=== PATIENT | male | born 1965 | race Caucasian/White ===

== ENCOUNTER → 2017-05-26 06:09 | Outpatient (CLI) | payer OTHER, SELFPAY ==
--- NOTE | 2017-05-26 13:18 | STRESSREP ---
Stress Test Report Date: 05/26/2017 Procedure: Exercise tolerance test/nuclear imaging study Indications: CAD; PCI; ischemic mediated cardiomyopathy Consent: Per the patient Procedure: The patient exercised on a Yoan protocol for 12 minutes completing stage IV achieving a peak heart rate of 160 bpm (93% predicted maximal heart rate) with a peak blood pressure 180/70 mmHg and a peak MET capacity of 13 MET's. The baseline ECG demonstrated sinus bradycardia. The peak exercise ECG demonstrated approximately 0.[address] segment depression in leads II, III, aVF, and V5 through V6 with resolution towards baseline beginning less than 1 minute in recovery. There were rare to occasional PVCs during exercise and a rare PVC during recovery. The functional capacity was considered good. The patient had no complaint of chest discomfort during exercise or recovery. The examination was discontinued secondary to completion of protocol. Impression: 1. Technically adequate (percent predicted maximal heart rate greater than 85%) exercise tolerance test 2. Peak exercise ECG with approximately 0.[address] segment depression in leads II, III, aVF, and V5 through V6 with resolution towards baseline beginning less than 1 minute in recovery 3. Rare to occasional PVC during exercise and rare PVC during recovery 4. Nuclear images pending Myocardial perfusion imaging study: Technique: The patient was injected with 11.7 mCi of technetium 99m Cardiolite and subsequently rest SPECT Cardiolite nuclear imaging was obtained in the horizontal long, vertical long, and short axis views. The patient exercised on a Yoan protocol for 12 minutes completing stage IV achieving a peak heart rate of 160 bpm (93% predicted maximal heart rate) with a peak blood pressure 180/70 mmHg and a peak MET capacity of 13 MET's the patient was injected with 33.5 mCi of technetium 99m Cardiolite and subsequently stress SPECT Cardiolite nuclear imaging was obtained in the horizontal long, vertical long, and short axis views. A gated Cardiolite study at peak stress was obtained. Interpretation: Rest and stress SPECT Cardiolite nuclear imaging status post realignment, normalization, and attenuation correction, demonstrates the appearance of subtle decreased tracer uptake in portions of the mid anterior/anteroseptal segments without significant change between rest and stress. Status post stress there is notation of subtle diminished tracer uptake near the distal anterior/anterior apical segments. There are similar type findings on the resting and stress polar map images. There is finished end systolic thickening and brightening in the distal anterior/anteroapical segments. The gated Cardiolite study demonstrates myocardial thickening and inward wall motion. The reported LVEF is 58%. Impression: 1. Rest and stress SPECT cardio light nuclear imaging demonstrate myocardial perfusion changes compatible with a small area of stress-induced myocardial ischemia involving portions of the distal anterior/anterior apical segments. 2. The gated Cardiolite study reports an LVEF of 58%. This note was generated with [employer] software. It may contain incorrect words, spelling, and punctuation that were not noted in checking the note before signing.
--- NOTE | 2017-05-26 13:29 | STRESSREP_ITS ---
Stress Test Report Date: 05/26/2017 Procedure: Exercise tolerance test/nuclear imaging study Indications: CAD; PCI; ischemic mediated cardiomyopathy Consent: Per the patient Procedure: The patient exercised on a Yoan protocol for 12 minutes completing stage IV achieving a peak heart rate of 160 bpm (93% predicted maximal heart rate) with a peak blood pressure 180/70 mmHg and a peak MET capacity of 13 MET's. The baseline ECG demonstrated sinus bradycardia. The peak exercise ECG demonstrated approximately 0.[address] segment depression in leads II , III, aVF, and V5 through V6 with resolution towards baseline beginning less than 1 minute in recovery. There were rare to occasional PVCs during exercise and a rare PVC during recovery. The functional capacity was considered good. The patient had no complaint of chest discomfort during exercise or recovery. The examination was discontinued secondary to completion of protocol. Impression: 1. Technically adequate (percent predicted maximal heart rate greater than 85% ) exercise tolerance test 2. Peak exercise ECG with approximately 0.[address] segment depression in leads II, III, aVF, and V5 through V6 with resolution towards baseline beginning less than 1 minute in recovery 3. Rare to occasional PVC during exercise and rare PVC during recovery 4. Nuclear images pending Myocardial perfusion imaging study: Technique: The patient was injected with 11.7 mCi of technetium 99m Cardiolite and subsequently rest SPECT Cardiolite nuclear imaging was obtained in the horizontal long, vertical long, and short axis views. The patient exercised on a Yoan protocol for 12 minutes completing stage IV achieving a peak heart rate of 160 bpm (93% predicted maximal heart rate) with a peak blood pressure 180/70 mmHg and a peak MET capacity of 13 MET's the patient was injected with 33.5 mCi of technetium 99m Cardiolite and subsequently stress SPECT Cardiolite nuclear imaging was obtained in the horizontal long, vertical long, and short axis views. A gated Cardiolite study at peak stress was obtained. Interpretation: Rest and stress SPECT Cardiolite nuclear imaging status post realignment, normalization, and attenuation correction, demonstrates the appearance of subtle decreased tracer uptake in portions of the mid anterior/anteroseptal segments without significant change between rest and stress. Status post stress there is notation of subtle diminished tracer uptake near the distal anterior/anterior apical segments. There are similar type findings on the resting and stress polar map images. There is finished end systolic thickening and brightening in the distal anterior/anteroapical segments. The gated Cardiolite study demonstrates myocardial thickening and inward wall motion. The reported LVEF is 58%. Impression: 1. Rest and stress SPECT cardio light nuclear imaging demonstrate myocardial perfusion changes compatible with a small area of stress-induced myocardial ischemia involving portions of the distal anterior/anterior apical segments. 2. The gated Cardiolite study reports an LVEF of 58%. This note was generated with [employer] software. It may contain incorrect words, spelling, and punctuation that were not noted in checking the note before signing.
== END ==
PROVIDERS: Visit Provider Internal Medicine Cardiovascular Disease
DX: I25.810 Atherosclerosis of coronary artery bypass graft(s) without angina pectoris (principal); Z95.5 Presence of coronary angioplasty implant and graft
CPT/HCPCS: 78452; 93017; A9500; A4216

== ENCOUNTER → 2017-05-29 13:05 | Outpatient (CLI) | payer OTHER, SELFPAY ==
--- NOTE | 2017-05-29 13:26 | RAD_ITS ---
STUDY: X-RAY CHEST REASON FOR EXAM: Male, 51 years old. Coronary artery disease. TECHNIQUE: PA and lateral views of the chest. COMPARISON: Comparison is made with prior study dated June 02, 2014. FINDINGS: The lungs are clear and expanded. There is no demonstrated pleural abnormality. Normal size heart. Normal mediastinum and iris. Normal visualized pulmonary arteries. Normal visualized aortic arch and descending thoracic aorta. Normal visualized thoracic spine. Normal visualized ribs, clavicles, and shoulders. There is no demonstrated abnormality of the visualized soft tissue structures of the upper abdomen. RAD/Chest PA and Lateral IMPRESSION: Normal x-ray examination of the chest. Electronically Signed: Sandro Aguilar MD at 14:20 EST Tel [phone], Service support ,
[2017-05-29 14:27] LABS: Absolute Lymphocyte Count 1.55 X10^3/ul (0.83-4.51); Absolute Neutrophil Count 2.4 X10^3/uL (2.0-7.7); Basophil# 0.03 X10^3/uL; Basophil% 0.7 % (0-1); Eosinophil# 0.18 X10^3/uL; Hematocrit 41.8 % (40-54); Hemoglobin 14.6 g/dl (13.0-16.5); Lymphocyte # 1.55 X10^3/ul (4.0); Lymphocyte % 34.5 % (19-41); Mean Corp Hgb Conc 34.9 g/gl (32-36); Mean Corpuscular Hgb 29.3 pg (27.0-32.0); Mean Corpuscular Volume 83.8 fL (80-94); Monocyte# 0.32 X10^3/uL; Monocyte% 7.1 % (0-10); Neutrophil % 53.5 % (47-70); Platelet Count 179 K/mm3 (150-450); RBC Distribution Width CV 13.1 % (11.6-14.6); RBC Distribution Width SD 39.6 fl (35.1-43.9); Red Blood Count 4.99 M/mm3 (4.6-6.2); White Blood Count 4.5 K/mm3 (4.4-11.0)
[2017-05-29 14:30] LABS: POSITIVE COUNT NO; POSITIVE DIFFERENTIAL NO; POSITIVE MORPHOLOGY NO
[2017-05-29 14:33] LABS: International Normalized Ratio 1.1; Partial Thromboplast Time 29.7 Seconds (24.1-36.2); Prothrombin Time (Protime)PT. 13.4 SECONDS (11.7-14.9)
[2017-05-29 15:10] LABS: Anion Gap 7 (5-15); BUN 12 mg/dL (7-18); BUN/Creat Ratio 13.5 RATIO (10-20); Calcium,Total 8.6 mg/dL (8.5-10.1); Chloride 102 mmol/L (98-107); Creatinine, Serum 0.89 mg/dL (0.70-1.30); EST Glomerular Filtration Rate 97 mL/min (>60); Est Glom Filt Rate - Afr Amer 117 mL/min (>60); Glucose 187 mg/dL (74-106); Potassium 3.7 mmol/L (3.5-5.1); Sodium Level 137 mmol/L (136-145)
== END ==
PROVIDERS: Nurse Practitioner Family; Visit Provider Internal Medicine Cardiovascular Disease
DX: I25.10 Atherosclerotic heart disease of native coronary artery without angina pectoris (principal); I25.5 Ischemic cardiomyopathy; R42 Dizziness and giddiness; E78.5 Hyperlipidemia, unspecified; R00.1 Bradycardia, unspecified; R94.39 Abnormal result of other cardiovascular function study
CPT/HCPCS: 36415; 71046; 80048; 85025; 85610; 85730

== ENCOUNTER 2017-06-01 06:59 | Day surgery (SDC) | payer OTHER, SELFPAY ==
[2017-06-01] VITALS (33 sets, daily range): BP systolic 102–157; BP diastolic 59–101; PULSE 39–62; RESP 11–17; TEMP 36.6–36.8; O2SAT 96–100; BMI 26.6; BMI 28.3; BMI 26.2
[2017-06-01 09:46] LABS: ACT Activated Clotting Time 208 sec (74-137)
--- NOTE | 2017-06-01 09:49 | CL.I_ITS ---
Patient Name: JAYDON ARELLANO Study Date: 06/01/2017 Performing: Wilian Dean MD Ht: 72 inches 183 cm : 1965 Wt: 196.5 lbs 89 kg Age: 51 Gender: male BSA: 2.11 PROCEDURE(S) PERFORMED [id number] W OR WO PTCA, SINGLE CORONARY ARTERY CLINICAL PROFILE AND CO-MORBIDITIES CONCLUSIONS Successful PTCA/LONNY of the mid LAD with a 2.5 x 20 Promus Synergy; 75%-->0%, no dissection. RECOMMENDATIONS Highly recommend quitting all tobacco products Follow up with primary veterinary technologist Risk factor modification ASA Indefinitley Plavix for at least 12 months Routine post interventional care Refer for Outpatient Cardiac Rehab Manual sheath removal per protocol Follow up with Dr. Dotson DESCRIPTION OF PROCEDURE The patient arrived to the procedure lab. The risks and benefits of the procedure as well as a full d escription of our services here and current unavailability of surgical backup were fully explained to the patient and/or their significant other prior to the catheterization. The Timeout was completed, verifying the correct patient and procedure. The patient's procedural site was prepped and draped in the usual fashion. Local anesthetic was given subcutaneously to right groin region with Lidocaine 2% Using a modified Seldinger technique,arterial access was obtained via the right femoral artery, a 4Fr sheath was inserted Left Coronary Artery selective angiography was performed in multiple views using a 4 Fr. JL5 catheter. Right Coronary Artery selective angiography was then performed in multiple vie ws using a 4 Fr. 3DRC catheter. Left Ventriculography was performed in GONZALES projection using a 4 Fr. P igtail catheter. LV to AO pullback pressures were then recorded.The images were reviewed and options discussed. A decision was then made to proceed with an Intervention, IVUS or other adjunct procedure. Arterial sheath was exchanged for a 6 Fr Sheath EBU 3.5 Guide catheter was inserted and engaged into the LCA. [place] Guide wire was advanced to the LAD. 2.5 by 20 synergy Drug Eluting stent was inser myrna Drug Eluting stent was advanced across the lesion in the LAD, mid. NC 3.0 by 8 Balloon catheter w as inserted post stent.. . The arterial sheath was sutured in place and capped. INTERVENTION INFORMATION LESION SITE: LAD (Mid) Lesion Complexity: High/C, thrombus present: No, culprit lesion: Yes, In-stent restenosis: No Pre Stenosis: 75 % Pre intervention CELE flow: 3 PROCEDURE: Drug Eluting Stent with pre and post dilatation Post Stenosis: 0 % Post intervention CELE flow: 3 Lesion Devices: Bauer .014 BMW [place] Straight 190cm Medtronic 6 Fr EBU3.5 100cm Guide Catheter Jeb Sci Synergy MR LONNY 2.50x20 Jeb Sci NC EMERGE MR 3.00x08 BALLOON COMPLICATIONS No Complications PROCEDURE MEDICATIONS Versed 1 mg IV Oxygen: 2 L/min via nasal cannula Heparin 6000 unit(s) IV 06/01/2017 09:15:09 Nitro 200 mcg IC 06/01/2017 09:17:34 Nitro 200 mcg IC 06/01/2017 09:17:34 Plavix 75 mg PO 06/01/2017 07:43:03 IV Fluids: .9 NaCl increased to wide open ml/hr 06/01/2017 09:17:27 SUMMARY OF HEMODYNAMIC DATA Time AIR REST ECG 07:25:20 AO 124/81 (101) SA 08:48:25 LV 127/10, 32 08:55:35 LV 129/8, 31 08:55:42 LV 120/9, 29 08:56:32 LV 123/9, 30 08:56:38 LVp 125/8, 29 08:56:48 AOp 126/72 (94) 08:56:53 AO 137/78 (101) 09:06:13 AO 133/70 (98) 09:16:12 Signed By Wilian Dean MD On 06/01/2017 09:49:02 Wilian Dean MD
--- NOTE | 2017-06-01 09:54 | EKG12_ITS ---
Test Reason : PCI Blood Pressure : / mmHG Vent. Rate : 044 BPM Atrial Rate : 044 BPM P-R Int : 178 ms QRS Dur : 102 ms QT Int : 472 ms P-R-T Axes : 061 072 061 degrees QTc Int : 403 ms Marked sinus bradycardia Abnormal ECG When compared with ECG of 11-JUN-2008 05:46, Criteria for Anterior infarct are no longer Present T wave amplitude has increased in Anterior leads Confirmed by SLOAN KUO ([id number]), writer editor SANTOS RUSSO ([id number]) on 06/04/2017 3:14:50 PM Referred By: Jareth Dotson Confirmed By:SLOAN KUO
--- NOTE | 2017-06-01 10:27 | CL.D_ITS ---
Patient Name: JAYDON ARELLANO Study Date: 06/01/2017 Performing: Jareth Dotson MD Ht: 72 inches 183 cm : 1965 Wt: 196.5 lbs 89 kg Age: 51 Gender: male BSA: 2.11 PROCEDURE(S) PERFORMED [id number]/COR/LV [id number] W OR WO PTCA, SINGLE CORONARY ARTERY CLINICAL PROFILE AND INDICATIONS INDICATIONS: Stable Angina CCS Class III Stress/Imaging Stress Test w/SPECT MPI: Yes Result: PositiveStress Test with SPECT MPI: Positive Angina Classification Anginal Classification w/in 2 Weeks: CCS III CAD Presentations: Stable angina. CONCLUSIONS Elevated Left Ventricular End Diastolic Pressure Segmented LV systolic dysfunction- Mild LVEF: by LV gram 45 % [place] Multivessel CAD (especially the LAD) RECOMMENDATIONS Risk factor modification Medical therapy Referred for immediate PCI of the LAD DESCRIPTION OF PROCEDURE The patient arrived to the procedure lab. The risks and benefits of the procedure as well as a full d escription of our services here and current unavailability of surgical backup were fully explained to the patient and/or their significant other prior to the catheterization. The Timeout was completed, verifying the correct patient and procedure. The patient's procedural site was prepped and draped in the usual fashion. Local anesthetic was given subcutaneously to right groin region with Lidocaine 2%. Using a modified Seldinger technique, arterial access was obtained via the right femoral artery, a 4 Fr sheath was inserted Left Coronary Artery selective angiography was performed in multiple views us ing a 4 Fr. JL5 catheter. Right Coronary Artery selective angiography was then performed in multiple views using a 4 Fr. 3DRC catheter. Left Ventriculography was performed in GONZALES projection using a 4 Fr . Pigtail catheter. LV to AO pullback pressures were then recorded.The arterial sheath was sutured in place and capped CORONARY ANGIOGRAPHY DOMINANCE: Right Dominant LEFT HEART ASSESSMENT Left Ventricular Ejection Fraction: by LV Gram 45 % Anterior Hypokinesis. Apical Hypokinesis Elevated Left Ventricular End Diastolic Pressure LVEDP: 32 mmHg LEFT MAIN: Angiographically normal LEFT ANTERIOR DECENDING ARTERY: PROX LAD: Previously placed stent is patent MID LAD: Previously placed stent is patent with distal irregular hazy 25% stenosis, Distal the to the Mid LAD stent: Smooth Concentric 85 % Stenosis CIRCUMFLEX ARTERY: Mild luminal irregularities RIGHT CORONARY ARTERY: Mild luminal irregularities PROX RCA: Eccentric: 10-25 % Stenosis MID RCA: Eccentric: 10-25 % Stenosis VALVE FINDINGS: Normal Aortic Valve function Normal Mitral Valve function AORTIC ROOT: Angiographically normal COMPLICATIONS No Complications PROCEDURE MEDICATIONS Versed 1 mg IV Oxygen: 2 L/min via nasal cannula Heparin 6000 unit(s) IV 06/01/2017 09:15:09 Nitro 200 mcg IC 06/01/2017 09:17:34 Nitro 200 mcg IC 06/01/2017 09:17:34 Plavix 75 mg PO 06/01/2017 07:43:03 IV Fluids: .9 NaCl increased to wide open ml/hr 06/01/2017 09:17:27 SUMMARY OF HEMODYNAMIC DATA Time AIR REST ECG 07:25:20 AO 124/81 (101) SA 08:48:25 LV 127/10, 32 08:55:35 LV 129/8, 31 08:55:42 LV 120/9, 29 08:56:32 LV 123/9, 30 08:56:38 LVp 125/8, 29 08:56:48 AOp 126/72 (94) 08:56:53 AO 137/78 (101) 09:06:13 AO 133/70 (98) 09:16:12 Signed By Jareth Dotson MD On 06/01/2017 10:26:26 Jareth Dotson MD
[2017-06-01 10:40] LABS: Absolute Lymphocyte Count 2.03 X10^3/ul (0.83-4.51); Absolute Neutrophil Count 1.7 X10^3/uL (2.0-7.7); Basophil# 0.02 X10^3/uL; Basophil% 0.5 % (0-1); Eosinophil# 0.22 X10^3/uL; Eosinophils% 5.1 % (0-5); Hematocrit 37.4 % (40-54); Hemoglobin 13.6 g/dl (13.0-16.5); Lymphocyte # 2.03 X10^3/ul (4.0); Lymphocyte % 47.3 % (19-41); Mean Corp Hgb Conc 36.4 g/gl (32-36); Mean Corpuscular Volume 82.6 fL (80-94); Mean Platelet Vol. 10.8 fl (6.2-12.0); Monocyte# 0.35 X10^3/uL; Monocyte% 8.2 % (0-10); Neutrophil # 1.67 X10^3/uL (2.7-7.7); Neutrophil % 38.9 % (47-70); Platelet Count 156 K/mm3 (150-450); RBC Distribution Width CV 12.9 % (11.6-14.6); RBC Distribution Width SD 38.4 fl (35.1-43.9); Red Blood Count 4.53 M/mm3 (4.6-6.2); White Blood Count 4.3 K/mm3 (4.4-11.0)
[2017-06-01 10:52] LABS: CPK Total, Creatine Kinase 124 U/L (39-308); POSITIVE COUNT NO; POSITIVE DIFFERENTIAL NO; POSITIVE MORPHOLOGY NO
[2017-06-01] MEDS: 0.9% Normal Saline 1,000 ML 150 ML IV (11:02)
--- NOTE | 2017-06-01 11:10 | NURSING ---
pt blood sugar 113 per patients pump
--- NOTE | 2017-06-01 11:41 | NURSING ---
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 Dean was aware of hematoma with sheath in place no changes to orders
--- NOTE | 2017-06-01 11:50 | CRPHASE1 ---
Patient Data/Charges Former Patient:: Phase II Micro Paleontologist:: Wilian Dean Refer Phase II:: Yes Phase II Referral:: [facility] Start Phase II:: After follow up visit with Micro Paleontologist Phase I Charge:: Level I - Education Risk Factors/Lifestyle Smoking Status: Former smoker Hx Hypertension: Yes Hx Diabetes Mellitus Type 1: Yes Hx Dyslipidemia: Yes Hx Obesity: Yes Height: 1.83 m Weight:: 87.9 kg BMI: 26.2 Family History: Family History (Last Reviewed 05/29/17 @ 15:15 by Hanna Ariza) Father CAD (coronary artery disease) Sister Hyperlipidemia Family History: High Cholesterol, Heart Disease Past Cardiac Illness: Ejection Fraction, Coronary Artery Disease, Previous PCI w/Stent, Other - Cardiac Arrest 2007, Cardiomyopathy Phase I Education Given On:: [place], Nutrition, Antiplatelet medication, CHF, Diabetes - Type I Issues Affecting Care:: None Knowledge of Condition:: Yes Learning Preferences: Verbal, Written, Audio/Visual, Demonstration Hospital Course Presenting Symptoms:: Abnormal stress test Medical/Surgical History [place]:: Yes CAD:: Yes Cardiomyopathy:: Yes Diabetes Type I:: Yes Hypertension:: Yes Dyslipidemia:: Yes Discharge/Home/Social Eval Exercise/Recreation/Interests:: pt previously did CR Ph 2 in 2006 and 2007.
[2017-06-01 11:51] LABS: ACT Activated Clotting Time 153 sec (74-137)
--- NOTE | 2017-06-01 11:55 | CRPHASE1_ITS ---
Patient Data/Charges Former Patient:: Phase II Accounts Payable Coordinator:: Wilian Dean Refer Phase II:: Yes Phase II Referral:: [facility] Start Phase II:: After follow up visit with Accounts Payable Coordinator Phase I Charge:: Level I - Education Risk Factors/Lifestyle Smoking Status: Former smoker Hx Hypertension: Yes Hx Diabetes Mellitus Type 1: Yes Hx Dyslipidemia: Yes Hx Obesity: Yes Height: 1.83 m Weight:: 87.9 kg BMI: 26.2 Family History: Family History (Last Reviewed 05/29/17 @ 15:15 by Hanna Ariza) Father CAD (coronary artery disease) Sister Hyperlipidemia Family History: High Cholesterol, Heart Disease Past Cardiac Illness: Ejection Fraction, Coronary Artery Disease, Previous PCI w /Stent, Other - Cardiac Arrest 2007, Cardiomyopathy Phase I Education Given On:: [place], Nutrition, Antiplatelet medication, CHF, Diabetes - Type I Issues Affecting Care:: None Knowledge of Condition:: Yes Learning Preferences: Verbal, Written, Audio/Visual, Demonstration Hospital Course Presenting Symptoms:: Abnormal stress test Medical/Surgical History [place]:: Yes CAD:: Yes Cardiomyopathy:: Yes Diabetes Type I:: Yes Hypertension:: Yes Dyslipidemia:: Yes Discharge/Home/Social Eval Exercise/Recreation/Interests:: pt previously did CR Ph 2 in 2006 and 2007.
--- NOTE | 2017-06-01 11:56 | CRPH1.INSTRU ---
General Education CAD and cardiac anatomy and function:: Patient communicates acknowledgment Explanation of diagnoses and procedures:: Patient communicates acknowledgment Sign/Symptoms of [place]:: Patient communicates acknowledgment Antiplatelet therapy: Patient communicates acknowledgment Proper use of NTG-SL: Patient communicates acknowledgment Emergency procedures and activation of EMS: Patient communicates acknowledgment Compliance of all prescribed medications: Patient communicates acknowledgment Smoking Patient Nicotine/Smoking Risk Factors Are:: Non-smoker Recommendations Include:: Previous smoker; encourage continued cessation Nicotine/Smoking Response Code:: Patient communicates acknowledgment Dyslipidemia Patient Dyslipidemia Risk Factors Are:: Total Cholesterol, Triglycerides, HDL, LDL Dyslipidemia Response Code:: Patient communicates acknowledgment Overweight/Obesity Patient Overweight/Obesity Risk Factors Are:: Overweight = 26-29 Recommendations Include:: Weight loss of 5-10%, Reduced calorie diet, Exercise 5-7 times/week Overweight/Obesity:: Patient communicates acknowledgment Hypertension Recommendations Include:: BP <130/80 if diabetic, DASH dietary guidelines, Decrease/maintain normal body weight, Moderation of ETOH Hypertension:: Patient communicates acknowledgment Heart Disease Patient Heart Disease Risk Factors Are:: Family history of heart disease < 65 years old, Previous cardiac event Recommendations Include:: Educated family members of their risk, Educated family members of importance of prevention of heart disease Heart Disease Response Code:: Patient communicates acknowledgment Diabetes Recommendations Include:: Maintain fasting blood sugars 70-110 md/dL, Maintain HgbA1c of 6% or less, Monitor blood sugar as prescribed, Diabetic dietary guidelines, Decrease/maintain body weight Diabetes:: Patient communicates acknowledgment Metabolic Syndrome Metabolic Syndrome Response Code:: Not instructed Sedentary Recommendations Include:: Aerobic exercise 5-7 times/week for 20-30 minutes continuously, Benefits of regular exercise, Discussed home walking program, Monitored Outpatient Cardiac Rehab Sedentary Response Code:: Patient communicates acknowledgment Stress Recommendations Include:: Identification of stressors, and assessment of coping skills, Stress management techniques Stress Response Code:: Patient communicates acknowledgment
[2017-06-01] MEDS: 0.9% NaCl Peripheral Flush Adult/Peds IV ×2 (11:59→18:53)
--- NOTE | 2017-06-01 11:59 | CRPH1.INST_ITS ---
General Education CAD and cardiac anatomy and function:: Patient communicates acknowledgment Explanation of diagnoses and procedures:: Patient communicates acknowledgment Sign/Symptoms of [place]:: Patient communicates acknowledgment Antiplatelet therapy: Patient communicates acknowledgment Proper use of NTG-SL: Patient communicates acknowledgment Emergency procedures and activation of EMS: Patient communicates acknowledgment Compliance of all prescribed medications: Patient communicates acknowledgment Smoking Patient Nicotine/Smoking Risk Factors Are:: Non-smoker Recommendations Include:: Previous smoker; encourage continued cessation Nicotine/Smoking Response Code:: Patient communicates acknowledgment Dyslipidemia Patient Dyslipidemia Risk Factors Are:: Total Cholesterol, Triglycerides, HDL, LDL Dyslipidemia Response Code:: Patient communicates acknowledgment Overweight/Obesity Patient Overweight/Obesity Risk Factors Are:: Overweight = 26-29 Recommendations Include:: Weight loss of 5-10%, Reduced calorie diet, Exercise 5 -7 times/week Overweight/Obesity:: Patient communicates acknowledgment Hypertension Recommendations Include:: BP <130/80 if diabetic, DASH dietary guidelines, Decrease/maintain normal body weight, Moderation of ETOH Hypertension:: Patient communicates acknowledgment Heart Disease Patient Heart Disease Risk Factors Are:: Family history of heart disease < 65 years old, Previous cardiac event Recommendations Include:: Educated family members of their risk, Educated family members of importance of prevention of heart disease Heart Disease Response Code:: Patient communicates acknowledgment Diabetes Recommendations Include:: Maintain fasting blood sugars 70-110 md/dL, Maintain HgbA1c of 6% or less, Monitor blood sugar as prescribed, Diabetic dietary guidelines, Decrease/maintain body weight Diabetes:: Patient communicates acknowledgment Metabolic Syndrome Metabolic Syndrome Response Code:: Not instructed Sedentary Recommendations Include:: Aerobic exercise 5-7 times/week for 20-30 minutes continuously, Benefits of regular exercise, Discussed home walking program, Monitored Outpatient Cardiac Rehab Sedentary Response Code:: Patient communicates acknowledgment Stress Recommendations Include:: Identification of stressors, and assessment of coping skills, Stress management techniques Stress Response Code:: Patient communicates acknowledgment
[2017-06-01] MEDS: Atropine Sulfate 1 MG/10 ML Syringe 0.5 MG IV (12:00)
--- NOTE | 2017-06-01 13:08 | NURSING ---
pt presented to ICU with what appeared as a hematoma per laboratory animal care veterinarian RN bruising was noted to puncture site. aware. after removing sheath bruising still present but site seemed to have just scar tissue vs hematoma. will address with Dr. Dean when he rounds on patient
[2017-06-01 13:59] LABS: M R Staph aureus DNA By PCR Negative (Negative); Probe Check PASS; Specimen Processing Control PASS
--- NOTE | 2017-06-01 16:36 | NURSING ---
1620,pt BS is 111 per pt insulin pump
[2017-06-01 17:00] LABS: Absolute Lymphocyte Count 1.73 X10^3/ul (0.83-4.51); Absolute Neutrophil Count 2.1 X10^3/uL (2.0-7.7); Basophil# 0.03 X10^3/uL; Basophil% 0.7 % (0-1); Eosinophil# 0.14 X10^3/uL; Eosinophils% 3.2 % (0-5); Hematocrit 39.2 % (40-54); Hemoglobin 13.6 g/dl (13.0-16.5); Lymphocyte # 1.73 X10^3/ul (4.0); Lymphocyte % 39.6 % (19-41); Mean Corp Hgb Conc 34.7 g/gl (32-36); Mean Corpuscular Hgb 28.7 pg (27.0-32.0); Mean Corpuscular Volume 82.7 fL (80-94); Mean Platelet Vol. 10.5 fl (6.2-12.0); Monocyte# 0.34 X10^3/uL; Monocyte% 7.8 % (0-10); Neutrophil # 2.12 X10^3/uL (2.7-7.7); Neutrophil % 48.5 % (47-70); Platelet Count 158 K/mm3 (150-450); RBC Distribution Width SD 38.5 fl (35.1-43.9); Red Blood Count 4.74 M/mm3 (4.6-6.2); White Blood Count 4.4 K/mm3 (4.4-11.0)
[2017-06-01 17:13] LABS: POSITIVE COUNT NO; POSITIVE DIFFERENTIAL NO; POSITIVE MORPHOLOGY NO
[2017-06-01 18:07] LABS: Bedside Glucose 105 mg/dL (70-110)
--- NOTE | 2017-06-01 18:50 | NURSING ---
reviewed Marcela Lora RN charting and agree with assessments
[2017-06-01 19:24] LABS: CPK Total, Creatine Kinase 113 U/L (39-308)
--- NOTE | 2017-06-01 21:48 | NURSING ---
Pt refused PM care did state he will clean up in the AM before going home.
[2017-06-01 22:08] LABS: Absolute Lymphocyte Count 1.84 X10^3/ul (0.83-4.51); Absolute Neutrophil Count 2.1 X10^3/uL (2.0-7.7); Basophil# 0.02 X10^3/uL; Basophil% 0.4 % (0-1); Eosinophil# 0.23 X10^3/uL; Eosinophils% 5.1 % (0-5); Hemoglobin 13.4 g/dl (13.0-16.5); Lymphocyte # 1.84 X10^3/ul (4.0); Lymphocyte % 40.7 % (19-41); Mean Corp Hgb Conc 35.3 g/gl (32-36); Mean Corpuscular Hgb 29.3 pg (27.0-32.0); Mean Platelet Vol. 10.4 fl (6.2-12.0); Monocyte# 0.33 X10^3/uL; Monocyte% 7.3 % (0-10); Neutrophil % 46.5 % (47-70); Platelet Count 158 K/mm3 (150-450); RBC Distribution Width SD 39.3 fl (35.1-43.9); Red Blood Count 4.58 M/mm3 (4.6-6.2); White Blood Count 4.5 K/mm3 (4.4-11.0)
[2017-06-01 22:10] LABS: CPK Total, Creatine Kinase 103 U/L (39-308)
[2017-06-01 22:12] LABS: POSITIVE COUNT NO; POSITIVE DIFFERENTIAL NO; POSITIVE MORPHOLOGY NO
[2017-06-01 23:51] LABS: Bedside Glucose 114 mg/dL (70-110)
[2017-06-02] VITALS (11 sets, daily range): BP systolic 101–117; BP diastolic 59–73; PULSE 39–48; RESP 12–15; TEMP 36.5–37.1; O2SAT 93–97
--- NOTE | 2017-06-02 01:55 | NURSING ---
Checked pt's BS and it was 68, he has insulin pump and manages his own treatment, pt asked for apple juice and it was given, he stated no need to recheck his sugar his pump will do it automatically. This RN confirmed and checked again and pt stated not to recheck his BS.
[2017-06-02 01:56] LABS: Bedside Glucose 68 mg/dL (70-110)
[2017-06-02 04:23] LABS: Absolute Lymphocyte Count 2.23 X10^3/ul (0.83-4.51); Basophil# 0.02 X10^3/uL; Basophil% 0.3 % (0-1); Eosinophil# 0.19 X10^3/uL; Eosinophils% 3.3 % (0-5); Hematocrit 38.3 % (40-54); Hemoglobin 13.5 g/dl (13.0-16.5); Lymphocyte # 2.23 X10^3/ul (4.0); Lymphocyte % 38.3 % (19-41); Mean Corp Hgb Conc 35.2 g/gl (32-36); Mean Corpuscular Hgb 29.3 pg (27.0-32.0); Mean Corpuscular Volume 83.3 fL (80-94); Mean Platelet Vol. 10.1 fl (6.2-12.0); Monocyte# 0.42 X10^3/uL; Monocyte% 7.2 % (0-10); Neutrophil # 2.96 X10^3/uL (2.7-7.7); Neutrophil % 50.7 % (47-70); Platelet Count 145 K/mm3 (150-450); RBC Distribution Width CV 13.1 % (11.6-14.6); RBC Distribution Width SD 39.5 fl (35.1-43.9); White Blood Count 5.8 K/mm3 (4.4-11.0)
[2017-06-02 04:24] LABS: POSITIVE COUNT NO; POSITIVE DIFFERENTIAL NO; POSITIVE MORPHOLOGY NO
[2017-06-02 04:43] LABS: Anion Gap 8 (5-15); BUN 12 mg/dL (7-18); BUN/Creat Ratio 14.2 RATIO (10-20); Calcium,Total 8.2 mg/dL (8.5-10.1); Chloride 105 mmol/L (98-107); Cholesterol 109 mg/dL (200); Creatinine, Serum 0.85 mg/dL (0.70-1.30); EST Glomerular Filtration Rate 102 mL/min (>60); Est Glom Filt Rate - Afr Amer 123 mL/min (>60); Estimated Creatinine Clearance 115.39 ml/min; Glucose 112 mg/dL (74-106); High Density Lipoprotein 67 mg/dL; Potassium 3.7 mmol/L (3.5-5.1); Sodium Level 140 mmol/L (136-145); Triglycerides 42 mg/dL; Very Low Density Lipoprotein 8 mg/dL (5-40)
--- NOTE | 2017-06-02 05:55 | EKG12_ITS ---
Test Reason : MORNING EKG Blood Pressure : / mmHG Vent. Rate : 052 BPM Atrial Rate : 052 BPM P-R Int : 172 ms QRS Dur : 100 ms QT Int : 468 ms P-R-T Axes : 060 066 031 degrees QTc Int : 435 ms Sinus bradycardia Otherwise normal ECG When compared with ECG of 01-JUN-2017 09:57, MANUAL COMPARISON REQUIRED, DATA IS UNCONFIRMED Confirmed by SLOAN KUO ([id number]), makeup editor SANTOS RUSSO ([id number]) on 06/04/2017 3:15:37 PM Referred By: Jareth Dotson Confirmed By:SLOAN KUO
[2017-06-02 07:51] LABS: Bedside Glucose 89 mg/dL (70-110)
--- NOTE | 2017-06-02 08:38 | PCM.DC.CCA ---
Discharge Diet: Low fat/ Low Cholesterol Discharge Activity: - - Do not lift anything greater than 10 lbs for 3 days, no strenous activity such as running for 2 weeks Return to work on:: 06/08/17 May shower in (days): 1 May resume sexual activity in: 1 week Lifting Restrictions: 10 pounds and also avoid any pushing or pulling for 3 days after your test. Call your doctor if your incision/area has: Continuous Slow Oozing, Sudden Increased Bleeding, Increased Pain/ Swelling, Increased Redness, Foul Smelling Discharge Call your doctor if you observe: Fever of 101 or Higher, Shortness of breath, Chest pain Remove Dressing in (days):: 1 Cleanse incision/area with: Soap & Water Additional Instructions: We did not change any of your medication. When you come in for an OV in 2 weeks we can talk about cardiac rehab. Allergies/Adverse Reactions: Allergies Penicillins [PCN] Allergy (Verified 05/29/17 15:17) Unknown ramipril Adverse Reaction (Intermediate, Verified 05/29/17 15:17) cough Medications to take at Discharge Insulin Pump Cartridge [T:Slim] 0 units MISCELL. UD 06/13/14 Nitroglycerin [Nitrostat] 0.4 mg SUBLINGUAL Q5M PRN 06/13/14 clopidogrel 75 mg tablet 75 mg PO DAILY #90 tab 05/12/17 valsartan 40 mg tablet 40 mg PO QDAY #30 tab 05/19/17 Research Medication 1 dose PO UD 05/29/17 aspirin 81 mg chewable tablet 81 mg PO QDAY tab 05/29/17 carvedilol 12.5 mg tablet 12.5 mg PO BID tab 05/29/17 rosuvastatin 20 mg tablet 20 mg PO UD 05/29/17 Ubidecarenone [Coenzyme Q10] 10 mg PO DAILY 06/01/17 Primary Care Physician: Jim Vanegas [Primary Care Provider] - Please follow up with your Primary Care Physician in: 2-4 weeks Please Follow Up With: Jareth Dotson MD When: we will call you with an appt time Proposed Discharge Date: 06/02/17 Cardiac Rehabilitation Info Cardiac Rehabilitation Program Information: Cardiac Rehabilitation is important for patients like you who are recovering from a heart problem. Cardiac rehabilitation programs are recognized as integral to the continued care of the patient with coronary heart disease. The cardiac rehabilitation program is designed to optimize a patient's physical, psychological, and social functioning. Health health care technician work in cardiac rehabilitation programs and assist you with getting the treatments you need to get stronger and healthier - like exercise, healthy eating habits, and medications. Cardiac rehabilitation has been show to help people with heart problems live longer and have better life enjoyment than people who do not go to cardiac rehabilitation. Please contact the Cardiac Rehabilitation Program at [facility] at in two weeks if you have not heard from them.
--- NOTE | 2017-06-02 08:43 | DCINST_ITS ---
Discharge Diet: Low fat/ Low Cholesterol Discharge Activity: - - Do not lift anything greater than 10 lbs for 3 days, no strenous activity such as running for 2 weeks Return to work on:: 06/08/17 May shower in (days): 1 May resume sexual activity in: 1 week Lifting Restrictions: 10 pounds and also avoid any pushing or pulling for 3 days after your test. Call your doctor if your incision/area has: Continuous Slow Oozing, Sudden Increased Bleeding, Increased Pain/ Swelling, Increased Redness, Foul Smelling Discharge Call your doctor if you observe: Fever of 101 or Higher, Shortness of breath, Chest pain Remove Dressing in (days):: 1 Cleanse incision/area with: Soap & Water Additional Instructions: We did not change any of your medication. When you come in for an OV in 2 weeks we can talk about cardiac rehab. Allergies/Adverse Reactions: Allergies Penicillins [PCN] Allergy (Verified 05/29/17 15:17) Unknown ramipril Adverse Reaction (Intermediate, Verified 05/29/17 15:17) cough Medications to take at Discharge Insulin Pump Cartridge [T:Slim] 0 units MISCELL. UD 06/13/14 Nitroglycerin [Nitrostat] 0.4 mg SUBLINGUAL Q5M PRN 06/13/14 clopidogrel 75 mg tablet 75 mg PO DAILY #90 tab 05/12/17 valsartan 40 mg tablet 40 mg PO QDAY #30 tab 05/19/17 Research Medication 1 dose PO UD 05/29/17 aspirin 81 mg chewable tablet 81 mg PO QDAY tab 05/29/17 carvedilol 12.5 mg tablet 12.5 mg PO BID tab 05/29/17 rosuvastatin 20 mg tablet 20 mg PO UD 05/29/17 Ubidecarenone [Coenzyme Q10] 10 mg PO DAILY 06/01/17 Primary Care Physician: Jim Vanegas [Primary Care Provider] - Please follow up with your Primary Care Physician in: 2-4 weeks Please Follow Up With: Jareth Dotson MD When: we will call you with an appt time Proposed Discharge Date: 06/02/17 Cardiac Rehabilitation Info Cardiac Rehabilitation Program Information: Cardiac Rehabilitation is important for patients like you who are recovering from a heart problem. Cardiac rehabilitation programs are recognized as integral to the continued care of the patient with coronary heart disease. The cardiac rehabilitation program is designed to optimize a patient's physical, psychological, and social functioning. Health caretaker resort work in cardiac rehabilitation programs and assist you with getting the treatments you need to get stronger and healthier - like exercise, healthy eating habits, and medications. Cardiac rehabilitation has been show to help people with heart problems live longer and have better life enjoyment than people who do not go to cardiac rehabilitation. Please contact the Cardiac Rehabilitation Program at [facility] at in two weeks if you have not heard from them.
[2017-06-02] MEDS: Aspirin 81 MG TAB.CHEW PO (08:49)
[2017-06-02] MEDS: Carvedilol 12.5 MG Tablet PO (08:49)
[2017-06-02] MEDS: VALSARTAN 40 MG TABLET PO (08:50)
[2017-06-02] MEDS: Clopidogrel Bisulfate 75 MG Tablet PO (08:50)
--- NOTE | 2017-06-02 15:56 | PCM.PN.CARD ---
Subjectve: She was evaluated earlier this day. He denied any ongoing concerns of chest discomfort or difficulty breathing. There was no obvious post cardiac catheterization related adverse events. Objective: Vital Signs Temp Pulse Resp BP Pulse Ox 97.7 F L 48 L 12 117/67 96 06/02/17 10:02 06/02/17 10:02 06/02/17 10:02 06/02/17 10:02 06/02/17 10:02 Oxygen Delivery Method Room Air Weight: 202 lb 2.622 oz Body Mass Index (BMI) 28.3 Intake and Output for Last 24 Hours 05/31/17 06/01/17 06/02/17 23:59 23:59 23:59 Intake Total 1538 / 1538 250 / 250 Output Total 1200 / 1200 Balance 338 / 338 250 / 250 General: Awake, Alert, Oriented x 3, Cooperative, No Acute Distress Neck: No JVD Lungs: Clear to auscultation Cardiovascular: Regular Rhythm, Normal S1, Normal S2 Vascular: Normal Femoral Pulses Abdomen: Bowel Sounds Present, Soft, Non Tender Extremities: No edema Neurological: No Focal Motor or Sensory Deficit 06/01/17 16:50: WBC 4.4, RBC 4.74, Hgb 13.6, Hct 39.2 L, MCV 82.7, MCH 28.7, MCHC 34.7, RDW 13.0, RDW Differential 38.5, Plt Count 158, MPV 10.5, Immature Gran % (Auto) 0.200, Neut % (Auto) 48.5, Lymph % (Auto) 39.6, [place] % (Auto) 7.8, Eos % (Auto) 3.2, Baso % (Auto) 0.7, Absolute Neuts (auto) 2.1, Total Counted Not Reportable 06/01/17 21:44: WBC 4.5, RBC 4.58 L, Hgb 13.4, Hct 38.0 L, MCV 83.0, MCH 29.3, MCHC 35.3, RDW 13.0, RDW Differential 39.3, Plt Count 158, MPV 10.4, Immature Gran % (Auto) 0.000, Neut % (Auto) 46.5 L, Lymph % (Auto) 40.7, [place] % (Auto) 7.3, Eos % (Auto) 5.1 H, Baso % (Auto) 0.4, Absolute Neuts (auto) 2.1, Total Counted Not Reportable 06/02/17 04:10: Sodium 140, Potassium 3.7, Chloride 105, Carbon Dioxide 27.0, Anion Gap 8, BUN 12, Creatinine 0.85, Est GFR (MDRD) Af Amer 123, Est GFR (MDRD) Non-Af 102, BUN/Creatinine Ratio 14.2, Glucose 112 H, Calcium 8.2 L, Triglycerides 42, Cholesterol 109, LDL Cholesterol 34, VLDL Cholesterol 8, HDL Cholesterol 67 06/02/17 04:10: WBC 5.8, RBC 4.60, Hgb 13.5, Hct 38.3 L, MCV 83.3, MCH 29.3, MCHC 35.2, RDW 13.1, RDW Differential 39.5, Plt Count 145 L, MPV 10.1, Immature Gran % (Auto) 0.200, Neut % (Auto) 50.7, Lymph % (Auto) 38.3, [place] % (Auto) 7.2, Eos % (Auto) 3.3, Baso % (Auto) 0.3, Absolute Neuts (auto) 3.0, Total Counted Not Reportable Rhythm: Sinus rhythm/sinus bradycardia EKG: Sinus bradycardia acute ECG changes Assessment/Plan 1. CAD status post [place]-remote status post PCI-remote/recent The patient is now status post repeat diagnostic cardiac catheterization and repeat LAD PCI. He appears to be without any acute adverse cardiovascular events/concern. He will continue medical management. He will continue with future outpatient cardiovascular follow-up. 2. Hyperlipidemia The patient will continue medical management and follow-up. 3. Diabetes mellitus The patient will continue under the care of his primary care physician for this. Comment: The above was discussed and reviewed with the patient. This note was generated with [employer] software. It may contain incorrect words, spelling, and punctuation that were not noted in checking the note before signing.
--- NOTE | 2017-06-02 16:00 | PN.CARD_ITS ---
Subjectve: She was evaluated earlier this day. He denied any ongoing concerns of chest discomfort or difficulty breathing. There was no obvious post cardiac catheterization related adverse events. Objective: Vital Signs Temp Pulse Resp BP Pulse Ox 97.7 F L 48 L 12 117/67 96 06/02/17 10:02 06/02/17 10:02 06/02/17 10:02 06/02/17 10:02 06/02/17 10:02 Oxygen Delivery Method Room Air Weight: 202 lb 2.622 oz Body Mass Index (BMI) 28.3 Intake and Output for Last 24 Hours 05/31/17 06/01/17 06/02/17 23:59 23:59 23:59 Intake Total 1538 / 1538 250 / 250 Output Total 1200 / 1200 Balance 338 / 338 250 / 250 General: Awake, Alert, Oriented x 3, Cooperative, No Acute Distress Neck: No JVD Lungs: Clear to auscultation Cardiovascular: Regular Rhythm, Normal S1, Normal S2 Vascular: Normal Femoral Pulses Abdomen: Bowel Sounds Present, Soft, Non Tender Extremities: No edema Neurological: No Focal Motor or Sensory Deficit 06/01/17 16:50: WBC 4.4, RBC 4.74, Hgb 13.6, Hct 39.2 L, MCV 82.7, MCH 28.7, MCHC 34.7, RDW 13.0, RDW Differential 38.5, Plt Count 158, MPV 10.5, Immature Gran % (Auto) 0.200, Neut % (Auto) 48.5, Lymph % (Auto) 39.6, [place] % (Auto) 7.8 , Eos % (Auto) 3.2, Baso % (Auto) 0.7, Absolute Neuts (auto) 2.1, Total Counted Not Reportable 06/01/17 21:44: WBC 4.5, RBC 4.58 L, Hgb 13.4, Hct 38.0 L, MCV 83.0, MCH 29.3, MCHC 35.3, RDW 13.0, RDW Differential 39.3, Plt Count 158, MPV 10.4, Immature Gran % (Auto) 0.000, Neut % (Auto) 46.5 L, Lymph % (Auto) 40.7, [place] % (Auto) 7.3, Eos % (Auto) 5.1 H, Baso % (Auto) 0.4, Absolute Neuts (auto) 2.1, Total Counted Not Reportable 06/02/17 04:10: Sodium 140, Potassium 3.7, Chloride 105, Carbon Dioxide 27.0, Anion Gap 8, BUN 12, Creatinine 0.85, Est GFR (MDRD) Af Amer 123, Est GFR (MDRD ) Non-Af 102, BUN/Creatinine Ratio 14.2, Glucose 112 H, Calcium 8.2 L, Triglycerides 42, Cholesterol 109, LDL Cholesterol 34, VLDL Cholesterol 8, HDL Cholesterol 67 06/02/17 04:10: WBC 5.8, RBC 4.60, Hgb 13.5, Hct 38.3 L, MCV 83.3, MCH 29.3, MCHC 35.2, RDW 13.1, RDW Differential 39.5, Plt Count 145 L, MPV 10.1, Immature Gran % (Auto) 0.200, Neut % (Auto) 50.7, Lymph % (Auto) 38.3, [place] % (Auto) 7.2 , Eos % (Auto) 3.3, Baso % (Auto) 0.3, Absolute Neuts (auto) 3.0, Total Counted Not Reportable Rhythm: Sinus rhythm/sinus bradycardia EKG: Sinus bradycardia acute ECG changes Assessment/Plan 1. CAD status post [place]-remote status post PCI-remote/recent The patient is now status post repeat diagnostic cardiac catheterization and repeat LAD PCI. He appears to be without any acute adverse cardiovascular events/concern. He will continue medical management. He will continue with future outpatient cardiovascular follow-up. 2. Hyperlipidemia The patient will continue medical management and follow-up. 3. Diabetes mellitus The patient will continue under the care of his primary care physician for this. Comment: The above was discussed and reviewed with the patient. This note was generated with [employer] software. It may contain incorrect words, spelling, and punctuation that were not noted in checking the note before signing.
== END 2017-06-02 10:00 | disposition home or self-care (01) ==
LOC: CLSP 07:47 → ICU 09:45
PROVIDERS: Internal Medicine Cardiovascular Disease; Visit Provider Internal Medicine Cardiovascular Disease
DX: I25.110 Atherosclerotic heart disease of native coronary artery with unstable angina pectoris (principal); I25.5 Ischemic cardiomyopathy; E78.2 Mixed hyperlipidemia; R00.1 Bradycardia, unspecified; E10.9 Type 1 diabetes mellitus without complications; Z86.74 Personal history of sudden cardiac arrest; Z95.5 Presence of coronary angioplasty implant and graft; Z79.4 Long term (current) use of insulin; Z96.41 Presence of insulin pump (external) (internal); Z79.82 Long term (current) use of aspirin; Z79.899 Other long term (current) drug therapy; Z87.891 Personal history of nicotine dependence
CPT/HCPCS: 80048; 80061; 82550; 82962; 85025; 85347; 87641; 92928; 93005; 93458; 99152; 99153; J7030; J7040; A4216; C1725; C1769; C1874; C1887; C1894; C9600; Q9967

== ENCOUNTER → 2017-06-11 09:52 | Outpatient (CLI) | payer OTHER, SELFPAY ==
[2017-06-01 11:55] VITALS: BMI 26.2
--- NOTE | 2017-06-11 10:03 | EKG12_ITS ---
Test Reason : PALPITATIONS Blood Pressure : / mmHG Vent. Rate : 046 BPM Atrial Rate : 046 BPM P-R Int : 172 ms QRS Dur : 100 ms QT Int : 454 ms P-R-T Axes : 057 069 043 degrees QTc Int : 397 ms Marked sinus bradycardia Abnormal ECG Confirmed by KALEIGH EVANGELISTA, GORGE ([id number]), editor at large SANTOS RUSSO ([id number] on 06/16/2017 2:20:50 PM Referred By: Shelbi Allan Confirmed By:GORGE FARRIS MD
== END ==
PROVIDERS: Visit Provider Physician Assistant Medical
DX: I25.10 Atherosclerotic heart disease of native coronary artery without angina pectoris (principal); R00.2 Palpitations; Z82.41 Family history of sudden cardiac death
CPT/HCPCS: 93005

== ENCOUNTER → 2017-10-20 06:05 | Outpatient (CLI) | payer OTHER, SELFPAY ==
[2017-06-01 11:55] VITALS: BMI 26.2
[2017-10-20 09:06] LABS: Bedside Glucose 207 mg/dL (70-110)
--- NOTE | 2017-10-20 10:00 | STRESSREP ---
Stress Test Report Date: 10/20/2017 Procedure: Exercise tolerance test/imaging study Indications: Chest pain; CAD; status post PCI Consent: Per the patient Procedure: The patient exercised on a Yoan protocol for 12 minutes completing Stage 4 achieving a peak heart rate of 153 bpm (89 % predicted maximal heart rate) with a peak blood pressure 150/60 mmHg and a peak MET capacity of 13 METs. The baseline ECG demonstrated sinus bradycardia. The peak exercise ECG demonstrated somatic/motion artifact with no obvious ECG changes. There were rare PVCs during exercise and recovery and an isolated ventricular couplet during exercise. The functional capacity was considered ventricular couplet with exercise. There was no complaint of chest discomfort during exercise or recovery. The examination was discontinued secondary to dyspnea and leg discomfort. Impression: 1. Technically adequate (percent predicted maximal heart rate greater than 85%) exercise tolerance test 2. Peak exercise ECG demonstrated somatic/motion artifact with no obvious ECG changes 3. There were rare PVCs during exercise and recovery and an isolated ventricular couplet during exercise. 4. Nuclear images pending Myocardial perfusion imaging study: Technique: The patient was injected with 11.9 mCi of technetium 99m Cardiolite and subsequently rest SPECT Cardiolite nuclear imaging was obtained in the horizontal long, vertical long, and short axis views. The patient exercised on a Yoan protocol for 12 minutes completing Stage 4 achieving a peak heart rate of 153 bpm (89 % predicted maximal heart rate) with a peak blood pressure 150/60 mmHg and a peak MET capacity of 13 METs. The patient was injected with 32.8 mCi of technetium 99m Cardiolite and subsequently stress SPECT Cardiolite nuclear imaging was obtained in the horizontal long, vertical long, and short axis views. A gated Cardiolite study at peak stress was obtained. Interpretation: Rest and stress SPECT Cardiolite nuclear imaging status post realignment, normalization, and attenuation correction, demonstrates at rest the appearance of diminished tracer uptake in portions of the distal anterior, distal lateral, and lateral apical segments and status post stress additional diminished tracer uptake in portions of the mid anterior/anteroseptal segments. There are similar type findings on the resting and stress polar map images. There is diminished end systolic thickening in the aforementioned areas. The gated Cardiolite study demonstrates diminished myocardial thickening and inward wall motion in the mid anterior area. The reported LVEF is 49 %. Impression: 1. Rest and stress SPECT Cardiolite nuclear imaging demonstrate myocardial perfusion changes appearing compatible with an area of previous myocardial injury/infarction involving portions of the distal anterior, distal lateral, and lateral apical segments as well as post stress myocardial perfusion changes concerning for an area of stress-induced myocardial ischemia in the mid anterior/anteroseptal segments. 2. The gated Cardiolite study reports an LVEF of 49 %. This note was generated with [employer] software. It may contain incorrect words, spelling, and punctuation that were not noted in checking the note before signing.
--- NOTE | 2017-10-20 10:13 | STRESSREP_ITS ---
Stress Test Report Date: 10/20/2017 Procedure: Exercise tolerance test/imaging study Indications: Chest pain; CAD; status post PCI Consent: Per the patient Procedure: The patient exercised on a Yoan protocol for 12 minutes completing Stage 4 achieving a peak heart rate of 153 bpm (89 % predicted maximal heart rate) with a peak blood pressure 150/60 mmHg and a peak MET capacity of 13 METs. The baseline ECG demonstrated sinus bradycardia. The peak exercise ECG demonstrated somatic/motion artifact with no obvious ECG changes. There were rare PVCs during exercise and recovery and an isolated ventricular couplet during exercise. The functional capacity was considered ventricular couplet with exercise. There was no complaint of chest discomfort during exercise or recovery. The examination was discontinued secondary to dyspnea and leg discomfort. Impression: 1. Technically adequate (percent predicted maximal heart rate greater than 85% ) exercise tolerance test 2. Peak exercise ECG demonstrated somatic/motion artifact with no obvious ECG changes 3. There were rare PVCs during exercise and recovery and an isolated ventricular couplet during exercise. 4. Nuclear images pending Myocardial perfusion imaging study: Technique: The patient was injected with 11.9 mCi of technetium 99m Cardiolite and subsequently rest SPECT Cardiolite nuclear imaging was obtained in the horizontal long, vertical long, and short axis views. The patient exercised on a Yoan protocol for 12 minutes completing Stage 4 achieving a peak heart rate of 153 bpm (89 % predicted maximal heart rate) with a peak blood pressure 150/ 60 mmHg and a peak MET capacity of 13 METs. The patient was injected with 32.8 mCi of technetium 99m Cardiolite and subsequently stress SPECT Cardiolite nuclear imaging was obtained in the horizontal long, vertical long, and short axis views. A gated Cardiolite study at peak stress was obtained. Interpretation: Rest and stress SPECT Cardiolite nuclear imaging status post realignment, normalization, and attenuation correction, demonstrates at rest the appearance of diminished tracer uptake in portions of the distal anterior, distal lateral, and lateral apical segments and status post stress additional diminished tracer uptake in portions of the mid anterior/anteroseptal segments. There are similar type findings on the resting and stress polar map images. There is diminished end systolic thickening in the aforementioned areas. The gated Cardiolite study demonstrates diminished myocardial thickening and inward wall motion in the mid anterior area. The reported LVEF is 49 %. Impression: 1. Rest and stress SPECT Cardiolite nuclear imaging demonstrate myocardial perfusion changes appearing compatible with an area of previous myocardial injury/infarction involving portions of the distal anterior, distal lateral, and lateral apical segments as well as post stress myocardial perfusion changes concerning for an area of stress-induced myocardial ischemia in the mid anterior /anteroseptal segments. 2. The gated Cardiolite study reports an LVEF of 49 %. This note was generated with [employer] software. It may contain incorrect words, spelling, and punctuation that were not noted in checking the note before signing.
== END ==
PROVIDERS: Visit Provider Internal Medicine Cardiovascular Disease
DX: I25.10 Atherosclerotic heart disease of native coronary artery without angina pectoris (principal); R07.9 Chest pain, unspecified; Z95.5 Presence of coronary angioplasty implant and graft
CPT/HCPCS: 78452; 82962; 93017; A9500; A4216

== ENCOUNTER → 2018-06-15 10:02 | Outpatient (CLI) | payer OTHER, SELFPAY ==
[2017-06-01 11:55] VITALS: BMI 26.2
[2018-06-09 13:06] VITALS: BMI 27.0
[2018-06-15 11:44] LABS: AST(SGOT) 25 U/L (15-37); Alanine Aminotransfer ALT/SGPT 29 U/L (16-61); Albumin, Serum 3.9 g/dL (3.2-5.0); Alkaline Phosphatase 86 U/L (45-117); Cholesterol 147 mg/dL (200); Globulin 3.5 g/dL (2.2-4.2); High Density Lipoprotein 87 mg/dL; Protein, Total 7.4 g/dL (6.4-8.2); Triglycerides 55 mg/dL; Very Low Density Lipoprotein 11 mg/dL (5-40)
== END ==
PROVIDERS: Referring Provider Nurse Practitioner Family; Visit Provider Nurse Practitioner Family
DX: E78.5 Hyperlipidemia, unspecified (principal); I25.10 Atherosclerotic heart disease of native coronary artery without angina pectoris; E10.9 Type 1 diabetes mellitus without complications
CPT/HCPCS: 36415; 80061; 80076

== ENCOUNTER → 2018-09-02 | Outpatient (CLI) | payer OTHER, SELFPAY ==
[2017-06-01 11:55] VITALS: BMI 26.2
[2018-06-09 13:06] VITALS: BMI 27.0
[2018-09-02 13:39] LABS: AST(SGOT) 19 U/L (15-37); Alanine Aminotransfer ALT/SGPT 24 U/L (16-61); Albumin, Serum 3.7 g/dL (3.2-5.0); Alkaline Phosphatase 101 U/L (45-117); Bilirubin, Direct 0.37 mg/dL (0.00-0.30); Globulin 3.6 g/dL (2.2-4.2); Protein, Total 7.3 g/dL (6.4-8.2)
== END | disposition home or self-care (01) ==
LOC: LAB 11:43
PROVIDERS: Referring Provider Nurse Practitioner Family; Visit Provider Nurse Practitioner Family
DX: E80.6 Other disorders of bilirubin metabolism (principal)
CPT/HCPCS: 36415; 80076

== ENCOUNTER → 2018-09-22 | Outpatient (CLI) | payer BC, SELFPAY ==
[2017-06-01 11:55] VITALS: BMI 26.2
[2018-06-09 13:06] VITALS: BMI 27.0
[2018-09-22 10:14] LABS: AST(SGOT) 20 U/L (15-37); Alanine Aminotransfer ALT/SGPT 27 U/L (16-61); Albumin, Serum 3.4 g/dL (3.2-5.0); Alkaline Phosphatase 86 U/L (45-117); Anion Gap 8 (5-15); BUN 17 mg/dL (7-18); BUN/Creat Ratio 18.7 RATIO (10-20); Calcium,Total 8.7 mg/dL (8.5-10.1); Chloride 108 mmol/L (98-107); Cholesterol 141 mg/dL (200); Creatinine, Serum 0.91 mg/dL (0.70-1.30); EST Glomerular Filtration Rate 94 mL/min (>60); Est Glom Filt Rate - Afr Amer 114 mL/min (>60); Globulin 3.4 g/dL (2.2-4.2); Glucose 117 mg/dL (74-106); High Density Lipoprotein 73 mg/dL; Potassium 3.5 mmol/L (3.5-5.1); Protein, Total 6.8 g/dL (6.4-8.2); Sodium Level 144 mmol/L (136-145); Triglycerides 50 mg/dL; Very Low Density Lipoprotein 10 mg/dL (5-40)
[2018-09-22 10:19] LABS: Hemoglobin A1c 7.3 % (4.2-6.3)
== END | disposition home or self-care (01) ==
LOC: MTLAB 07:38
PROVIDERS: Family Provider Family Medicine; PCP Family Medicine; Referring Provider Family Medicine; Visit Provider Family Medicine
DX: E11.9 Type 2 diabetes mellitus without complications (principal)
CPT/HCPCS: 36415; 80053; 80061; 83036

== ENCOUNTER 2018-12-15 07:28 | Day surgery (SDC) | payer BC, SELFPAY ==
[2017-06-01 11:55] VITALS: BMI 26.2
[2018-12-14 14:59] VITALS: BMI 27.3
--- NOTE | 2018-12-14 16:00 | RAD_ITS ---
STUDY: X-RAY CHEST REASON FOR EXAM: Male, 53 years old. Chest pain TECHNIQUE: PA and lateral COMPARISON: May 29, 2017 FINDINGS: The lungs are clear and expanded. There is no demonstrated pleural abnormality. Normal size heart. Coronary artery stent is noted. Normal mediastinum. Tiny left hilar calcifications.. Normal visualized pulmonary arteries. Normal visualized aortic arch and descending thoracic aorta. Normal visualized thoracic spine. Normal visualized ribs, clavicles, and shoulders. There is no demonstrated abnormality of the visualized soft tissue structures of the upper abdomen. No significant change since prior exam RAD/Chest PA and Lateral IMPRESSION: No acute cardiopulmonary pathology Electronically Signed: Rafita Snowden MD at 16:48 EDT , Service support ,
[2018-12-14 17:09] LABS: Absolute Lymphocyte Count 1.94 X10^3/uL (0.83-4.51); Absolute Neutrophil Count 2.4 X10^3/uL (2.0-7.7); Basophil# 0.05 X10^3/uL; Eosinophil# 0.28 X10^3/uL; Eosinophils% 5.5 % (0-5); Hematocrit 41.5 % (40-54); Hemoglobin 14.4 g/dL (13.0-16.5); Lymphocyte # 1.94 X10^3/ul (4.0); Lymphocyte % 38.3 % (19-41); Mean Corp Hgb Conc 34.7 g/dL (32-36); Mean Corpuscular Hgb 29.7 pg (27.0-32.0); Mean Corpuscular Volume 85.6 fL (80-94); Monocyte% 7.9 % (0-10); NRBC Flagged by Analyzer 0 % (0-5); Neutrophil # 2.39 X10^3/uL (2.7-7.7); Neutrophil % 47.1 % (47-70); Platelet Count 162 K/mm3 (150-450); RBC Distribution Width CV 12.6 % (11.6-14.6); RBC Distribution Width SD 39.4 fl (35.1-43.9); Red Blood Count 4.85 M/mm3 (4.6-6.2); White Blood Count 5.1 K/mm3 (4.4-11.0)
[2018-12-14 17:14] LABS: Prothrombin Time (Protime)PT. 13.4 SECONDS (11.7-14.9)
[2018-12-14 17:15] LABS: Partial Thromboplast Time 28.1 Seconds (24.1-36.2)
[2018-12-14 18:06] LABS: Anion Gap 3 (5-15); BUN 14 mg/dL (7-18); BUN/Creat Ratio 15.5 RATIO (10-20); Chloride 104 mmol/L (98-107); EST Glomerular Filtration Rate 94 mL/min (>60); Est Glom Filt Rate - Afr Amer 114 mL/min (>60); Glucose 208 mg/dL (74-106); Sodium Level 138 mmol/L (136-145)
[2018-12-15] VITALS (22 sets, daily range): BP systolic 106–140; BP diastolic 52–84; PULSE 42–69; RESP 10–16; TEMP 36.4–36.6; O2SAT 96–100; BMI 27.0; BMI 27.2
--- NOTE | 2018-12-15 06:51 | HP.PCM_ITS ---
Problem List (1) Angina pectoris Status: Acute (2) CAD (coronary artery disease) Status: Chronic Qualifiers: Coronary Disease-Associated Artery/Lesion type: [place] artery (3) Presence of stent in coronary artery Status: Chronic Comment: PTCA/Stent prox and mid LAD 01/27/2007; PTCA/LONNY prox LAD 03/01/2008; PTCA/Stent for in stent re-stenosis to mid LAD 06/23/2014;PTCA/Stent for re-instent stenosis to Mid LAD 05/2017 (4) Ischemic cardiomyopathy Status: Chronic (5) Sinus bradycardia Status: Chronic (6) Hyperlipidemia Status: Chronic Qualifiers: (7) Diabetes mellitus type 1 Status: Chronic Qualifiers: History and Physical Date of Admission: 12/15/18 [facility] [address] [place] [address] OFFICE VISIT Date of Service: 12/14/18 MR#: [id number] Acct: [id number] Name: JAYDON ARELLANO Rep #: [id number] : 1965 Provider: Shelbi Allan Age/Sex: 53/M Location: [facility] Status: Signed HPI HPI History of Present Illness Details: JAYDON ARELLANO, is a 52 M who presents to the office today for an urgent appt for chest pain. He has a history of coronary artery disease with multiple stenting to his LAD, cardiac arrest in February 2008, ischemic cardiomyopathy, sinus bradycardia and hyperlipidemia. He underwent a nuclear stress test for decreased exercise tolerance and dizziness, stress test demonstrated a small area of stress-induced myocardial ischemia in the distal anterior and anterior apical segments. He had a diagnostic heart catheterization where he underwent stenting of his LAD in May 2017. He had concerning symptoms noted in October 2017 for progressive disease and he underwent a stress test that was considered to be abnormal. He opted to not undergo a heart catheterization. Pt sts that over the last few weeks he has not been feeling well. He notes that he has needed to stop and rest and has been running slower than he feels he should have. He notes that on Thursday he had chest pain while he was running. He debated about coming in, it went away when he stopped. He notes that when he would resume during his running he had chest pain. He sts that he does have heart burn that he is not sure of this is persistent today. He has occasionally have lightheadedness/dizziness. He does have palpitations and feels that they are slightly worse then before. He does not have any edema. Intake Vital Signs 12/14/18 Height 5 ft 11 in 12/14/18 Weight: 196 lb 12/14/18 Body Mass Index (BMI) 27.3 12/14/18 Blood Pressure 121/76 H 12/14/18 Blood Pressure Location Lt brachial 12/14/18 Respiratory Rate 16 12/14/18 Pulse Rate 47 L 12/14/18 Pulse Source Monitor 12/14/18 Pulse Ox 98 Intake Visit Reasons: PER MS, CP WHILE RUNNING Undercover Cop Required: No Accompanied by: None Is patient in pain?: No Allergies Penicillins [PCN] Allergy (Verified 12/14/18 14:59) Unknown lisinopril Adverse Reaction (Intermediate, Verified 12/14/18 14:59) cough ramipril Adverse Reaction (Intermediate, Verified 12/14/18 14:59) cough Medications Insulin Pump Cartridge [T:Slim] 0 units MISCELL. UD 06/13/14 [History Confirmed 12/14/18] aspirin 81 mg chewable tablet 81 mg PO QDAY tab 05/29/17 [History Confirmed 12/14/18] carvedilol 12.5 mg tablet 12.5 mg PO BID #180 tab 07/27/18 [Rx Confirmed 12/14/18] clopidogrel 75 mg tablet 75 mg PO DAILY #90 tab 07/27/18 [Rx Confirmed 12/14/18] losartan 25 mg tablet 25 mg PO DAILY #90 tab 07/27/18 [Rx Confirmed 12/14/18] nitroglycerin 0.4 mg sublingual tablet 0.4 mg SUBLINGUAL Q5M PRN #25 tab 12/14/18 [Rx Confirmed 12/14/18] rosuvastatin 20 mg tablet 10 mg PO SUTUTHSA@2200 tab 12/14/18 [History] [facility] Medical History Sinus bradycardia (Chronic) Ischemic cardiomyopathy (Chronic) Old myocardial infarction (Chronic) Palpitations (Chronic) Atherosclerosis of [place] coronary artery of [place] heart without angina pectoris (Chronic) Hyperlipidemia (Chronic) Diabetes mellitus type 1 (Chronic) Abnormal stress test (Chronic) Long-term current use of high risk medication other than anticoagulant (Chronic) Nonspecific abnormal unspecified cardiovascular function study (Chronic) Cardiac arrest (Resolved ~02/2008) Surgical History Presence of stent in coronary artery (Chronic) History of left heart catheterization (Chronic) Postsurgical percutaneous transluminal coronary angioplasty (PTCA) status (Chronic) Family History Father , 82 CAD (coronary artery disease) Myocardial infarction Sister Hyperlipidemia Other Family history of hyperlipidemia Family history of sudden cardiac Social History (Updated 12/14/18 @ 15:55 by ABIODUN Lee) Smoking Status: Former smoker how long ago did patient quit smokin alcohol intake: current alcohol intake frequency: a few times a week Alcohol type: beer substance use type: does not use diet: vegetarian caffeine: Yes Type: tea what type of physical activity do you participate in: running frequency: 3-4 times per week duration: 45-60 minutes/day seatbelt use: always do you feel safe at home: Yes ROS Const Const: Positive for fatigue and weakness; negative for fever(s) or headache(s) Eyes Eyes: Negative for blind spots, loss of peripheral vision or transient loss of vision ENT ENT: Negative for headache(s), dizziness, tinnitus or Nosebleed/epistaxis Cardio Chest Pain: Yes Palpitations: No Edema: None Muscle aches with walking: None Resp Respiratory: Positive for SOB with activity; negative for SOB at rest, SOB orthopnea\SOB lying down or Cough GI GI: Positive for heartburn; negative nausea, vomiting or vomiting blood/hematemesis : Negative for hematuria Musc Musc: Negative for muscle aches/ myalgia Neuro Neuro: Positive for weakness; negative for dizziness, lightheadedness, near syncope, syncope, orthostatic symptoms or headache(s) Blaze Hematologic/Lymphatic: Negative for easy bleeding Endo Endo: Positive for fatigue Cardiology Exam Const Appearance: cooperative, no acute distress and well developed Orientation: alert, awake and oriented x3 Head Head: normocephalic and atraumatic Mouth: moist mucous membranes Eyes General: appearance normal, both eyes and all related structures Conjunctivae: conjunctivae normal Pupils: PERRL EOM: EOM intact bilaterally Neck Neck: normal visual inspection, no lymphadenopathy and no JVD Carotids: Negative bruit Neck Mass: Negative Neck mass Chest Chest inspection: normal inspection of the chest and symmetric chest movement Auscultation: Bilateral: Clear to Auscultation Cardio Palpation: normal PMI Rate: regular rate Rhythm: regular rhythm Heart sounds: S1 normal and S2 normal; negative rub, gallop or murmur GI GI: normal to inspection, soft, no hepatosplenomegaly and bowel sounds present; negative tender Neuro General: alert, awake, oriented x3, CN's II-XI intact bilaterally and moves all extremities Extremities Pulses: Normal: Right Posterior Tibial Pulse, Left Posterior Tibial Pulse, Right Radial Pulse, Left Radial Pulse Lower Extremity Edema: None: Bilateral Psych Psychological: normal affect Assessment & Plan 1. Coronary artery disease involving [place] coronary artery of [place] heart with unstable angina pectoris I25.110 Plan - ABIODUN Lee With patient's symptoms of angina and his previous known abnormal stress test from October 2017 would like to proceed with a heart catheterization to further evaluate. Patient is agreeable to proceed. This will be scheduled for tomorrow with Dr. Dotson. He will continue with his aggressive medical management. He was given a new prescription for nitroglycerin. 2. Mixed hyperlipidemia E78.2 Plan - ABIODUN Lee Patient will continue with moderate intensity statin. 3. Type 1 diabetes mellitus without complication E10.9 Plan - ABIODUN Lee This is being managed by endocrine. Plan Detail Other Orders Orders: 12 Lead EKG performed by [facility] Today R00.2 Left Heart Cath/COR/LV Percut Today I25.10 Basic Metabolic Profile (BMP) Today I25.10 Partial Thromboplast Time Today I25.10 Prothrombin Time w/INR Today I25.10 CBC W/Diff, Automated Today I25.10 Chest PA and Lateral Today I25.10 Other Medications New: nitroglycerin 0.4 mg sublingual Q5M PRN 25 tabs 3RF Additional Comments - ABIODUN Lee The above patient was discussed with Dr. Dotson, he agrees with plan of care. Thank you for allowing us to participate in patient's plan of care, if you have any questions please do not hesitate to call. This note was generated using a voice recognition system and there may be incorrect words, spelling or punctuation errors that were not noted when reviewing the office note prior to saving. Follow Up 2 Weeks (MMM) 12/14/18 (print labs and CXR for pt to have done today- thank you) Coding Level of Care Code Off vis,est,level 4 Diagnoses Coronary artery disease involving [place] coronary artery of [place] heart with unstable angina pectoris I25.110 ??Coronary Disease-Associated Artery/Lesion type: [place] artery ??[place] vs. transplanted heart: [place] heart ??Associated angina: with unstable angina Mixed hyperlipidemia E78.2 ??Hyperlipidemia type: mixed hyperlipidemia Type 1 diabetes mellitus without complication E10.9 ??Diabetes mellitus complication status: without complication Coding Level of Care Code Off vis,est,level 4 Diagnoses Coronary artery disease involving [place] coronary artery of [place] heart with unstable angina pectoris I25.110 ??Coronary Disease-Associated Artery/Lesion type: [place] artery ??[place] vs. transplanted heart: [place] heart ??Associated angina: with unstable angina Mixed hyperlipidemia E78.2 ??Hyperlipidemia type: mixed hyperlipidemia Type 1 diabetes mellitus without complication E10.9 ??Diabetes mellitus complication status: without complication Supplemental Info Supplemental Information His most recent echocardiogram was performed on 01/06/2017. At that time his left ventricle had regional wall motion abnormalities with an overall LVEF of 50% with trivial MR/TR. His most recent exercise tolerance test was performed in May of this year. The results, with respect to nuclear imaging, is as noted below. Impression: 1. Rest and stress SPECT cardio light nuclear imaging demonstrate myocardial perfusion changes compatible with a small area of stress-induced myocardial ischemia involving portions of the distal anterior/anterior apical segments. 2. The gated Cardiolite study reports an LVEF of 58%. His most recent diagnostic cardiac catheterization was performed on 06/01/2017. The results are as noted below. His most recent diagnostic cardiac catheterization was performed on 06/01/2017. The results are as noted below. CORONARY ANGIOGRAPHY DOMINANCE: Right Dominant LEFT HEART ASSESSMENT Left Ventricular Ejection Fraction: by LV Gram 45 % Anterior Hypokinesis. Apical Hypokinesis Elevated Left Ventricular End Diastolic Pressure LVEDP: 32 mmHg LEFT MAIN: Angiographically normal LEFT ANTERIOR DECENDING ARTERY: PROX LAD: Previously placed stent is patent MID LAD: Previously placed stent is patent with distal irregular hazy 25% stenosis, Distal the to the Mid LAD stent: Smooth Concentric 85 % Stenosis CIRCUMFLEX ARTERY: Mild luminal irregularities RIGHT CORONARY ARTERY: Mild luminal irregularities PROX RCA: Eccentric: 10-25 % Stenosis MID RCA: Eccentric: 10-25 % Stenosis VALVE FINDINGS: Normal Aortic Valve function Normal Mitral Valve function AORTIC ROOT: Angiographically normal His most recent PCI was performed on 06/01/2017. The results are as noted below. CONCLUSIONS Successful PTCA/LONNY of the mid LAD with a 2.5 x 20 Promus Synergy; 75%-->0%, no dissection. Stress test in 2018: 1. Rest and stress SPECT Cardiolite nuclear imaging demonstrate myocardial perfusion changes appearing compatible with an area of previous myocardial injury/infarction involving portions of the distal anterior, distal lateral, and lateral apical segments as well as post stress myocardial perfusion changes concerning for an area of stress-induced myocardial ischemia in the mid anterior/anteroseptal segments. 2. The gated Cardiolite study reports an LVEF of 49 %. Labs LDL Cholesterol 58 mg/dL (0-130) 09/22/18 HDL Cholesterol 73 mg/dL (40-) 09/22/18 Triglycerides 50 mg/dL (-199) 09/22/18 VLDL Cholesterol 10 mg/dL (5-40) 09/22/18 Diagnostics Electrocardiogram 12/14/18 Stress Test Nuclear Medicine 10/20/17 Stress Test 10/20/17 12/14/18 1466 <Electronically signed by Shelbi Breen> Date _ Shelbi RASCON 12/14/18 1946<Electronically signed by Jareth Dotson MD> Cosigner Signature: Date (if applicable) Jareth Dotson MD CC: ~ I have re-examined the patient. There are no clinical changes since date of exam.
[2018-12-15 10:30] LABS: ACT Activated Clotting Time 208 sec (74-137)
--- NOTE | 2018-12-15 10:41 | CL.I_ITS ---
Patient Name: JAYDON ARELLANO Study Date: 12/15/2018 Performing: Wilian Dean MD Ht: 70.87 inches 180 cm : 1965 Wt: 188.58 lbs 85.54 kg Age: 53 Gender: male BSA: 2.05 PROCEDURE(S) PERFORMED [id number] W OR WO PTCA, SINGLE CORONARY ARTERY CLINICAL PROFILE AND CO-MORBIDITIES Indications: Worsening Angina, New Onset Angina <= 2 months, Stable Known CAD, LV Dysfunction Heart Failure: NYHA Class: 1, Newly Diagnosed: No, Heart Failure Type: Systolic Stress/Imaging Date: 10/20/2017 Stress Test with SPECT MPI: PositiveStress/Image Study Performed: No Angina Classification Anginal Classification w/in 2 Weeks: CCS II CAD Presentations: Stable angina. Unstable angina. Comorbidities/Risk Factors: Hypertension Dyslipidemia Prior PCI CONCLUSIONS Successful PTCA/LONNY with a 2.25 x 16 Promus Synergy, post dilated throughout with a 2.5 x 8 NC Balloo n; 75%-->0%, no dissection. RECOMMENDATIONS Highly recommend quitting all tobacco products Follow up with primary in store representative Risk factor modification ASA Indefinitley Plavix for at least 12 months Routine post interventional care Refer for Outpatient Cardiac Rehab Manual sheath removal per protocol Follow up with Dr. Dotson Manual sheath removal as pt is too thin for Mynx Closure. DESCRIPTION OF PROCEDURE The patient arrived to the procedure lab. The risks and benefits of the procedure as well as a full d escription of our services here and current unavailability of surgical backup were fully explained to the patient and/or their significant other prior to the catheterization. The Timeout was completed, verifying the correct patient and procedure. The patient's procedural site was prepped and draped in the usual fashion. Local anesthetic was given subcutaneously to right groin region with Lidocaine 2% Using a modified Seldinger technique,arterial access was obtained via the right femoral artery, a 4Fr sheath was inserted Left Coronary Artery selective angiography was performed in multiple views using a 4 Fr. JL5 catheter. Right Coronary Artery selective angiography was then performed in multiple vie ws using a 4 Fr. 3DRC catheter. Left Ventriculography was performed in GONZALES projection using a 4 Fr. P igtail catheter. LV to AO pullback pressures were then recorded.The images were reviewed and options discussed. A decision was then made to proceed with an Intervention, IVUS or other adjunc t procedure. Arterial sheath was exchanged for a 6 Fr Sheath. EBU 3.75 Guide catheter was inserted and engaged into the LCA. EBU 3.5 Guide catheter was inserted and engaged into the LCA. BMW Guide wire was advan dinesh to the LAD. Synergy 2.25x16 Drug Eluting stent was inserted. Angiogram performed post stent deplo yment. NC Emerge 2.50x8 Balloon catheter was inserted. PTCA balloon inflated at 14 atms for 14 secs. PTCA balloon inflated at 14 atms for 10 secs. PTCA balloon inflated at 14 atms for 8 secs. PTCA ballo on inflated at 14 atms for 8 secs. Angiogram performed post balloon dilatation. The arterial sheath was sutured in place and capped INTERVENTION INFORMATION LESION SITE: LAD (Mid) Lesion Complexity: Non-High/Non-C, lesion at bifurcation: No, thrombus present: No, lesion length: 16 mm, culprit lesion: Yes Pre Stenosis: 75 % Pre intervention CELE flow: 3 PROCEDURE: Drug Eluting Stent with pre and post dilatation Post Stenosis: 0 % Post intervention CELE flow: 3 COMPLICATIONS No Complications PROCEDURE MEDICATIONS Versed 1 mg IV Heparin 6000 unit(s) IV 12/15/2018 09:47:58 Nitro 200 mcg IC 12/15/2018 09:52:08 Nitro 200 mcg IC 12/15/2018 09:52:08 Plavix 75 mg PO 12/15/2018 07:43:02 IV Bolus: .9 NaCl 200 ml total 12/15/2018 09:48:04 SUMMARY OF HEMODYNAMIC DATA Time AIR REST ECG 07:48:00 AO 122/73 (94) SA 09:25:55 LV 130/0, 26 09:32:38 LV 135/0, 25 09:32:44 LV 141/2, 26 09:33:56 LVp 138/3, 27 09:34:03 AOp 138/73 (96) 09:34:08 Signed By Wilian Dean MD On 12/15/2018 10:41:13 AM Wilian Dean MD
--- NOTE | 2018-12-15 10:42 | EKG12_ITS ---
Test Reason : AM EKG Blood Pressure : / mmHG Vent. Rate : 046 BPM Atrial Rate : 046 BPM P-R Int : 174 ms QRS Dur : 102 ms QT Int : 478 ms P-R-T Axes : 060 069 054 degrees QTc Int : 418 ms Marked sinus bradycardia Abnormal ECG When compared with ECG of 15-DEC-2018 10:40, MANUAL COMPARISON REQUIRED, DATA IS UNCONFIRMED Confirmed by JUAN EVANGELISTA, JESSIE ([id number]), city editor ELVER CAR ([id number]) on 12/20/2018 3:17:31 PM Referred By: Jareth Dotson Confirmed By:ANNEL MARTINEZ MD
[2018-12-15] MEDS: 0.9% Normal Saline 1,000 ML 150 ML IV (11:07)
[2018-12-15 11:55] LABS: ACT Activated Clotting Time 164 sec (74-137)
[2018-12-15] MEDS: Atropine Sulfate 1 MG/10 ML Syringe 0.5 MG IV ×2 (11:58→12:03)
--- NOTE | 2018-12-15 14:21 | CRPHASE1_ITS ---
Patient Communication PHII Cardiac Rehab Discussed with Patient:: Yes Guide to Cardiac Rehab Given to Patient:: Yes Cardiac Rehab Facility Choice List Given to Patient:: Yes Choice Program [facility] CR PHII:: Communication Given to CR, Refer to [facility] Choice Program Other:: Communication Given to CR, With permission faxed order and referral information Equipment Operator:: Wilian Dean Refer Phase II Cardiac Rehab:: Yes Sessions:: 36 sessions - 3 days/wk, 12 weeks Risk Factors/Lifestyle Smoking Status: Former smoker Hx Hypertension: Yes Hx Diabetes Mellitus Type 2: Yes Hx Metabolic Disorders: No Hx Dyslipidemia: No Hx Obesity: No Height: 5 ft 11 in - BMI 27.2 Stress: Home/Family ETOH: No Substance Abuse: No Risk Factor for Sedentary Lifestyle: Moderate Risk Family History: Family History (Last Reviewed 12/14/18 @ 15:28 by ABIODUN Lee) Father CAD (coronary artery disease) Myocardial infarction Sister Hyperlipidemia Other Family history of hyperlipidemia Family history of sudden cardiac Past Cardiac Illness: Coronary Artery Disease, Myocardial Infarction, Previous PCI w/Stent Phase I Education Given On:: [place], Nutrition, Antiplatelet medication, Diabetes - Type II Issues Affecting Care:: None Knowledge of Condition:: Yes Learning Preferences: Verbal, Written Hospital Course Presenting Symptoms:: ABNORMAL STRESS Medical/Surgical History MS:: No Angina:: Yes - UNSTABLE CAD:: Yes Diabetes:: Yes Diabetes Type II:: Yes Hypertension:: Yes Dyslipidemia:: No PTCA:: Yes - 2006 Discharge/Home/Social Eval Discharge Disposition: Home Cardiac Rehabilitation Info Cardiac Rehabilitation Program Information: Cardiac Rehabilitation is important for patients like you who are recovering from a heart problem. Cardiac rehabilitation programs are recognized as integral to the continued care of the patient with coronary heart disease. The cardiac rehabilitation program is designed to optimize a patient's physical, psychological, and social functioning. Health intensive care unit registered nurse work in cardiac rehabilitation programs and assist you with getting the treatmen ts you need to get stronger and healthier - like exercise, healthy eating habits, and medications. Cardiac rehabilitation has been show to help people with heart problems live longer and have better life enjoyment than people who do not go to cardiac rehabilitation. Please contact the Cardiac Rehabilitation Program at [facility] at in two weeks if you have not heard from them.
--- NOTE | 2018-12-15 14:25 | CRPH1.INST_ITS ---
General Education CAD and cardiac anatomy and function:: Patient communicates acknowledgment Explanation of diagnoses and procedures:: Patient communicates acknowledgment Sign/Symptoms of ID:: Patient communicates acknowledgment Antiplatelet therapy: Patient communicates acknowledgment Proper use of NTG-SL: Not instructed Emergency procedures and activation of EMS: Patient communicates acknowledgment Compliance of all prescribed medications: Patient communicates acknowledgment Smoking Recommendations Include:: Previous smoker; encourage continued cessation Nicotine/Smoking Response Code:: Patient communicates acknowledgment Dyslipidemia Recommendations Include:: Lipid profile provided, Reviewed NCEP/ATP guidelines, Therapeutic Lifestyle Change dietary guidelines Dyslipidemia Response Code:: Patient communicates acknowledgment Overweight/Obesity Patient Overweight/Obesity Risk Factors Are:: Overweight = 26-29 Recommendations Include:: Weight loss of 5-10%, Reduced calorie diet, Exercise 5 -7 times/week Overweight/Obesity:: Patient communicates acknowledgment Hypertension Recommendations Include:: BP <130/80 if diabetic, DASH dietary guidelines, Decrease/maintain normal body weight, Moderation of ETOH Hypertension:: Patient communicates acknowledgment Heart Disease Patient Heart Disease Risk Factors Are:: Previous cardiac event Heart Disease Response Code:: Patient communicates acknowledgment Diabetes Date of HgbA1c:: 09/22/18 - 7.3 Recommendations Include:: Maintain fasting blood sugars 70-110 md/dL, Maintain HgbA1c of 6% or less, Monitor blood sugar as prescribed, Diabetic dietary guidelines, Decrease/maintain body weight Diabetes:: Patient communicates acknowledgment Metabolic Syndrome Recommendations Include:: Does not meet criteria Sedentary Recommendations Include:: Aerobic exercise 5-7 times/week for 20-30 minutes continuously, Benefits of regular exercise, Discussed home walking program, Monitored Outpatient Cardiac Rehab Sedentary Response Code:: Patient communicates acknowledgment Stress Recommendations Include:: Identification of stressors, and assessment of coping skills, Stress management techniques Stress Response Code:: Patient communicates acknowledgment
--- NOTE | 2018-12-15 19:18 | CL.D_ITS ---
Patient Name: JAYDON ARELLANO Study Date: 12/15/2018 Performing: Jareth Dotson MD Ht: 71 inches 180 cm : 1965 Wt: 188.8 lbs 85.54 kg Age: 53 Gender: male BSA: 2.05 PROCEDURE(S) PERFORMED QX43-CMX/COR/LV IN26-NSX W OR WO PTCA, SINGLE CORONARY ARTERY CLINICAL PROFILE AND INDICATIONS Indications: Worsening Angina, New Onset Angina <= 2 months, Stable Known CAD, LV Dysfunction Heart Failure: NYHA Class: 1, Newly Diagnosed: No, Heart Failure Type: Systolic Stress/Imaging Date: 10/20/2017Stress Test with SPECT MPI: PositiveStress/Image Study Performed: No Angina Classification Anginal Classification w/in 2 Weeks: CCS II CAD Presentations: Stable angina. Unstable angina. Comorbidities/Risk Factors: Hypertension Dyslipidemia Prior PCI CONCLUSIONS Elevated Left Ventricular End Diastolic Pressure Segmented LV systolic dysfunction- Mild LVEF: by LV gram 45 % [place] Multivessel CAD (predominantly LAD) RECOMMENDATIONS Risk factor modification Medical therapy Referred for immediate PCI DESCRIPTION OF PROCEDURE The patient arrived to the procedure lab. The risks and benefits of the procedure as well as a full d escription of our services here and current unavailability of surgical backup were fully explained to the patient and/or their significant other prior to the catheterization. The Timeout was completed, verifying the correct patient and procedure. The patient's procedural site was prepped and draped in the usual fashion. Local anesthetic was given subcutaneously to right groin region with Lidocaine 2%. Using a modified Seldinger technique, arterial access was obtained via the right femoral artery, a 4 Fr sheath was inserted Left Coronary Artery selective angiography was performed in multiple views us ing a 4 Fr. JL5 catheter. Right Coronary Artery selective angiography was then performed in multiple views using a 4 Fr. 3DRC catheter. Left Ventriculography was performed in GONZALES projection using a 4 Fr . Pigtail catheter. LV to AO pullback pressures were then recorded.The arterial sheath was sutured in place and capped CORONARY ANGIOGRAPHY DOMINANCE: Right Dominant LEFT HEART ASSESSMENT Left Ventricular Ejection Fraction: by LV Gram 45 % Apical Hypokinesis Elevated Left Ventricular End Diastolic Pressure LVEDP: 25 mmHg LEFT MAIN: Angiographically normal LEFT ANTERIOR DESCENDING ARTERY: PROX LAD: Previously placed stent is patent MID LAD: Previously placed stent has an instent 25 % restenosis, near the termination of the most dis amari statent: hazy 75 % Stenosis CIRCUMFLEX ARTERY: Mild luminal irregularities RIGHT CORONARY ARTERY: Mild luminal irregularities VALVE FINDINGS: Normal Aortic Valve function Normal Mitral Valve function AORTIC ROOT: Angiographically normal COMPLICATIONS No Complications PROCEDURE MEDICATIONS Versed 1 mg IV Heparin 6000 unit(s) IV 12/15/2018 09:47:58 Nitro 200 mcg IC 12/15/2018 09:52:08 Nitro 200 mcg IC 12/15/2018 09:52:08 Plavix 75 mg PO 12/15/2018 07:43:02 IV Bolus: .9 NaCl 200 ml total 12/15/2018 09:48:04 SUMMARY OF HEMODYNAMIC DATA Time AIR REST ECG 07:48:00 AO 122/73 (94) SA 09:25:55 LV 130/0, 26 09:32:38 LV 135/0, 25 09:32:44 LV 141/2, 26 09:33:56 LVp 138/3, 27 09:34:03 AOp 138/73 (96) 09:34:08 Signed By Jareth Dotson MD On 12/15/2018 19:17:34 Jareth Dotson MD
--- NOTE | 2018-12-15 21:40 | NURSING ---
Pt questioned regarding apparent medical record administrator connected to abd and he responded that's my insulin pump.I checked my bedtime blood sugar, it was 147 and I bolused myself already. When asked, pt informed this nurse that the basal rate for the insulin pump changes several times throughout the day, but will run at 0.725units/hr of Novolog insulin overnight. Pt's home regimen for glucometer monitoring is checking just before meals and usually 2hrs afterward. Pt stated that all MDs were aware of the insulin pump prior to procedure and no one told him to turn it off. Pt also informed this nurse that he fights to keep his insulin pump on every time he has a procedure.
[2018-12-15] MEDS: Carvedilol 12.5 MG Tablet PO (21:51)
[2018-12-15] MEDS: Losartan Potassium 25 MG Tablet PO (21:52)
[2018-12-16] VITALS (14 sets, daily range): BP systolic 95–114; BP diastolic 48–77; PULSE 42–52; RESP 11–17; TEMP 36.6–36.7; O2SAT 95–99
[2018-12-16 05:41] LABS: Hemoglobin 14.2 g/dL (13.0-16.5); Mean Corp Hgb Conc 34.6 g/dL (32-36); Mean Corpuscular Hgb 29.2 pg (27.0-32.0); Mean Corpuscular Volume 84.2 fL (80-94); Mean Platelet Vol. 10.4 fl (6.2-12.0); Platelet Count 152 K/mm3 (150-450); RBC Distribution Width CV 12.5 % (11.6-14.6); RBC Distribution Width SD 38.2 fl (35.1-43.9); Red Blood Count 4.87 M/mm3 (4.6-6.2); White Blood Count 5.3 K/mm3 (4.4-11.0)
[2018-12-16 06:14] LABS: AST(SGOT) 16 U/L (15-37); Alanine Aminotransfer ALT/SGPT 18 U/L (16-61); Albumin, Serum 2.8 g/dL (3.2-5.0); Alkaline Phosphatase 54 U/L (45-117); Anion Gap 7 (5-15); BUN 15 mg/dL (7-18); BUN/Creat Ratio 19.6 RATIO (10-20); Calcium,Total 7.4 mg/dL (8.5-10.1); Chloride 112 mmol/L (98-107); Creatinine, Serum 0.76 mg/dL (0.70-1.30); EST Glomerular Filtration Rate 114 mL/min (>60); Est Glom Filt Rate - Afr Amer 138 mL/min (>60); Estimated Creatinine Clearance 122.47 ml/min; Globulin 2.8 g/dL (2.2-4.2); Glucose 99 mg/dL (74-106); Potassium 3.2 mmol/L (3.5-5.1); Protein, Total 5.6 g/dL (6.4-8.2); Sodium Level 144 mmol/L (136-145)
--- NOTE | 2018-12-16 08:47 | DCINST_ITS ---
Discharge Diet: Low fat/ Low Cholesterol Return to work on:: 12/20/18 May shower in (days): 1 Lifting Restrictions: 10 pounds and also avoid any pushing or pulling for 3 days after your test. Call your doctor if your incision/area has: Continuous Slow Oozing, Sudden Increased Bleeding, Increased Pain/ Swelling, Increased Redness, Foul Smelling Discharge, Swelling at the incision site Call your doctor if you observe: Fever of 101 or Higher, Shortness of breath, Chest pain Remove Dressing in (days):: 1 Additional Dressing/Incision Instructions:: Keep the dressing (bandage) on until the next morning. You may then shower, but do not take a tub bath for 5 days after your test. It is normal to have some tenderness and discomfort at the puncture site. Sometimes bruising also occurs. However, if pain, numbness, or coldness occurs below the puncture site (in your leg, toes, arms or fingers) call your doctor at once. You may have a small, marble sized knot at the puncture site. This is normal. Do not rub it. It will go away in 4-6 weeks. Bleeding can occur from the area where the puncture was done. Blood may spurt or drip from the site. If blood spurts, apply pressure right away to stop bleeding and call 911. Although rare, bleeding into the tissue (hematoma) can also occur. If this happens, a large, firm area goose egg under the skin will appear. If any of these occur, lie down as flat as you can and have someone apply firm pressure to the cath site with a gauze pad or a clean washcloth for 10-15 minutes. Call 911 or go to the Emergency Department. Additional Instructions: You will need to stay on your plavix for at least one year prior to stopping for any reason Allergies/Adverse Reactions: Allergies Penicillins [PCN] Allergy (Verified 12/14/18 14:59) Unknown lisinopril Adverse Reaction (Intermediate, Verified 12/14/18 14:59) cough ramipril Adverse Reaction (Intermediate, Verified 12/14/18 14:59) cough Medications to take at Discharge Insulin Pump Cartridge [T:Slim] 0 units MISCELL. UD 06/13/14 aspirin 81 mg chewable tablet 81 mg PO QDAY tab 05/29/17 carvedilol 12.5 mg tablet 12.5 mg PO BID #180 tab 07/27/18 clopidogrel 75 mg tablet 75 mg PO DAILY #90 tab 07/27/18 losartan 25 mg tablet 25 mg PO DAILY #90 tab 07/27/18 nitroglycerin 0.4 mg sublingual tablet 0.4 mg SUBLINGUAL Q5M PRN #25 tab 12/14/18 rosuvastatin 20 mg tablet 10 mg PO MELLISSAUTHSA@2200 tab 12/14/18 Orders to be completed after discharge: Phase II, Outpatient Cardiac Rehab Location: None Selected Primary Care Physician: Jareth Garcia MD [Primary Care Provider] - Test Results: Test results from this visit will be discussed in further detail at your follow- up appointment, if applicable. Please Follow Up With: Shelbi Allan PA When: as scheduled Cardiac Rehabilitation Info Cardiac Rehabilitation Program Information: Cardiac Rehabilitation is important for patients like you who are recovering from a heart problem. Cardiac rehabilitation programs are recognized as integral to the continued care of the patient with coronary heart disease. The cardiac rehabilitation program is designed to optimize a patient's physical, psychological, and social functioning. Health healthcare advisory services manager work in cardiac rehabilitation programs and assist you with getting the treatments you need to get stronger and healthier - like exercise, healthy eating habits, and medications. Cardiac rehabilitation has been show to help people with heart problems live longer and have better life enjoyment than people who do not go to cardiac rehabilitation. Please contact the Cardiac Rehabilitation Program at [facility] at in two weeks if you have not heard from them.
--- NOTE | 2018-12-16 09:26 | DS.PCM_ITS ---
Discharge Date and Diagnosis Date of Admission: 12/15/18 Date of Discharge: 12/16/18 - Primary Discharge Diagnosis Angina pectoris; CAD; status post PCI - Secondary Discharge Diagnosis Chronic Problems (Last Reviewed 12/14/18 @ 15:28 by ABIODUN Lee) CAD (coronary artery disease) (Chronic) Sinus bradycardia (Chronic) Presence of stent in coronary artery (Chronic ~12/15/18) PTCA/Stent prox and mid LAD 01/27/2007; PTCA/LONNY prox LAD 03/01/2008; PTCA/Stent for in stent re-stenosis to mid LAD 06/23/2014;PTCA/Stent for re- instent stenosis to Mid LAD 05/2017; PTCA/LONNY to LAD 12/15/18 Ischemic cardiomyopathy (Chronic) Old myocardial infarction (Chronic) Palpitations (Chronic) Atherosclerosis of [place] coronary artery of [place] heart without angina pectoris (Chronic) PTCA/Stent prox and mid LAD 01/27/2007; PTCA/LONNY prox LAD 03/01/2008; PTCA/ Stent for in stent re-stenosis to mid LAD 06/23/2014;PTCA/Stent for re-instent stenosis to Mid LAD 05/2017 Hyperlipidemia (Chronic) Diabetes mellitus type 1 (Chronic) Hospital Course and Treatment Procedures: Cardiac catheterization, - - Cardiac intervention Summary of Care Provided: The patient is a 53 year old white male with a past medical history of underlying CAD, ischemic cardiomyopathy, status post LAD PCI, who presents for symptoms of exertional angina pectoris superimposed upon a previous abnormal exercise tolerance test/imaging study. The patient underwent diagnostic cardiac catheterization. He was found to have progression of his LAD disease. He subsequently underwent LAD PCI. He resided in the ICU overnight. He remained symptomatically and hemodynamically stable. He was felt able to be released home for continued outpatient cardiovascular follow-up. [] - Physical Exam Vital Signs Temp Pulse Resp BP Pulse Ox 98 F 47 L 15 103/65 96 12/16/18 04:00 12/16/18 06:00 12/16/18 06:00 12/16/18 06:00 12/16/18 06:00 Oxygen Delivery Method Room Air Weight: 194 lb 10.691 oz Body Mass Index (BMI) 27.2 Intake and Output for Last 24 Hours 12/14/18 12/15/18 12/16/18 23:59 23:59 23:59 Intake Total 1830 / 1830 Output Total 300 / 300 Balance 1530 / 1530 Laboratory Tests Past 24 Hrs 12/15/18 12/15/18 12/16/18 10:09 11:41 05:30 WBC 5.3 RBC 4.87 Hgb 14.2 Hct 41.0 MCV 84.2 MCH 29.2 MCHC 34.6 RDW Std Deviation 38.2 RDW Coeff of [place] 12.5 Plt Count 152 MPV 10.4 Activated Clotting Time 208 H 164 H Sodium Potassium Chloride Carbon Dioxide Anion Gap BUN Creatinine Estim Creat Clear Calc Est GFR (MDRD) Af Amer Est GFR (MDRD) Non-Af BUN/Creatinine Ratio Glucose Calcium Total Bilirubin AST ALT Alkaline Phosphatase Total Protein Albumin Globulin Albumin/Globulin Ratio 12/16/18 05:30 WBC RBC Hgb Hct MCV MCH MCHC RDW Std Deviation RDW Coeff of [place]ulu Plt Count MPV Activated Clotting Time Sodium 144 Potassium 3.2 L Chloride 112 H Carbon Dioxide 25.0 Anion Gap 7 BUN 15 Creatinine 0.76 Estim Creat Clear Calc 122.47 Est GFR (MDRD) Af Amer 138 Est GFR (MDRD) Non-Af 114 BUN/Creatinine Ratio 19.6 Glucose 99 Calcium 7.4 L Total Bilirubin 1.10 H AST 16 ALT 18 Alkaline Phosphatase 54 Total Protein 5.6 L Albumin 2.8 L Globulin 2.8 Albumin/Globulin Ratio 1.0 Discharge Diet: Low fat/ Low Cholesterol Return to work on:: 12/20/18 May shower in (days): 1 Call your doctor if your incision/area has: Continuous Slow Oozing, Sudden Incr eased Bleeding, Increased Pain/ Swelling, Increased Redness, Foul Smelling Discharge, Swelling at the incision site Call your doctor if you observe: Fever of 101 or Higher, Shortness of breath, Chest pain Remove Dressing in (days):: 1 Additional Dressing/Incision Instructions:: Keep the dressing (bandage) on until the next morning. You may then shower, but do not take a tub bath for 5 days after your test. It is normal to have some tenderness and discomfort at the puncture site. Sometimes bruising also occurs. However, if pain, numbness, or coldness occurs below the puncture site (in your leg, toes, arms or fingers) call your doctor at once. You may have a small, marble sized knot at the puncture site. This is normal. Do not rub it. It will go away in 4-6 weeks. Bleeding can occur from the area where the puncture was done. Blood may spurt or drip from the site. If blood spurts, apply pressure right away to stop bleeding and call 911. Although rare, bleeding into the tissue (hematoma) can also occur. If this happens, a large, firm area goose egg under the skin will appear. If any of these occur, lie down as flat as you can and have someone apply firm pressure to the cath site with a gauze pad or a clean washcloth for 10-15 minutes. Call 911 or go to the Emergency Department. Home Medications: Medications to take at Discharge Insulin Pump Cartridge [T:Slim] 0 units MISCELL. UD 06/13/14 aspirin 81 mg chewable tablet 81 mg PO QDAY tab 05/29/17 carvedilol 12.5 mg tablet 12.5 mg PO BID #180 tab 07/27/18 clopidogrel 75 mg tablet 75 mg PO DAILY #90 tab 07/27/18 losartan 25 mg tablet 25 mg PO DAILY #90 tab 07/27/18 nitroglycerin 0.4 mg sublingual tablet 0.4 mg SUBLINGUAL Q5M PRN #25 tab 12/14/18 rosuvastatin 20 mg tablet 10 mg PO SUTUTHSA@2200 tab 12/14/18 Other Amb Orders: Phase II, Outpatient Cardiac Rehab Location: None Selected Primary Care Physician: Jareth Garcia MD [Primary Care Provider] - Please Follow Up With: Shelbi Allan PA When: as scheduled Additional Instructions: You will need to stay on your plavix for at least one year prior to stopping for any reason Disposition: Home Minutes spent on discharge:: 45 Patient Condition:: Stable Medical Necessity - Tobacco Use Smoking Status: Former smoker Meaningful Use Info Meaningful Use Diagnoses (Choose all that apply): None applicable
[2018-12-16] MEDS: Clopidogrel Bisulfate 75 MG Tablet PO (09:35)
[2018-12-16] MEDS: Carvedilol 12.5 MG Tablet PO (09:35)
[2018-12-16] MEDS: Aspirin 81 MG TAB.CHEW PO (09:35)
--- NOTE | 2018-12-16 10:00 | EKG12_ITS ---
Test Reason : POST PCI Blood Pressure : / mmHG Vent. Rate : 042 BPM Atrial Rate : 042 BPM P-R Int : 176 ms QRS Dur : 102 ms QT Int : 476 ms P-R-T Axes : 061 070 053 degrees QTc Int : 397 ms Marked sinus bradycardia Abnormal ECG When compared with ECG of 11-JUN-2017 10:08, No significant change was found Confirmed by JUAN EVANGELISTA, JESSIE ([id number]), field map editor ELVER CAR ([id number]) on 12/20/2018 3:19:57 PM Referred By: Jareth Dotson Confirmed By:ANNEL MARTINEZ MD
== END 2018-12-16 11:45 | disposition home or self-care (01) ==
LOC: CLSP 07:30 → ICU 10:00
PROVIDERS: Internal Medicine Cardiovascular Disease; Physician Assistant Medical; Family Provider Family Medicine; PCP Family Medicine; Referring Provider Internal Medicine Cardiovascular Disease; Visit Provider Internal Medicine Cardiovascular Disease
DX: I25.110 Atherosclerotic heart disease of native coronary artery with unstable angina pectoris (principal); E78.2 Mixed hyperlipidemia; E10.9 Type 1 diabetes mellitus without complications; I25.5 Ischemic cardiomyopathy; R94.39 Abnormal result of other cardiovascular function study; I25.2 Old myocardial infarction; Z86.74 Personal history of sudden cardiac arrest; Z79.82 Long term (current) use of aspirin; Z79.899 Other long term (current) drug therapy; Z95.5 Presence of coronary angioplasty implant and graft; Z79.01 Long term (current) use of anticoagulants; Z87.891 Personal history of nicotine dependence
CPT/HCPCS: 36415; 71046; 80048; 80053; 85025; 85027; 85347; 85610; 85730; 92928; 93005; 93458; 99152; 99153; J7030; J7040; Q9967; C1725; C1769; C1874; C1887; C1894; C9600

== ENCOUNTER → 2019-03-23 08:32 | Outpatient (CLI) | payer BC, SELFPAY ==
[2017-06-01 11:55] VITALS: BMI 26.2
[2018-12-29 15:56] VITALS: BMI 27.6
[2019-03-23 10:20] LABS: ALB/GLOB Ratio 1.1 RATIO (0.9-2.4); AST(SGOT) 20 U/L (15-37); Alanine Aminotransfer ALT/SGPT 24 U/L (16-61); Albumin, Serum 3.8 g/dL (3.2-5.0); Alkaline Phosphatase 74 U/L (45-117); Anion Gap 4 (5-15); BUN 14 mg/dL (7-18); BUN/Creat Ratio 13.3 RATIO (10-20); Calcium,Total 9.3 mg/dL (8.5-10.1); Chloride 108 mmol/L (98-107); Cholesterol 169 mg/dL (200); Creatinine, Serum 1.05 mg/dL (0.70-1.30); EST Glomerular Filtration Rate 79 mL/min (>60); Est Glom Filt Rate - Afr Amer 96 mL/min (>60); Globulin 3.4 g/dL (2.2-4.2); Glucose 90 mg/dL (74-106); High Density Lipoprotein 81 mg/dL; Potassium 3.9 mmol/L (3.5-5.1); Protein, Total 7.2 g/dL (6.4-8.2); Sodium Level 143 mmol/L (136-145); Triglycerides 64 mg/dL; Very Low Density Lipoprotein 13 mg/dL (5-40)
[2019-03-23 10:38] LABS: Microalbumin,Random Urine < 5.0 mg/L (NO RANGE EST.)
== END ==
PROVIDERS: Family Provider Family Medicine; PCP Family Medicine; Referring Provider Family Medicine; Visit Provider Family Medicine
DX: E10.9 Type 1 diabetes mellitus without complications (principal)
CPT/HCPCS: 36415; 80053; 80061; 82043

== ENCOUNTER → 2019-09-22 08:34 | Outpatient (CLI) | payer BC, SELFPAY ==
[2017-06-01 11:55] VITALS: BMI 26.2
[2019-06-20 08:32] VITALS: BMI 27.2
[2019-09-22 10:49] LABS: Anion Gap 8 (5-15); BUN 15 mg/dL (7-18); BUN/Creat Ratio 15.4 RATIO (10-20); Calcium,Total 9.3 mg/dL (8.5-10.1); Chloride 106 mmol/L (98-107); Cholesterol 203 mg/dL (200); Creatinine, Serum 0.97 mg/dL (0.70-1.30); EST Glomerular Filtration Rate 86 mL/min (>60); Est Glom Filt Rate - Afr Amer 104 mL/min (>60); Glucose 165 mg/dL (74-106); High Density Lipoprotein 100 mg/dL; Potassium 3.9 mmol/L (3.5-5.1); Sodium Level 141 mmol/L (136-145); Triglycerides 65 mg/dL; Very Low Density Lipoprotein 13 mg/dL (5-40)
== END ==
PROVIDERS: PCP Family Medicine; Referring Provider Family Medicine; Visit Provider Family Medicine
DX: E10.9 Type 1 diabetes mellitus without complications (principal)
CPT/HCPCS: 36415; 80048; 80061

== ENCOUNTER → 2020-01-16 | Outpatient (CLI) | payer BC, SELFPAY ==
[2017-06-01 11:55] VITALS: BMI 26.2
[2019-11-21 08:15] VITALS: BMI 25.0
[2020-01-16 18:39] LABS: Anion Gap 4 (5-15); BUN 18 mg/dL (7-18); BUN/Creat Ratio 19.4 RATIO (10-20); Chloride 101 mmol/L (98-107); Creatinine, Serum 0.93 mg/dL (0.70-1.30); EST Glomerular Filtration Rate 91 mL/min (>60); Est Glom Filt Rate - Afr Amer 110 mL/min (>60); Glucose 74 mg/dL (74-106); Potassium 3.6 mmol/L (3.5-5.1); Sodium Level 137 mmol/L (136-145)
[2020-01-16 18:45] LABS: Hemoglobin A1c 6.8 % (3.8-5.6)
== END | disposition home or self-care (01) ==
LOC: MTLAB 14:16
PROVIDERS: PCP Family Medicine; Referring Provider Family Medicine; Visit Provider Family Medicine
DX: Z00.00 Encounter for general adult medical examination without abnormal findings (principal); E11.9 Type 2 diabetes mellitus without complications
CPT/HCPCS: 36415; 80048; 83036

== ENCOUNTER → 2020-01-27 | Outpatient (CLI) | payer BC, SELFPAY ==
[2017-06-01 11:55] VITALS: BMI 26.2
[2020-01-18 15:38] VITALS: BMI 25.0
--- NOTE | 2020-01-27 13:02 | ART_ITS ---
Reason For Study: Claudication Procedure A bilateral lower extremity continuous wave Doppler with analog waveform analysis,segmental pressures,and ankle brachial indexes without exercise. Left Segmental Pressures Left brachial= 128mmHg. Left posterior tibial artery = 162mmHg. Left dorsalis pedis artery = 152mmHg. The left dorsalis pedis waveforms are triphasic. The left posterior tibial artery waveforms are triphasic. Right Segmental Pressures Right brachial= 131mmHg. Right dorsalis pedis artery = 157mmHg. Right digit = 149 mmHg. The right dorsalis pedis waveforms are triphasic. The right posterior tibial artery waveforms are triphasic. Indices The right ankle brachial index by the dorsalis pedis is 1.14. The right ankle brachial index by the posterior tibial artery is 1.20. The left ankle brachial index by the dorsalis pedis is 1.16. The left ankle brachial index by the posterior tibial artery is 1.24. Interpretation Summary Normal bilateral lower extremity ankle-brachial indices and triphasic Doppler waveforms at rest Ordering Physician: Shelbi Allan Referring Physician: Jareth Garcia Performed By: Nikki Damon RVT
== END | disposition home or self-care (01) ==
LOC: CVS 13:02
PROVIDERS: PCP Family Medicine; Referring Provider Physician Assistant Medical; Visit Provider Physician Assistant Medical
DX: M79.606 Pain in leg, unspecified (principal); I25.10 Atherosclerotic heart disease of native coronary artery without angina pectoris
CPT/HCPCS: 93923

== ENCOUNTER → 2020-07-16 08:55 | Outpatient (CLI) | payer BC, SELFPAY ==
[2017-06-01 11:55] VITALS: BMI 26.2
[2020-01-18 15:38] VITALS: BMI 25.0
--- NOTE | 2020-07-16 09:04 | RAD_ITS ---
INDICATION: CERVICODYNIA EXAMINATION/TECHNIQUE: X-RAY - XR Spine Cervical 2 or 3 Views COMPARISON: None. FINDINGS: VERTEBRAE: Preserved vertebral body height. No fracture. There is 2 mm of degenerative retrolisthesis of C5 on C6. There is loss of normal cervical lordosis. No significant facet arthropathy. DISCS: There is degenerative disc disease, C5-6 with narrowing of disc spaces and marginal osteophytes. NECK SOFT TISSUES: There is calcific ASCVD of the right carotid bifurcation. LUNG APICES: Clear. RAD/Cerv Spine 2 or 3 Views IMPRESSION: 1. Degenerative disc disease with cervical spasm. 2. Spondylosis with degenerative grade 1 retrolisthesis, C5 on C6.. Electronically Signed: Erick Goldstein MD at 12:19 EDT Tel , Service support ,
[2020-07-16 10:19] LABS: Anion Gap 2 (5-15); BUN 20 mg/dL (7-18); BUN/Creat Ratio 20.6 RATIO (10-20); Calcium,Total 8.8 mg/dL (8.5-10.1); Chloride 104 mmol/L (98-107); Cholesterol 147 mg/dL (200); Creatinine, Serum 0.97 mg/dL (0.70-1.30); EST Glomerular Filtration Rate 86 mL/min (>60); Est Glom Filt Rate - Afr Amer 104 mL/min (>60); Glucose 209 mg/dL (74-106); High Density Lipoprotein 80 mg/dL; Potassium 3.7 mmol/L (3.5-5.1); Sodium Level 136 mmol/L (136-145); Triglycerides 49 mg/dL; Very Low Density Lipoprotein 10 mg/dL (5-40)
== END ==
PROVIDERS: PCP Family Medicine; Referring Provider Family Medicine; Visit Provider Family Medicine
DX: M54.2 Cervicalgia (principal); E11.9 Type 2 diabetes mellitus without complications
CPT/HCPCS: 36415; 72040; 80048; 80061

== ENCOUNTER → 2020-11-29 16:15 | Outpatient (CLI) | payer BC, SELFPAY ==
[2017-06-01 11:55] VITALS: BMI 26.2
--- NOTE | 2020-11-29 16:18 | RAD_ITS ---
STUDY: X-RAY - LUMBAR SPINE REASON FOR EXAM: Male, 55 years old. CHRONIC BACK PAIN TECHNIQUE: 5 view(s) of the lumbar spine were obtained including oblique views. COMPARISON: None FINDINGS: There is straightening of the normal lumbar lordosis. There is no substantial scoliosis. There is a normal alignment of the vertebrae. Moderate degree of disc space narrowing and spondylosis at the L4-L5 level. Anterior spondylosis at the L5-S1. The soft tissue structures are unremarkable. RAD/L/S Spine Min 4 Views IMPRESSION: Degenerative changes of the spine, as detailed above. Straightening of the normal lumbar lordosis. Electronically Signed: Sandro Aguilar MD at 12:47 EDT , Service support ,
== END ==
PROVIDERS: PCP Family Medicine; Referring Provider Nurse Practitioner Family; Visit Provider Nurse Practitioner Family
DX: M54.9 Dorsalgia, unspecified (principal); G89.29 Other chronic pain
CPT/HCPCS: 72110

== ENCOUNTER → 2021-01-28 15:32 | Outpatient (CLI) | payer BC, SELFPAY ==
[2017-06-01 11:55] VITALS: BMI 26.2
[2021-01-28 18:16] LABS: Anion Gap 4 (5-15); BUN 15 mg/dL (7-18); BUN/Creat Ratio 16.9 RATIO (10-20); Calcium,Total 8.9 mg/dL (8.5-10.1); Chloride 103 mmol/L (98-107); Cholesterol 141 mg/dL (200); Creatinine, Serum 0.89 mg/dL (0.70-1.30); EST Glomerular Filtration Rate 96 mL/min (>60); Est Glom Filt Rate - Afr Amer 116 mL/min (>60); Glucose 107 mg/dL (74-106); High Density Lipoprotein 81 mg/dL; Potassium 3.8 mmol/L (3.5-5.1); Sodium Level 139 mmol/L (136-145); Triglycerides 34 mg/dL; Very Low Density Lipoprotein 7 mg/dL (5-40)
[2021-01-28 18:33] LABS: Hemoglobin A1c 7.4 % (3.8-5.6)
[2021-01-28 18:38] LABS: Microalbumin,Random Urine 5.2 mg/L (NO RANGE EST.); Microalbumin:Creatinine Ratio 21.3 mg/g CRE (<30 mg/g CRE)
== END ==
PROVIDERS: PCP Family Medicine; Referring Provider Family Medicine; Visit Provider Family Medicine
DX: E11.9 Type 2 diabetes mellitus without complications (principal)
CPT/HCPCS: 36415; 80048; 80061; 82043; 82570; 83036

== ENCOUNTER → 2021-02-26 | Outpatient (CLI) | payer BC, SELFPAY ==
[2017-06-01 11:55] VITALS: BMI 26.2
== END | disposition home or self-care (01) ==
LOC: LABSPEC 13:57
PROVIDERS: PCP Family Medicine; Referring Provider Physician Assistant Surgical; Visit Provider Physician Assistant Surgical
DX: Z11.52 Encounter for screening for COVID-19 (principal)
CPT/HCPCS: 87635; U0005; U0003

== ENCOUNTER 2021-06-07 07:46 | Outpatient (CLI) | payer BC, SELFPAY ==
[2017-06-01 11:55] VITALS: BMI 26.2
--- NOTE | 2021-06-07 07:56 | ECHOD_ITS ---
Reason For Study: CHF Procedure This was a 2D Doppler, Color Flow transthoracic echocardiogram. The exam was of adequate technical quality. Exam performed in department. Left Ventricle Normal LV size. Mild segmental systolic dysfunction (see wall motion). The estimated ejection fraction is 50 %. No evidence for diastolic dysfunction. Mid-Anterior : Hypokinetic. Mid-Inferior: Hypokinetic. Mid-inferoseptal : Akinetic. Mid-anteroseptal : Akinetic. [place] : Hypokinetic. Right Ventricle Normal RV size. Normal systolic function. Atria Normal left atrium. Normal right atrium. No doppler evidence for ASD. Mitral Valve There is no mitral annular calcification. Normal mitral valve. Trivial mitral valve insufficiency. Tricuspid Valve Normal tricuspid valve. Trivial tricuspid valve insufficiency. Unable to estimate RV systolic pressure due to insufficient tricuspid regurgitant envelope. Aortic Valve Trisinus/trileaflet aortic valve. Normal aortic valve. Pulmonic Valve The pulmonic valve is not well visualized. Great Vessels Normal sized aortic root. Pericardium/Pleural No pericardial effusion. MMode/2D Measurements & Calculations LVIDd: 5.7 cm IVSd: 0.89 cm Ao root diam: 3.1 cm LVIDs: 4.2 cm LVPWd: 0.87 cm RVDd: 3.1 cm FS: 27.2 % LAV(MOD-bp): 57.0 ml LA A4 area: 19.8 cm2 LA dimension(2D): 4.2 cm LAV(MOD-bp) Indexed: 27.3 ml/m2 LAV(MOD-sp2): 55.4 ml LAV(MOD-sp4): 59.5 ml RA A4 area: 15.5 cm2 Time Measurements MV dec time: 0.24 sec Doppler Measurements & Calculations MV E max arturo: 64.2 cm/sec Lat Peak E' Arturo: 5.7 cm/sec Med Peak E' Arturo: 6.8 cm/sec MV A max arturo: 57.9 cm/sec E/E' lat: 11.2 E/E' med: 9.4 MV E/A: 1.1 Ao V2 max: 97.9 cm/sec LV V1 max: 95.4 cm/sec PA V2 max: 95.3 cm/sec Ao max P.8 mmHg LV V1 max P.6 mmHg ECHO/Echo Complete Interpretation Summary Mild segmental systolic dysfunction (see wall motion). The estimated ejection fraction is 50 %. Trivial mitral valve insufficiency. Trivial tricuspid valve insufficiency. Unable to estimate RV systolic pressure due to insufficient tricuspid regurgita nt envelope. No evidence for diastolic dysfunction. Ordering Physician: José Antonio Fall Referring Physician: Jareth Garcia Performed By: Margarita Parson, MICHAEL, RVT
== END 2021-06-07 23:59 | disposition home or self-care (01) ==
PROVIDERS: PCP Family Medicine; Referring Provider Nurse Practitioner Family; Visit Provider Nurse Practitioner Family
DX: I25.5 Ischemic cardiomyopathy (principal); E10.3293 Type 1 diabetes mellitus with mild nonproliferative diabetic retinopathy without macular edema, bilateral; I25.10 Atherosclerotic heart disease of native coronary artery without angina pectoris; Z95.5 Presence of coronary angioplasty implant and graft
CPT/HCPCS: 93306

== ENCOUNTER → 2021-08-01 | Outpatient (CLI) | payer BC, SELFPAY ==
[2017-06-01 11:55] VITALS: BMI 26.2
[2021-08-01 10:22] LABS: Anion Gap 4 (5-15); BUN 16 mg/dL (7-18); BUN/Creat Ratio 16.2 RATIO (10-20); Calcium,Total 9.1 mg/dL (8.5-10.1); Chloride 102 mmol/L (98-107); Cholesterol 173 mg/dL (200); Creatinine, Serum 0.99 mg/dL (0.70-1.30); EST Glomerular Filtration Rate 84 mL/min (>60); Est Glom Filt Rate - Afr Amer 102 mL/min (>60); Glucose 156 mg/dL (74-106); High Density Lipoprotein 82 mg/dL; Potassium 3.8 mmol/L (3.5-5.1); Sodium Level 137 mmol/L (136-145); Triglycerides 46 mg/dL; Very Low Density Lipoprotein 9 mg/dL (5-40)
== END | disposition home or self-care (01) ==
LOC: MTLAB 08:28
PROVIDERS: PCP Family Medicine; Referring Provider Family Medicine; Visit Provider Family Medicine
DX: E11.9 Type 2 diabetes mellitus without complications (principal)
CPT/HCPCS: 36415; 80048; 80061

== ENCOUNTER → 2021-08-20 | Outpatient (CLI) | payer BC, SELFPAY ==
[2017-06-01 11:55] VITALS: BMI 26.2
--- NOTE | 2021-08-20 13:15 | LIP_PTH ---
PATIENT: JAYDON ARELLANO [facility] U#:[id number] AGE/SX: 55/M ROOM: RE08/20/[address]: Dr. Justin Angel MD : 1965 BED: DIS: 08/20/2021 SPEC #: [id number] RECD: 08/20/21 14:11 STATUS: GUILLERMO SHERRIE #: [id number] OMAR: 08/20/21 13:[address]: Justin Angel DEPT: SURGICAL PATHOLOGY RECD BY: Swetha Castillo ENTERED: 08/21/21 09:21 SP TYPE: LIPOMA OTHR DR: Dr. Jareth Garcia MD Tissues: A - Soft tissues, NOS B - Soft tissues, NOS Procedures: Surgery Specimen Level III HEADER OPERATION: Excision of lipoma, left forearm and right thigh PRE-OP DIAGNOSIS: Left forearm lipoma and right thigh lipoma TISSUE SUBMITTED: A ? Right thigh lipoma, B ? Left forearm lipoma MICROSCOPIC DIAGNOSIS A. Soft tissue lesion of right thigh, excision: Mature adipose tissue consistent with angiolipoma. B. Soft tissue mass of left forearm, excision: Mature adipose tissue consistent with angiolipoma. AM:johnny 08/22/2021 MICROSCOPIC DESCRIPTION Slides are reviewed. GROSS DESCRIPTION A - Received in fixative is one container labeled with the patient's name and designated right thigh. The specimen consists of two pieces of yellow adipose tissue measuring in aggregate 3.5 x 3 x 1.2 cm. Sections reveal yellow adipose cut surfaces without area of hemorrhage, necrosis or cystic degeneration. Lapping Machine Set Up Operator sections are submitted in two cassettes. B - Received in fixative is one container labeled with the patient's name and designated left forearm. The specimen consists of a lobulated piece of yellow adipose tissue measuring 3.5 x 2.5 x 0.5 cm. Sections reveal yellow adipose cut surfaces without area of hemorrhage, necrosis or cystic degeneration. Lapping Machine Set Up Operator sections are submitted in two cassettes. / SJ:johnny 08/21/2021 TC:1 CPT: 80932 x2
== END | disposition home or self-care (01) ==
LOC: LABSPEC 14:16
PROVIDERS: PCP Family Medicine; Referring Provider Surgery; Visit Provider Surgery
DX: D17.22 Benign lipomatous neoplasm of skin and subcutaneous tissue of left arm (principal); D17.23 Benign lipomatous neoplasm of skin and subcutaneous tissue of right leg
CPT/HCPCS: 88304

== ENCOUNTER 2021-09-13 07:40 | Day surgery (SDC) | payer BC, SELFPAY ==
[2017-06-01 11:55] VITALS: BMI 26.2
[2021-09-13] VITALS (7 sets, daily range): BP systolic 104–121; BP diastolic 58–73; PULSE 57–97; RESP 16; TEMP 36.2–36.6; O2SAT 96–100; BMI 25.4
[2021-09-13] MEDS: Lactated Ringers 1,000 ML 30 ML IV (08:17)
--- NOTE | 2021-09-13 08:50 | HP.PCM_ITS ---
History and Physical Date of Admission: 09/13/21 Intake Vital Signs 08/13/21 09:11 Height 5 ft 11 in Weight: 190 lb BMI 26.4 BP 130/83 H Blood Pressure Location Rt brachial Position Sitting Respiration 16 Intake Visit Reasons: LEFT ARM AND RIGHT LEG LIPOMA Chief Complaint: c-scope and lipomas Credit Review Manager Required: No Is patient in pain?: No Allergies Penicillins [PCN] Allergy (Verified 06/04/21 09:31) Unknown lisinopril Adverse Reaction (Intermediate, Verified 06/04/21 09:31) cough ramipril Adverse Reaction (Intermediate, Verified 06/04/21 09:31) cough Medications insulin pump cartridge 06/13/14 [History Confirmed 08/13/21] aspirin 81 mg chewable tablet 81 mg PO QDAY tab 05/29/17 [History Confirmed 08/13/21] blood sugar diagnostic #360 ea 07/18/19 [Rx Confirmed 08/13/21] blood-glucose meter,continuous #1 ea 12/12/19 [Rx Confirmed 08/13/21] blood-glucose sensor #3 ea 12/12/19 [Rx Confirmed 08/13/21] blood-glucose transmitter #1 ea 12/12/19 [Rx Confirmed 08/13/21] losartan 25 mg tablet 25 mg PO DAILY #90 tab 05/30/20 [Rx Confirmed 08/13/21] rosuvastatin 10 mg tablet 10 mg PO DAILY #90 tab 05/30/20 [Rx Confirmed 08/13/21] clopidogrel 75 mg tablet 75 mg PO DAILY #90 tab 05/31/20 [Rx Confirmed 08/13/21] carvedilol 12.5 mg tablet 12.5 mg PO BID #180 tab 06/07/20 [Rx Confirmed 08/13/21] coenzyme Q10 200 mg capsule 200 mg PO DAILY 11/16/20 [History Confirmed 08/13/21] insulin lispro-aabc 100 unit/mL subcutaneous solution 40 unit SC DAILY ml 11/16/20 [History Confirmed 08/13/21] nitroglycerin 0.4 mg sublingual tablet 0.4 mg SUBLINGUAL Q5M PRN #25 tab 11/16/20 [Rx Confirmed 08/13/21] FORMERLY [facility], 1928–1983 Medical History (Updated 08/13/21 @ 09:[address] Justin Angel MD) Abnormal stress test Atherosclerosis of [place] coronary artery of [place] heart without angina pectoris Cardiac arrest (~02/2008) Diabetes mellitus type 1 Ischemic cardiomyopathy Long-term current use of high risk medication other than anticoagulant Mixed hyperlipidemia Nonspecific abnormal unspecified cardiovascular function study Old myocardial infarction Palpitations Sinus bradycardia Surgical History History of left heart catheterization Postsurgical percutaneous transluminal coronary angioplasty (PTCA) status Presence of stent in coronary artery (~12/15/18) Family History Father , 82 CAD (coronary artery disease) Myocardial infarction Sister Hyperlipidemia Other Family history of hyperlipidemia Family history of sudden cardiac Social History Smoking Status: Former smoker how long ago did patient quit smokin alcohol intake: current alcohol intake frequency: a few times a week Alcohol type: beer substance use type: does not use diet: vegetarian caffeine: Yes Type: tea what type of physical activity do you participate in: running frequency: 3-4 times per week duration: 45-60 minutes/day seatbelt use: always do you feel safe at home: Yes HPI HPI HPI: JAYDON ARELLANO, is a 55 M who presents to the office today for 2 issues. Patient had screening colonoscopy and he has 2 lipomas which was like removed. Patient is never had a screening colonoscopy and denies any abdominal pain or family history of colon cancer. He has no blood in his stool. Patient has a lipoma of his left forearm as well as a lipoma on the right thigh. He would like both these removed as they are growing larger and bothering him. ROS General General: No weight change, appetite, fatigue, colon cancer, breast cancer or weakness HEENT HEENT: No difficulty swallowing, eye injury, eye surgery, swollen glands or hoarseness Endo Endocrine: Yes diabetes mellitus; No thyroid disease, thyroid cancer, Hair loss, heat intolerance or cold intolerance Skin Skin: No rash or changing moles Breast Breast: No left breast lump, right breast lump, nipple discharge, breast pain, abnormal mammogram, abnormal US or breast enlargement Musc Musculoskeletal: Yes back problems; No arthritis, rheumatoid arthritis, gout or joint pain Cardio Cardiovascular: Yes heart disease, heart attack and heart stent; No murmur, pacemaker, atrial fibrillation, high blood pressure, palpitations, shortness of breat with exertion or chest pain Psych Psychiatric: No depression, anxiety or hearing voices Resp Respiratory: No shortness of breath, No sleep apnea, No cough, No COPD, No asthma, No emphysema and No wheezing Gastro Gastrointestinal: No abdominal pain, No nausea or vomiting, No diarrhea, No constipation, No blood in stool, No acid reflux, No hemorrhoids, No ulcers, No gallbladder problem and No black,tarry stools Blaze Hematologic: Yes blood thinners, No blood disorders, No bleeding, No anemia and No blood clots Neuro Neurologic: No system reviewed and no additional complaints, except as documented, No as per HPI, No abnormal gait, No abnormal hearing, No abnormal movements, No abnormal speech, No behavioral changes, No burning sensations, No confusion, No convulsions, No disequilibrium, No dizziness, No localized weakness, No frequent falls, No headache(s), No lack of coordination, No loss of vision, No memory loss, No numbness, No other visual disturbances, No radicular pain, No restless legs, No sensory deficit, No syncope, No tingling, No tremor(s), No weakness and No other Exam Const General: cooperative Orientation: alert and oriented x3 HENMT Head: normal to inspection Neck Neck: normal visual inspection and full ROM Chest Chest palpation & inspection: normal inspection of the chest Resp Effort & Inspection: normal respiratory effort Auscultation: clear to auscultation bilaterally Cardio Rate: regular rate Rhythm: regular rhythm GI Inspection: non-distended Palpation: soft and nontender Skin General: no rashes or lesions noted Neuro General: patient alert and patient oriented x3 Extrem General: full ROM Psych Appearance: grossly normal Mental Status: mental status grossly normal Assessment and Plan Assessment and Plan (1) Screen for colon cancer: Status: Acute (2) Lipoma of left forearm: Status: Acute (3) Lipoma of right thigh: Status: Acute Plan - Dr. Justin Angel MD: I explained endoscopy in detail to the patient. I explained the risks including but not limited to stroke or heart attack with anesthesia, perforation of the GI tract, bleeding, infection. I explained that any of these could necessitate further emergency surgery. The patient understands and all questions were answered sufficiently. The patient wishes to proceed with procedure. Justin Angel MD Pager: [facility] [address] [place] [address], [address] [place] [address] Office: I have re-examined the patient. There are no clinical changes since date of exam.
--- NOTE | 2021-09-13 09:33 | OP.COLON_ITS ---
Patient Name: Ceferino Reynoso Procedure Date: 09/13/2021 9:03 AM Date of : 1965 Age: 55 Procedure: Colonoscopy Indications: Screening for colorectal malignant neoplasm Providers: Justin Angel MD Medicines: Monitored Anesthesia Care Patient Profile: This is a 55 year old male. Refer to note in patient chart for documentation of history and physical. Last Colonoscopy: none. The patient's first colonoscopy is today. Complications: No immediate complications. Procedure: Pre-Anesthesia Assessment: - Prior to the procedure, a History and Physical was performed, and patient medications and allergies were reviewed. The patient's tolerance of previous anesthesia was also reviewed. The risks and benefits of the procedure and the sedation options and risks were discussed with the patient. All questions were answered, and informed consent was obtained. Prior Anticoagulants: The patient has taken Plavix (clopidogrel), last dose was day of procedure. After reviewing the risks and benefits, the patient was deemed in satisfactory condition to undergo the procedure. After I obtained informed consent, the scope was passed under direct vision. Throughout the procedure, the patient's blood pressure, pulse, and oxygen saturations were monitored continuously. The adult colonoscope was introduced through the anus and advanced to the cecum, identified by appendiceal orifice and ileocecal valve. The colonoscopy was performed without difficulty. The patient tolerated the procedure well. The quality of the bowel preparation was good. Scope In: 9:10:41 AM Scope Withdrawal Time 0 hours 6 minutes 8 seconds Scope Out: 9:25:54 AM Total Procedure Duration Time 0 hours 15 minutes 13 seconds Findings: The entire examined colon appeared normal on direct and retroflexion views. Impression: - The entire examined colon is normal on direct and retroflexion views. - No specimens collected. Recommendation: - Discharge patient to home. - Resume previous diet. - Continue present medications. - Repeat colonoscopy in 10 years for screening purposes. Procedure Code(s): --- Professional --- 55404, Colonoscopy, flexible; diagnostic, including collection of specimen(s) by brushing or washing, when performed (separate procedure) Diagnosis Code(s): --- Professional --- Z12.11, Encounter for screening for malignant neoplasm of colon CPT copyright 2017 [employer]. All rights reserved. The codes documented in this report are preliminary and upon vice president industrial relations review may be revised to meet current compliance requirements. Justin Angel MD 09/13/2021 9:32:38 AM This report has been signed electronically. Number of Addenda: 0 Note Initiated On: 09/13/2021 9:03 AM
--- NOTE | 2021-09-13 09:34 | OP.CCLET_ITS ---
09/13/2021 Jareth Garcia MD [address] [place] [address] Re : Colonoscopy procedure for Ceferino Reynoso Dear Dr. Garcia This procedure was performed on Monday, September 13, 2021. My impressions and recommendations are as follows: Impressions : - The entire examined colon is normal on direct and retroflexion views. - No specimens collected. Recommendations : - Discharge patient to home. - Resume previous diet. - Continue present medications. - Repeat colonoscopy in 10 years for screening purposes. My findings are described in the full procedure note, which is enclosed. If I can be of further assistance, please feel free to contact me at Doctor phone number(s): , Work: . Sincerely, Justin Angel MD 09/13/2021 9:32:38 AM This report has been signed electronically.
== END 2021-09-13 10:35 | disposition home or self-care (01) ==
LOC: EN 07:43 → AC 07:43
PROVIDERS: PCP Family Medicine; Referring Provider Family Medicine; Visit Provider Surgery
PROC: 0DJD8ZZ Inspection of Lower Intestinal Tract, Via Natural or Artificial Opening Endoscopic (ICD-10-PCS; CPT 45378; principal; 2021-09-13 08:40)
DX: Z12.11 Encounter for screening for malignant neoplasm of colon (principal); E10.9 Type 1 diabetes mellitus without complications; Z79.4 Long term (current) use of insulin; I25.10 Atherosclerotic heart disease of native coronary artery without angina pectoris; I25.5 Ischemic cardiomyopathy; I25.2 Old myocardial infarction; Z79.82 Long term (current) use of aspirin; Z79.899 Other long term (current) drug therapy; Z87.891 Personal history of nicotine dependence; Z95.5 Presence of coronary angioplasty implant and graft; Z46.81 Encounter for fitting and adjustment of insulin pump
CPT/HCPCS: 45378; J7120

== ENCOUNTER → 2022-01-30 | Outpatient (CLI) | payer BC, SELFPAY ==
[2017-06-01 11:55] VITALS: BMI 26.2
[2022-01-30 10:44] LABS: Anion Gap 4 (5-15); BUN 15 mg/dL (7-18); BUN/Creat Ratio 14.4 RATIO (10-20); Calcium,Total 9.3 mg/dL (8.5-10.1); Chloride 108 mmol/L (98-107); Cholesterol 159 mg/dL (200); Creatinine, Serum 1.04 mg/dL (0.70-1.30); EST Glomerular Filtration Rate 79 mL/min (>60); Est Glom Filt Rate - Afr Amer 96 mL/min (>60); Glucose 149 mg/dL (74-106); High Density Lipoprotein 95 mg/dL; Potassium 4.2 mmol/L (3.5-5.1); Sodium Level 142 mmol/L (136-145); Triglycerides 47 mg/dL; Very Low Density Lipoprotein 9 mg/dL (5-40)
[2022-01-30 10:53] LABS: Microalbumin,Random Urine < 5.0 mg/L (NO RANGE EST.)
== END | disposition home or self-care (01) ==
LOC: MTLAB 08:22
PROVIDERS: PCP Family Medicine; Referring Provider Family Medicine; Visit Provider Family Medicine
DX: E10.9 Type 1 diabetes mellitus without complications (principal)
CPT/HCPCS: 36415; 80048; 80061; 82043

== ENCOUNTER → 2022-08-01 | Outpatient (CLI) | payer OTHER, SELFPAY ==
[2017-06-01 11:55] VITALS: BMI 26.2
[2022-08-01 10:43] LABS: ALB/GLOB Ratio 1.1 RATIO (0.9-2.4); AST(SGOT) 20 U/L (15-37); Alanine Aminotransfer ALT/SGPT 24 U/L (16-61); Albumin, Serum 3.7 g/dL (3.2-5.0); Alkaline Phosphatase 81 U/L (45-117); Anion Gap 4 (5-15); BUN 16 mg/dL (7-18); BUN/Creat Ratio 15.2 RATIO (10-20); Calcium,Total 9.4 mg/dL (8.5-10.1); Chloride 104 mmol/L (98-107); Creatinine, Serum 1.05 mg/dL (0.70-1.30); EST Glomerular Filtration Rate 78 mL/min (>60); Est Glom Filt Rate - Afr Amer 94 mL/min (>60); Globulin 3.5 g/dL (2.2-4.2); Glucose 190 mg/dL (74-106); Potassium 3.8 mmol/L (3.5-5.1); Protein, Total 7.2 g/dL (6.4-8.2); Sodium Level 136 mmol/L (136-145)
== END | disposition home or self-care (01) ==
LOC: MTLAB 08:55
PROVIDERS: PCP Family Medicine; Referring Provider Family Medicine; Visit Provider Family Medicine
DX: E10.9 Type 1 diabetes mellitus without complications (principal)
CPT/HCPCS: 36415; 80053

== ENCOUNTER 2022-09-29 07:35 | Day surgery (SDC) | payer OTHER, SELFPAY ==
[2017-06-01 11:55] VITALS: BMI 26.2
--- NOTE | 2022-09-25 09:27 | RAD_ITS ---
STUDY: X-RAY CHEST REASON FOR EXAM: Male, 56 years old. CP TECHNIQUE: PA and lateral COMPARISON: December 14, 2018. FINDINGS: The lungs are clear and expanded. There is no demonstrated pleural abnormality. Normal size heart. Normal mediastinum and iris. Normal visualized pulmonary arteries. Normal visualized aortic arch and descending thoracic aorta. Normal visualized thoracic spine. Normal visualized ribs, clavicles, and shoulders. There is no demonstrated abnormality of the visualized soft tissue structures of the upper abdomen. No significant change since prior exam RAD/Chest PA and Lateral IMPRESSION: Normal x-ray examination of the chest. Electronically Signed: Rafita Snowden MD at 21:39 EDT ,
[2022-09-25 09:53] LABS: Absolute Lymphocyte Count 1.91 X10^3/uL (0.83-4.51); Absolute Neutrophil Count 2.1 X10^3/uL (2.0-7.7); Basophil# 0.06 X10^3/uL; Basophil% 1.3 % (0-1); Eosinophil# 0.24 X10^3/uL; Eosinophils% 5.1 % (0-5); Hematocrit 45.6 % (40-54); Hemoglobin 15.3 g/dL (13.0-16.5); Lymphocyte # 1.91 X10^3/ul (0.83-4.51); Lymphocyte % 40.6 % (19-41); Mean Corp Hgb Conc 33.6 g/dL (32-36); Mean Corpuscular Volume 86.4 fL (80-94); Mean Platelet Vol. 10.4 fl (6.2-12.0); Monocyte# 0.39 X10^3/uL; Monocyte% 8.3 % (0-10); NRBC Flagged by Analyzer 0 % (0-5); Neutrophil % 44.5 % (47-70); Platelet Count 190 K/mm3 (150-450); RBC Distribution Width CV 13.2 % (11.6-14.6); RBC Distribution Width SD 41.3 fl (35.1-43.9); Red Blood Count 5.28 M/mm3 (4.6-6.2); White Blood Count 4.7 K/mm3 (4.4-11.0)
[2022-09-25 10:02] LABS: Prothrombin Time (Protime)PT. 13.1 SECONDS (11.7-14.9)
[2022-09-25 10:03] LABS: Partial Thromboplast Time 27.8 Seconds (24.1-36.2)
[2022-09-25 10:30] LABS: Anion Gap 3 (5-15); BUN 18 mg/dL (7-18); BUN/Creat Ratio 18.7 RATIO (10-20); Calcium,Total 9.2 mg/dL (8.5-10.1); Chloride 105 mmol/L (98-107); Creatinine, Serum 0.96 mg/dL (0.70-1.30); EST Glomerular Filtration Rate 86 mL/min (>60); Est Glom Filt Rate - Afr Amer 104 mL/min (>60); Glucose 135 mg/dL (74-106); Potassium 4.1 mmol/L (3.5-5.1); Sodium Level 137 mmol/L (136-145)
[2022-09-26 08:17] VITALS: BMI 27.6
--- NOTE | 2022-09-29 09:13 | CL.D_ITS ---
Patient Name: JAYDON ARELLANO Study Date: 09/29/2022 Performing: Dhruv Ojeda MD Ht: 71 inches 180.34 cm : 1965 Wt: 198 lbs 89.81 kg Age: 56 Gender: male BSA: 2.1 PROCEDURE(S) PERFORMED [id number]-([id number])[facility] CLINICAL PROFILE AND INDICATIONS Indications: Stable Known CAD Heart Failure: None Stress/Imaging Stress Test w/SPECT MPI: Yes Result: Positive Intermediate RiskStress Test with SPECT MPI: Positive Intermediate Risk Angina Classification Anginal Classification w/in 2 Weeks: CCS II CONCLUSIONS 90% ISR Prox LAD; 80% ISR distal Mid LAD 70% Prox OM1 70% Prox RCA RECOMMENDATIONS Refer to CTS for evaluation for CABG DESCRIPTION OF PROCEDURE The patient arrived to the procedure lab. The risks and benefits of the procedure as well as a full description of our services here and current unavailability of surgical backup were fully explained to the patient and/or their significant other prior to the catheterization. The Timeout was completed, verifying the correct patient and procedure. The patient's procedural site was prepped and draped in the usual fashion. Local anesthetic was given subcutaneously to right radial region with Lidocaine 2%. Using a modified Seldinger technique, arterial access was obtained via the right radial artery, a 6Fr sheath was inserted. Right Coronary Artery selective angiography was then performed in multiple views using a 5 Fr. 4.0 [place] catheter. Left Coronary Artery selective angiography was performed in multiple views using a 5 Fr. 4.0 [place] catheter.The arterial sheath was pulled and a TR Band was applied for hemostasis CORONARY ANGIOGRAPHY DOMINANCE: Right Dominant LEFT ANTERIOR DESCENDING ARTERY: LAD: In-Stent Restenosis 90% Proximal lesion in LAD In-Stent Restenosis 80% Mid lesion in LAD OM 1: Tubular 70% Proximal lesion in 1st OM RIGHT CORONARY ARTERY: RCA: Calcified 70% Proximal lesion in RCA Tubular 40% Mid lesion in RCA COMPLICATIONS No Complications PROCEDURE MEDICATIONS Fentanyl 50 mcg IV Versed 1 mg IV Oxygen: 2 L/min via nasal cannula Heparin given IA 09/29/2022 08:54:01 SUMMARY OF HEMODYNAMIC DATA Time AIR REST ECG 07:58:32 AO 119/75 (93) SA 08:53:38 09:09:40 Signed By Dhruv Ojeda MD On 09/29/2022 09:12:30 Dhruv Ojeda MD
== END 2022-09-29 10:30 | disposition home or self-care (01) ==
LOC: CLSP 07:38
PROVIDERS: Physician Assistant Medical; PCP Family Medicine; Referring Provider Internal Medicine Cardiovascular Disease; Visit Provider Internal Medicine Cardiovascular Disease
DX: T82.855A Stenosis of coronary artery stent, initial encounter (principal); E10.9 Type 1 diabetes mellitus without complications; Z79.4 Long term (current) use of insulin; I25.10 Atherosclerotic heart disease of native coronary artery without angina pectoris; Z95.5 Presence of coronary angioplasty implant and graft; E78.2 Mixed hyperlipidemia; Z79.82 Long term (current) use of aspirin; Z79.899 Other long term (current) drug therapy; Y71.2 Prosthetic and other implants, materials and accessory cardiovascular devices associated with adverse incidents
CPT/HCPCS: 36415; 71046; 80048; 85025; 85610; 85730; 93454; 99152; 99153; J7040; Q9967; C1769; C1894

== ENCOUNTER → 2022-10-31 | Outpatient (CLI) | payer OTHER, SELFPAY ==
[2017-06-01 11:55] VITALS: BMI 26.2
[2022-10-31 10:52] LABS: Absolute Lymphocyte Count 1.66 X10^3/uL (0.83-4.51); Absolute Neutrophil Count 1.8 X10^3/uL (2.0-7.7); Basophil# 0.04 X10^3/uL; Eosinophil# 0.13 X10^3/uL; Eosinophils% 3.2 % (0-5); Hematocrit 36.6 % (40-54); Hemoglobin 11.8 g/dL (13.0-16.5); Lymphocyte # 1.66 X10^3/ul (0.83-4.51); Lymphocyte % 41.2 % (19-41); Mean Corp Hgb Conc 32.2 g/dL (32-36); Mean Corpuscular Hgb 27.2 pg (27.0-32.0); Mean Corpuscular Volume 84.3 fL (80-94); Monocyte# 0.37 X10^3/uL; Monocyte% 9.2 % (0-10); NRBC Flagged by Analyzer 0 % (0-5); Neutrophil # 1.82 X10^3/uL (2.7-7.7); Neutrophil % 45.2 % (47-70); Platelet Count 255 K/mm3 (150-450); RBC Distribution Width CV 12.5 % (11.6-14.6); RBC Distribution Width SD 38.1 fl (35.1-43.9); Red Blood Count 4.34 M/mm3 (4.6-6.2)
[2022-10-31 11:27] LABS: Anion Gap 5 (5-15); BUN 13 mg/dL (7-18); BUN/Creat Ratio 13.4 RATIO (10-20); Calcium,Total 9.1 mg/dL (8.5-10.1); Chloride 106 mmol/L (98-107); Cholesterol 112 mg/dL (200); Creatinine, Serum 0.97 mg/dL (0.70-1.30); EST Glomerular Filtration Rate 86 mL/min (>60); Est Glom Filt Rate - Afr Amer 104 mL/min (>60); Glucose 125 mg/dL (74-106); High Density Lipoprotein 58 mg/dL; Potassium 4.1 mmol/L (3.5-5.1); Sodium Level 140 mmol/L (136-145); Triglycerides 41 mg/dL; Very Low Density Lipoprotein 8 mg/dL (5-40)
== END | disposition home or self-care (01) ==
LOC: MTLAB 08:29
PROVIDERS: PCP Family Medicine; Referring Provider Family Medicine; Visit Provider Family Medicine
DX: E10.9 Type 1 diabetes mellitus without complications (principal); Z95.1 Presence of aortocoronary bypass graft
CPT/HCPCS: 36415; 80048; 80061; 85025

== ENCOUNTER → 2023-01-16 | Outpatient (CLI) | payer OTHER, SELFPAY ==
[2017-06-01 11:55] VITALS: BMI 26.2
--- NOTE | 2023-01-16 12:49 | ECHOL_ITS ---
Reason For Study: CHF Procedure This was a limited 2D transthoracic echocardiogram. Exam performed in department. Left Ventricle Normal LV size. Mid cavitary false tendon noted. The estimated ejection fraction is 45 %. Mild segmental systolic dysfunction (see wall motion). Mid-Anterior : Hypokinetic. Septal [place] : Hypokinetic. There are regional wall motion abnormalities as specified. Right Ventricle Normal RV size. Normal systolic function. Atria Normal left atrium. Normal right atrium. Mitral Valve Normal mitral valve. Tricuspid Valve Normal tricuspid valve. Aortic Valve Normal aortic valve. Pulmonic Valve Normal pulmonic valve. Great Vessels Normal aortic root. The pulmonary artery is normal size. Normal inferior vena cava. Pericardium/Pleural No pericardial effusion. MMode/2D Measurements & Calculations LVIDd: 4.6 cm IVSd: 1.0 cm Ao root diam: 3.2 cm LVIDs: 3.2 cm LVPWd: 0.90 cm FS: 29.1 % LAV(MOD-bp): 43.8 ml LVAd ap4: 35.1 cm2 SV(MOD-sp4): 59.8 ml LAV(MOD-bp) Indexed: 21.0 ml/m2 LVLd ap4: 8.4 cm LAV(MOD-sp2): 43.8 ml EDV(MOD-sp4): 121.1 ml LAV(MOD-sp4): 43.3 ml EDV(sp4-el): 124.4 ml LVAs ap4: 22.3 cm2 LVLs ap4: 6.6 cm ESV(MOD-sp4): 61.3 ml ESV(sp4-el): 63.4 ml EF(MOD-sp4): 49.4 % EF(sp4-el): 49.0 % SV(sp4-el): 61.0 ml LA A4 area: 17.6 cm2 LA dimension(2D): 3.5 cm RA A4 area: 17.4 cm2 ECHO/Echo, Limited Study Interpretation Summary Normal LV size. The estimated ejection fraction is 45 %. Mild segmental systolic dysfunction (see wall motion). There are regional wall motion abnormalities as specified. Ordering Physician: Shelbi Allan Referring Physician: DANIEL GLASGOW Performed By: Zuleyma Kee RDCS
== END | disposition home or self-care (01) ==
LOC: CVS 12:49
PROVIDERS: PCP Family Medicine; Referring Provider Physician Assistant Medical; Visit Provider Physician Assistant Medical
DX: I25.5 Ischemic cardiomyopathy (principal); I50.9 Heart failure, unspecified
CPT/HCPCS: 93308

== ENCOUNTER → 2023-02-06 | Outpatient (CLI) | payer OTHER, SELFPAY ==
[2017-06-01 11:55] VITALS: BMI 26.2
[2023-02-06 10:31] LABS: Anion Gap 10 (5-15); BUN 19 mg/dL (7-18); BUN/Creat Ratio 19.6 RATIO (10-20); Calcium,Total 8.8 mg/dL (8.5-10.1); Chloride 107 mmol/L (98-107); Cholesterol 156 mg/dL (200); Creatinine, Serum 0.97 mg/dL (0.70-1.30); EST Glomerular Filtration Rate 86 mL/min (>60); Est Glom Filt Rate - Afr Amer 104 mL/min (>60); Glucose 175 mg/dL (74-106); High Density Lipoprotein 88 mg/dL; Potassium 3.8 mmol/L (3.5-5.1); Sodium Level 142 mmol/L (136-145); Triglycerides 64 mg/dL; Very Low Density Lipoprotein 13 mg/dL (5-40)
[2023-02-06 10:42] LABS: Microalbumin,Random Urine < 5.0 mg/L (NO RANGE EST.)
== END | disposition home or self-care (01) ==
LOC: MTLAB 08:24
PROVIDERS: PCP Family Medicine; Referring Provider Family Medicine; Visit Provider Family Medicine
DX: E10.9 Type 1 diabetes mellitus without complications (principal)
CPT/HCPCS: 36415; 80048; 80061; 82043

== ENCOUNTER → 2023-05-08 | Outpatient (CLI) | payer OTHER, SELFPAY ==
[2017-06-01 11:55] VITALS: BMI 26.2
--- OUTSIDE RECORDS SUMMARY | 2023-05-08 08:48 | XMS RPT_ITS | CCD ---
Author Name Unknown Address [id number] [place] [address] Organization [facility] Care Team Providers Care Structural Steel Engineer Name Role Phone Hanna Ariza RN Unavailable Unavailable [facility] Nurse Unavailable Unavailable Dionicio Richards Unavailable Unavailable Shi Portillo Unavailable Unavailable Jareth Dotson MD Unavailable Dionicio Richards Unavailable Unavailable Dionicio Richards Unavailable Unavailable Jim Vanegas Unavailable Unavailable Jim Vanegas Unavailable Unavailable Jareth Dotson MD Unavailable Shi Portillo Unavailable Unavailable Dionicio Richards Unavailable Unavailable Jareth Garcia Unavailable Unavailable Unavailable Jareth Garcia MD Primary Care Provider [phone] Unavailable Unavailable Jareth Garcai MD Primary Care Provider [phone] Jareth Garcia MD Primary Care Provider Jareth Garcia MD Primary Care Provider Jareth Garcia MD Unavailable Jareth Garcia MD Primary Care Provider Jareth Garica MD Primary Care Provider JARETH GARCIA Primary Care Unavailable EDWAR DEL CASTILLO Consulting Unavailable AZIKEN, ERICKA Attending Unavailable CARMELLA, ERICKA Admitting Unavailable JARETH GARCIA Primary Care Unavailable JARETH GARCIA Primary Care Unavailable AZIKEN, ERICKA Referring Unavailable AZARISTIDESN, ERICKA Attending Unavailable JARETH GARCIA Primary Care Unavailable DEBBI YANEZ Attending Unavailable DEBBI YANEZ Attending Unavailable GARCIA, JARETH Primary Care Unavailable GARCIA, JARETH R Primary Care Unavailable GARCIA, JARETH R Primary Care Unavailable GARCIA, JARETH R Primary Care Unavailable GARCIA, JARETH R Primary Care Unavailable GARCIA, JARETH R Primary Care Unavailable GRACIA, JARETH R Primary Care Unavailable GARCIA, JARETH R Primary Care Unavailable GARCIA, JARETH R Primary Care Unavailable GARCIA, JARETH R Primary Care Unavailable GARCIA, JARETH R Primary Care Unavailable GARCIA, JARETH R Primary Care Unavailable GARCIA, JARETH R Primary Care Unavailable SERGIO BOSCH Referring Unavailabl e GARCIA, JARETH R Primary Care Unavailable GARCIA, JARETH R Primary Care Unavailable GARCIA, JARETH R Primary Care Unavailable GARCIA, JARETH R Primary Care Unavailable GARCIA, JARETH R Primary Care Unavailable GARCIA, JARETH R Primary Care Unavailable GARCIA, JARETH R Primary Care Unavailable NAGAJOTHI, NAGAPRADEEP Referring Unavailab le GARCIA, JARETH R Primary Care Unavailable GARCIA, JARETH R Primary Care Unavailable GARCIA, JARETH R Primary Care Unavailable GARCIA, JARETH R Primary Care Unavailable GARCIA, JARETH R Primary Care Unavailable GARCIA, JARETH R Primary Care Unavailable GARCIA, JARETH R Primary Care Unavailable GARCIA, JARETH R Primary Care Unavailable GARCIA, JARETH R Primary Care Unavailable GARCIA, JARETH R Primary Care Unavailable GARCIA, JARETH R Primary Care Unavailable GARCIA, JARETH R Primary Care Unavailable GARCIA, JARETH R Primary Care Unavailable GARCIA, JARETH R Primary Care Unavailable GARCIA, JARETH R Primary Care Unavailable NAGAJOTHI, NAGAPRADEEP Referring Unavailab le GARCIA, JARETH R Primary Care Unavailable GARCIA, JARETH R Primary Care Unavailable GARCIA, JARETH R Primary Care Unavailable GARCIA, JARETH R Primary Care Unavailable SERGIO BOSCH Attending Unavailabl e GARCIA, JARETH R Referring Unavailable GARCIA, JARETH R Primary Care Unavailable DANITA ONEILL Attending Unavailable GARCIA, JARETH R Referring Unavailable GARCIA, JARETH R Primary Care Unavailable Allergies Allergy Classification Reported Allergen(s) Allergy Type Date of Onset Reaction(s) Facility (18 sources) lisinopril drug allergy 7 Cough [facility] Work Phone: (20 sources) penicillin drug allergy 1 anaphylaxis, Rash [facility] Work Phone: (2 sources) Penicillins; Translations: [Penicillins] Allergy to drug (finding) Hives, Swelling [facility] Work Phone: (20 sources) Contrast media; Translations: [CONTRAST DYE] Drug Allergy 1 Itching [facility] Work Phone: (20 sources) Penicillin G; Translations: [PENICILLIN G] Drug Allergy 0 Shortness of Breath [facility] (20 sources) Seasonal allergy; Translations: [SEASONAL ALLERGIES] Propensity to adverse reactions 2 Other: See Comments [facility] (14 sources) Penicillins Drug Allergy 9 Anaphylaxis, Hives, Shortness of breath, Itching, Swelling, Rash [facility] (14 sources) Ramipril Allergy to substance 9 Cough [facility] Medications Current Medications Medication Drug Class(es) Dates Sig (Normalized) Sig (Original) acetaminophen 500 mg oral tablet (8 sources) Start: 10-11-2022 End: 10-21-2022 take 2 tablets by mouth every eight hours as needed acetaminophen (Tylenol) 500 MG tablet Take 2 tablets (1,000 mg) by mouth every 8 hours as needed (acute minor post surgical pain) for up to 10 days. 30 tablet 0 10/11/2022 10/21/2022 Active Completed/Discontinued Medications Medication Drug Class(es) Dates Sig (Normalized) Sig (Original) 20 ml albumin human, half-way 250 mg/ml injection (4 sources) Human Serum Albumin Start: 10-08-2022 End: 10-08-2022 albumin human 25 % IV solution 25 g Problems Active Problems Problem Classification Problem Date Documented Date Episodic/Chronic Acute myocardial infarction (11 [address]) ST elevation (STEMI) myocardial infarction involving other coronary artery of anterior wall; Translations: [ST elevation (STEMI) myocardial infarction involving other coronary artery of anterior wall] Onset: 09-02-2010 09-02-2010 Chronic Allergic reactions (2 sources) Acute urticaria; Translations: [Other specified urticaria] Episodic Complication of device; implant or graft (4 sources) Arteriosclerosis of coronary artery bypass graft; Translations: [Atherosclerosis of coronary artery bypass graft(s) without angina pectoris] Onset: 10-07-2022 10-07-2022 Chronic Congestive heart failure; nonhypertensive (20 sources) Chronic systolic heart failure; Translations: [Chronic systolic (congestive) heart failure] Onset: 11-28-2022 11-28-2022 Chronic Coronary atherosclerosis and other heart disease (20 sources) Atherosclerotic heart disease of [place] coronary artery without angina pectoris; Translations: [Old myocardial infarction] Onset: 06-30-2010 02-15-2016 Chronic Coronary atherosclerosis and other heart disease (14 sources) Coronary angioplasty status; Translations: [Presence of aortocoronary bypass graft] Onset: 09-02-2010 09-02-2010 Episodic Diabetes mellitus with complications (20 sources) Type 1 diabetes mellitus; Translations: [Type 1 diabetes mellitus with unspecified diabetic retinopathy without macular edema] Onset: 02-25-2003 Chronic Diabetes mellitus without complication (16 sources) Type 1 diabetes mellitus without complications; Translations: [Type 1 diabetes mellitus without complication] Onset: 09-02-2010 09-02-2010 Chronic Disorders of lipid metabolism (20 sources) Hyperlipidemia; Translations: [Mixed hyperlipidemia] Onset: 02-25-2010 09-02-2010 Chronic Other upper respiratory infections (1 source) Sore throat symptom; Translations: [Acute pharyngitis] Episodic Pneumonia (except that caused by tuberculosis or sexually transmitted disease) (1 source) Bronchopneumonia; Translations: [Bronchopneumonia, organism unspecified] Episodic Unclassified (5 sources) Long-term drug therapy; Translations: [Other termite control service representative (current) drug therapy] Onset: 09-02-2010 09-02-2010 Unclassified (1 source) Unknown / UNK(Unknown) Onset: 11-19-2016 Unclassified (2 sources) New Patient; Translations: [New Patient] Onset: 10-01-2022 Past or Other Problems Problem Classification Problem Date Documented Date Episodic/Chronic Cardiac dysrhythmias (11 sources) Palpitations; Translations: [Palpitations] Onset: 09-02-2010 09-02-2010 Episodic Conditions associated with dizziness or vertigo (11 sources) Dizziness; Translations: [Dizziness and giddiness] Onset: 06-16-2012 06-16-2012 Episodic Diabetes mellitus without complication (20 sources) Insulin pump present; Translations: [Presence of insulin pump (external) (internal)] Onset: 06-30-2010 Episodic Other aftercare (6 sources) Other termite control service representative (current) drug therapy; Translations: [Other termite control service representative (current) drug therapy] Onset: 09-02-2010 09-02-2010 Episodic Other aftercare (20 sources) Long-term current use of anticoagulant; Translations: [shelter (current) use of anticoagulants] Onset: 01-03-2019 01-03-2019 Episodic Other circulatory disease (11 sources) Abnormal result of cardiovascular function study, unspecified; Translations: [Abnormal result of cardiovascular function study, unspecified] Onset: 09-02-2010 09-02-2010 Episodic Other nutritional; endocrine; and metabolic disorders (20 sources) Body mass index (BMI) 28.0-28.9, adult; Translations: [Body mass index (BMI) 26.0-26.9, adult] Onset: 05-06-2013 Resolved: 07-11-2015 07-11-2015 Episodic Other nutritional; endocrine; and metabolic disorders (6 sources) Body mass index (BMI) 26.0-26.9, adult; Translations: [Body mass index (BMI) 26.0-26.9, adult] Onset: 05-06-2013 Resolved: 07-11-2015 05-06-2013 Episodic Residual codes; unclassified (3 sources) FH: Raised blood lipids; Translations: [Family history of other endocrine, nutritional and metabolic diseases] 07-06-2014 Episodic Unclassified (20 sources) Family history of sudden ; Translations: [FH: Raised blood lipids] Onset: 09-02-2010 Resolved: 07-11-2015 09-02-2010 Episodic Unclassified (1 source) E78.00 Onset: 11-19-2016 Results Test Name Value Interpretation Reference Range Facil ity Vital Signs Date Time Vital Sign Value Performing Clinician Lauren joshua 02-16-2023 [id number] Body weight 89.36 kg [employer] Phone: [facility] 02-16-2023 09:11-0500 Diastolic blood pressure 60 mm[Hg] [facility] [employer] Phone: [facility] 02-16-2023 09:11-0500 Heart rate 72 /min [facility] [employer] Phone: [facility] 02-16-2023 09:11-0500 Systolic blood pressure 98 mm[Hg] [facility] [employer] Phone: [facility] 01-28-2023 07:10-0400 Body weight 88.45 kg Card [employer] Work Phone: [facility] 01-28-2023 07:10-0400 Diastolic blood pressure 60 mm[Hg] Card [facility] Work Phone: [facility] 01-28-2023 07:10-0400 Heart rate 67 /min Card [facility] Work Phone: [facility] 01-28-2023 07:10-0400 Systolic blood pressure 102 mm[Hg] Card [facility] Work Phone: [facility] 12-24-2022 08:34-0400 Body weight 89.81 kg Card [facility] Work Phone: [facility] 12-24-2022 08:34-0400 Diastolic blood pressure 68 mm[Hg] Card [facility] Work Phone: [facility] 12-24-2022 08:34-0400 Heart rate 61 /min [facility] Work Phone: [facility] 12-24-2022 08:34-0400 Systolic blood pressure 108 mm[Hg] Card [facility] Work Phone: [facility] 12-01-2022 09:10-0400 Body weight 90.45 kg Card [facility] Work Phone: [facility] 12-01-2022 09:10-0400 Diastolic blood pressure 58 mm[Hg] Card Dubose Work Phone: [facility] 12-01-2022 09:10-0400 Heart rate 82 /min [facility] Work Phone: [facility] 12-01-2022 09:10-0400 Systolic blood pressure 104 mm[Hg] Card [facility] Work Phone: [facility] 11-28-2022 11:12-0400 Body height 180 cm Sergio Altamirano Work Phone: [facility] 11-28-2022 11:12-0400 Body weight 90.63 kg Sergio Altamirano Work Phone: [facility] 11-28-2022 11:12-0400 Diastolic blood pressure 72 mm[Hg] Sergio Bosch MD Work Phone: [facility] 11-28-2022 11:12-0400 Heart rate 66 /min Sergio Altamirano Work Phone: [facility] 11-28-2022 11:12-0400 SaO2% (BldA) [Mass fraction] 98 % Sergio Bosch MD Work Phone: [facility] 11-28-2022 11:12-0400 Systolic blood pressure 110 mm[Hg] Sergio Bosch MD Work Phone: [facility] 11-06-2022 09:25-0400 Body height 177.8 cm Exercise Physiologis t Work Phone: [facility] 11-06-2022 09:25-0400 Body weight 89.09 kg Exercise Physiologis t Work Phone: [facility] 11-06-2022 09:25-0400 Diastolic blood pressure 78 mm[Hg] Bellstand Attendant Work Phone: [facility] 11-06-2022 09:25-0400 Heart rate 71 /min Exercise Physiologis t Work Phone: [facility] 11-06-2022 09:25-0400 SaO2% (BldA) [Mass fraction] 99 % [employer] Attendant Work Phone: [facility] 11-06-2022 09:25-0400 Systolic blood pressure 122 mm[Hg] [employer] Attendant Work Phone: [facility] 10-11-2022 12:00-0400 Body temperature 98.29 [degF] Ericka Bagley MD Work Phone: [facility] [employer] 10-11-2022 12:00-0400 Diastolic blood pressure 66 mm[Hg] Ericka Bagley MD Work Phone: [facility] [employer] 10-11-2022 12:00-0400 Heart rate 79 /min Ericka Bagley MD Work Phone: [facility] [employer] 10-11-2022 12:00-0400 Respiratory rate 16 /min Ericka Bagley MD Work Phone: [facility] [employer] 10-11-2022 12:00-0400 SaO2% (BldA) [Mass fraction] 96 % Ericka Bagley MD Work Phone: [facility] [employer] 10-11-2022 12:00-0400 Systolic blood pressure 108 mm[Hg] Ericka Bagley MD Work Phone: [facility] [employer] 10-11-2022 06:00-0400 Body mass index (BMI) [Ratio] 29.77 kg/m2 Ericka Bagley MD Work Phone: [facility] [employer] 10-11-2022 06:00-0400 Body weight 94.12 kg Ericka Bagley MD Work Phone: [facility] [employer] 10-10-2022 08:22-0400 Body height 177.8 cm Ericka Bagley MD Work Phone: [facility] [employer] 10-07-2022 12:27-0400 SaO2% (BldA) [Mass fraction] 98.9 % Ericka Bagley MD Work Phone: [facility] [employer] 10-01-2022 15:13-0400 Body temperature 97 [degF] Ericka Bagley MD Work Phone: [facility] [employer] 10-01-2022 15:13-0400 Diastolic blood pressure 69 mm[Hg] Ericka Bagley MD Work Phone: [facility] 10-01-2022 15:13-0400 Heart rate 47 /min Ericka Bagley MD Work Phone: [facility] 10-01-2022 15:13-0400 Respiratory rate 20 /min Ericka Bagley MD Work Phone: [facility] 10-01-2022 15:13-0400 SaO2% (BldA) [Mass fraction] 99 % Ericka Bagley MD Work Phone: [facility] 10-01-2022 15:13-0400 Systolic blood pressure 115 mm[Hg] Ericka Bagley MD Work Phone: [facility] 10-01-2022 12:26-0400 Body height 177.8 cm Ericka Bagley MD Work Phone: [facility] 10-01-2022 12:26-0400 Body mass index (BMI) [Ratio] 28.41 kg/m2 Ericka Bagley MD Work Phone: [facility] 10-01-2022 12:26-0400 Body weight 89.81 kg Ericka Bagley MD Work Phone: [facility] 05-30-2022 11:36-0500 Body height 177.8 cm [facility] HEAVY EQUIPMENT MECHANIC.[employer]ERKS SUPERVISOR Work Phone: [facility] 05-30-2022 11:36-0500 Body weight 90.17 kg [facility] HEAVY EQUIPMENT MECHANIC.[facility] Work Phone: [facility] 05-30-2022 11:36-0500 Diastolic blood pressure 87 mm[Hg] [facility] HEAVY EQUIPMENT MECHANIC.[facility] Work Phone: [facility] 05-30-2022 11:36-0500 Heart rate 57 /min [facility] HEAVY EQUIPMENT MECHANIC.CONTA[employer] AND SERVICE CLERKS SUPERVISOR Work Phone: [facility] 05-30-2022 11:36-0500 SaO2% (BldA) [Mass fraction] 100 % [facility] HEAVY EQUIPMENT MECHANIC.[employer]TA[employer] AND SERVICE CLERKS SUPERVISOR Work Phone: [facility] 05-30-2022 11:36-0500 Systolic blood pressure 126 mm[Hg] [facility] HEAVY EQUIPMENT MECHANIC.CONTA[employer] AND SERVICE CLERKS SUPERVISOR Work Phone: [facility] 12-19-2021 11:52-0400 Body mass index (BMI) [Ratio] 27.2 kg/m2 Jareth Garcia Work Phone: [facility] Work Phone: 12-19-2021 11:52-0400 Body surface area Derived from formula 2.09 m2 Jareth Garcia Work Phone: [facility] Work Phone: 12-19-2021 11:52-0400 Body temperature 98.1 [degF] Jareth Garcia Work Phone: [facility] Work Phone: 12-19-2021 11:52-0400 Body weight 88.45 kg Jareth Garcia Work Phone: [facility] Work Phone: 12-19-2021 11:52-0400 Diastolic blood pressure 74 mm[Hg] Jareth Garcia Work Phone: [facility] Work Phone: 12-19-2021 11:52-0400 Heart rate 50 /min Jareth Garcia Work Phone: [facility] Work Phone: 12-19-2021 11:52-0400 Respiratory rate 18 /min Jareth Garcia Work Phone: [facility] Work Phone: 12-19-2021 11:52-0400 SaO2% (BldA) [Mass fraction] 98 % Jareth Garcia Work Phone: [facility] Work Phone: 12-19-2021 11:52-0400 Systolic blood pressure 113 mm[Hg] Jareth Garcia Work Phone: [facility] Work Phone: 12-19-2021 11:52-0400 7 1 Jareth Garcia Work Phone: [facility] Work Phone: Encounters Encounter Date Encounter Type Care Provider Facility Start: 02-24-2023 Telephone encounter Sergio Bosch MD Work Phone: Endocrinology Procedures Date Procedure Procedure Detail Performing Clinician Start: 11-21-2022 End: 11-21-2022 Gluc bld gluc mntr dev cleared fda spec home use [facility] Provider Start: 11-19-2022 End: 11-19-2022 Gluc bld gluc mntr dev cleared fda spec home use [facility] Provider Start: 11-17-2022 End: 11-17-2022 Gluc bld gluc mntr dev cleared fda spec home use [facility] Provider Start: 11-14-2022 End: 11-14-2022 Gluc bld gluc mntr dev cleared fda spec home use [facility] Provider Start: 11-12-2022 Gluc bld gluc mntr dev cleared fda spec home use [facility] Provider Start: 11-10-2022 End: 11-10-2022 Gluc bld gluc mntr dev cleared fda spec home use [facility] Provider Start: 10-21-2022 History of coronary artery bypass grafting S/P CABG (coronary artery bypass graft) Debbi Chun CNP Work Phone: Start: 10-11-2022 Glucose quantitative blood xcpt reagent strip Ericka Bagley MD Work Phone: Start: 10-11-2022 Glucose quantitative blood xcpt reagent strip Ericka Bagley MD Work Phone: Start: 10-11-2022 Radiologic exam chest single view Debbi Chun CNP Work Phone: Start: 10-11-2022 Basic metabolic panel calcium total Debbi Chun CNP Work Phone: Start: 10-10-2022 Glucose quantitative blood xcpt reagent strip Ericka Bagley MD Work Phone: Start: 10-10-2022 Glucose quantitative blood xcpt reagent strip Ericka Bagley MD Work Phone: Start: 10-10-2022 Glucose quantitative blood xcpt reagent strip Ericka Bagley MD Work Phone: Start: 10-10-2022 Glucose quantitative blood xcpt reagent strip Ericka Bagley MD Work Phone: Start: 10-10-2022 Lipid panel Debbi Chun CNP Work Phone: Start: 10-10-2022 Radiologic exam chest single view Debbi Renata Chun CNP Work Phone: Start: 10-10-2022 Lipid 1996 panel - Serum or Plasma Ericka Bagley MD Work Phone: Start: 10-10-2022 Bacteria identified in Blood by Culture Fletcher Solis DO Work Phone: Start: 10-10-2022 Basic metabolic panel calcium total Debbi Chun CNP Work Phone: Start: 10-09-2022 Glucose quantitative blood xcpt reagent strip Ericka Bagley MD Work Phone: Start: 10-09-2022 Glucose quantitative blood xcpt reagent strip Ericka Bagley MD Work Phone: Start: 10-09-2022 Glucose quantitative blood xcpt reagent strip Ericka Bagley MD Work Phone: Start: 10-09-2022 Glucose quantitative blood xcpt reagent strip Ericka Bagley MD Work Phone: Start: 10-09-2022 Glucose quantitative blood xcpt reagent strip Ericka Bagley MD Work Phone: Start: 10-09-2022 End: 10-09-2022 Glucose quantitative blood xcpt reagent strip Ericka Bagley MD Work Phone: Start: 10-09-2022 End: 10-09-2022 Glucose quantitative blood xcpt reagent strip Ericka Bagley MD Work Phone: Start: 10-09-2022 Radiologic exam chest single view Debbi Chun CNP Work Phone: Start: 10-09-2022 Glucose quantitative blood xcpt reagent strip Ericka Bagley MD Work Phone: Start: 10-09-2022 End: 10-09-2022 Glucose quantitative blood xcpt reagent strip Ericka Bagley MD Work Phone: Start: 10-09-2022 End: 10-09-2022 Basic metabolic panel calcium total Debbi Delgadomac Chun CNP Work Phone: Start: 10-08-2022 Ecg routine ecg w/least 12 lds trcg only w/o i&r Debbi Delgadomac Chun CNP Work Phone: Start: 10-08-2022 Radiologic exam chest single view Debbi Yanez RIKA Chun CNP Work Phone: Start: 10-08-2022 End: 10-08-2022 Basic metabolic panel calcium total Abdoul Colon RIKA Lay CONTA[employer] AND [employer]ICE [employer]ERKS SUPERVISOR Work Phone: Start: 10-07-2022 Glucose quantitative blood xcpt reagent strip Ericka Bagley MD Work Phone: Start: 10-07-2022 Glucose quantitative blood xcpt reagent strip Ericka Bagley MD Work Phone: Start: 10-07-2022 End: 10-07-2022 Glucose quantitative blood xcpt reagent strip Ericka Bagley MD Work Phone: Start: 10-07-2022 End: 10-07-2022 Glucose quantitative blood xcpt reagent strip Ericka Bagley MD Work Phone: Start: 10-07-2022 End: 10-07-2022 Glucose quantitative blood xcpt reagent strip Ericka Bagley MD Work Phone: Start: 10-07-2022 Glucose quantitative blood xcpt reagent strip Ericka Bagley MD Work Phone: Start: 10-07-2022 Echo transesophag r-t 2d w/prb img acquisj i&r Ericka Bagley MD Work Phone: Start: 10-07-2022 Radiologic exam chest single view Debbi Renata Chun CNP Work Phone: Start: 10-07-2022 Ecg routine ecg w/least 12 lds trcg only w/o i&r Debbi Chun CONTA[employer] AND SERVICE [employer]ER[employer] SUPERVISOR Work Phone: Start: 10-07-2022 Blood gases any combination ph pco2 po2 co2 hco3 Ericka Bagley MD Work Phone: Start: 10-07-2022 End: 10-07-2022 Basic metabolic panel calcium total Ericka Bagley MD Work Phone: Start: 10-07-2022 End: 10-07-2022 Cabg w/arterial graft three arterial grafts Ericka Bagley MD Work Phone: Start: 10-07-2022 End: 10-07-2022 Echo transesophag r-t 2d w/prb img acquisj i&r Ericka Bagley MD Work Phone: Start: 10-07-2022 End: 10-07-2022 Open tx sternum fracture w/wo skeletal fixation Ericka Bagley MD Work Phone: Start: 10-07-2022 End: 10-07-2022 Glucose quantitative blood xcpt reagent strip Ericka Bagley MD Work Phone: Start: 10-01-2022 Radiologic exam chest 2 views Ericka Bagley MD Work Phone: Start: 10-01-2022 Basic metabolic panel calcium total Ericka Bagley MD Work Phone: Start: 05-30-2022 Hemoglobin A1c/Hemoglobin.total in Blood Danita Oneill HEAVY EQUIPMENT MECHANIC.CONTA[employer] AND SERVICE [employer]ERKS SUPERVISOR Work Phone: Start: 11-21-2021 Hemoglobin A1c/Hemoglobin.total in Blood Danitastaci Alc HEAVY EQUIPMENT MECHANIC.CONTACT AND SERVICE CLERKS SUPERVISOR Work Phone: Start: 01-26-2017 End: 01-26-2017 Follow Up Appt 6 months Jareth Dotson MD Start: 01-26-2017 End: 01-26-2017 [facility] Jareth Dotson MD Start: 01-26-2017 End: 01-26-2017 Follow Up Appt 6 months Jareth Dotson MD Start: 01-26-2017 End: 01-26-2017 PFM Jareth Dotson MD Start: 12-22-2016 End: 12-22-2016 Dietary management education, guidance, and counseling Dionicio Richards Start: 2016 End: 2016 *Hepatic Function Panel Jareth Dotson MD Start: 2016 End: 2016 Lipid 1996 panel - Serum or Plasma Jareth Dotson MD Start: 2016 End: 2016 *Hepatic Function Panel Jareth Dotson MD Start: 2016 End: 2016 Lipid panel [AGGREGATE] Jareth Dotson MD Start: 08-21-2016 End: 08-21-2016 Dietary management education, guidance, and counseling Jareth Dotson MD Start: 08-21-2016 End: 08-21-2016 Follow Up Appt 6 months Jareth Dotson MD Start: 08-21-2016 End: 08-21-2016 PFM Jareth Dotson MD Start: 08-21-2016 End: 08-21-2016 Follow Up Appt 6 months Jareth Dotson MD Start: 08-21-2016 End: 08-21-2016 PFM Jareth Dotson MD Start: 05-21-2016 End: 05-21-2016 Urinalysis Jareth Dotson MD Start: 02-22-2016 End: 02-22-2016 Ecg routine ecg w/least 12 lds w/i&r Jareth Dotson MD Start: 02-22-2016 End: 02-22-2016 Follow Up Appt 6 months Jareth Dotson MD Start: 02-22-2016 End: 02-22-2016 PFM Jareth Dotson MD Start: 02-22-2016 End: 02-22-2016 Electrocardiogram, complete Jareth cool MD Start: 02-22-2016 End: 02-22-2016 Follow Up Appt 6 months Jareth Dotson MD Start: 02-22-2016 End: 02-22-2016 PFM Jareth Dotson MD Start: 11-16-2015 End: 05-21-2016 *Hepatic Function Panel Jareth Dotson MD Start: 11-16-2015 End: 05-21-2016 Lipid 1996 panel - Serum or Plasma Jareth Dotson MD Start: 11-16-2015 End: 05-21-2016 *Hepatic Function Panel Jareth Dotson MD Start: 11-16-2015 End: 05-21-2016 Lipid panel [AGGREGATE] Jareth Dotson MD Start: 07-11-2015 End: 07-12-2015 Follow Up Appt 6 months Jareth Dotson MD Start: 07-11-2015 End: 07-12-2015 PFM Jareth Dotson MD Start: 07-11-2015 End: 07-12-2015 Follow Up Appt 6 months Jareth Dotson MD Start: 07-11-2015 End: 07-12-2015 PFM Jareth Dotson MD Start: 05-16-2015 End: 05-18-2015 *Hepatic Function Panel Jareth Dotson MD Start: 05-16-2015 End: 05-18-2015 Lipid 1996 panel - Serum or Plasma Jareth Dotson MD Start: 05-16-2015 End: 05-18-2015 *Hepatic Function Panel Jareth Dotson MD Start: 05-16-2015 End: 05-18-2015 Lipid panel [AGGREGATE] Jareth Dotson MD Start: 01-01-2015 End: 01-02-2015 Documentation of current medications Jareth Dotson MD Start: 01-01-2015 End: 01-01-2015 Follow Up Appt 6 months Jareth Dotson MD Start: 01-01-2015 End: 01-01-2015 PFM Jareth Dotson MD Start: 01-01-2015 End: 01-02-2015 Documentation of current medications Jareth Dotson MD Start: 01-01-2015 End: 01-01-2015 Follow Up Appt 6 months Jareth Dotson MD Start: 01-01-2015 End: 01-01-2015 PFM Jareth Dotson MD Start: 10-30-2014 End: 11-13-2014 *Hepatic Function Panel Jareth Dotson MD Start: 10-30-2014 End: 11-13-2014 Lipid 1996 panel - Serum or Plasma Jareth Dotson MD Start: 10-30-2014 End: 11-13-2014 *Hepatic Function Panel Jareth Dotson MD Start: 10-30-2014 End: 11-13-2014 Lipid panel [AGGREGATE] Jareth Dotson MD Start: 07-20-2014 End: 07-26-2014 *BMP Shelbi Allan PA-C Work Phone: Start: 07-20-2014 End: 07-25-2014 aPTT in Platelet poor plasma by Coagulation assay Shelbi Allan PA-C Work Phone: Start: 07-20-2014 End: 07-25-2014 CBC W Auto Differential panel - Blood Shelbi Allan PA-C Work Phone: Start: 07-20-2014 End: 07-21-2014 Documentation of current medications Shelbi Allan PA-C Work Phone: Start: 07-20-2014 End: 07-25-2014 INR in Platelet poor plasma by Coagulation assay Shelbi Allan PA-C Work Phone: Start: 07-20-2014 End: 05-18-2015 Left Heart Cath Shelbi Allan PA-C Work Phone: Start: 07-20-2014 End: 07-20-2014 MMM Shelbi Allan PA-C Work Phone: Start: 07-20-2014 End: 07-26-2014 *BMP Shelbi Allan PA-C Work Phone: Start: 07-20-2014 End: 07-25-2014 aPTT Shelbi Allan PA-C Work Phone: Start: 07-20-2014 End: 07-25-2014 CBC W Auto Differential panel - Blood Shelbi Allan PA-C Work Phone: Start: 07-20-2014 End: 07-25-2014 Coagulation factor induced.INR assay in platelet poor plasma Shelbi Allan PA-C Work Phone: Start: 07-20-2014 End: 07-21-2014 Documentation of current medications Shelbi Allan PA-C Work Phone: Start: 07-20-2014 End: 05-18-2015 Left Heart Cath Shelbi Allan PA-C Work Phone: Start: 07-20-2014 End: 07-20-2014 MMJosefa Allan PA-C Work Phone: Start: 07-06-2014 End: 07-07-2014 *BMP Shelbi Allan PA-C Work Phone: Start: 07-06-2014 End: 07-07-2014 *CBC with Differential Shelbi coleman PA-C Work Phone: Start: 07-06-2014 End: 07-12-2014 Follow Up Appt Other Shelbi perrin PA-C Work Phone: Start: 07-06-2014 End: 07-07-2014 Magnesium [Mass/volume] in Serum or Plasma Shelbi Allan PA-C Work Phone: Start: 07-06-2014 End: 07-07-2014 Thyrotropin [Units/volume] in Serum or Plasma Shelbi Allan PA-C Work Phone: Start: 07-06-2014 End: 07-07-2014 *BMP Shelbi Allan PA-C Work Phone: Start: 07-06-2014 End: 07-07-2014 *CBC with Differential Shelbi coleman PA-C Work Phone: Start: 07-06-2014 End: 07-12-2014 Follow Up Appt Other Shelbi perrin PA-C Work Phone: Start: 07-06-2014 End: 07-07-2014 Magnesium Shelbi Allan PA-C Work Phone: Start: 07-06-2014 End: 07-07-2014 Thyroid stimulating hormone (TSH) Shelbi Allan PA-C Work Phone: Start: 06-14-2014 End: 07-12-2014 *ROB Dean MD Work Phone: Start: 06-14-2014 End: 07-12-2014 *ROB Dean MD Work Phone: Start: 06-09-2014 End: 06-10-2014 Documentation of current medications Jareth Dotson MD Start: 06-09-2014 End: 06-09-2014 Follow Up Appt Other Jareth Dotson MD Start: 06-09-2014 End: 06-14-2014 Left Heart Cath Jareth Dotson MD Start: 06-09-2014 End: 06-10-2014 Documentation of current medications Jareth Dotson MD Start: 06-09-2014 End: 06-09-2014 Follow Up Appt Other Jareth Dotson MD Start: 06-09-2014 End: 06-14-2014 Left Heart Cath Jareth Dotson MD Start: 06-02-2014 End: 06-14-2014 *BMP Jareth Dotson MD Start: 06-02-2014 End: 06-14-2014 aPTT in Platelet poor plasma by Coagulation assay Jareth Dotson MD Start: 06-02-2014 End: 06-02-2014 CBC W Auto Differential panel - Blood Jareth Dotson MD Start: 06-02-2014 End: 06-14-2014 Chest x-ray Jareth Dotson MD Start: 06-02-2014 End: 06-14-2014 Ecg routine ecg w/least 12 lds w/i&r Jareth Dotson MD Start: 06-02-2014 End: 06-14-2014 INR in Platelet poor plasma by Coagulation assay Jareth Dotson MD Start: 06-02-2014 End: 06-20-2014 Left Heart Cath Jareth Dotson MD Start: 06-02-2014 End: 06-02-2014 Nurse, Teaching, Wound Check (no charge) Jareth Dotson MD Start: 06-02-2014 End: 06-14-2014 *BMP Jareth Dotson MD Start: 06-02-2014 End: 06-14-2014 aPTT Jareth Dotson MD Start: 06-02-2014 End: 06-02-2014 CBC W Auto Differential panel - Blood Jareth Dotson MD Start: 06-02-2014 End: 06-14-2014 Chest x-ray Jareth Dotson MD Start: 06-02-2014 End: 06-14-2014 Coagulation factor induced.INR assay in platelet poor plasma Jareth Dotson MD Start: 06-02-2014 End: 06-14-2014 Electrocardiogram, complete Jareth cool MD Start: 06-02-2014 End: 06-20-2014 Left Heart Cath Jareth Dotson MD Start: 06-02-2014 End: 06-02-2014 Nurse, Teaching, Wound Check (no charge) Jareth Dotson MD Start: 05-26-2014 End: 06-20-2014 Nuclear stress test -exercise Jareth Dotson MD Start: 05-26-2014 End: 06-20-2014 Nuclear stress test -exercise Jareth Dotson MD Start: 05-24-2014 End: 05-26-2014 24 hour holter monitor Jareth Dotson MD Start: 05-24-2014 End: 05-26-2014 24 hour holter monitor Jareth Dotson MD Start: 04-13-2014 End: 06-20-2014 *Hepatic Function Panel Jareth Dotson MD Start: 04-13-2014 End: 06-20-2014 Lipid 1996 panel - Serum or Plasma Jareth Dotson MD Start: 04-13-2014 End: 06-20-2014 *Hepatic Function Panel Jareth Dotson MD Start: 04-13-2014 End: 06-20-2014 Lipid panel [AGGREGATE] Jareth Dotson MD Start: 12-09-2013 End: 12-09-2013 Ecg routine ecg w/least 12 lds w/i&r Jareth Dotson MD Start: 12-09-2013 End: 12-09-2013 Follow Up Appt 6 months Jareth Dotson MD Start: 12-09-2013 End: 12-09-2013 PFM Jareth Dotson MD Start: 12-09-2013 End: 12-09-2013 Electrocardiogram, complete Jareth cool MD Start: 12-09-2013 End: 12-09-2013 Follow Up Appt 6 months Jareth Dotson MD Start: 12-09-2013 End: 12-09-2013 PFM Jareth Dotson MD Start: 10-11-2013 End: 12-09-2013 *Hepatic Function Panel Jareth Dotson MD Start: 10-11-2013 End: 11-10-2013 Lipid 1996 panel - Serum or Plasma Jareth Dotson MD Start: 10-11-2013 End: 12-09-2013 *Hepatic Function Panel Jareth Dotson MD Start: 10-11-2013 End: 11-10-2013 Lipid panel [AGGREGATE] Jareth Dotson MD Start: 05-06-2013 End: 05-09-2013 *Hepatic Function Panel Jareth Dotson MD Start: 05-06-2013 End: 05-06-2013 Ecg routine ecg w/least 12 lds w/i&r Jareth Dotson MD Start: 05-06-2013 End: 05-06-2013 Follow Up Appt 6 months Jareth Dotson MD Start: 05-06-2013 End: 05-09-2013 Lipid 1996 panel - Serum or Plasma Jareth Dotson MD Start: 05-06-2013 End: 05-06-2013 PFM Jareth Dotson MD Start: 05-06-2013 End: 05-09-2013 *Hepatic Function Panel Jareth Dotson MD Start: 05-06-2013 End: 05-06-2013 Electrocardiogram, complete Jareth cool MD Start: 05-06-2013 End: 05-06-2013 Follow Up Appt 6 months Jareth Dotson MD Start: 05-06-2013 End: 05-09-2013 Lipid panel [AGGREGATE] Jareth Dotson MD Start: 05-06-2013 End: 05-06-2013 PFM Jareth Dotson MD Start: 10-04-2012 End: 10-04-2012 Follow Up Appt 6 months Jareth Dotson MD Start: 10-04-2012 End: 10-04-2012 PFM Jareth Dotson MD Start: 10-04-2012 End: 10-04-2012 Follow Up Appt 6 months Jareth Dotosn MD Start: 10-04-2012 End: 10-04-2012 PFM Jareth Dotson MD Start: 08-19-2012 End: 12-09-2013 Chest x-ray Daniel Valle MD Start: 08-19-2012 End: 12-09-2013 Chest x-ray Daniel Valle MD Start: 06-16-2012 End: 12-09-2013 24 hour holter monitor Jareth Dotson MD Start: 06-16-2012 End: 06-16-2012 Ecg routine ecg w/least 12 lds w/i&r Jareth Dotson MD Start: 06-16-2012 End: 12-09-2013 Follow Up Appt 3 months Jareth Dotson MD Start: 06-16-2012 End: 12-09-2013 PFM Jareth Dotson MD Start: 06-16-2012 End: 12-09-2013 24 hour holter monitor Jareth Dotson MD Start: 06-16-2012 End: 06-16-2012 Electrocardiogram, complete Jareth cool MD Start: 06-16-2012 End: 12-09-2013 Follow Up Appt 3 months Jareth Dotson MD Start: 06-16-2012 End: 12-09-2013 PFM Jareth Dotson MD Start: 12-29-2011 End: 12-09-2013 Ecg routine ecg w/least 12 lds w/i&r Jareth Dotson MD Start: 12-29-2011 End: 12-09-2013 Echocardiography Jareth Dotson MD Start: 12-29-2011 End: 12-29-2011 Follow Up Appt 6 months Jareth Dotson MD Start: 12-29-2011 End: 12-09-2013 Nuclear stress test -exercise Jareth Dotson MD Start: 12-29-2011 End: 12-09-2013 Echocardiography Jareth Dotson MD Start: 12-29-2011 End: 12-09-2013 Electrocardiogram, complete Jareth cool MD Start: 12-29-2011 End: 12-29-2011 Follow Up Appt 6 months Jareth Dotson MD Start: 12-29-2011 End: 12-09-2013 Nuclear stress test -exercise Jareth Dotson MD Start: 06-16-2011 End: 06-16-2011 Ecg routine ecg w/least 12 lds w/i&r Jareth Dotson MD Start: 06-16-2011 End: 06-16-2011 Follow Up Appt 6 months Jareth Dotson MD Start: 06-16-2011 End: 06-16-2011 Electrocardiogram, complete Jareth cool MD Start: 06-16-2011 End: 06-16-2011 Follow Up Appt 6 months Jareth Dotson MD History of coronary artery bypass grafting S/P CABG (coronary artery bypass graft) Ericka Bagley MD Work Phone: History of coronary artery bypass grafting S/P CABG (coronary artery bypass graft) [employer] Att[employer] Work Phone: History of coronary artery bypass grafting S/P CABG (coronary artery bypass graft) [facility] [employer] Work Phone: History of coronary artery bypass grafting S/P CABG (coronary artery bypass graft) Debbi Chun [facility] Work Phone: History of coronary artery bypass grafting S/P CABG (coronary artery bypass graft) [employer] Work Phone: History of coronary artery bypass grafting S/P CABG (coronary artery bypass graft) [employer] Work Phone: History of coronary artery bypass grafting S/P CABG (coronary artery bypass graft) [employer] Work Phone: History of coronary artery bypass grafting S/P CABG (coronary artery bypass graft) [facility] [employer] Work Phone: History of coronary artery bypass grafting S/P CABG (coronary artery bypass graft) [facility] [employer] Work Phone: History of coronary artery bypass grafting S/P CABG (coronary artery bypass graft) [facility] [employer] Work Phone: History of coronary artery bypass grafting S/P CABG (coronary artery bypass graft) Card [employer] Work Phone: History of coronary artery bypass grafting S/P CABG (coronary artery bypass graft) Card [employer] Work Phone: History of coronary artery bypass grafting S/P CABG (coronary artery bypass graft) Card [employer] Work Phone: History of coronary artery bypass grafting S/P CABG (coronary artery bypass graft) [facility] [employer] Work Phone: History of coronary artery bypass grafting S/P CABG (coronary artery bypass graft) [facility] [employer] Work Phone: History of coronary artery bypass grafting S/P CABG (coronary artery bypass graft) Card [employer] Work Phone: History of coronary artery bypass grafting S/P CABG (coronary artery bypass graft) Card [employer] Work Phone: History of coronary artery bypass grafting S/P CABG (coronary artery bypass graft) [facility] [employer] Work Phone: History of coronary artery bypass grafting S/P CABG (coronary artery bypass graft) [facility] [employer] Work Phone: History of coronary artery bypass grafting S/P CABG (coronary artery bypass graft) [facility] [employer] Work Phone: History of coronary artery bypass grafting S/P CABG (coronary artery bypass graft) [facility] [employer] Work Phone: History of coronary artery bypass grafting S/P CABG (coronary artery bypass graft) Card [employer] Work Phone: History of coronary artery bypass grafting S/P CABG (coronary artery bypass graft) Card [employer] Work Phone: History of coronary artery bypass grafting S/P CABG (coronary artery bypass graft) Card [employer] Work Phone: History of coronary artery bypass grafting S/P CABG (coronary artery bypass graft) Card [employer] Work Phone: History of coronary artery bypass grafting S/P CABG (coronary artery bypass graft) Card [employer] Work Phone: History of coronary artery bypass grafting S/P CABG (coronary artery bypass graft) [facility] [employer] Work Phone: Plan of Treatment Date Care Activity Detail Author Start: 11-29-2023 3 comp foot exam completed DIABETIC FOOT EXAM [facility] Start: 11-29-2023 Hepatitis B screening URINE ALBUMIN:CREATININE RATIO [facility] Start: 10-11-2023 Hepatitis B surface antibody level LDL CHOLESTEROL [facility] Start: 10-11-2023 Lipid panel Lipid Panel [facility] Start: 10-02-2023 Hemoglobin A1c measurement Diabetes: Hemoglobin A1C [facility] Start: 09-18-2023 Hepatitis C antibody, confirmatory test DILATED RETINAL EXAM [facility] Start: 05-03-2023 Hemoglobin A1c/Hemoglobin.total in Blood HBA1C [facility] Start: 04-30-2023 Hepatitis B surface antibody level LDL CHOLESTEROL [facility] Start: 04-02-2023 Hemoglobin A1c/Hemoglobin.total in Blood HBA1C [facility] Start: 01-01-2023 Hemoglobin A1c measurement Diabetes: Hemoglobin A1C [facility] Start: 12-12-2022 Covid-19 Vaccine ( season) Covid-19 Vaccine ( season) [facility] Start: 12-12-2022 Influenza vaccination [facility] Start: 11-28-2022 End: 01-28-2023 ALBUMIN/CREAT RATIO RND UR [facility] Work Phone: Immunizations Immunization Date Immunization Notes Care Provider Keith plasencia 07-12-2020 COVID-19 vaccine, ag e 12+ yr (PFIZER-BIONTECH - PURPLE TOP) Danita Oneill [employer]MENT MECH[employer]IC.CONTACT AND [employer]ICE [employer]ERKS SUPERVISOR Work Phone: [facility] Work Phone: 06-21-2020 COVID-19 vaccine, ag e 12+ yr (PFIZER-BIONTECH - PURPLE TOP) Danita Oneill HEAVY EQUIPMENT MECHANIC.CONTACT AND SERVICE CLERKS SUPERVISOR Work Phone: [facility] 01-16-2020 influenza virus vaccine, unspecified formulation Debbi Yanez HEAV[employer] EQUIPMENT MECHANIC - CONTACT AND SERVICE [employer]ERKS SUPERVISOR Work Phone: [facility] Payers Date Payer Category Payer Private Health Insurance [id number] 2022 Private Health Insurance [id number] 2020 Unknown 2016 Unknown [id number] Social History Date Type Detail Facility Start: 10-01-2022 End: 11-10-2022 Never smoker Never smoker [facility] Start: 11-21-2021 End: 10-01-2022 Tobacco smoking status NHIS Never smoked tobacco [facility] Start: 11-21-2021 End: 10-01-2022 Tobacco use and exposure Former smokeless tobacco user [facility] End: 04-13-2003 History of tobacco use Snuff User [facility] Start: 11-21-2021 End: 11-29-2022 Alcohol intake Not Asked [facility] Start: 1965 Sex Assigned At Not on file [facility] Start: 11-11-2021 End: 11-12-2022 Exposure to SARS-CoV-2 (event) Not sure [facility] End: 08-11-2002 History of tobacco use Chews Tobacco [facility] Start: 10-01-2022 End: 10-22-2022 Alcohol intake Current drinker of alcohol (finding) [facility] Start: 10-01-2022 End: 11-10-2022 Tobacco use panel [facility] Start: 1965 Sex Assigned At Male [facility] Start: 09-29-2022 Gender identity Identifies as male gender (finding) [facility] Start: 09-29-2022 Sexual orientation Heterosexual (fin ding) [facility] Adult Depression Screening Assessment 0 [facility] Medical Equipment Procedure Code Equipment Code Equipment Origin al Text Equipment Identifier Dates [id number] Start: 04-10-2021 End: 11-21-2021 Clinical Notes 11-06-2021 to 02-24-2023 Telephone Encounter - Emilia Samuel RN - 02/24/2023 10:13 AM ESTTelephone Encounter - Remedios Bentley MA - 02/18/2023 3:10 PM ESTTelephone Encounter - Anayeli Blank Ma - 02/17/2023 9:20 AM EST Note Date & Type Note Facility 02-24-2023 Miscellaneous Notes Received notification from Jeffrey that patient was approved for [employer]. Auth # [id number] Effective from 02/19/23-02/18/24. Closed documented in this encounter [facility] 02-18-2023 Note HNO ID: [id number] Author: Girish Camejo, [employer] Att[employer] Service: ? Author Type: [employer] Attendant Type: Progress Notes Filed: 02/18/2023 3:21 PM Note Text: Attestation signed by Bandar Butler DO at 02/23/2023 3:20 PM I have reviewed the detailed Individualized Treatment Plan assessment and plan for the patient as described above and agree with the recommendations. Bandar Butler DO, [facility], [facility] Clinical and Preventive Cardiology Department of Medicine and Division of Cardiology, [facility] Staff Director Funds Development, [facility] Department of Cardiovascular Medicine/Heart and Vascular [place], [facility] Clinical environmental assistant Profressor of Medicine, [facility] Cardiac Rehabilitation Hospital Based Program Supervising Physician: Bandar Saucedo Diagnosis: CABG Phase: 2 Monitor: Yes Session Number: 36 Today's exercise session was comprised of a warm-up, aerobic conditioning phase, aerobic cool-down, and free weight resistance training. Patient tolerated prescribed exercise workload. Tele SR-ST without ectopic beats. Vitals WNL for patient. No chest discomfort. No medication changes. This is a hospital based cardiac rehab program. Patient working towards exercise goals by sustaining exercise intensity and duration. Patient working towards education goal by attending education sessions in cardiac rehabilitation. Patient has verbalized understanding of weight control education topic and the relation to disease managment. Patient's Daily Exercise Log will be scanned into [employer] once it is completed. These can be viewed by going under the Scanned Documents tab and looking for documents labeled Cardiac Rehabilitation. Daily Exercise Logs contain exercise data such as, but not limited to modality, intensity, duration and frequency of exercise, along with vital signs pre-, during, and post-exercise. Refer to patient's paper medical record for ECG rhythm strips, physician prescribed Individualized Treatment Plan, and education sessions covered. Girish Camejo, [employer] Attendant Heart and Vascular [place] [facility] Department of Cardiovascular Medicine Discharge Assessment for Cardiac Rehab Jaydon Arellano 02/18/2023 CHIEF COMPLAINT: Jaydon Arellano is a 57 year old male seen today. Patient presents with: Cardiac Rehab: Discharge Patient completed optimal therapeutic dose of cardiac rehab: Yes Patient demonstrated clinically significant increase in functional capacity: Yes Patient achieved/maintained optimal blood pressure control: Yes Patient achieved clinical significant decrease in symptoms of depression: Yes Current smoking status: Ex-smoker >12 months OUTCOMES: Initial Asmt Outcome 11/06/2022 Resting BP 122/78 Current Weight lb. 196.4 BMI 28.3 Mediterranean Diet Score 10 PHQ9 Score 4 Discharge Asmt Outcome 02/17/2023 Completed Ex. 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 rosuvastatin (CRESTOR) 20 mg tablet Take 1 tablet by mouth every other day. Alternate with 1/2 pill every other day insulin glargine (BASAGLAR KWIKPEN U-100 INSULIN) 100 unit/mL (3 mL) Inject subcutaneously 15 units daily if insulin pump fails glucagon (BAQSIMI) 3 mg/actuation nasal spray Use 1 [place] in the nose as needed for low blood sugar. May repeat after 15 minutes using a new device if there is no response. insulin lispro-aabc (LYUMJEV U-100 INSULIN) 100 unit/mL solution Infuse up to 55 units daily per insulin pump Insulin [place], Disposable, (PEN NEEDLE) 32 gauge x 5/32 Inject 1 Each subcutaneously q 24 HR. Give with each insulin administration. blood sugar diagnostic (ACCU-CHEK GUIDE TEST STRIPS) test strip Use as instructed; 4 strips per day, IDDM, E10.319 losartan (COZAAR) 25 mg tablet Take 1 tablet by mout (more content not included)... [facility] 02-18-2023 Miscellaneous Notes Faxed Confirmation fax received. Transmission successful. OK to send. Form on docs desk/basket for review from [employer]. Please review and sign. Needs to be faxed to [phone]. Attached last office note. documented in this encounter [facility] 02-16-2023 Note HNO ID: [id number] Author: Vero Marina, Bell[employer] Attendant Service: ? Author Type: Bellstand Attendant Type: Progress Notes Filed: 02/16/2023 3:13 PM Note Text: Cardiac Rehabilitation Hospital Based Program Supervising Physician: Bandar Saucedo Diagnosis: CABG Phase: 2 Monitor: Yes Session Number: 35 Today's exercise session was comprised of a warm-up, aerobic conditioning phase, aerobic cool-down, and free weight resistance training. Patient tolerated prescribed exercise workload. Tele SB-ST without ectopic beats. Vitals WNL for patient. No chest discomfort. No medication changes. This is a hospital based cardiac rehab program. Patient working towards exercise goals by increasing exercise intensity. Patient working towards education Diabetes education topic and the relation to disease managment. Patient's Daily Exercise Log will be scanned into [employer] once it is completed. These can be viewed by going under the Scanned Documents tab and looking for documents labeled Cardiac Rehabilitation. Daily Exercise Logs contain exercise data such as, but not limited to modality, intensity, duration and frequency of exercise, along with vital signs pre-, during, and post-exercise. Refer to patient's paper medical record for ECG rhythm strips, physician prescribed Individualized Treatment Plan, and education sessions covered. Vero Marina [employer] Attendant [facility] 02-16-2023 History of Present illness Narrative Images from the original note were not included. Cardiac Rehabilitation Hospital Based Program Supervising Physician: Bandar Saucedo Diagnosis: CABG Phase: 2 Monitor: Yes Session Number: 35 Today's exercise session was comprised of a warm-up, aerobic conditioning phase, aerobic cool-down, and free weight resistance training. Patient tolerated prescribed exercise workload. Tele SB-ST without ectopic beats. Vitals WNL for patient. No chest discomfort. No medication changes. This is a hospital based cardiac rehab program. Patient working towards exercise goals by increasing exercise intensity. Patient working towards education Diabetes education topic and the relation to disease managment. Patient's Daily Exercise Log will be scanned into [employer] once it is completed. These can be viewed by going under the Scanned Documents tab and looking for documents labeled Cardiac Rehabilitation. Daily Exercise Logs contain exercise data such as, but not limited to modality, intensity, duration and frequency of exercise, along with vital signs pre-, during, and post-exercise. Refer to patient's paper medical record for ECG rhythm strips, physician prescribed Individualized Treatment Plan, and education sessions covered. Vero Marina [employer] Attendant documented in this encounter [facility] 02-13-2023 Note HNO ID: [id number] Author: Vero Marina [employer] Attendant Service: ? Author Type: Bellstand Attendant Type: Progress Notes Filed: 02/13/2023 3:14 PM Note Text: Cardiac Rehabilitation Hospital Based Program Supervising Physician: Dr. Smith Diagnosis: CABG Phase: 2 Monitor: Yes Session Number: 34 Today's exercise session was comprised of a warm-up, aerobic conditioning phase, aerobic cool-down, and free weight resistance training. Patient tolerated prescribed exercise workload. Tele SR-ST without ectopic beats. Vitals WNL for patient. No chest discomfort. No medication changes. This is a hospital based cardiac rehab program. Patient working towards exercise goals by sustaining exercise intensity and duration. Patient working towards education goal by attending education sessions in cardiac rehabilitation. Patient has verbalized understanding of Cholesterol education topic and the relation to disease managment. Patient's Daily Exercise Log will be scanned into [employer] once it is completed. These can be viewed by going under the Scanned Documents tab and looking for documents labeled Cardiac Rehabilitation. Daily Exercise Logs contain exercise data such as, but not limited to modality, intensity, duration and frequency of exercise, along with vital signs pre-, during, and post-exercise. Refer to patient's paper medical record for ECG rhythm strips, physician prescribed Individualized Treatment Plan, and education sessions covered. Vero Marina, Bellstand Attendant [facility] 02-13-2023 Miscellaneous Notes Form faxed to [employer] at on February 13, 2023; transmission ok. OK to send. Form on docs desk/basket for review from [employer]. Please review and sign. Needs to be faxed to [phone]. Attached last office note. documented in this encounter [facility] 02-09-2023 Note HNO ID: [id number] Author: Vero Marina, Bellstand Attendant Service: ? Author Type: Bellstand Attendant Type: Progress Notes Filed: 02/09/2023 2:59 PM Note Text: Cardiac Rehabilitation [facility] Based Program Supervising Physician: Dr. Smith Diagnosis: CABG Phase: 2 Monitor: Yes Session Number: 33 Today's exercise session was comprised of a warm-up, aerobic conditioning phase, aerobic cool-down, and free weight resistance training. Patient tolerated prescribed exercise workload. Tele SR-ST without ectopic beats. Vitals WNL for patient. No chest discomfort. No medication changes. This is a hospital based cardiac rehab program. Patient working towards exercise goals by increasing exercise intensity. Patient working towards education goal by attending education sessions in cardiac rehabilitation. Patient has verbalized understanding of Risk Factors education topic and the relation to disease managment. Patient's Daily Exercise Log will be scanned into [employer] once it is completed. These can be viewed by going under the Scanned Documents tab and looking for documents labeled Cardiac Rehabilitation. Daily Exercise Logs contain exercise data such as, but not limited to modality, intensity, duration and frequency of exercise, along with vital signs pre-, during, and post-exercise. Refer to patient's paper medical record for ECG rhythm strips, physician prescribed Individualized Treatment Plan, and education sessions covered. Vero Marina, Bellstand Attendant [facility] 02-09-2023 History of Present illness Narrative Images from the original note were not included. Cardiac Rehabilitation Hospital Based Program Supervising Physician: Dr. Smith Diagnosis: CABG Phase: 2 Monitor: Yes Session Number: 33 Today's exercise session was comprised of a warm-up, aerobic conditioning phase, aerobic cool-down, and free weight resistance training. Patient tolerated prescribed exercise workload. Tele SR-ST without ectopic beats. Vitals WNL for patient. No chest discomfort. No medication changes. This is a hospital based cardiac rehab program. Patient working towards exercise goals by increasing exercise intensity. Patient working towards education goal by attending education sessions in cardiac rehabilitation. Patient has verbalized understanding of Risk Factors education topic and the relation to disease managment. Patient's Daily Exercise Log will be scanned into [employer] once it is completed. These can be viewed by going under the Scanned Documents tab and looking for documents labeled Cardiac Rehabilitation. Daily Exercise Logs contain exercise data such as, but not limited to modality, intensity, duration and frequency of exercise, along with vital signs pre-, during, and post-exercise. Refer to patient's paper medical record for ECG rhythm strips, physician prescribed Individualized Treatment Plan, and education sessions covered. Vero Marina Bellstand Attendant documented in this encounter [facility] 02-06-2023 Note HNO ID: [id number] Author: Melvi Espino, sweatband cutting machine operator Service: ? Author Type: Slag Skimmer Type: Progress Notes Filed: 02/06/2023 2:59 PM Note Text: Cardiac Rehabilitation Hospital Based Program Supervising Physician: Bandar Saucedo Diagnosis: CABG Phase: 2 Monitor: Yes Session Number: 32 Today's exercise session was comprised of a warm-up, aerobic conditioning phase, aerobic cool-down, and free weight resistance training. Patient tolerated prescribed exercise workload. Tele SR-ST without ectopic beats. Vitals WNL for patient. No chest discomfort. No medication changes. This is a hospital based cardiac rehab program. Patient working towards exercise goals by increasing exercise duration. Patient working towards education goal by attending education sessions in cardiac rehabilitation. Patient has verbalized understanding of Sugar, fiber, Na education topic and the relation to disease managment. Patient's Daily Exercise Log will be scanned into [employer] once it is completed. These can be viewed by going under the Scanned Documents tab and looking for documents labeled Cardiac Rehabilitation. Daily Exercise Logs contain exercise data such as, but not limited to modality, intensity, duration and frequency of exercise, along with vital signs pre-, during, and post-exercise. Refer to patient's paper medical record for ECG rhythm strips, physician prescribed Individualized Treatment Plan, and education sessions covered. Melvi Espino, Bellstand Attendant [facility] 02-06-2023 History of Present illness Narrative Images from the original note were not included. Cardiac Rehabilitation Hospital Based Program Supervising Physician: Bandar Saucedo Diagnosis: CABG Phase: 2 Monitor: Yes Session Number: 32 Today's exercise session was comprised of a warm-up, aerobic conditioning phase, aerobic cool-down, and free weight resistance training. Patient tolerated prescribed exercise workload. Tele SR-ST without ectopic beats. Vitals WNL for patient. No chest discomfort. No medication changes. This is a hospital based cardiac rehab program. Patient working towards exercise goals by increasing exercise duration. Patient working towards education goal by attending education sessions in cardiac rehabilitation. Patient has verbalized understanding of Sugar, fiber, Na education topic and the relation to disease managment. Patient's Daily Exercise Log will be scanned into [employer] once it is completed. These can be viewed by going under the Scanned Documents tab and looking for documents labeled Cardiac Rehabilitation. Daily Exercise Logs contain exercise data such as, but not limited to modality, intensity, duration and frequency of exercise, along with vital signs pre-, during, and post-exercise. Refer to patient's paper medical record for ECG rhythm strips, physician prescribed Individualized Treatment Plan, and education sessions covered. Melvi Espino Bellstand Attendant documented in this encounter [facility] 02-04-2023 Note HNO ID: [id number] Author: Vero Marina Bellstand Attendant Service: ? Author Type: Bellstand Attendant Type: Progress Notes Filed: 02/04/2023 3:09 PM Note Text: Cardiac Rehabilitation Hospital Based Program Supervising Physician: Bandar Saucedo Diagnosis: CABG Phase: 2 Monitor: Yes Session Number: 31 Today's exercise session was comprised of a warm-up, aerobic conditioning phase, aerobic cool-down, and free weight resistance training. Patient tolerated prescribed exercise workload. Tele SR-ST without ectopic beats. Vitals WNL for patient. No chest discomfort. No medication changes. This is a hospital based cardiac rehab program. Patient working towards exercise goals by sustaining exercise intensity and duration. Patient working towards education goal by attending education sessions in cardiac rehabilitation. Patient has verbalized understanding of Portion Control education topic and the relation to disease managment. Patient's Daily Exercise Log will be scanned into [employer] once it is completed. These can be viewed by going under the Scanned Documents tab and looking for documents labeled Cardiac Rehabilitation. Daily Exercise Logs contain exercise data such as, but not limited to modality, intensity, duration and frequency of exercise, along with vital signs pre-, during, and post-exercise. Refer to patient's paper medical record for ECG rhythm strips, physician prescribed Individualized Treatment Plan, and education sessions covered. Vero Marina Bellstand Attendant [facility] 02-04-2023 History of Present illness Narrative Images from the original note were not included. Cardiac Rehabilitation Hospital Based Program Supervising Physician: Bandar Saucedo Diagnosis: CABG Phase: 2 Monitor: Yes Session Number: 31 Today's exercise session was comprised of a warm-up, aerobic conditioning phase, aerobic cool-down, and free weight resistance training. Patient tolerated prescribed exercise workload. Tele SR-ST without ectopic beats. Vitals WNL for patient. No chest discomfort. No medication changes. This is a hospital based cardiac rehab program. Patient working towards exercise goals by sustaining exercise intensity and duration. Patient working towards education goal by attending education sessions in cardiac rehabilitation. Patient has verbalized understanding of Portion Control education topic and the relation to disease managment. Patient's Daily Exercise Log will be scanned into [employer] once it is completed. These can be viewed by going under the Scanned Documents tab and looking for documents labeled Cardiac Rehabilitation. Daily Exercise Logs contain exercise data such as, but not limited to modality, intensity, duration and frequency of exercise, along with vital signs pre-, during, and post-exercise. Refer to patient's paper medical record for ECG rhythm strips, physician prescribed Individualized Treatment Plan, and education sessions covered. Vero Marina Bellstand Attendant documented in this encounter [facility] 02-02-2023 Note HNO ID: [id number] Author: Girish Camejo, Bellstand Attendant Service: ? Author Type: Bellstand Attendant Type: Progress Notes Filed: 02/02/2023 3:13 PM Note Text: Cardiac Rehabilitation Hospital Based Program Supervising Physician: Bandar Saucedo Diagnosis: CABG Phase: 2 Monitor: Yes Session Number: 30 Today's exercise session was comprised of a warm-up, aerobic conditioning phase, aerobic cool-down, and free weight resistance training. Patient tolerated prescribed exercise workload. Tele SR-ST without ectopic beats. Vitals WNL for patient. No chest discomfort. No medication changes. This is a hospital based cardiac rehab program. Patient working towards exercise goals by sustaining exercise intensity and duration. Patient working towards education goal by attending education sessions in cardiac rehabilitation. Patient has verbalized understanding of reading food labels education topic and the relation to disease managment. Patient's Daily Exercise Log will be scanned into [employer] once it is completed. These can be viewed by going under the Scanned Documents tab and looking for documents labeled Cardiac Rehabilitation. Daily Exercise Logs contain exercise data such as, but not limited to modality, intensity, duration and frequency of exercise, along with vital signs pre-, during, and post-exercise. Refer to patient's paper medical record for ECG rhythm strips, physician prescribed Individualized Treatment Plan, and education sessions covered. Girish Camejo Bellstand Attendant [facility] 02-02-2023 History of Present illness Narrative Images from the original note were not included. Cardiac Rehabilitation Hospital Based Program Supervising Physician: Bandar Saucedo Diagnosis: CABG Phase: 2 Monitor: Yes Session Number: 30 Today's exercise session was comprised of a warm-up, aerobic conditioning phase, aerobic cool-down, and free weight resistance training. Patient tolerated prescribed exercise workload. Tele SR-ST without ectopic beats. Vitals WNL for patient. No chest discomfort. No medication changes. This is a hospital based cardiac rehab program. Patient working towards exercise goals by sustaining exercise intensity and duration. Patient working towards education goal by attending education sessions in cardiac rehabilitation. Patient has verbalized understanding of reading food labels education topic and the relation to disease managment. Patient's Daily Exercise Log will be scanned into [facility] once it is completed. These can be viewed by going under the Scanned Documents tab and looking for documents labeled Cardiac Rehabilitation. Daily Exercise Logs contain exercise data such as, but not limited to modality, intensity, duration and frequency of exercise, along with vital signs pre-, during, and post-exercise. Refer to patient's paper medical record for ECG rhythm strips, physician prescribed Individualized Treatment Plan, and education sessions covered. Girish Camejo Bellstand Attendant documented in this encounter [facility] 01-30-2023 Note HNO ID: [id number] Author: Vero Marina Bellstand Attendant Service: ? Author Type: Bellstand Attendant Type: Progress Notes Filed: 01/30/2023 3:14 PM Note Text: Attestation signed by Bandar Butler DO at 02/02/2023 8:46 AM I have reviewed the detailed Individualized Treatment Plan assessment and plan for the patient as described above and agree with the recommendations. Bandar Butler DO, FAC, FAC Clinical and Preventive Cardiology Department of Medicine and Division of Cardiology, [facility] Staff Director Funds Development, [facility] Department of Cardiovascular Medicine/Heart [facility] [place], [facility] Clinical environmental assistant Profressor of Medicine, [facility] Cardiac Rehabilitation Hospital Based Program Supervising Physician: Jaydon Sheppard Diagnosis: CABG Phase: 2 Monitor: Yes Session Number: 29 Today's exercise session was comprised of a warm-up, aerobic conditioning phase, aerobic cool-down, and free weight resistance training. Patient tolerated prescribed exercise workload. Tele SR-ST without ectopic beats. Vitals WNL for patient. No chest discomfort. No medication changes. This is a hospital based cardiac rehab program. Patient working towards exercise goals by increasing exercise duration. Patient working towards education goal by attending education sessions in cardiac rehabilitation. Patient has verbalized understanding of Mediterranean Diet education topic and the relation to disease managment. Patient's Daily Exercise Log will be scanned into [employer] once it is completed. These can be viewed by going under the Scanned Documents tab and looking for documents labeled Cardiac Rehabilitation. Daily Exercise Logs contain exercise data such as, but not limited to modality, intensity, duration and frequency of exercise, along with vital signs pre-, during, and post-exercise. Refer to patient's paper medical record for ECG rhythm strips, physician prescribed Individualized Treatment Plan, and education sessions covered. Vero Marina, Bellstand Attendant [facility] [place] [facility] Department of Cardiovascular Medicine 30 DAY Assessment for Cardiac Rehab Jaydon Arellano 01/30/2023 CHIEF COMPLAINT: Jaydon Arellano is a 57 year old male seen today. 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 rosuvastatin (CRESTOR) 20 mg tablet Take 1 tablet by mouth every other day. Alternate with 1/2 pill every other day insulin glargine (BASAGLAR KWIKPEN U-100 INSULIN) 100 unit/mL (3 mL) Inject subcutaneously 15 units daily if insulin pump fails glucagon (BAQSIMI) 3 mg/actuation nasal spray Use 1 [place] in the nose as needed for low blood sugar. May repeat after 15 minutes using a new device if there is no response. insulin lispro-aabc (LYUMJEV U-100 INSULIN) 100 unit/mL solution Infuse up to 55 units daily per insulin pump Insulin [place], Disposable, (PEN NEEDLE) 32 gauge x 5/32 Inject 1 Each subcutaneously q 24 HR. Give with each insulin administration. blood sugar diagnostic (ACCU-CHEK GUIDE TEST STRIPS) test strip Use as instructed; 4 strips per day, IDDM, E10.319 losartan (COZAAR) 25 mg tablet Take 1 tablet by mouth once daily. Aspirin 81 mg ORAL Tab Take 81 mg by mouth once daily. clopidogrel (PLAVIX) 75 mg tablet Take one(1) tablet daily. carvedilol (COREG) 12.5 mg tablet Take one(1) tablet twice daily. No current facility-administered medications for this visit. ALLERGIES Allergen Reactions Contrast Dye Itching Penicillin G Shortness of Breath SOB, rash, hives Seasonal Allergies Other: See Comments Itching, sneezing, watery eyes PHYSICAL EXAMINATION: BP 102/60 Pulse 67 Wt 195 lb (88.5kg) INDIVIDUAL TREATMENT PLAN Progr (more content not included)... [facility] 01-28-2023 Note HNO ID: [id number] Author: Girish Camejo, Bellstand Attendant Service: ? Author Type: Bellstand Attendant Type: Progress Notes Filed: 01/28/2023 2:58 PM Note Text: Cardiac Rehabilitation Hospital Based Program Supervising Physician: Jaydon Sheppard Diagnosis: CABG Phase: 2 Monitor: Yes Session Number: 28 Today's exercise session was comprised of a warm-up, aerobic conditioning phase, aerobic cool-down, and free weight resistance training. Patient tolerated prescribed exercise workload. Tele SB-ST without ectopic beats. Vitals WNL for patient. No chest discomfort. No medication changes. This is a hospital based cardiac rehab program. Patient working towards exercise goals by sustaining exercise intensity and duration. Patient working towards education goal by attending education sessions in cardiac rehabilitation. Patient has verbalized understanding of CHF education topic and the relation to disease managment. Patient's Daily Exercise Log will be scanned into [employer] once it is completed. These can be viewed by going under the Scanned Documents tab and looking for documents labeled Cardiac Rehabilitation. Daily Exercise Logs contain exercise data such as, but not limited to modality, intensity, duration and frequency of exercise, along with vital signs pre-, during, and post-exercise. Refer to patient's paper medical record for ECG rhythm strips, physician prescribed Individualized Treatment Plan, and education sessions covered. Girish Camejo, Bellstand Attendant [facility] 01-21-2023 Note HNO ID: [id number] Author: Girish Camejo, Bellstand Attendant Service: ? Author Type: Bellstand Attendant Type: Progress Notes Filed: 01/21/2023 3:08 PM Note Text: Cardiac Rehabilitation Hospital Based Program Supervising Physician: Dr. Connell Diagnosis: CABG Phase: 2 Monitor: Yes Session Number: 27 Today's exercise session was comprised of a warm-up, aerobic conditioning phase, aerobic cool-down, and free weight resistance training. Patient tolerated prescribed exercise workload. Tele SR-ST without ectopic beats. Vitals WNL for patient. No chest discomfort. No medication changes. This is a hospital based cardiac rehab program. Patient working towards exercise goals by sustaining exercise intensity and duration. Patient working towards education goal by attending education sessions in cardiac rehabilitation. Patient has verbalized understanding of coronary arteries education topic and the relation to disease managment. Patient's Daily Exercise Log will be scanned into [employer] once it is completed. These can be viewed by going under the Scanned Documents tab and looking for documents labeled Cardiac Rehabilitation. Daily Exercise Logs contain exercise data such as, but not limited to modality, intensity, duration and frequency of exercise, along with vital signs pre-, during, and post-exercise. Refer to patient's paper medical record for ECG rhythm strips, physician prescribed Individualized Treatment Plan, and education sessions covered. Girish Camejo, Bellstand Attendant [facility] 01-19-2023 Note HNO ID: [id number] Author: Girish Camejo, Bellstand Attendant Service: ? Author Type: Bellstand Attendant Type: Progress Notes Filed: 01/19/2023 3:18 PM Note Text: Cardiac Rehabilitation Hospital Based Program Supervising Physician: Bandar Saucedo Diagnosis: CABG Phase: 2 Monitor: Yes Session Number: 26 Today's exercise session was comprised of a warm-up, aerobic conditioning phase, aerobic cool-down, and free weight resistance training. Patient tolerated prescribed exercise workload. Tele SB-ST without ectopic beats. Vitals WNL for patient. No chest discomfort. No medication changes. This is a hospital based cardiac rehab program. Patient working towards exercise goals by increasing exercise intensity. Patient working towards education goal by attending education sessions in cardiac rehabilitation. Patient has verbalized understanding of cardiac AANDP education topic and the relation to disease managment. Patient's Daily Exercise Log will be scanned into [employer] once it is completed. These can be viewed by going under the Scanned Documents tab and looking for documents labeled Cardiac Rehabilitation. Daily Exercise Logs contain exercise data such as, but not limited to modality, intensity, duration and frequency of exercise, along with vital signs pre-, during, and post-exercise. Refer to patient's paper medical record for ECG rhythm strips, physician prescribed Individualized Treatment Plan, and education sessions covered. Girish Camejo Bellstand Attendant [facility] 01-19-2023 History of Present illness Narrative Images from the original note were not included. Cardiac Rehabilitation Hospital Based Program Supervising Physician: Bandar Saucedo Diagnosis: CABG Phase: 2 Monitor: Yes Session Number: 26 Today's exercise session was comprised of a warm-up, aerobic conditioning phase, aerobic cool-down, and free weight resistance training. Patient tolerated prescribed exercise workload. Tele SB-ST without ectopic beats. Vitals WNL for patient. No chest discomfort. No medication changes. This is a hospital based cardiac rehab program. Patient working towards exercise goals by increasing exercise intensity. Patient working towards education goal by attending education sessions in cardiac rehabilitation. Patient has verbalized understanding of cardiac A&P education topic and the relation to disease managment. Patient's Daily Exercise Log will be scanned into [employer] once it is completed. These can be viewed by going under the Scanned Documents tab and looking for documents labeled Cardiac Rehabilitation. Daily Exercise Logs contain exercise data such as, but not limited to modality, intensity, duration and frequency of exercise, along with vital signs pre-, during, and post-exercise. Refer to patient's paper medical record for ECG rhythm strips, physician prescribed Individualized Treatment Plan, and education sessions covered. Girish Camejo Bellstand Attendant documented in this encounter [facility] 01-16-2023 Note HNO ID: [id number] Author: Girish Camejo Bellstand Attendant Service: ? Author Type: Bellstand Attendant Type: Progress Notes Filed: 01/16/2023 3:08 PM Note Text: Cardiac Rehabilitation [facility] Based Program Supervising Physician: Bandar Saucedo Diagnosis: CABG Phase: 2 Monitor: Yes Session Number: 25 Today's exercise session was comprised of a warm-up, aerobic conditioning phase, aerobic cool-down, and free weight resistance training. Patient tolerated prescribed exercise workload. Tele SB-ST without ectopic beats. Vitals WNL for patient. No chest discomfort. No medication changes. This is a hospital based cardiac rehab program. Patient working towards exercise goals by sustaining exercise intensity and duration. Patient working towards education goal by attending education sessions in cardiac rehabilitation. Patient has verbalized understanding of advanced directives education topic and the relation to disease managment. Patient's Daily Exercise Log will be scanned into [employer] once it is completed. These can be viewed by going under the Scanned Documents tab and looking for documents labeled Cardiac Rehabilitation. Daily Exercise Logs contain exercise data such as, but not limited to modality, intensity, duration and frequency of exercise, along with vital signs pre-, during, and post-exercise. Refer to patient's paper medical record for ECG rhythm strips, physician prescribed Individualized Treatment Plan, and education sessions covered. Girish Camejo Bellstand Attendant [facility] 01-14-2023 Note HNO ID: [id number] Author: Girish Camejo Bellstand Attendant Service: ? Author Type: Bellstand Attendant Type: Progress Notes Filed: 01/14/2023 3:05 PM Note Text: Cardiac Rehabilitation [facility] Based Program Supervising Physician: Bandar Saucedo Diagnosis: CABG Phase: 2 Monitor: Yes Session Number: 24 Today's exercise session was comprised of a warm-up, aerobic conditioning phase, aerobic cool-down, and free weight resistance training. Patient tolerated prescribed exercise workload. Tele SB-ST without ectopic beats. Vitals WNL for patient. No chest discomfort. No medication changes. This is a hospital based cardiac rehab program. Patient working towards exercise goals by increasing exercise duration. Patient working towards education goal by attending education sessions in cardiac rehabilitation. Patient has verbalized understanding of depression and heart disease education topic and the relation to disease managment. Patient's Daily Exercise Log will be scanned into [employer] once it is completed. These can be viewed by going under the Scanned Documents tab and looking for documents labeled Cardiac Rehabilitation. Daily Exercise Logs contain exercise data such as, but not limited to modality, intensity, duration and frequency of exercise, along with vital signs pre-, during, and post-exercise. Refer to patient's paper medical record for ECG rhythm strips, physician prescribed Individualized Treatment Plan, and education sessions covered. Girish Camejo Bellstand Attendant [facility] 10-04-2023 History of Present illness Narrative Images from the original note were not included. Cardiac Rehabilitation [facility] Based Program Supervising Physician: Bandar Saucedo Diagnosis: CABG Phase: 2 Monitor: Yes Session Number: 24 Today's exercise session was comprised of a warm-up, aerobic conditioning phase, aerobic cool-down, and free weight resistance training. Patient tolerated prescribed exercise workload. Tele SB-ST without ectopic beats. Vitals WNL for patient. No chest discomfort. No medication changes. This is a hospital based cardiac rehab program. Patient working towards exercise goals by increasing exercise duration. Patient working towards education goal by attending education sessions in cardiac rehabilitation. Patient has verbalized understanding of depression and heart disease education topic and the relation to disease managment. Patient's Daily Exercise Log will be scanned into [employer] once it is completed. These can be viewed by going under the Scanned Documents tab and looking for documents labeled Cardiac Rehabilitation. Daily Exercise Logs contain exercise data such as, but not limited to modality, intensity, duration and frequency of exercise, along with vital signs pre-, during, and post-exercise. Refer to patient's paper medical record for ECG rhythm strips, physician prescribed Individualized Treatment Plan, and education sessions covered. Girish Camejo Bellstand Attendant documented in this encounter [facility] 01-12-2023 Note HNO ID: [id number] Author: Vero Mraina Bellstand Attendant Service: ? Author Type: Bellstand Attendant Type: Progress Notes Filed: 01/12/2023 3:17 PM Note Text: Cardiac Rehabilitation [facility] Based Program Supervising Physician: Bandar Saucedo Diagnosis: CABG Phase: 2 Monitor: Yes Session Number: 23 Today's exercise session was comprised of a warm-up, aerobic conditioning phase, aerobic cool-down, and free weight resistance training. Patient tolerated prescribed exercise workload. Tele SR-ST without ectopic beats. Vitals WNL for patient. No chest discomfort. No medication changes. This is a hospital based cardiac rehab program. Patient working towards exercise goals by increasing exercise intensity and duration. Patient working towards education goal by attending education sessions in cardiac rehabilitation. Patient has verbalized understanding of Stress Management education topic and the relation to disease managment. Patient's Daily Exercise Log will be scanned into [employer] once it is completed. These can be viewed by going under the Scanned Documents tab and looking for documents labeled Cardiac Rehabilitation. Daily Exercise Logs contain exercise data such as, but not limited to modality, intensity, duration and frequency of exercise, along with vital signs pre-, during, and post-exercise. Refer to patient's paper medical record for ECG rhythm strips, physician prescribed Individualized Treatment Plan, and education sessions covered. Vero Marina, Bellstand Attendant [facility] 01-09-2023 Note HNO ID: [id number] Author: Melvi Espino, sweatband cutting machine operator Service: ? Author Type: Slag Skimmer Type: Progress Notes Filed: 01/09/2023 3:09 PM Note Text: Cardiac Rehabilitation [facility] Based Program Supervising Physician: Dr. Connell Diagnosis: CABG Phase: 2 Monitor: Yes Session Number: 22 Today's exercise session was comprised of a warm-up, aerobic conditioning phase, aerobic cool-down, and free weight resistance training. Patient tolerated prescribed exercise workload. Tele SR-ST without ectopic beats. Vitals WNL for patient. No chest discomfort. No medication changes. This is a hospital based cardiac rehab program. Patient working towards exercise goals by sustaining exercise intensity and duration. Patient working towards education goal by attending education sessions in cardiac rehabilitation. Patient has verbalized understanding of Exercise education topic and the relation to disease managment. Patient's Daily Exercise Log will be scanned into [employer] once it is completed. These can be viewed by going under the Scanned Documents tab and looking for documents labeled Cardiac Rehabilitation. Daily Exercise Logs contain exercise data such as, but not limited to modality, intensity, duration and frequency of exercise, along with vital signs pre-, during, and post-exercise. Refer to patient's paper medical record for ECG rhythm strips, physician prescribed Individualized Treatment Plan, and education sessions covered. Melvi Espino, Bellstand Attendant [facility] 01-09-2023 History of Present illness Narrative Images from the original note were not included. Cardiac Rehabilitation Hospital Based Program Supervising Physician: Dr. Connell Diagnosis: CABG Phase: 2 Monitor: Yes Session Number: 22 Today's exercise session was comprised of a warm-up, aerobic conditioning phase, aerobic cool-down, and free weight resistance training. Patient tolerated prescribed exercise workload. Tele SR-ST without ectopic beats. Vitals WNL for patient. No chest discomfort. No medication changes. This is a hospital based cardiac rehab program. Patient working towards exercise goals by sustaining exercise intensity and duration. Patient working towards education goal by attending education sessions in cardiac rehabilitation. Patient has verbalized understanding of Exercise education topic and the relation to disease managment. Patient's Daily Exercise Log will be scanned into [employer] once it is completed. These can be viewed by going under the Scanned Documents tab and looking for documents labeled Cardiac Rehabilitation. Daily Exercise Logs contain exercise data such as, but not limited to modality, intensity, duration and frequency of exercise, along with vital signs pre-, during, and post-exercise. Refer to patient's paper medical record for ECG rhythm strips, physician prescribed Individualized Treatment Plan, and education sessions covered. Melvi Espino, Bellstand Attendant documented in this encounter [facility] 01-07-2023 Note HNO ID: [id number] Author: Girish Camejo, Bellstand Attendant Service: ? Author Type: Bellstand Attendant Type: Progress Notes Filed: 01/07/2023 3:11 PM Note Text: Cardiac Rehabilitation [facility] Based Program Supervising Physician: Dr. Connell Diagnosis: CABG Phase: 2 Monitor: Yes Session Number: 21 Today's exercise session was comprised of a warm-up, aerobic conditioning phase, aerobic cool-down, and free weight resistance training. Patient tolerated prescribed exercise workload. Tele SR-ST without ectopic beats. Vitals WNL for patient. No chest discomfort. No medication changes. This is a hospital based cardiac rehab program. Patient working towards exercise goals by sustaining exercise intensity and duration. Patient working towards education goal by attending education sessions in cardiac rehabilitation. Patient has verbalized understanding of weight control education topic and the relation to disease managment. Patient's Daily Exercise Log will be scanned into [employer] once it is completed. These can be viewed by going under the Scanned Documents tab and looking for documents labeled Cardiac Rehabilitation. Daily Exercise Logs contain exercise data such as, but not limited to modality, intensity, duration and frequency of exercise, along with vital signs pre-, during, and post-exercise. Refer to patient's paper medical record for ECG rhythm strips, physician prescribed Individualized Treatment Plan, and education sessions covered. Girish Camejo, Bellstand Attendant [facility] 01-05-2023 Note HNO ID: [id number] Author: Vero Marina Bellstand Attendant Service: ? Author Type: Bellstand Attendant Type: Progress Notes Filed: 01/05/2023 2:43 PM Note Text: Cardiac Rehabilitation [facility] Based Program Supervising Physician: Dr. Connell Diagnosis: CABG Phase: 2 Monitor: Yes Session Number: 20 Today's exercise session was comprised of a warm-up, aerobic conditioning phase, aerobic cool-down, and free weight resistance training. Patient tolerated prescribed exercise workload. Tele SR-ST without ectopic beats. Vitals WNL for patient. No chest discomfort. No medication changes. This is a hospital based cardiac rehab program. Patient working towards exercise goals by sustained exercise intensity and duration. Patient working towards education goal by attending education sessions in cardiac rehabilitation. Patient has verbalized understanding of Diabetes education topic and the relation to disease managment. Patient's Daily Exercise Log will be scanned into [employer] once it is completed. These can be viewed by going under the Scanned Documents tab and looking for documents labeled Cardiac Rehabilitation. Daily Exercise Logs contain exercise data such as, but not limited to modality, intensity, duration and frequency of exercise, along with vital signs pre-, during, and post-exercise. Refer to patient's paper medical record for ECG rhythm strips, physician prescribed Individualized Treatment Plan, and education sessions covered. Vero Marina, Bellstand Attendant [facility] 01-05-2023 History of Present illness Narrative Images from the original note were not included. Cardiac Rehabilitation Hospital Based Program Supervising Physician: Dr. Connell Diagnosis: CABG Phase: 2 Monitor: Yes Session Number: 20 Today's exercise session was comprised of a warm-up, aerobic conditioning phase, aerobic cool-down, and free weight resistance training. Patient tolerated prescribed exercise workload. Tele SR-ST without ectopic beats. Vitals WNL for patient. No chest discomfort. No medication changes. This is a hospital based cardiac rehab program. Patient working towards exercise goals by sustained exercise intensity and duration. Patient working towards education goal by attending education sessions in cardiac rehabilitation. Patient has verbalized understanding of Diabetes education topic and the relation to disease managment. Patient's Daily Exercise Log will be scanned into [employer] once it is completed. These can be viewed by going under the Scanned Documents tab and looking for documents labeled Cardiac Rehabilitation. Daily Exercise Logs contain exercise data such as, but not limited to modality, intensity, duration and frequency of exercise, along with vital signs pre-, during, and post-exercise. Refer to patient's paper medical record for ECG rhythm strips, physician prescribed Individualized Treatment Plan, and education sessions covered. Vero Marina, Bellstand Attendant documented in this encounter [facility] 01-02-2023 Note HNO ID: [id number] Author: Girish Camejo Bellstand Attendant Service: ? Author Type: Bellstand Attendant Type: Progress Notes Filed: 01/02/2023 2:29 PM Note Text: Attestation signed by Bandar Butler DO at 01/16/2023 5:18 PM I have reviewed the detailed Individualized Treatment Plan assessment and plan for the patient as described above and agree with the recommendations. Bandar Butler DO, [facility], [facility] Clinical and Preventive Cardiology Department of Medicine and Division of Cardiology, [facility] Staff Director Funds Development, [facility] Department of Cardiovascular Medicine/Heart and Vascular [place], [facility] Clinical environmental assistant Profressor of Medicine, [facility] Heart and Vascular [place] [facility] Department of Cardiovascular Medicine 30 DAY Assessment for Cardiac Rehab Jaydon Arellano 01/02/2023 CHIEF COMPLAINT: Jaydon Arellano is a 57 year old male seen today. 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 rosuvastatin (CRESTOR) 20 mg tablet Take 1 tablet by mouth every other day. Alternate with 1/2 pill every other day insulin glargine (BASAGLAR KWIKPEN U-100 INSULIN) 100 unit/mL (3 mL) Inject subcutaneously 15 units daily if insulin pump fails glucagon (BAQSIMI) 3 mg/actuation nasal spray Use 1 [place] in the nose as needed for low blood sugar. May repeat after 15 minutes using a new device if there is no response. insulin lispro-aabc (LYUMJEV U-100 INSULIN) 100 unit/mL solution Infuse up to 55 units daily per insulin pump Insulin [place], Disposable, (PEN NEEDLE) 32 gauge x 5/32 Inject 1 Each subcutaneously q 24 HR. Give with each insulin administration. blood sugar diagnostic (ACCU-CHEK GUIDE TEST STRIPS) test strip Use as instructed; 4 strips per day, IDDM, E10.319 losartan (COZAAR) 25 mg tablet Take 1 tablet by mouth once daily. Aspirin 81 mg ORAL Tab Take 81 mg by mouth once daily. clopidogrel (PLAVIX) 75 mg tablet Take one(1) tablet daily. carvedilol (COREG) 12.5 mg tablet Take one(1) tablet twice daily. No current facility-administered medications for this visit. ALLERGIES Allergen Reactions Contrast Dye Itching Penicillin G Shortness of Breath SOB, rash, hives Seasonal Allergies Other: See Comments Itching, sneezing, watery eyes PHYSICAL EXAMINATION: BP 108/68 Pulse 61 Wt 198 lb (89.8kg) INDIVIDUAL TREATMENT PLAN Program Location: [place] EXERCISE REASSESSMENT Current Exercise at Rehab: Patient is currently exercising 3x's a week for 35 minutes per session on the treadmill and Elliptical Treadmill METS : 9.2 Elliptical METS: 6 RT Weight : 7.5 lbs Home Exercise: Yes Mode: walking Intensity: moderate Duration: 3x's a week; 60 minutes per session Current Symptoms: Asymptomatic Education Completed: RPE, Equipment Orientation, Signs and Symptoms, Target Heart Rate Range, Hand Hygiene, Cleaning of Equipment, Warm Up/Cool Down, Safety Guidelines, Exercise Prescription, Exercise Considerations, Equipment orientation, Exercise Safety, Exercise Benefits EXERCISE INTERVENTION/PRESCRIPTION Exercise Prescription: see outline below Aerobic: Yes Distance: 35 minutes (minutes) Frequency: 3-5 Per Week Mode: Treadmill, Cycle, Recumbent Stepper, Elliptical, AirDyne, Arm Ergometer, Recumbent Bike, Rower, Weights, Walking Intensity: 50-75% age max heart rate METS: 9.2 may exceed with in target heart rate Target Heart Rate (BPM): 83-124 Workload: 50-75% age max heart rate RPE: 11-14 out of 6-20 scale Initial Duration (minutes): 25 minutes Progression: 5 Minutes Every 2-3 Weeks as Tolerated Resistance Training: Free weights; currently using 7.5 lb weights WT Intensity: Weight to Have Local Muscle Fatigue in 10-15 Reps With 2-3 Sets Mi (more content not included)... [facility] 12-24-2022 Note HNO ID: [id number] Author: Vero Marina Bellstand Attendant Service: ? Author Type: Bellstand Attendant Type: Progress Notes Filed: 12/24/2022 2:50 PM Note Text: Cardiac Rehabilitation [facility] Based Program Supervising Physician: Jaydon Sheppard Diagnosis: CABG Phase: 2 Monitor: Yes Session Number: 19 Today's exercise session was comprised of a warm-up, aerobic conditioning phase, aerobic cool-down, and free weight resistance training. Patient tolerated prescribed exercise workload. Tele SB-ST without ectopic beats. Vitals WNL for patient. No chest discomfort. No medication changes. This is a hospital based cardiac rehab program. Patient working towards exercise goals by sustaining exercise intensity and duration. Patient working towards education goal by attending education sessions in cardiac rehabilitation. Patient has verbalized understanding of Sugar, Fiber, NA+ education topic and the relation to disease managment. Patient's Daily Exercise Log will be scanned into [employer] once it is completed. These can be viewed by going under the Scanned Documents tab and looking for documents labeled Cardiac Rehabilitation. Daily Exercise Logs contain exercise data such as, but not limited to modality, intensity, duration and frequency of exercise, along with vital signs pre-, during, and post-exercise. Refer to patient's paper medical record for ECG rhythm strips, physician prescribed Individualized Treatment Plan, and education sessions covered. Vero Marina, Bellstand Attendant [facility] 12-22-2022 Note HNO ID: [id number] Author: Girish Camejo, Bellstand Attendant Service: ? Author Type: Bellstand Attendant Type: Progress Notes Filed: 12/22/2022 3:18 PM Note Text: Cardiac Rehabilitation [facility] Based Program Supervising Physician: Jaydon Sheppard Diagnosis: CABG Phase: 2 Monitor: Yes Session Number: 18 Today's exercise session was comprised of a warm-up, aerobic conditioning phase, aerobic cool-down, and free weight resistance training. Patient tolerated prescribed exercise workload. Tele SR-ST without ectopic beats. Vitals WNL for patient. No chest discomfort. No medication changes. This is a hospital based cardiac rehab program. Patient working towards exercise goals by sustaining exercise intensity and duration. Patient working towards education goal by attending education sessions in cardiac rehabilitation. Patient has verbalized understanding of reading food labels education topic and the relation to disease managment. Patient's Daily Exercise Log will be scanned into [employer] once it is completed. These can be viewed by going under the Scanned Documents tab and looking for documents labeled Cardiac Rehabilitation. Daily Exercise Logs contain exercise data such as, but not limited to modality, intensity, duration and frequency of exercise, along with vital signs pre-, during, and post-exercise. Refer to patient's paper medical record for ECG rhythm strips, physician prescribed Individualized Treatment Plan, and education sessions covered. Girish Camejo, Bellstand Attendant [facility] 12-22-2022 History of Present illness Narrative Images from the original note were not included. Cardiac Rehabilitation [facility] Based Program Supervising Physician: Jaydon Sheppard Diagnosis: CABG Phase: 2 Monitor: Yes Session Number: 18 Today's exercise session was comprised of a warm-up, aerobic conditioning phase, aerobic cool-down, and free weight resistance training. Patient tolerated prescribed exercise workload. Tele SR-ST without ectopic beats. Vitals WNL for patient. No chest discomfort. No medication changes. This is a hospital based cardiac rehab program. Patient working towards exercise goals by sustaining exercise intensity and duration. Patient working towards education goal by attending education sessions in cardiac rehabilitation. Patient has verbalized understanding of reading food labels education topic and the relation to disease managment. Patient's Daily Exercise Log will be scanned into [employer] once it is completed. These can be viewed by going under the Scanned Documents tab and looking for documents labeled Cardiac Rehabilitation. Daily Exercise Logs contain exercise data such as, but not limited to modality, intensity, duration and frequency of exercise, along with vital signs pre-, during, and post-exercise. Refer to patient's paper medical record for ECG rhythm strips, physician prescribed Individualized Treatment Plan, and education sessions covered. Girish Camejo Bellstand Attendant documented in this encounter [facility] 12-19-2022 Note HNO ID: [id number] Author: Girish Camejo Bellstand Attendant Service: ? Author Type: Bellstand Attendant Type: Progress Notes Filed: 12/19/2022 3:16 PM Note Text: Cardiac Rehabilitation [facility] Based Program Supervising Physician: Bandar Saucedo Diagnosis: CABG Phase: 2 Monitor: Yes Session Number: 17 Today's exercise session was comprised of a warm-up, aerobic conditioning phase, aerobic cool-down, and free weight resistance training. Patient tolerated prescribed exercise workload. Tele SR-ST without ectopic beats. Vitals WNL for patient. No chest discomfort. No medication changes. This is a hospital based cardiac rehab program. Patient working towards exercise goals by sustaining exercise intensity and duration. Patient working towards education goal by attending education sessions in cardiac rehabilitation. Patient has verbalized understanding of med diet education topic and the relation to disease managment. Patient's Daily Exercise Log will be scanned into [employer] once it is completed. These can be viewed by going under the Scanned Documents tab and looking for documents labeled Cardiac Rehabilitation. Daily Exercise Logs contain exercise data such as, but not limited to modality, intensity, duration and frequency of exercise, along with vital signs pre-, during, and post-exercise. Refer to patient's paper medical record for ECG rhythm strips, physician prescribed Individualized Treatment Plan, and education sessions covered. Girish Camejo Bellstand Attendant [facility] 12-19-2022 History of Present illness Narrative Images from the original note were not included. Cardiac Rehabilitation [facility] Supervising Physician: Bandar Saucedo Diagnosis: CABG Phase: 2 Monitor: Yes Session Number: 17 Today's exercise session was comprised of a warm-up, aerobic conditioning phase, aerobic cool-down, and free weight resistance training. Patient tolerated prescribed exercise workload. Tele SR-ST without ectopic beats. Vitals WNL for patient. No chest discomfort. No medication changes. This is a hospital based cardiac rehab program. Patient working towards exercise goals by sustaining exercise intensity and duration. Patient working towards education goal by attending education sessions in cardiac rehabilitation. Patient has verbalized understanding of med diet education topic and the relation to disease managment. Patient's Daily Exercise Log will be scanned into [employer] once it is completed. These can be viewed by going under the Scanned Documents tab and looking for documents labeled Cardiac Rehabilitation. Daily Exercise Logs contain exercise data such as, but not limited to modality, intensity, duration and frequency of exercise, along with vital signs pre-, during, and post-exercise. Refer to patient's paper medical record for ECG rhythm strips, physician prescribed Individualized Treatment Plan, and education sessions covered. Girish Camejo Bellstand Attendant documented in this encounter [facility] 12-17-2022 Note HNO ID: [id number] Author: Girish Camejo Bellstand Attendant Service: ? Author Type: Bellstand Attendant Type: Progress Notes Filed: 12/17/2022 3:19 PM Note Text: Cardiac Rehabilitation [facility] Program Supervising Physician: Bandar Saucedo Diagnosis: CABG Phase: 2 Monitor: Yes Session Number: 16 Today's exercise session was comprised of a warm-up, aerobic conditioning phase, aerobic cool-down, and free weight resistance training. Patient tolerated prescribed exercise workload. Tele SR-ST without ectopic beats. Vitals WNL for patient. No chest discomfort. No medication changes. This is a hospital based cardiac rehab program. Patient working towards exercise goals by increasing exercise intensity. Patient working towards education goal by attending education sessions in cardiac rehabilitation. Patient has verbalized understanding of CHF education topic and the relation to disease managment. Patient's Daily Exercise Log will be scanned into [employer] once it is completed. These can be viewed by going under the Scanned Documents tab and looking for documents labeled Cardiac Rehabilitation. Daily Exercise Logs contain exercise data such as, but not limited to modality, intensity, duration and frequency of exercise, along with vital signs pre-, during, and post-exercise. Refer to patient's paper medical record for ECG rhythm strips, physician prescribed Individualized Treatment Plan, and education sessions covered. Girish Camejo, Bellstand Attendant [facility] 12-12-2022 Note HNO ID: [id number] Author: Vero Marina Bellstand Attendant Service: ? Author Type: Bellstand Attendant Type: Progress Notes Filed: 12/12/2022 3:06 PM Note Text: Cardiac Rehabilitation [facility] Program Supervising Physician: Jaydon Sheppard Diagnosis: CABG Phase: 2 Monitor: Yes Session Number: 15 Today's exercise session was comprised of a warm-up, aerobic conditioning phase, aerobic cool-down, and free weight resistance training. Patient tolerated prescribed exercise workload. Tele SR-ST without ectopic beats. Vitals WNL for patient. No chest discomfort. No medication changes. This is a hospital based cardiac rehab program. Patient working towards exercise goals by sustaining exercise intensity and duration. Patient working towards education goal by attending education sessions in cardiac rehabilitation. Patient has verbalized understanding of Heart Valves education topic and the relation to disease managment. Patient's Daily Exercise Log will be scanned into [employer] once it is completed. These can be viewed by going under the Scanned Documents tab and looking for documents labeled Cardiac Rehabilitation. Daily Exercise Logs contain exercise data such as, but not limited to modality, intensity, duration and frequency of exercise, along with vital signs pre-, during, and post-exercise. Refer to patient's paper medical record for ECG rhythm strips, physician prescribed Individualized Treatment Plan, and education sessions covered. Vero Marina Bellstand Attendant [facility] 12-12-2022 History of Present illness Narrative Images from the original note were not included. Cardiac Rehabilitation Hospital [facility] Program Supervising Physician: Jaydon Sheppard Diagnosis: CABG Phase: 2 Monitor: Yes Session Number: 15 Today's exercise session was comprised of a warm-up, aerobic conditioning phase, aerobic cool-down, and free weight resistance training. Patient tolerated prescribed exercise workload. Tele SR-ST without ectopic beats. Vitals WNL for patient. No chest discomfort. No medication changes. This is a hospital based cardiac rehab program. Patient working towards exercise goals by sustaining exercise intensity and duration. Patient working towards education goal by attending education sessions in cardiac rehabilitation. Patient has verbalized understanding of Heart Valves education topic and the relation to disease managment. Patient's Daily Exercise Log will be scanned into [employer] once it is completed. These can be viewed by going under the Scanned Documents tab and looking for documents labeled Cardiac Rehabilitation. Daily Exercise Logs contain exercise data such as, but not limited to modality, intensity, duration and frequency of exercise, along with vital signs pre-, during, and post-exercise. Refer to patient's paper medical record for ECG rhythm strips, physician prescribed Individualized Treatment Plan, and education sessions covered. Vero Marina Bellstand Attendant documented in this encounter [facility] 12-10-2022 Note HNO ID: [id number] Author: Girish Camejo, Bellstand Attendant Service: ? Author Type: Bellstand Attendant Type: Progress Notes Filed: 12/10/2022 3:07 PM Note Text: Cardiac Rehabilitation Hospital Based Program Supervising Physician: Jaydon Sheppard Diagnosis: CABG Phase: 2 Monitor: Yes Session Number: 14 Today's exercise session was comprised of a warm-up, aerobic conditioning phase, aerobic cool-down, and free weight resistance training. Patient tolerated prescribed exercise workload. Tele SR-ST without ectopic beats. Vitals WNL for patient. No chest discomfort. No medication changes. This is a hospital based cardiac rehab program. Patient working towards exercise goals by increasing exercise intensity and duration. Patient working towards education goal by attending education sessions in cardiac rehabilitation. Patient has verbalized understanding of angina/NTG education topic and the relation to disease managment. Patient's Daily Exercise Log will be scanned into [employer] once it is completed. These can be viewed by going under the Scanned Documents tab and looking for documents labeled Cardiac Rehabilitation. Daily Exercise Logs contain exercise data such as, but not limited to modality, intensity, duration and frequency of exercise, along with vital signs pre-, during, and post-exercise. Refer to patient's paper medical record for ECG rhythm strips, physician prescribed Individualized Treatment Plan, and education sessions covered. Girish Camejo Bellstand Attendant [facility] 12-10-2022 History of Present illness Narrative Images from the original note were not included. Cardiac Rehabilitation [facility] Program Supervising Physician: Jaydon Sheppard Diagnosis: CABG Phase: 2 Monitor: Yes Session Number: 14 Today's exercise session was comprised of a warm-up, aerobic conditioning phase, aerobic cool-down, and free weight resistance training. Patient tolerated prescribed exercise workload. Tele SR-ST without ectopic beats. Vitals WNL for patient. No chest discomfort. No medication changes. This is a hospital based cardiac rehab program. Patient working towards exercise goals by increasing exercise intensity and duration. Patient working towards education goal by attending education sessions in cardiac rehabilitation. Patient has verbalized understanding of angina/NTG education topic and the relation to disease managment. Patient's Daily Exercise Log will be scanned into [employer] once it is completed. These can be viewed by going under the Scanned Documents tab and looking for documents labeled Cardiac Rehabilitation. Daily Exercise Logs contain exercise data such as, but not limited to modality, intensity, duration and frequency of exercise, along with vital signs pre-, during, and post-exercise. Refer to patient's paper medical record for ECG rhythm strips, physician prescribed Individualized Treatment Plan, and education sessions covered. Girish Camejo Bellstand Attendant documented in this encounter [facility] 12-08-2022 Note HNO ID: [id number] Author: Melvi Espino, sweatband cutting machine operator Service: ? Author Type: Slag Skimmer Type: Progress Notes Filed: 12/08/2022 3:05 PM Note Text: Cardiac Rehabilitation [facility] Program Supervising Physician: Bandar Saucedo Diagnosis: CABG Phase: 2 Monitor: Yes Session Number: 13 Today's exercise session was comprised of a warm-up, aerobic conditioning phase, aerobic cool-down, and free weight resistance training. Patient tolerated prescribed exercise workload. Tele SR-ST without ectopic beats. Vitals WNL for patient. No chest discomfort. No medication changes. This is a hospital based cardiac rehab program. Patient working towards exercise goals by sustaining exercise intensity and duration. Patient working towards education goal by attending education sessions in cardiac rehabilitation. Patient has verbalized understanding of CAD education topic and the relation to disease managment. Patient's Daily Exercise Log will be scanned into [employer] once it is completed. These can be viewed by going under the Scanned Documents tab and looking for documents labeled Cardiac Rehabilitation. Daily Exercise Logs contain exercise data such as, but not limited to modality, intensity, duration and frequency of exercise, along with vital signs pre-, during, and post-exercise. Refer to patient's paper medical record for ECG rhythm strips, physician prescribed Individualized Treatment Plan, and education sessions covered. Melvi Espino, Bellstand Attendant [facility] 12-08-2022 History of Present illness Narrative Images from the original note were not included. Cardiac Rehabilitation Hospital Based Program Supervising Physician: Bandar Saucedo Diagnosis: CABG Phase: 2 Monitor: Yes Session Number: 13 Today's exercise session was comprised of a warm-up, aerobic conditioning phase, aerobic cool-down, and free weight resistance training. Patient tolerated prescribed exercise workload. Tele SR-ST without ectopic beats. Vitals WNL for patient. No chest discomfort. No medication changes. This is a hospital based cardiac rehab program. Patient working towards exercise goals by sustaining exercise intensity and duration. Patient working towards education goal by attending education sessions in cardiac rehabilitation. Patient has verbalized understanding of CAD education topic and the relation to disease managment. Patient's Daily Exercise Log will be scanned into [employer] once it is completed. These can be viewed by going under the Scanned Documents tab and looking for documents labeled Cardiac Rehabilitation. Daily Exercise Logs contain exercise data such as, but not limited to modality, intensity, duration and frequency of exercise, along with vital signs pre-, during, and post-exercise. Refer to patient's paper medical record for ECG rhythm strips, physician prescribed Individualized Treatment Plan, and education sessions covered. Melvi Espino, Bellstand Attendant documented in this encounter [facility] 12-05-2022 Note HNO ID: [id number] Author: Vero Marina Bellstand Attendant Service: ? Author Type: Bellstand Attendant Type: Progress Notes Filed: 12/05/2022 3:04 PM Note Text: Attestation signed by Bandar Butler DO at 12/09/2022 12:40 PM I have reviewed the detailed Individualized Treatment Plan assessment and plan for the patient as described above and agree with the recommendations. Bandar Butler DO, [facility], [facility] Clinical and Preventive Cardiology Department of Medicine and Division of Cardiology, [facility] Staff Director Funds Development, [facility] Department of Cardiovascular Medicine/Heart and Vascular [place], [facility] Clinical environmental assistant Profressor of Medicine, [facility] Cardiac Rehabilitation Hospital Based Program Supervising Physician: Bandar Saucedo Diagnosis: CABG Phase: 2 Monitor: Yes Session Number: 12 Today's exercise session was comprised of a warm-up, aerobic conditioning phase, aerobic cool-down, and free weight resistance training. Patient tolerated prescribed exercise workload. Tele SR-ST without ectopic beats. Vitals WNL for patient. No chest discomfort. No medication changes. This is a hospital based cardiac rehab program. Patient working towards exercise goals by sustaining exercise intensity and duration. Patient working towards education goal by attending education sessions in cardiac rehabilitation. Patient has verbalized understanding of AANDP of the heart education topic and the relation to disease managment. Patient's Daily Exercise Log will be scanned into [employer] once it is completed. These can be viewed by going under the Scanned Documents tab and looking for documents labeled Cardiac Rehabilitation. Daily Exercise Logs contain exercise data such as, but not limited to modality, intensity, duration and frequency of exercise, along with vital signs pre-, during, and post-exercise. Refer to patient's paper medical record for ECG rhythm strips, physician prescribed Individualized Treatment Plan, and education sessions covered. Vero Marina, Bellstand Attendant Heart and Vascular [place] [facility] Department of Cardiovascular Medicine 30 DAY Assessment for Cardiac Rehab Jaydon Arellano 12/05/2022 CHIEF COMPLAINT: Jaydon Arellano is a 57 year old male seen today. Patient presents with: Cardiac Rehab: 30 day assessment HISTORY OF PRESENT ILLNESS: CABG PAST MEDICAL HISTORY Diagnosis Date CAD (coronary artery disease) [place]CA/stent 01/17, [place] 01/18 Hypoglycemia due to type 1 diabetes mellitus (HCC) 11/21/2021 Ischemic cardiomyopathy 12/12/2021 EF 50% in 05/2021 Other and unspecified hyperlipidemia Type I (juvenile type) diabetes mellitus with ophthalmic manifestations, not stated as uncontrolled(250.51) PAST SURGICAL HISTORY Procedure Laterality Date CABG, ARTERY-VEIN, FOUR 09/2022 PAST SURGICAL HISTORY OF wisdom teeth Social History Tobacco Use Smoking status: Never Smokeless tobacco: Former Types: Snuff Quit date: 04/13/2003 FAMILY HISTORY Problem Relation Age of Onset Alzheimer's Disease Father CURRENT MEDS: Current Outpatient Medications Medication Sig dapagliflozin propanediol (FARXIGA) 5 mg tablet Take 2 tablets by mouth daily with breakfast. rosuvastatin (CRESTOR) 20 mg tablet Take 1 tablet by mouth every other day. Alternate with 1/2 pill every other day insulin glargine (BASAGLAR KWIKPEN U-100 INSULIN) 100 unit/mL (3 mL) Inject subcutaneously 15 units daily if insulin pump fails glucagon (BAQSIMI) 3 mg/actuation nasal spray Use 1 [place] in the nose as needed for low blood sugar. May repeat after 15 minutes using a new device if there is no response. insulin lispro-aabc (LYUMJEV U-100 INSULIN) 100 unit/mL solution Infuse up to 55 units daily per insulin pump Insulin [place], Disposable, (PEN NEEDLE) 32 gauge x 5/32 Inject 1 Each subcutaneously q 24 HR. Give with each insulin administration. blood sugar diagnostic (ACCU-CHEK GUIDE TEST STRIPS) test strip Use as instructed; 4 strips per day, IDDM, E10.319 losartan (COZAAR) 25 mg tablet Take 1 tablet by mouth once daily. Aspirin 81 mg ORAL Tab Take 81 mg by mouth once daily. clopidogrel (PLAVIX) 75 mg tablet Take one(1) tablet daily. carvedilol (COREG) 12.5 mg tablet Take one(1) tablet twice daily. No current facility-administered medications for this visit. ALLERGIES Allergen Reactions Contrast Dye Itching Penicillin G Shortness of Breath SOB, rash, hives Seasonal Allergies Other: See Comments Itching, sneezing, watery eyes PHYSICAL EXAMINATION: BP 104/58 Pulse 82 Wt 199 lb 6.4 oz (90.4kg) INDIVIDUAL TREATM (more content not included)... [facility] 12-03-2022 Note HNO ID: [id number] Author: Girish Camejo, Bellstand Attendant Service: ? Author Type: Bellstand Attendant Type: Progress Notes Filed: 12/03/2022 3:22 PM Note Text: Cardiac Rehabilitation Hospital Based Program Supervising Physician: Bandar Saucedo Diagnosis: CABG Phase: 2 Monitor: Yes Session Number: 11 Today's exercise session was comprised of a warm-up, aerobic conditioning phase, aerobic cool-down, and free weight resistance training. Patient tolerated prescribed exercise workload. Tele SR-ST without ectopic beats. Vitals WNL for patient. No chest discomfort. No medication changes. This is a hospital based cardiac rehab program. Patient working towards exercise goals by sustaining exercise intensity and duration. Patient working towards education goal by attending education sessions in cardiac rehabilitation. Patient has verbalized understanding of advanced directives education topic and the relation to disease managment. Patient's Daily Exercise Log will be scanned into [employer] once it is completed. These can be viewed by going under the Scanned Documents tab and looking for documents labeled Cardiac Rehabilitation. Daily Exercise Logs contain exercise data such as, but not limited to modality, intensity, duration and frequency of exercise, along with vital signs pre-, during, and post-exercise. Refer to patient's paper medical record for ECG rhythm strips, physician prescribed Individualized Treatment Plan, and education sessions covered. Girish Camejo Bellstand Attendant [facility] 12-01-2022 Note HNO ID: [id number] Author: Vero Marina Bellstand Attendant Service: ? Author Type: Bellstand Attendant Type: Progress Notes Filed: 12/01/2022 3:07 PM Note Text: Cardiac Rehabilitation Hospital Based Program Supervising Physician: Bandar Saucedo Diagnosis: CABG Phase: 2 Monitor: Yes Session Number: 10 Today's exercise session was comprised of a warm-up, aerobic conditioning phase, aerobic cool-down, and free weight resistance training. Patient tolerated prescribed exercise workload. Tele SR-ST without ectopic beats. Vitals WNL for patient. No chest discomfort. No medication changes. This is a hospital based cardiac rehab program. Patient working towards exercise goals by increasing exercise intensity. Patient working towards education goal by attending education sessions in cardiac rehabilitation. Patient has verbalized understanding of Depression and Heart Disease education topic and the relation to disease managment. Patient's Daily Exercise Log will be scanned into [employer] once it is completed. These can be viewed by going under the Scanned Documents tab and looking for documents labeled Cardiac Rehabilitation. Daily Exercise Logs contain exercise data such as, but not limited to modality, intensity, duration and frequency of exercise, along with vital signs pre-, during, and post-exercise. Refer to patient's paper medical record for ECG rhythm strips, physician prescribed Individualized Treatment Plan, and education sessions covered. Vero Marina Bellstand Attendant [facility] 12-01-2022 History of Present illness Narrative Images from the original note were not included. Cardiac Rehabilitation Hospital Based Program Supervising Physician: Bandar Saucedo Diagnosis: CABG Phase: 2 Monitor: Yes Session Number: 10 Today's exercise session was comprised of a warm-up, aerobic conditioning phase, aerobic cool-down, and free weight resistance training. Patient tolerated prescribed exercise workload. Tele SR-ST without ectopic beats. Vitals WNL for patient. No chest discomfort. No medication changes. This is a hospital based cardiac rehab program. Patient working towards exercise goals by increasing exercise intensity. Patient working towards education goal by attending education sessions in cardiac rehabilitation. Patient has verbalized understanding of Depression and Heart Disease education topic and the relation to disease managment. Patient's Daily Exercise Log will be scanned into [employer] once it is completed. These can be viewed by going under the Scanned Documents tab and looking for documents labeled Cardiac Rehabilitation. Daily Exercise Logs contain exercise data such as, but not limited to modality, intensity, duration and frequency of exercise, along with vital signs pre-, during, and post-exercise. Refer to patient's paper medical record for ECG rhythm strips, physician prescribed Individualized Treatment Plan, and education sessions covered. Vero Marina Bellstand Attendant documented in this encounter [facility] 11-28-2022 Note HNO ID: [id number] Author: Girish Camejo Bellstand Attendant Service: ? Author Type: Bellstand Attendant Type: Progress Notes Filed: 11/28/2022 2:46 PM Note Text: Cardiac Rehabilitation Hospital [facility] Program Supervising Physician: Lavell Broussard Diagnosis: CABG Phase: 2 Monitor: Yes Session Number: 9 Today's exercise session was comprised of a warm-up, aerobic conditioning phase, aerobic cool-down, and free weight resistance training. Patient tolerated prescribed exercise workload. Tele SR-ST without ectopic beats. Vitals WNL for patient. No chest discomfort. No medication changes. This is a hospital based cardiac rehab program. Patient working towards exercise goals by increasing exercise duration. Patient working towards education goal by attending education sessions in cardiac rehabilitation. Patient has verbalized understanding of stress management education topic and the relation to disease managment. Patient's Daily Exercise Log will be scanned into [employer] once it is completed. These can be viewed by going under the Scanned Documents tab and looking for documents labeled Cardiac Rehabilitation. Daily Exercise Logs contain exercise data such as, but not limited to modality, intensity, duration and frequency of exercise, along with vital signs pre-, during, and post-exercise. Refer to patient's paper medical record for ECG rhythm strips, physician prescribed Individualized Treatment Plan, and education sessions covered. Girish Camejo Bellstand Attendant [facility] 11-28-2022 Note HNO ID: [id number] Author: Sergio Bosch MD Service: ? 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 Jareth Garcia, with type 1 diabetes mellitus since 2002, ASCAD s/p [place], PTCA/stent, and most recently 4-vessel CABG in 09/2022, and hyperlipidemia. He is using Novolog insulin in a Medtronic insulin pump. Pump settings reviewed, medication list reconciled. He usually uses the IntegenXtronic continuous glucose monitor. He did not bring reports for review today. He is feeling well. He has no foot numbness/tingling. No chest pains, shortness of breath. Has good hypoglycemic awareness. Ex-smoker, occasional alcohol use. Allergic to penicillin. Family history unremarkable. Diabetic eye exam was done in 09/2022. 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 Had a flu shot this past (2021) fall. Is now on Farxiga at electrical appliance mechanic's recommendation. On insulin pump therapy (Lyumjev insulin, Medtronic 770G pump; basal rate: 1.0 units/hour. Insulin:carbohydrate ratio is 0000 1:6, 1700 1:4, insulin sensitivity index is 1:40. Not using sensor temporarily. Current Outpatient Medications on File Prior to Visit Medication Sig insulin glargine (BASAGLAR KWIKPEN U-100 INSULIN) 100 unit/mL (3 mL) Inject subcutaneously 15 units daily if insulin pump fails glucagon (BAQSIMI) 3 mg/actuation nasal spray Use 1 [place] in the nose as needed for low blood sugar. May repeat after 15 minutes using a new device if there is no response. insulin lispro-aabc (LYUMJEV U-100 INSULIN) 100 unit/mL solution Infuse up to 55 units daily per insulin pump Insulin [place], Disposable, (PEN NEEDLE) 32 gauge x 5/32 Inject 1 Each subcutaneously q 24 HR. Give with each insulin administration. blood sugar diagnostic (ACCU-CHEK GUIDE TEST STRIPS) test strip Use as instructed; 4 strips per day, IDDM, E10.319 losartan (COZAAR) 25 mg tablet Take 1 tablet by mouth once daily. Aspirin 81 mg ORAL Tab Take 81 mg by mouth once daily. rosuvastatin (CRESTOR) 20 mg tablet take one every other day, alternates with 1/2 pill every other day clopidogrel (PLAVIX) 75 mg tablet Take one(1) tablet daily. carvedilol (COREG) 12.5 mg tablet Take one(1) tablet twice daily. Farxiga 10 mg every day ALLERGIES Allergen Reactions Contrast Dye Itching Penicillin G Shortness of Breath SOB, rash, hives Seasonal Allergies Other: See Comments Itching, sneezing, watery eyes Review of systems: Patient notes no weight loss, fever, fatigue, weakness, change in balance or sensation, visual problems, hearing changes, dizziness, trouble swallowing, nasal difficulties, shortness of breath, chest pain, change in exertional tolerance, foot or leg problems, skin lesions, abdominal pain, diarrhea, constipation, urinary problems, incontinence, back pain, joint pains, anxiety, depression, insomnia. Remainder of review of systems was unremarkable. BP 110/72 Pulse 66 Ht 180 cm (5' 10.87 ) Wt 90.6 kg (199 lb 12.8 oz) SpO2 98% BMI 27.97 kg/m? Weight up 1 pound since 05/2022. Blood pressure normal, pulse regular. Healthy-appearing overweight (BMI > 25) male in no distress. No thyromegaly, no thyroid nodules noted. No cervical adenopathy. Breathing unlabored. Heart regular rate and rhythm. Gait normal. Feet:Shoes and socks removed, No deformities, ulcers, calluses, trace DP distal pulses, and intact sensation. Lipid panel done 10/10/2022 showed cholesterol 81, TG 69, HDL 32, LDL 35, creatinine 0.84. A1C 7.7% on 10/01/2022, 7.0% on 10/31/2022. IMPRESSION: Type 1 diabetes mellitus with retinopathy - good control. Weight stable. Urged Auto Mode use. Check urine microalbumin/creatinine ratio. Hyperlipidemia - continue Crestor at current dose Chronic systolic HF - agree with Farxiga use PLAN: Get urine protein done at [facility] lab (urine microalbumin/creatinine ratio) Get a flu shot this fall. See us again in [address] Garcia for regular health care needs Sergio Bosch MD, FACP I spent a total of 30 minutes on the date of service which included preparing to see the patient, [id number] patient care, completing clinical documentation, performing a medically appropriate examination, counseling and educating the patient/family/caregiver and ordering medications, tests, or procedures. [facility] 11-28-2022 Instructions Sergio Bosch MD - 11/28/2022 11:35 AM EDT Get urine protein done. See us again in 6 months. 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 Jareth Garcia, with type 1 diabetes mellitus since 2002, ASCAD s/p [place], PTCA/stent, and most recently 4-vessel CABG in 09/2022, and hyperlipidemia. He is using Novolog insulin in a Medtronic insulin pump. Pump settings reviewed, medication list reconciled. He usually uses the [employer] continuous glucose monitor. He did not bring reports for review today. He is feeling well. He has no foot numbness/tingling. No chest pains, shortness of breath. Has good hypoglycemic awareness. Ex-smoker, occasional alcohol use. Allergic to penicillin. Family history unremarkable. Diabetic eye exam was done in 09/2022. 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 Had a flu shot this past (2021) fall. Is now on Farxiga at electrical appliance mechanic's recommendation. On insulin pump therapy (Lyumjev insulin, Medtronic 770G pump; basal rate: 1.0 units/hour. Insulin:carbohydrate ratio is 0000 1:6, 1700 1:4, insulin sensitivity index is 1:40. Not using sensor temporarily. Current Outpatient Medications on File Prior to Visit Medication Sig insulin glargine (BASAGLAR KWIKPEN U-100 INSULIN) 100 unit/mL (3 mL) Inject subcutaneously 15 units daily if insulin pump fails glucagon (BAQSIMI) 3 mg/actuation nasal spray Use 1 [place] in the nose as needed for low blood sugar. May repeat after 15 minutes using a new device if there is no response. insulin lispro-aabc (LYUMJEV U-100 INSULIN) 100 unit/mL solution Infuse up to 55 units daily per insulin pump Insulin [place], Disposable, (PEN NEEDLE) 32 gauge x Inject 1 Each subcutaneously q 24 HR. Give with each insulin administration. blood sugar diagnostic (ACCU-CHEK GUIDE TEST STRIPS) test strip Use as instructed; 4 strips per day, IDDM, E10.319 losartan (COZAAR) 25 mg tablet Take 1 tablet by mouth once daily. Aspirin 81 mg ORAL Tab Take 81 mg by mouth once daily. rosuvastatin (CRESTOR) 20 mg tablet take one every other day, alternates with 1/2 pill every other day clopidogrel (PLAVIX) 75 mg tablet Take one(1) tablet daily. carvedilol (COREG) 12.5 mg tablet Take one(1) tablet twice daily. Farxiga 10 mg every day ALLERGIES Allergen Reactions Contrast Dye Itching Penicillin G Shortness of Breath SOB, rash, hives Seasonal Allergies Other: See Comments Itching, sneezing, watery eyes Review of systems: Patient notes no weight loss, fever, fatigue, weakness, change in balance or sensation, visual problems, hearing changes, dizziness, trouble swallowing, nasal difficulties, shortness of breath, chest pain, change in exertional tolerance, foot or leg problems, skin lesions, abdominal pain, diarrhea, constipation, urinary problems, incontinence, back pain, joint pains, anxiety, depression, insomnia. Remainder of review of systems was unremarkable. BP 110/72 Pulse 66 Ht 180 cm (5' 10.87 ) Wt 90.6 kg (199 lb 12.8 oz) SpO2 98% BMI 27.97 kg/m Weight up 1 pound since 05/2022. Blood pressure normal, pulse regular. Healthy-appearing overweight (BMI > 25) male in no distress. No thyromegaly, no thyroid nodules noted. No cervical adenopathy. Breathing unlabored. Heart regular rate and rhythm. Gait normal. Feet:Shoes and socks removed, No deformities, ulcers, calluses, trace DP distal pulses, and intact sensation. Lipid panel done 10/10/2022 showed cholesterol 81, TG 69, HDL 32, LDL 35, creatinine 0.84. A1C 7.7% on 10/01/2022, 7.0% on 10/31/2022. IMPRESSION: T Type 1 diabetes mellitus - good control. Weight stable. Urged Auto Mode use. Check urine microalbumin/creatinine ratio. Hyperlipidemia - continue Crestor at current dose Chronic systolic HF - agree with Farxiga use PLAN: Get urine protein done at [facility] lab (urine microalbumin/creatinine ratio) Get a flu shot this fall. See us again in [address] Garcia for regular health care needs Sergio Bosch MD, FACP I spent a total of 30 minutes on the date of service which included preparing to see the patient, [id number] patient care, completing clinical documentation, performing a medically appropriate examination, counseling and educating the patient/family/caregiver and ordering medications, tests, or procedures. documented in this encounter [facility] 11-26-2022 Note HNO ID: [id number] Author: Melvi Espino, sweatband cutting machine operator Service: ? Author Type: Slag Skimmer Type: Progress Notes Filed: 11/26/2022 2:56 PM Note Text: Cardiac Rehabilitation [facility] Supervising Physician: Lavell Broussard Diagnosis: CABG Phase: 2 Monitor: Yes Session Number: 8 Today's exercise session was comprised of a warm-up, aerobic conditioning phase, aerobic cool-down, and free weight resistance training. Patient tolerated prescribed exercise workload. Tele SR-ST without ectopic beats. Vitals WNL for patient. No chest discomfort. No medication changes. This is a hospital based cardiac rehab program. Patient working towards exercise goals by sustaining exercise intensity and duration. Patient working towards education goal by attending education sessions in cardiac rehabilitation. Patient has verbalized understanding of Exercise education topic and the relation to disease managment. Patient's Daily Exercise Log will be scanned into [employer] once it is completed. These can be viewed by going under the Scanned Documents tab and looking for documents labeled Cardiac Rehabilitation. Daily Exercise Logs contain exercise data such as, but not limited to modality, intensity, duration and frequency of exercise, along with vital signs pre-, during, and post-exercise. Refer to patient's paper medical record for ECG rhythm strips, physician prescribed Individualized Treatment Plan, and education sessions covered. Melvi Espino, Bellstand Attendant [facility] 11-24-2022 Note HNO ID: [id number] Author: Girish Camejo, Bellstand Attendant Service: ? Author Type: Bellstand Attendant Type: Progress Notes Filed: 11/24/2022 2:58 PM Note Text: Cardiac Rehabilitation [facility] Program Supervising Physician: Lavell Broussard Diagnosis: CABG Phase: 2 Monitor: Yes Session Number: 7 Today's exercise session was comprised of a warm-up, aerobic conditioning phase, aerobic cool-down, and free weight resistance training. Patient tolerated prescribed exercise workload. Tele SR-ST without ectopic beats. Vitals WNL for patient. No chest discomfort. No medication changes. This is a hospital based cardiac rehab program. Patient working towards exercise goals by increasing exercise intensity. Patient working towards education goal by attending education sessions in cardiac rehabilitation. Patient has verbalized understanding of weight control education topic and the relation to disease managment. Patient's Daily Exercise Log will be scanned into [employer] once it is completed. These can be viewed by going under the Scanned Documents tab and looking for documents labeled Cardiac Rehabilitation. Daily Exercise Logs contain exercise data such as, but not limited to modality, intensity, duration and frequency of exercise, along with vital signs pre-, during, and post-exercise. Refer to patient's paper medical record for ECG rhythm strips, physician prescribed Individualized Treatment Plan, and education sessions covered. Girish Camejo, Bellstand Attendant [facility] 11-24-2022 History of Present illness Narrative Images from the original note were not included. Cardiac Rehabilitation [facility] Supervising Physician: Lavell Broussard Diagnosis: CABG Phase: 2 Monitor: Yes Session Number: 7 Today's exercise session was comprised of a warm-up, aerobic conditioning phase, aerobic cool-down, and free weight resistance training. Patient tolerated prescribed exercise workload. Tele SR-ST without ectopic beats. Vitals WNL for patient. No chest discomfort. No medication changes. This is a hospital based cardiac rehab program. Patient working towards exercise goals by increasing exercise intensity. Patient working towards education goal by attending education sessions in cardiac rehabilitation. Patient has verbalized understanding of weight control education topic and the relation to disease managment. Patient's Daily Exercise Log will be scanned into [employer] once it is completed. These can be viewed by going under the Scanned Documents tab and looking for documents labeled Cardiac Rehabilitation. Daily Exercise Logs contain exercise data such as, but not limited to modality, intensity, duration and frequency of exercise, along with vital signs pre-, during, and post-exercise. Refer to patient's paper medical record for ECG rhythm strips, physician prescribed Individualized Treatment Plan, and education sessions covered. Girish Camejo Bellstand Attendant documented in this encounter [facility] 11-24-2022 Miscellaneous Notes Notified patient of Danita Oneill CNP's message and Mychart sent to patient. Patient verbalized understanding and all questions were answered. Encounter closed. He should take basaglar 15 units daily for long acting. For meals take lyumjev per carb ratio's: Breakfast 1 unit per 7 grams of carbs Lunch and dinner take 1 unit per 6 grams of carbs. Use correction 1:50 over 150 at meals with lyumjev--see chart If Blood Glucose (mg/dL) is < 150 Give 0 units 151-200 Give 1 unit 201-250 Give 2 units 251-300 Give 3 units 301-350 Give 4 units >351 Give 5 units When resuming the pump do so about the time the next basaglar dose would have been due. Thank you Patient called nurse line stating his insulin pump has failed and they are sending him a new one. Patient asking about how much he he should use for corrections with Lyumjeu. Please review and advise. documented in this encounter [facility] 11-21-2022 Note HNO ID: [id number] Author: Vero Marina Bellstand Attendant Service: ? Author Type: Bellstand Attendant Type: Progress Notes Filed: 11/21/2022 2:49 PM Note Text: Cardiac Rehabilitation [facility] Program Supervising Physician: Regina Low Diagnosis: CABG Phase: 2 Monitor: Yes Session Number: 6 Today's exercise session was comprised of a warm-up, aerobic conditioning phase, aerobic cool-down, and free weight resistance training. Patient tolerated prescribed exercise workload. Tele SR-ST without ectopic beats. Vitals WNL for patient. No chest discomfort. No medication changes. This is a hospital based cardiac rehab program. Patient working towards exercise goals by sustaining exercise intensity and duration. Patient working towards education goal by attending education sessions in cardiac rehabilitation. Patient has verbalized understanding of Diabetes education topic and the relation to disease managment. Patient's Daily Exercise Log will be scanned into [employer] once it is completed. These can be viewed by going under the Scanned Documents tab and looking for documents labeled Cardiac Rehabilitation. Daily Exercise Logs contain exercise data such as, but not limited to modality, intensity, duration and frequency of exercise, along with vital signs pre-, during, and post-exercise. Refer to patient's paper medical record for ECG rhythm strips, physician prescribed Individualized Treatment Plan, and education sessions covered. Vero Marina, Bellstand Attendant [facility] 11-21-2022 History of Present illness Narrative Images from the original note were not included. Cardiac Rehabilitation [facility] Based Program Supervising Physician: Regina Low Diagnosis: CABG Phase: 2 Monitor: Yes Session Number: 6 Today's exercise session was comprised of a warm-up, aerobic conditioning phase, aerobic cool-down, and free weight resistance training. Patient tolerated prescribed exercise workload. Tele SR-ST without ectopic beats. Vitals WNL for patient. No chest discomfort. No medication changes. This is a hospital based cardiac rehab program. Patient working towards exercise goals by sustaining exercise intensity and duration. Patient working towards education goal by attending education sessions in cardiac rehabilitation. Patient has verbalized understanding of Diabetes education topic and the relation to disease managment. Patient's Daily Exercise Log will be scanned into [employer] once it is completed. These can be viewed by going under the Scanned Documents tab and looking for documents labeled Cardiac Rehabilitation. Daily Exercise Logs contain exercise data such as, but not limited to modality, intensity, duration and frequency of exercise, along with vital signs pre-, during, and post-exercise. Refer to patient's paper medical record for ECG rhythm strips, physician prescribed Individualized Treatment Plan, and education sessions covered. Vero Marina Bellstand Attendant documented in this encounter [facility] 11-19-2022 Note HNO ID: [id number] Author: Girish Camejo Bellstand Attendant Service: ? Author Type: Bellstand Attendant Type: Progress Notes Filed: 11/19/2022 3:10 PM Note Text: Cardiac Rehabilitation [facility] Supervising Physician: Regina Low Diagnosis: CABG Phase: 2 Monitor: Yes Session Number: 5 Today's exercise session was comprised of a warm-up, aerobic conditioning phase, aerobic cool-down, and free weight resistance training. Patient tolerated prescribed exercise workload. Tele SR-ST without ectopic beats. Vitals WNL for patient. No chest discomfort. No medication changes. This is a hospital based cardiac rehab program. Patient working towards exercise goals by sustaining exercise intensity and duration. Patient working towards education goal by attending education sessions in cardiac rehabilitation. Patient has verbalized understanding of cholesterol education topic and the relation to disease managment. Patient's Daily Exercise Log will be scanned into [employer] once it is completed. These can be viewed by going under the Scanned Documents tab and looking for documents labeled Cardiac Rehabilitation. Daily Exercise Logs contain exercise data such as, but not limited to modality, intensity, duration and frequency of exercise, along with vital signs pre-, during, and post-exercise. Refer to patient's paper medical record for ECG rhythm strips, physician prescribed Individualized Treatment Plan, and education sessions covered. Girish Camejo Bellstand Attendant [facility] 11-19-2022 History of Present illness Narrative Images from the original note were not included. Cardiac Rehabilitation Hospital Based Program Supervising Physician: Regina Low Diagnosis: CABG Phase: 2 Monitor: Yes Session Number: 5 Today's exercise session was comprised of a warm-up, aerobic conditioning phase, aerobic cool-down, and free weight resistance training. Patient tolerated prescribed exercise workload. Tele SR-ST without ectopic beats. Vitals WNL for patient. No chest discomfort. No medication changes. This is a hospital based cardiac rehab program. Patient working towards exercise goals by sustaining exercise intensity and duration. Patient working towards education goal by attending education sessions in cardiac rehabilitation. Patient has verbalized understanding of cholesterol education topic and the relation to disease managment. Patient's Daily Exercise Log will be scanned into [employer] once it is completed. These can be viewed by going under the Scanned Documents tab and looking for documents labeled Cardiac Rehabilitation. Daily Exercise Logs contain exercise data such as, but not limited to modality, intensity, duration and frequency of exercise, along with vital signs pre-, during, and post-exercise. Refer to patient's paper medical record for ECG rhythm strips, physician prescribed Individualized Treatment Plan, and education sessions covered. Girish Camejo Bellstand Attendant documented in this encounter [facility] 11-17-2022 Note HNO ID: [id number] Author: Vero Marina Bellstand Attendant Service: ? Author Type: Bellstand Attendant Type: Progress Notes Filed: 11/17/2022 3:08 PM Note Text: Cardiac Rehabilitation [facility] Program Supervising Physician: Regina Low Diagnosis: CABG Phase: 2 Monitor: Yes Session Number: 4 Today's exercise session was comprised of a warm-up, aerobic conditioning phase, aerobic cool-down, and free weight resistance training. Patient tolerated prescribed exercise workload. Tele SR-ST without ectopic beats. Vitals WNL for patient. No chest discomfort. No medication changes. This is a hospital based cardiac rehab program. Patient working towards exercise goals by increasing exercise intensity. Patient working towards education goal by attending education sessions in cardiac rehabilitation. Patient has verbalized understanding of Blood Pressure education topic and the relation to disease managment. Patient's Daily Exercise Log will be scanned into [employer] once it is completed. These can be viewed by going under the Scanned Documents tab and looking for documents labeled Cardiac Rehabilitation. Daily Exercise Logs contain exercise data such as, but not limited to modality, intensity, duration and frequency of exercise, along with vital signs pre-, during, and post-exercise. Refer to patient's paper medical record for ECG rhythm strips, physician prescribed Individualized Treatment Plan, and education sessions covered. Vero Marina Bellstand Attendant [facility] 08-07-2023 History of Present illness Narrative Images from the original note were not included. Cardiac Rehabilitation Hospital Based Program Supervising Physician: Regina Low Diagnosis: CABG Phase: 2 Monitor: Yes Session Number: 4 Today's exercise session was comprised of a warm-up, aerobic conditioning phase, aerobic cool-down, and free weight resistance training. Patient tolerated prescribed exercise workload. Tele SR-ST without ectopic beats. Vitals WNL for patient. No chest discomfort. No medication changes. This is a hospital based cardiac rehab program. Patient working towards exercise goals by increasing exercise intensity. Patient working towards education goal by attending education sessions in cardiac rehabilitation. Patient has verbalized understanding of Blood Pressure education topic and the relation to disease managment. Patient's Daily Exercise Log will be scanned into [employer] once it is completed. These can be viewed by going under the Scanned Documents tab and looking for documents labeled Cardiac Rehabilitation. Daily Exercise Logs contain exercise data such as, but not limited to modality, intensity, duration and frequency of exercise, along with vital signs pre-, during, and post-exercise. Refer to patient's paper medical record for ECG rhythm strips, physician prescribed Individualized Treatment Plan, and education sessions covered. Vero Marina Bellstand Attendant documented in this encounter [facility] 11-14-2022 Note HNO ID: [id number] Author: Girish Camejo, Bellstand Attendant Service: ? Author Type: Bellstand Attendant Type: Progress Notes Filed: 11/14/2022 3:14 PM Note Text: Cardiac Rehabilitation [facility] Supervising Physician: Bandar Saucedo Diagnosis: CABG Phase: 2 Monitor: Yes Session Number: 3 Today's exercise session was comprised of a warm-up, aerobic conditioning phase, aerobic cool-down, and free weight resistance training omitted. Patient tolerated prescribed exercise workload. Tele SR-ST without ectopic beats. Vitals WNL for patient. No chest discomfort. No medication changes. This is a hospital based cardiac rehab program. Patient working towards exercise goals by sustaining exercise intensity and duration. Patient working towards education goal by attending education sessions in cardiac rehabilitation. Patient has verbalized understanding of risk factors education topic and the relation to disease managment. Patient's Daily Exercise Log will be scanned into [employer] once it is completed. These can be viewed by going under the Scanned Documents tab and looking for documents labeled Cardiac Rehabilitation. Daily Exercise Logs contain exercise data such as, but not limited to modality, intensity, duration and frequency of exercise, along with vital signs pre-, during, and post-exercise. Refer to patient's paper medical record for ECG rhythm strips, physician prescribed Individualized Treatment Plan, and education sessions covered. Girish Camejo Bellstand Attendant [facility] 11-14-2022 History of Present illness Narrative Images from the original note were not included. Cardiac Rehabilitation [facility] Based Program Supervising Physician: Bandar Saucedo Diagnosis: CABG Phase: 2 Monitor: Yes Session Number: 3 Today's exercise session was comprised of a warm-up, aerobic conditioning phase, aerobic cool-down, and free weight resistance training omitted. Patient tolerated prescribed exercise workload. Tele SR-ST without ectopic beats. Vitals WNL for patient. No chest discomfort. No medication changes. This is a hospital based cardiac rehab program. Patient working towards exercise goals by sustaining exercise intensity and duration. Patient working towards education goal by attending education sessions in cardiac rehabilitation. Patient has verbalized understanding of risk factors education topic and the relation to disease managment. Patient's Daily Exercise Log will be scanned into [employer] once it is completed. These can be viewed by going under the Scanned Documents tab and looking for documents labeled Cardiac Rehabilitation. Daily Exercise Logs contain exercise data such as, but not limited to modality, intensity, duration and frequency of exercise, along with vital signs pre-, during, and post-exercise. Refer to patient's paper medical record for ECG rhythm strips, physician prescribed Individualized Treatment Plan, and education sessions covered. Girish Camejo Bellstand Attendant documented in this encounter [facility] 11-12-2022 Note HNO ID: [id number] Author: Girish Camejo Bellstand Attendant Service: ? Author Type: Bellstand Attendant Type: Progress Notes Filed: 11/12/2022 3:12 PM Note Text: Cardiac Rehabilitation Hospital Based Program Supervising Physician: Bandar Saucedo Diagnosis: CABG Phase: 2 Monitor: Yes Session Number: 2 Today's exercise session was comprised of a warm-up, aerobic conditioning phase, aerobic cool-down, and free weight resistance training. Patient tolerated prescribed exercise workload. Tele SR-ST without ectopic beats. Vitals WNL for patient. No chest discomfort. No medication changes. This is a hospital based cardiac rehab program. Patient working towards exercise goals by sustaining exercise intensity and duration. Patient working towards education goal by attending education sessions in cardiac rehabilitation. Patient has verbalized understanding of portion control education topic and the relation to disease managment. Patient's Daily Exercise Log will be scanned into [employer] once it is completed. These can be viewed by going under the Scanned Documents tab and looking for documents labeled Cardiac Rehabilitation. Daily Exercise Logs contain exercise data such as, but not limited to modality, intensity, duration and frequency of exercise, along with vital signs pre-, during, and post-exercise. Refer to patient's paper medical record for ECG rhythm strips, physician prescribed Individualized Treatment Plan, and education sessions covered. Girish Camejo, Bellstand Attendant [facility] 11-12-2022 History of Present illness Narrative Images from the original note were not included. Cardiac Rehabilitation Hospital Based Program Supervising Physician: Bandar Saucedo Diagnosis: CABG Phase: 2 Monitor: Yes Session Number: 2 Today's exercise session was comprised of a warm-up, aerobic conditioning phase, aerobic cool-down, and free weight resistance training. Patient tolerated prescribed exercise workload. Tele SR-ST without ectopic beats. Vitals WNL for patient. No chest discomfort. No medication changes. This is a hospital based cardiac rehab program. Patient working towards exercise goals by sustaining exercise intensity and duration. Patient working towards education goal by attending education sessions in cardiac rehabilitation. Patient has verbalized understanding of portion control education topic and the relation to disease managment. Patient's Daily Exercise Log will be scanned into [employer] once it is completed. These can be viewed by going under the Scanned Documents tab and looking for documents labeled Cardiac Rehabilitation. Daily Exercise Logs contain exercise data such as, but not limited to modality, intensity, duration and frequency of exercise, along with vital signs pre-, during, and post-exercise. Refer to patient's paper medical record for ECG rhythm strips, physician prescribed Individualized Treatment Plan, and education sessions covered. Girish Camejo, Bellstand Attendant documented in this encounter [facility] 11-12-2022 History of Present illness Narrative Images from the original note were not included. [facility]: CT [employer] [address] [facility] [address] Dept: [phone] Dept Loc: [phone] Visit type: Established patient - Virtual Reason for Visit: Post-op Surgery/Procedure: 10/08/22 CABG x 4 (GUERRIER-LAD, rsvg to om, rsvg to rpda, rsvg to diag) MG sternal plated with Dr. Bagley Assessment and Plan: 1. S/P CABG (coronary artery bypass graft) S/p CABG x 4 (GUERRIER-LAD, rsvg to om, rsvg to rpda, rsvg to diag) MG sternal plated with Dr. Bagley on 10/08/22 POD# 35 EF: 45%-10/07/22 Day from Discharge (10/11/22) #32 -Reviewed current meds Continue as ordered ASA, Plavix (prior stent 2018) statin, BB, losartan Meds per Cardiology -Eyesight resolved -Surgical Incisions: healing appropriately, well approximated, no s/s of infection -Physical therapy as outlined in discharge instructions: Driving; started cardiac rehab -Acute Post-Operative Pain Tx plan: reordered tramadol; OTC as needed Weight restriction measures 5-8 weeks from date of surgery- 20lbs weight restriction: 12/03/22 9-12 weeks from date of surgery-30lbs weight restriction approximate end date: 12/31/22 Disposition: as needed Patient verbalized understanding of plan and stated they would call if any questions or concerns arise. Treatment Team: PCP: JARETH GARCIA MD Cardiology: Dr. Valle Patient was seen today via Telehealth by agreement and consent. I used the following Telehealth technology: Audio capability only. Total length of call 9 minutes. The patient was offered and advised video for a more comprehensive evaluation, but the patient declined or was unable to use video. Patient location: VV Patient Location: Home. This patient encounter is appropriate and reasonable under the circumstances: patient recently seen in the OP setting . The patient has been advised of the potential risks and limitations of this mode of treatment (including but not limited to the absence of in-person examination) and has agreed to be treated in a remote fashion in spite of them. Any and all of the patient's/patient's family's questions on this issue have been answered and I have made no promises or guarantees to the patient. The patient has also been advised to contact this office for worsening conditions or problems, and seek emergency medical treatment and/or call 911 if the patient deems either necessary. The patient stated that they are currently in the [facility]. If the patient is a minor, permission has been obtained by the parent or guardian for the patient to receive medical care at this visit. Patient identification was verified at the start of the visit: yes Total time spent on this encounter: 15 Subjective: HPI: 56 y.o. male with pmHx of ischemic cardiomyopathy, CAD s/p PCI (last 2018), prior cardiac arrest (2007), T1DM, HLD and ETOH, seen by [facility] (Dr. Valle) with c/o chest heaviness and muscle ache in his left chest at rest plus associated symptoms of SOB, lightheadedness and dizzness. OP cath completed 09/29/22 which showed MVCAD: 90% ISR prox LAD, 80% ISR distal mid LAD, 70% Prox OM1, 70% Prox RCA. CTS was consulted for surgical revascularization. Last ECHO 06/07/21: showed EF of 50%, Trivial MR, Trival TR. Patient was seen in OP setting and consented to surgical intervention. He presented 10/07/22 - and underwent CABGx4 (GUERRIER to LAD, SVG to OM, SVG to RPDA, SVG to Diag) [facility] with Dr. Bagley. Postoperative course uncomplicated. Patient did have fever on POD#2 night and was cultured by CCM. BCx NGTD at discharge; fever likely related to atelectasis and/or postoperative state. He was discharged home on 10/11/22. POD #4. Short course of lasix was prescribed at discharge due to post op fluid overload only. Plavix resumed at discharged due to previous stents. 10/12, 10/15, 10/16: Telephone encounter for BP/eye sight changes. Losartan added; eye sight improving. 10/22/22: Initial inperson post op visit following discharge. MSI drsg removed; Incisions healing appropriately with no signs or symptoms of infection. Sternal precautions discussed/reviewed. Pain controlled with PRNs. Medications reviewed and patient compliant. Patient stated that since adding losartan his blood pressure has been better controlled. Still has episodes of eyesight disturbances first thing in the morning but overall seems to be improving each day. Has follow-up with [facility] in about 6 months -we will discuss with surgeon about any additional intervention. Okay to start driving November 05, 2022, patient would like to do cardiac rehab in [place]. No other needs at this time he will call with any concerns. Follow-up scheduled with [facility] next week. 11/12/22: Doing pretty well; happy where he is at in recovery. Eye sight has completely resolved. Started Cardiac rehab-MWF and driving. He has also followed up with Cardiology. Incisions are healing appropriately. MSI is a little more sore since starting cardiac rehab but with no signs of infection or drainage. He also is only taking OTCs as needed. No other needs at this time. No follow up needed unless issues arise. Patient will call if needed. Review of Systems Constitutional: Negative for diaphoresis, fatigue and fever. Respiratory: Negative for cough, shortness of breath and wheezing. Cardiovascular: Negative for chest pain, palpitations and leg swelling. Gastrointestinal: Negative for abdominal distention, constipation and diarrhea. Skin: Negative for color change, pallor and rash. Objective: Patient reported: none noted Wt Readings from Last 3 Encounters: 10/22/22 197 lb (89.4 kg) 10/11/22 207 lb 8 oz (94.1 kg) 10/01/22 179 lb 11.2 oz (81.5 kg) Physical exam deferred due to virtual visit-with audio (telephone) capabilities only Data Reviewed and Summarized: Labs/Imaging/Testing: reviewed EMR, see A&P for pertinent diagnostic results related to office visit Debbi Yanez APRN - CONTACT AND SERVICE CLERKS SUPERVISOR Disclaimer INFORMED CONSENT:The nature and purpose of the proposed treatment or procedure have been discussed. The risks and benefits of the proposed treatment or procedures have been reviewed. Alternatives have been reviewed in addition to the risks and benefits of not receiving treatments or undergoing procedures. Pursuant to this discussion, the patient agrees to undergo the proposed treatment or procedure. Captured images seen in this note from are not a substitute for a comprehensive interpretation of the entire data set as reflected by the interpreting physician with regard to radiology, echocardiography, and other diagnostic images. This note may have been dictated using [employer] Medical Practice Edition 2.6 and/or [employer] Voice Recognition Feature. The document was proofread, however unrecognized voice recognition director of loss prevention errors may be present. documented in this encounter [facility] 11-10-2022 Note HNO ID: [id number] Author: Melvi Espino EKG Tech Service: ? Author Type: Slag Skimmer Type: Progress Notes Filed: 11/10/2022 2:55 PM Note Text: Cardiac Rehabilitation Hospital Based Program Supervising Physician: Bandar Saucedo Diagnosis: CABG Phase: 2 Monitor: Yes Session Number: 1 Today's exercise session was comprised of a warm-up, aerobic conditioning phase, aerobic cool-down, and omitting free weight resistance training. Patient tolerated prescribed exercise workload. Tele SR-ST without ectopic beats. Vitals WNL for patient. No chest discomfort. No medication changes. This is a hospital based cardiac rehab program. Patient working towards exercise goals by increasing exercise frequency and intensity and duration. Patient working towards education goal by attending education sessions in cardiac rehabilitation. Patient has verbalized understanding of Sugar, fiber, Na education topic and the relation to disease managment. Patient's Daily Exercise Log will be scanned into [employer] once it is completed. These can be viewed by going under the Scanned Documents tab and looking for documents labeled Cardiac Rehabilitation. Daily Exercise Logs contain exercise data such as, but not limited to modality, intensity, duration and frequency of exercise, along with vital signs pre-, during, and post-exercise. Refer to patient's paper medical record for ECG rhythm strips, physician prescribed Individualized Treatment Plan, and education sessions covered. CHIDI Mirza [facility] 11-10-2022 History of Present illness Narrative Images from the original note were not included. Cardiac Rehabilitation Hospital Based Program Supervising Physician: Bandar Saucedo Diagnosis: CABG Phase: 2 Monitor: Yes Session Number: 1 Today's exercise session was comprised of a warm-up, aerobic conditioning phase, aerobic cool-down, and omitting free weight resistance training. Patient tolerated prescribed exercise workload. Tele SR-ST without ectopic beats. Vitals WNL for patient. No chest discomfort. No medication changes. This is a hospital based cardiac rehab program. Patient working towards exercise goals by increasing exercise frequency and intensity and duration. Patient working towards education goal by attending education sessions in cardiac rehabilitation. Patient has verbalized understanding of Sugar, fiber, Na education topic and the relation to disease managment. Patient's Daily Exercise Log will be scanned into [employer] once it is completed. These can be viewed by going under the Scanned Documents tab and looking for documents labeled Cardiac Rehabilitation. Daily Exercise Logs contain exercise data such as, but not limited to modality, intensity, duration and frequency of exercise, along with vital signs pre-, during, and post-exercise. Refer to patient's paper medical record for ECG rhythm strips, physician prescribed Individualized Treatment Plan, and education sessions covered. Melvi Espino sweatband cutting machine operator documented in this encounter [facility] 11-06-2022 Note HNO ID: [id number] Author: Mj Roberts Bellstand Attendant Service: ? Author Type: Bellstand Attendant Type: Progress Notes Filed: 11/06/2022 9:53 AM Note Text: Attestation signed by Bandar Butler DO at 11/07/2022 4:01 PM I have reviewed the detailed Individualized Treatment Plan assessment and plan for the patient as described above and agree with the recommendations. Bandar Butler DO, [facility], [facility] Clinical and Preventive Cardiology Department of Medicine and Division of Cardiology, [facility] Staff Director Funds Development, [facility] Ferreira Department of Cardiovascular Medicine/Heart and Vascular [place], [facility] Clinical environmental assistant Profressor of Medicine, [facility] Heart and Vascular [place] Linwood [place]a Department of Cardiovascular Medicine Initial Assessment for Cardiac Rehab Jaydon Arellano 11/06/2022 CHIEF COMPLAINT: Jaydon Arellano is a 56 year old male seen today. Patient presents with: Cardiac Rehab: Initial Assessment HISTORY OF PRESENT ILLNESS: CABG on 10-07-22 PAST MEDICAL HISTORY Diagnosis Date CAD (coronary artery disease) PTCA/stent 01/17, [place] 01/18 Other and unspecified hyperlipidemia Type I (juvenile type) diabetes mellitus with ophthalmic manifestations, not stated as uncontrolled(250.51) PAST SURGICAL HISTORY Procedure Laterality Date PAST SURGICAL HISTORY OF wisdom teeth Social History Tobacco Use Smoking status: Never Smokeless tobacco: Former Types: Snuff Quit date: 04/13/2003 FAMILY HISTORY Problem Relation Age of Onset Alzheimer's Disease Father CURRENT MEDS: Current Outpatient Medications Medication Sig insulin glargine (BASAGLAR KWIKPEN U-100 INSULIN) 100 unit/mL (3 mL) Inject subcutaneously 15 units daily if insulin pump fails glucagon (BAQSIMI) 3 mg/actuation nasal spray Use 1 [place] in the nose as needed for low blood sugar. May repeat after 15 minutes using a new device if there is no response. insulin lispro-aabc (LYUMJEV U-100 INSULIN) 100 unit/mL solution Infuse up to 55 units daily per insulin pump Insulin [place], Disposable, (PEN NEEDLE) 32 gauge x 5/32 Inject 1 Each subcutaneously q 24 HR. Give with each insulin administration. blood sugar diagnostic (ACCU-CHEK GUIDE TEST STRIPS) test strip Use as instructed; 4 strips per day, IDDM, E10.319 losartan (COZAAR) 25 mg tablet Take 1 tablet by mouth once daily. Aspirin 81 mg ORAL Tab Take 81 mg by mouth once daily. rosuvastatin (CRESTOR) 20 mg tablet take one every other day clopidogrel (PLAVIX) 75 mg tablet Take one(1) tablet daily. carvedilol (COREG) 12.5 mg tablet Take one(1) tablet twice daily. No current facility-administered medications for this visit. ALLERGIES Allergen Reactions Contrast Dye Itching Penicillin G Shortness of Breath SOB, rash, hives Seasonal Allergies Other: See Comments Itching, sneezing, watery eyes PHYSICAL EXAMINATION: BP 122/78 Pulse 71 Ht 5' 10 (1.78m) Wt 196 lb 6.4 oz (89.1kg) SpO2 99% BMI 28.18 kg/(m2). INDIVIDUAL TREATMENT PLAN Program Location: [place] Cardiac Rehab evaluation site : [facility] Cardiac Rehab Completed : [place] Program: Entry Phase II Primary Reason For Referral: CABG (CABG on 10-07-22) First day of exercise: 11-10-22 EXERCISE ASSESSMENT Current Exercise: Yes Type of Exercise: Walk Exercise Duration: 30 minutes Exercise Intensity: Low Exercise Equipment: Yes Exercise Limitations/Symptoms: No Assist Device: No Oxygen: No Stress Test: No 6 Minute Walk Test: Yes Date: 11/06/22 Distance (ft): 1234 Total Rest Time (seconds): 0 Lowest SPO2: 99 Peak Heart Rate BPM: 76 Initial estimated METS: To be determined on third day of exercise and added to the ITP on the 30-day assessment to prevent addendum from being made to this Initial ITP EXERCISE PLAN EXERCISE INTERVENTIONS Frequency: 3-5 Times Per Week Mode: Treadmill;Recumbent Stepper;Elliptical;AirDyne;Weight s;Recumbent Bike Intensity: Within Set Target Heart Rate;Within Target Met Level;RPE of 11-14 METS: 2-4 METS initially, can progress beyond 4 METS as tolerated as long as staying within THR and/or RPE. Target Heart Rate (BPM): 83-124 Workload: 50-75% age max heart rate RPE: 11-14 Initial Duration (minutes): 20 minutes Progression: 5 Minutes Every 2-3 Weeks as Tolerated;0.5 Mets Every 1-2 Weeks as Tolerated;Within Target METS Level;Within Target Heart Rate Resistance Training: Free Weights Training Start Date: 11/17/22 WT Intensity: Weight to Have Local Muscle Fatigue in 10-15 Reps With 2-3 Sets Education Needed: RPE;Equipment Orientation;Signs and Symptoms;Target Heart R (more content not included)... [facility] 11-06-2022 Miscellaneous Notes Called and left message for Shelbi RASCON at [facility] that Dr. Bosch is fine with patient starting Farxiga. Syncplicityhart message sent to patient letting him know that Dr. Bosch is fine with him starting the medication and to let us know if he has any problems with the medication. Closed I would be OK with him starting that medication. Let me know via MyChart if having any problems with it. The PA Shelbi from [facility] calling wanting to start patient on Farxiga 10mg once daily since having bypass surgery 10/07/2022. They wanted to make sure it was ok to start the patient on the medication. Patient is aware it can affect his sugars and DKA. Please review and advise. documented in this encounter [facility] 10-27-2022 Telephone encounter Note Called follow up eyesight Patient had episode today, but not yesterday seems to be improving. Continue to monitor - no intervention at this time Follow up scheduled for Nov 12 Patient to call our office with any issues or concerns [facility] 10-27-2022 Miscellaneous Notes Called follow up eyesight Patient had episode today, but not yesterday seems to be improving. Continue to monitor - no intervention at this time Follow up scheduled for Nov 12 Patient to call our office with any issues or concerns documented in this encounter [facility] 10-16-2022 Telephone encounter Note Reviewed case with Dr. Bagley Called and spoke with patient; BP stable since adding losartan - vision episodes still present first thing in the morning -but stated that he felt it was less today Continue to monitor - record episodes/bp in journal and bring to office next week for follow up. Patient to call with any issues or concerns or worsening eyesight [facility] 10-16-2022 Miscellaneous Notes Reviewed case with Dr. Bagley Called and spoke with patient; BP stable since adding losartan - vision episodes still present first thing in the morning -but stated that he felt it was less today Continue to monitor - record episodes/bp in journal and bring to office next week for follow up. Patient to call with any issues or concerns or worsening eyesight documented in this encounter [facility] 10-15-2022 Telephone encounter Note Called to follow up eye sight and BP 108/60 -laying down 127/73-standing up 120/72-laying down 122/76-standing up 132/81 - laying down 147/78 - standing up HR typically in 70's. No loss of vision; but still having episodes; happing only in the AM. Glucose stable - 120's/130 in AM; 180's at PM -Add losartan at HS; patient was on previously. -Left leg numb swollen ([facility] site) - normal postoperatively, no intervention at this time continue to monitor - Will discuss with CT surgeon [facility] 10-15-2022 Miscellaneous Notes Called to follow up eye sight and BP 108/60 -laying down 127/73-standing up 120/72-laying down 122/76-standing up 132/81 - laying down 147/78 - standing up HR typically in 70's. No loss of vision; but still having episodes; happing only in the AM. Glucose stable - 120's/130 in AM; 180's at PM -Add losartan at HS; patient was on previously. -Left leg numb swollen ([facility] site) - normal postoperatively, no intervention at this time continue to monitor - Will discuss with CT surgeon documented in this encounter [facility] 10-12-2022 Telephone encounter Note Spoke with patient; answer questions. Patient stated he had some slight vision changes - seeing spots in the morning and again today when he woke up; per patient he notified nursing of it happening. Episodes seem to happen for ~10mins then go away and right after waking up in the morning. Vitals not taken at that time and he has had no other episodes after the initial one in the morning. Instructed the patient to record vitals and episodes in journal. If increase in frequency or changes in symptoms to call our office. If loss of vision to go to ED to be evaluated. Patient verbalized understanding. [facility] 10-12-2022 Miscellaneous Notes Spoke with patient; answer questions. Patient stated he had some slight vision changes - seeing spots in the morning and again today when he woke up; per patient he notified nursing of it happening. Episodes seem to happen for ~10mins then go away and right after waking up in the morning. Vitals not taken at that time and he has had no other episodes after the initial one in the morning. Instructed the patient to record vitals and episodes in journal. If increase in frequency or changes in symptoms to call our office. If loss of vision to go to ED to be evaluated. Patient verbalized understanding. documented in this encounter [facility] 10-11-2022 Note Discharge Summary: C ardiothoracic Surgery Jaydon Ruslannereida, 56 y.o., 1965 ADMIT DATE: 10/07/2022 DISCHARGE DATE: 10/11/2022 DISCHARGING SURGEON: Ericka Bagley MD, Office Number: [phone] PRIMARY CARE PHYSICIAN: JARETH GARCIA MD TREATMENT TEAM: Director Funds Development: Dr. Valle VISIT STATUS: Admission CODE STATUS: Full Code SURGERY: 10/08/22 CABG x 4 (GUERRIER-LAD, rsvg to om, rsvg to rpda, rsvg to diag) LEVH, sternal plated with Dr. Bagley HOSPITAL COURSE: 56 y.o. male with pmHx of ischemic cardiomyopathy, CAD s/p PCI (last 2018), prior cardiac arrest (2007), T1DM, HLD and ETOH, seen by [facility] (Dr. Valle) with c/o chest heaviness and muscle ache in his left chest at rest plus associated symptoms of SOB, lightheadedness and dizzness. OP cath completed 09/29/22 which showed MVCAD: 90% ISR prox LAD, 80% ISR distal mid LAD, 70% Prox OM1, 70% Prox RCA. CTS was consulted for surgical revascularization. Last ECHO 06/07/21: showed EF of 50%, Trivial MR, Trival TR. Patient was seen in OP setting and consented to surgical intervention. He presented 10/07/22 - and underwent CABGx4 (GUERRIER to LAD, SVG to OM, SVG to RPDA, SVG to Diag) LLEVH with Dr. Bagley. Postoperative course uncomplicated. Patient did have fever on POD#2 night and was cultured by CCM. BCx NGTD at discharge; fever likely related to atelectasis and/or postoperative state. He was discharged home on 10/11/22. POD #4. Short course of lasix was prescribed at discharge due to post op fluid overload only. Plavix resumed at discharged due to previous stents. DIAGNOSTICS: BP 108/66 (BP Location: Right arm, Patient Position: Sitting) Pulse 79 Temp 36.8 ?C (98.3 ?F) (Temporal) Resp 16 Ht 5' 10 (1.778 m) Wt 207 lb 8 oz (94.1 kg) SpO2 96% BMI 29.77 kg/m? Recent Labs 10/09/22 0000 10/10/22 0035 10/11/22 0006 CREATININE 0.80 0.84 0.86 HGB 10.3* -- -- PLT 100* -- -- WBC 7.5 -- -- INR 1.2* 1.0 -- NA 132* 130* 135 K 3.7 3.5 3.4* DISCHARGE DIAGNOSES: MVCAD s/p PCI (last-2019) now s/p CABGx4 Ischemic cardiomyopathy T1DM ETOH use Post operative Pulm Management: Normal Post-operative Course Post-operative Atrial Fibrillation: []Yes [x] No Acute blood loss anemia/consumptive thrombocytopenia DISCHARGE MEDICATIONS: Medication List START taking these medications acetaminophen 500 MG tablet Commonly known as: Tylenol Take 2 tablets (1,000 mg) by mouth every 8 hours as needed (acute minor post surgical pain) for up to 10 days. furosemide 40 MG tablet Commonly known as: Lasix Take 1 tablet (40 mg) by mouth daily for 5 days. Do not start before October 12, 2022. Start taking on: October 12, 2022 ibuprofen 400 MG tablet Take 1 tablet (400 mg) by mouth in the morning and 1 tablet (400 mg) at noon and 1 tablet (400 mg) in the evening and 1 tablet (400 mg) before bedtime. Do all this for 10 days. pantoprazole 40 MG EC tablet Commonly known as: ProtoNix Take 1 tablet (40 mg) by mouth every morning (before breakfast). Do not crush, chew, or split. Do not start before October 12, 2022. Start taking on: October 12, 2022 traMADol 50 MG tablet Commonly known as: Ultram Take 1 tablet (50 mg) by mouth every 6 hours as needed for severe pain (7-10) (Acute severe post surgical pain) for up to 5 days. CONTINUE taking these medications Accu-Chek Guide test strip Generic drug: glucose blood aspirin 81 MG EC tablet carvedilol 12.5 MG tablet Commonly known as: Coreg co-enzyme Q-10 30 MG capsule * Crestor 10 MG tablet Generic drug: rosuvastatin * rosuvastatin 20 MG tablet Commonly known as: Crestor Lyumjev 100 UNIT/ML injection Generic drug: insulin lispro-aabc Plavix 75 MG tablet Generic drug: clopidogrel * This list has 2 medication(s) that are the same as other medications prescribed for you. Read the directions carefully, and ask your doctor or other care provider to review them with you. STOP taking these medications chlorhexidine 0.12 % solution Commonly known as: Peridex losartan 25 MG tablet Commonly known as: Cozaar mupirocin 2 % ointment Commonly known as: Bactroban nitroglycerin 0.4 MG SL tablet Commonly known as: Nitrostat Where to Get Your Medications These medications were sent to [facility]/pharmacy #[id number] [place], [place] - [address] [address] furosemide 40 MG tablet pantoprazole 40 MG EC tablet traMADol 50 MG tablet You can get these medications from any pharmacy You don't need a prescription for these medications acetaminophen 500 MG tablet ibuprofen 400 MG tablet *The patient's OARRS report was obtained and reviewed.* I explained to Jaydon Arellano that narcotic pain medications have addictive potential and should only be taken for acute post operative surgical pain. I also explained that narcotic/opioid medication should not be taken to help sleep as they are only intended to treat pa (more content not included)... [facility] 10-11-2022 Miscellaneous Notes Patient Choice Patient Name: JAYDON ARELLANO Date of : 1965 All Providers Sent Referral Name: [facility] Phone: [phone] Address: [facility] [place] [address] Name: [facility] Phone: [phone] Address: [address] [place] [address] Name: [facility] Address: [address] [place] [address] Name: [facility], [facility]. Phone: [phone] Address: [address] [place] [address] [place] [address] Name: [facility] Phone: [phone] Address: [address] [place] [address] [address]: [facility] (All Offices) Phone: [phone] Address: [address] [place] [address] Name: [facility] Address: [address] [facility] [address] [place] [address] Name: [facility] Phone: [phone] Address: [address] [place] [address] Name: [facility] Phone: [phone] Address: [address] [facility] [place] [address] Name: [facility] Phone: [phone] Address: [address] [place] [address] Name: [facility] Address: [address] [facility] [place] [address] Name: [facility] Phone: [phone] Address: [address] [place] [address] Name: [facility] Address: [address] [place] [address] Name: [facility] Address: [address] [facility] [place] [address] Name: [facility] Address: [address] [facility] [address] [place] [address] Name: [facility] Address: [address] [place] [address] Name: [facility] Address: [address] [place] [address] Name: Shamir Boyle (Home Health) Address: [address] [facility] [address] [place] [address] [facility] is the only provider in pt's area that can accept [employer] Ins. Pt agreeable to co-pay for [facility] visits. Updated [facility] of potential discharge over weekend. Images from the original note were not included. Care Management Progress Note Patient remains on HLU s/p CABG x 4 POD # 3. VSS, on RA, low dose BB, insulin per patient own pump, and PT/OT recommending home with assist. Spoke with Jeffrey to verify patient co-insurance of 20% with any home health care company. Updated patient of cost and ALVARO spencer PACC updated. Discharge Milestones and Delays Expected Date/Time: 10/11/[address] discharge order Complete med reconciliation Case mgmt discharge readiness Clinical Stability Diagnsotic Workup Expected Discharge History Expected Date/Time Set By Reviewed At 10/11/2022 Kelley Nixon RN 10/10/2022 10:18 AM 10/12/2022 Kelley Nixon RN 10/09/2022 9:31 AM 10/12/2022 Kelley Nixon RN 10/08/2022 11:11 AM 10/12/2022 Veronica Wilson RN 10/07/2022 12:45 PM 10/12/2022 Ericka Bagley MD 10/07/2022 6:12 AM Length of Stay (Days): 3 GMLOS: 5.9 Images from the original note were not included. Care Management Progress Note Patient remains on HLU s/p CABG x 4 POD # 2. On RA, in NSR on tele, weaned off Levo this am, chest tube to water seal-potential removal post ambulation today, diuresis, remove A-line and buitrago, insulin per endocrine-anticipate home usage of home pump, and PT/OT recommending home with assist. Patient from home with , JOHN following, attempting to secure [facility] agency-difficult location and insurance, patient and CTS providers aware. Discharge Milestones and Delays Expected Date/Time: 10/12/[address] discharge order Complete med reconciliation Case mgmt discharge readiness Clinical Stability Diagnsotic Workup Expected Discharge History Expected Date/Time Set By Reviewed At 10/12/2022 Kelley Nixon RN 10/09/2022 9:31 AM 10/12/2022 Kelley Nixon RN 10/08/2022 11:11 AM 10/12/2022 Veronica Wilson RN 10/07/2022 12:45 PM 10/12/2022 Ericka Bagley MD 10/07/2022 6:12 AM Length of Stay (Days): 2 GMLOS: No GMLOS Documented Care Managment Initial Assessment Date: 10/08/2022 Patient Name: Jaydon Arellano : 1965 Patient Information Source of Information: Patient Cognition/Language: WFL - Within Functional Limits Permission given to speak with patient automobile rental representative/caregiver as indicated: Yes Confirmation of Payer with patient/family: Yes Payer Name: Jeffrey : No Confirmation of Primary Care Physician: Confirmed PCP Name: Dr. Garcia Seen in last 2 years?: Yes Primary Caregiver: Self If assistance needed, confirmed caregiver ready, willing and able to care for patient at discharge: Confirmed with: Living Arrangements Current Residence: House Number of Floors 1 Number of Entry Steps: 3 Bed/Bath Levels: Both first floor Facility: Facility Name: Plan to Return: Lives with: Spouse/significant other Support Systems: Spouse/significant other Activities of Daily Living Ambulation: Independent Bathing/Dressing: Independent Elimination/Continence/Toileting: Independent Feeding: Independent Who Assists with Activities of Daily Living: Instrumental Activities of Daily Living Prescription Coverage: Yes Pharmacy Used: [facility] [place] Medication Management: Independent Transportation/Shopping: Independent Transportation Mode: Car Needs Assistance with Transportation at Discharge: No Meal Preparation: Independent Laundry/Cleaning: Independent Finances/Bill Paying: Independent Communication: Independent Types of Care Services/Equipment Utilized Care Services: Dialysis Type: Durable Medical Equipment: Patient's Goal/Discharge Plan Patient expects to be discharged to: home Discharge Planning Actions: Continue to follow Patient's Choice Rights and [employer] and Collaborative Relationships Disclosed as Indicated for Post-Acute Care: Interdisciplinary Team Engagement: PT/OT, Home Health Care Social Work Referral for: Additional Information: Patient admitted to HLU s/p CABG x 4 POD # 1. Spoke with patient and family at bedside, introduced self and role. Patient from home with , is independent, has PCP and prescription coverage, will have a ride home and JOHN PACC attempting to locate accepting [facility] agency. TCC to follow. Kelley Nixon RN Pt is extubated per policy and protocol DATE OF PROCEDURE: 10/07/2022 PREOPERATIVE DIAGNOSIS: Coronary artery disease Ischemic cardiomyopathy POSTOPERATIVE DIAGNOSIS: Coronary artery disease Ischemic cardiomyopathy PROCEDURE: 1. Coronary artery bypass grafting x 4 - Left internal mammary artery to the left anterior descending - Saphenous vein graft to the obtuse marginal - Saphenous vein graft to the right posterior descending artery - Saphenous vein graft to the diagonal 2. Endoscopic vein harvest, left lower extremity SURGEON: Ericka Bagley MD CROCHET BEADER: MICHAEL Sotelo, PGY 2 COMPLICATIONS: None intra-op CONDITION: Stable DESCRIPTION OF PROCEDURE: The patient was prepped and draped in the appropriate manner, having undergone general endotracheal anesthetic in addition to Jasper-John Paul catheter placement, arterial line, and buitrago catheter placement. An antibiotic and a beta phil were administered pre-operatively and documented. Incision and conduit harvest/preparation: A midline sternotomy incision was utilized in standard fashion. The sternum was divided with the oscillating saw. The left internal mammary artery was taken down with clips and bovie cauterization. Papaverine was used. The left lower extremity saphenous vein was harvested via the endoscopic approach. The patient was fully heparinized prior to dividing and prepping the mammary. Cannulation and cardiopulmonary bypass: After cannulation, the patient was placed on cardiopulmonary bypass support. Ascending aortic cross-clamp was applied. Antegrade cardioplegia (microplegia) was delivered till the heart was arrested in diastole. Cardioplegia was re-administered every 20 minutes while the ascending aorta was cross clamped. Aortic canula: 21 Fr soft flow angled cannula in distal ascending aorta Venous canula: 29/29 Fr triple stage cannula via right atrial appendage Cardioplegia: Antegrade via cannula in the mid ascending aorta. Coronary artery bypass: Bypasses were performed to the venetie ira arterial targets using the conduits listed above with 7-0 Prolene distally and 6-0 Prolene proximally to the ascending aorta. The left internal mammary artery was anastomosed to the LAD with 7-0 Prolene. CPB wean and decannulation: The patient was given a dose of warm blood cardioplegia. Valsalva breaths were mechanically administered and the aorta was unclamped. The heart returned to normal sinus rhythm. Pacing wire was not placed. The DLP left in place as a root vent. The patient was rewarmed and weaned from cardiopulmonary bypass support without difficulty. Protamine was administered and cannulas were removed without difficulty. Two 24 Fr alexx drains were placed, one in the left pleural space and one in the mediastinum. Closure: Hemostasis was achieved. The sternum and incision were closed with sternal wires, running 0, 2-0 and 4-0 stitches. Dressings applied, and the patient was transferred to the cardiovascular intensive care unit in stable condition. Cardiopulmonary bypass time: 96 minutes Cross clamp time: 87 minutes Intra-op SAGAR: 40% EF, no significant valvular abnormalities Ericka Bagley MD Cardiothoracic Surgery documented in this encounter [facility] 10-11-2022 Note Formatting of this n ote might be different from the original. Patient Choice Patient Name: JAYDON ARELLANO Date of : 1965 All Providers Sent Referral Name: [facility] Phone: [phone] Address: [facility] [place] [address] Name: [facility] Phone: [phone] Address: [address] [place] [address] Name: [facility] Address: [address] [place] [address] Name: [facility], [facility]. Phone: [phone] Address: [address] [facility] [address] [place] [address] Name: [facility] Phone: [phone] Address: [address] [place] [address] [address]: [facility] (All Offices) Phone: [phone] Address: [address] [address] Name: [facility] Address: [address] [place] [address] Name: [facility] Phone: [phone] Address: [address] [place] [address] Name: [facility] Phone: [phone] Address: [address] [place] [address] Name: [facility] Phone: [phone] Address: [address] [place] [address] Name: [facility] Address: [address] [place] [address] [place] [address] Name: [facility] Phone: [phone] Address: [address] [place] [address] Name: [facility] Address: [address] [place] [address] Name: [facility] Address: [address] [facility] [place] [address] Name: [facility] Address: [address] [facility] [address] [place] [address] Name: [facility] Address: [address] [place] [address] Name: [facility] Address: [address] [place] [address] Name: [facility] (Home Health) Address: [address] [facility] [facility] [address] [address] [place] [address] [facility] 10-11-2022 Note Formatting of this n ote might be different from the original. Patient Choice Patient Name: JAYDON ARELLANO Date of : 1965 All Providers Sent Referral Name: [facility] Phone: [phone] Address: [address] [place] [address] Name: [facility] Phone: [phone] Address: [address] [facility],[address] [place] [address] Name: [facility] Address: [address] [place] [address] [place] [address] Name: [facility] Phone: [phone] Address: [address] [place] [address] [place] [address] Name: [facility] Phone: [phone] Address: [address] [place] [address] Name: [facility] ([facility] Off[facility]) Phone: [phone] Address: [address] [place] [address] Name: [facility] Address: [address] [place] [address] Name: [facility] Phone: [phone] Address: [address] [place] [address] Name: [facility] Phone: [phone] Address: [address] [place] [address] Name: [facility] Phone: [phone] Address: [address] [place] [address] Name: [facility] Address: [address] [place], [place] [address] [place] [address] [address] Name: [facility] Phone: [phone] Address: [address] [place] [address] Name: [facility] Address: [address] [place] [address] Name: [facility] Address: [address] [facility] [place] [address] Name: [facility], [facility] Address: [address] [facility] [address] [place] [address] Name: [facility] Address: [address] [place] [address] Name: [facility] Address: [address] [place] [address] Name: [facility] (Home Health) Address: [address] [place] [address] [facility] 10-11-2022 Hospital course Narrative Images from the original note were not included. Discharge Summary: Cardiothoracic Surgery Jaydon Arellano, 56 y.o., 1965 ADMIT DATE: 10/07/2022 DISCHARGE DATE: 10/11/2022 DISCHARGING SURGEON: Ericka Bagley MD, Office Number: [phone] PRIMARY CARE PHYSICIAN: JARETH GARCIA MD TREATMENT TEAM: Director Funds Development: Dr. Valle VISIT STATUS: Admission CODE STATUS: Full Code SURGERY: 10/08/22 CABG x 4 (GUERRIER-LAD, rsvg to om, rsvg to rpda, rsvg to diag) LEVH, sternal plated with Dr. Bagley HOSPITAL COURSE: 56 y.o. male with pmHx of ischemic cardiomyopathy, CAD s/p PCI (last 2018), prior cardiac arrest (2007), T1DM, HLD and ETOH, seen by [facility] (Dr. Valle) with c/o chest heaviness and muscle ache in his left chest at rest plus associated symptoms of SOB, lightheadedness and dizzness. OP cath completed 09/29/22 which showed MVCAD: 90% ISR prox LAD, 80% ISR distal mid LAD, 70% Prox OM1, 70% Prox RCA. CTS was consulted for surgical revascularization. Last ECHO 06/07/21: showed EF of 50%, Trivial MR, Trival TR. Patient was seen in OP setting and consented to surgical intervention. He presented 10/07/22 - and underwent CABGx4 (GUERRIER to LAD, SVG to OM, SVG to RPDA, SVG to Diag) LLEVH with Dr. Bagley. Postoperative course uncomplicated. Patient did have fever on POD#2 night and was cultured by CCM. BCx NGTD at discharge; fever likely related to atelectasis and/or postoperative state. He was discharged home on 10/11/22. POD #4. Short course of lasix was prescribed at discharge due to post op fluid overload only. Plavix resumed at discharged due to previous stents. DIAGNOSTICS: BP 108/66 (BP Location: Right arm, Patient Position: Sitting) Pulse 79 Temp 36.8 C (98.3 F) (Temporal) Resp 16 Ht 5' 10 (1.778 m) Wt 207 lb 8 oz (94.1 kg) SpO2 96% BMI 29.77 kg/m Recent Labs 10/09/22 0000 10/10/22 0035 10/11/22 0006 CREATININE 0.80 0.84 0.86 HGB 10.3* -- -- PLT 100* -- -- WBC 7.5 -- -- INR 1.2* 1.0 -- NA 132* 130* 135 K 3.7 3.5 3.4* DISCHARGE DIAGNOSES: MVCAD s/p PCI (last-2019) now s/p CABGx4 Ischemic cardiomyopathy T1DM ETOH use Post operative Pulm Management: Normal Post-operative Course Post-operative Atrial Fibrillation: []Yes [x] No Acute blood loss anemia/consumptive thrombocytopenia DISCHARGE MEDICATIONS: Medication List START taking these medications acetaminophen 500 MG tablet Commonly known as: Tylenol Take 2 tablets (1,000 mg) by mouth every 8 hours as needed (acute minor post surgical pain) for up to 10 days. furosemide 40 MG tablet Commonly known as: Lasix Take 1 tablet (40 mg) by mouth daily for 5 days. Do not start before October 12, 2022. Start taking on: October 12, 2022 ibuprofen 400 MG tablet Take 1 tablet (400 mg) by mouth in the morning and 1 tablet (400 mg) at noon and 1 tablet (400 mg) in the evening and 1 tablet (400 mg) before bedtime. Do all this for 10 days. pantoprazole 40 MG EC tablet Commonly known as: ProtoNix Take 1 tablet (40 mg) by mouth every morning (before breakfast). Do not crush, chew, or split. Do not start before October 12, 2022. Start taking on: October 12, 2022 traMADol 50 MG tablet Commonly known as: Ultram Take 1 tablet (50 mg) by mouth every 6 hours as needed for severe pain (7-10) (Acute severe post surgical pain) for up to 5 days. CONTINUE taking these medications Accu-Chek Guide test strip Generic drug: glucose blood aspirin 81 MG EC tablet carvedilol 12.5 MG tablet Commonly known as: Coreg co-enzyme Q-10 30 MG capsule * Crestor 10 MG tablet Generic drug: rosuvastatin * rosuvastatin 20 MG tablet Commonly known as: Crestor Lyumjev 100 UNIT/ML injection Generic drug: insulin lispro-aabc Plavix 75 MG tablet Generic drug: clopidogrel * This list has 2 medication(s) that are the same as other medications prescribed for you. Read the directions carefully, and ask your doctor or other care provider to review them with you. STOP taking these medications chlorhexidine 0.12 % solution Commonly known as: Peridex losartan 25 MG tablet Commonly known as: Cozaar mupirocin 2 % ointment Commonly known as: Bactroban nitroglycerin 0.4 MG SL tablet Commonly known as: Nitrostat Where to Get Your Medications These medications were sent to [facility]/pharmacy #[id number] [facility] [address] [address] furosemide 40 MG tablet pantoprazole 40 MG EC tablet traMADol 50 MG tablet You can get these medications from any pharmacy You don't need a prescription for these medications acetaminophen 500 MG tablet ibuprofen 400 MG tablet *The patient's OARRS report was obtained and reviewed.* I explained to Jaydon Arellano that narcotic pain medications have addictive potential and should only be taken for acute post operative surgical pain. I also explained that narcotic/opioid medication should not be taken to help sleep as they are only intended to treat pain. In addition the patient needs to avoid driving or taking other narcotics, anxiolytics or consuming alcohol or using street drugs while they are taking the narcotic because serious side effects including can occur. I discussed the side effects that can occur when taking a narcotic alone including but not limited to: nausea, vomiting, constipation and drowsiness.I told the patient that if they have any reactions to the medication or any percieved problems with the medication, they are to stop the medication and call me. DIET: Adult diet Regular; No Added Salt (3-4 gm); 5 carb choices (75 gm/meal) BMI CLASSIFICATION:Overweight (BMI 25.0-29.9) ACTIVITY: activity as tolerated, strict post-sternotomy/post-thoracotomy sternal precautions as outlined in the home going instructions, and no driving or operating heavy machinery until released by provider STRICT POST-STERNOTOMY/POST-THORACOTOMY PRECAUTIONS OUTLINED IN THE HOME GOING INSTRUCTIONS Weight restriction measures 1-4 weeks from date of surgery- 10lbs weight restriction: 11/05/22 5-8 weeks from date of surgery- 20lbs weight restriction: 12/03/22 9-12 weeks from date of surgery-30lbs weight restriction approximate end date: 12/31/22 FOLLOW UP: CORE CARDIAC MEDICATIONS PRESCRIBED AT DISCHARGE: Beta-phil prescribed at discharge: [x] Yes [] No - reason why: ACEi or ARB prescribed at discharge: [] Yes [x] No - reason why: EF greater than 40% Statin prescribed at discharge: [x] Yes [] No - reason why: Anti-platelet agent prescribed at discharge: [x] Yes [] No - reason why: If yes, type: ASA and plavix Post-operative Atrial Fibrillation: []Yes [x] No OAC: [] Yes [x] No Initial Post-op RBC transfusion date/reason: none noted during post-operative course Chronic Lung Disease: Unknown DISPOSITION: Home with Home Assist A copy of the discharge instructions which included the medications at the time of discharge, follow-up appointments, phone numbers to call with questions, activity, restrictions, and limitations was provided to the patient or their family. We greatly appreciate the opportunity to participate in the care of your patient. If you have any additional questions or concerns regarding any aspects of their care or management please do not hesitate to contact us. SIGNED: RIKA Monroe CNP 10/11/2022, 1:14 PM documented in this encounter [facility] 10-11-2022 Hospital Discharge instructions RIKA Monroe CNP - 10/11/2022 1:13 PM EDT Images from the original note were not included. [facility]: Cardiothoracic Surgery [address] [place] [address]. [address][phone] Notify us if the following occur - Increased tenderness, redness, or swelling of your incisions. - Any drainage from the chest incision (clear or pink drainage from the leg incision or chest tube site is common). - Angina symptoms like those you had before surgery - Sharp pain in chest, neck or shoulder that is worse when taking a deep breath - Persistent fever greater than 100 degrees F or 38 degrees C - Flu-like symptoms-chills, aches, fever, increased fatigue - Heart rate faster than 150 beats/minute with shortness of breath or new irregular heart rate. - Any unusual bleeding - Shortness of breath not relieved by rest - Weight gain of three pounds in one day or five pounds over one week Activity Instructions - Sternal Precautions for 6 weeks - Do not lift, push, or pull anything heavier than 10 pounds for 6 weeks (a gallon of milk weighs 8 pounds). - Do not drive until you have been given permission by your surgeon/provider and until you are off narcotic/opioid pain medication - It is ok to sleep on your side if you prop pillows to support your back. Do not sleep on your stomach. - Walk at least 4 times a day, start with 5 minute intervals, increase minutes walked each day. Do not walk on a treadmill - Balance rest and activity during your recovery - Use the stairs, but go slowly, Use the handrail for balance but do not pull yourself up with your arms. - Shower daily. Do not take your heart medication right before you shower. You could become lightheaded from your blood pressure and heart medication. Always have someone nearby to assist you. - Do not take a tub bath or use a hot tub until all incision are completely healed (no scab). - Put myrna hose on in AM and remove at bedtime. Elevate your feet above level of heart when you are sitting. - Cough and deep breathe and use incentive spirometer every hour (10x/hour while awake for two weeks). Other Instructions - Weigh yourself daily at the same time (after you urinate but before breakfast) - Keep a record of your daily weight, and bring to your first post op office visit - Take all medications as prescribed. Bring all your medication bottles to any follow up office visit Incision Care - Wash your sternal incision with anti-bacterial soap and warm water. Pat dry, and leave open to air. Do not use any lotions, or powders, or ointments. Corie Herrera RN - 10/10/2022 11:18 AM EDT Discharging to Facility/ Agency Name: [facility] documented in this encounter [facility] 10-11-2022 History of Present illness Narrative Images from the original note were not included. Cardiothoracic Surgery Interval Note PATIENT NAME: Jaydon Arellano : 1965 (56 y.o.) TODAY'S DATE: 10/11/2022 Interval History: Patient's VSS - no fever chills or nausea - would like to go home Discharge education provided to patient and Discharge today with follow up scheduled already with our office Patient to call with any questions or concerns Department of Internal Medicine Division of Endocrinology, Diabetes, & Metabolism Endocrinology Note Patient Name: Jaydon Arellano : 1965 AGE: 56 y.o. Room/Bed: [facility]/[address] Admission Date: 10/07/2022 Visit Date: 10/11/2022 Reason for Endocrine Consult: post op heart Provider/Team Requesting Consult: cts PCP: JARETH GARCIA MD Outpt Watch And Clock Repair Clerk: Yes [facility] endocrine ASSESSMENT: Dm1 with hyperglycemia and nursing home insulin Insulin pump status Stress Hyperglycemia DM1 with Retinopathy CAD s/p CABGx4 on 10-08-22 HLD ETOH use PLAN: Patient is alert; oriented x4; he is able to self-manage insulin pump, hence: Continue insulin pump at current settings. Encouraged Auto Mode as much as possible - reports worsening BG with auto mode; hence he switched to Manual for bolusing. Consider continued Manual mode with temp basal. Have reviewed with Dr. Beckham who plans to see patient shortly. Please refer to her addendum for plan. ICU goal <180 GMF goal <150 POCT ACHS- q 1 on gtt Hypoglycemia per protocol Carb controlled diet ANTICIPATED ENDOCRINE HOME GOING RECOMMENDATIONS: Optimized for Discharge from Endocrine standpoint: yes Home Going Endocrine Rx Recommendations-- Lispro (lyumjev) via medtronic 770 G pump using Guardian CGM in auto mode- current settings Outpt Follow Up-- [facility] Endocrine Team - Dr. Bosch SUBJECTIVE/HPI: CHIEF COMPLAINT: No chief complaint on file. 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 However- he may switch to Tandem T slim down the road with dexcom. States had good control prior to surgery Reviewed pump at bedside- settings below Has old site on right back- asked to change this out with new pump start- likely not today Interval History (10/11/2022) He is up to the chair this am. Eager for discharge. Plan for later today. IV infiltrated atb this am. Denies pain. Appetite is not at baseline but reports good PO intake. I personally reviewed patient's pump; including settings and bolus history. Current BG 230. Currently in Manual mode. Frequent bolusing noted; as much as 20.2 units yesterday PM (84g CHO). Pump resumed ; due to rotate tomorrow; patient admittedly non-compliant with proper rotation - does not have 7-day infusion set but will fill reservoir and use until this has been finished. Current pump settings: Basal (19) 12a 0.75, 4a 0.80, 6a 0.8. ICR 12a 7. 5p 4.5 Sensitivity 12a 40. Target 90-110. AIT: 2 hours. Glucose Date/Time Value Ref Range Status 10/11/2022 09:07 AM 231 (H) 70 - 100 mg/dL Final 10/10/2022 09:20 PM 189 (H) 70 - 100 mg/dL Final 10/10/2022 05:21 PM 240 (H) 70 - 100 mg/dL Final 10/10/2022 11:45 AM 261 (H) 70 - 100 mg/dL Final 10/10/2022 08:52 AM 219 (H) 70 - 100 mg/dL Final Type of DM: 1 Onset of DM: 2002 Home DM Medication Regimen: insulin pump medtronic 770g with guardian cgm DM control (last A1c/glucose data): Lab Results Component Value Date HGBA1C 7.7 (H) 10/01/2022 Per [facility] endocrine last notes pump settings Current diabetes regimen is as follows: Lispro (lyumjev) via medtronic 770 G pump using Guardian CGM in auto mode. Basal insulin for backup: Basaglar Glucagon: baqsimi, feels lows at home Pump settings prior to admission: Basal rate (14.9 units) 12A-4A-0.650. 4A-6A-0.750. 6A-12A-0.600 ICR: 12A-5P= 7. 5P-12A=4.5 Sensitivity: 12A-12A= 40 Blood glucose target- 12A-12A: 90-110 Review of Systems Constitutional: Negative for fatigue. Eyes: Negative for visual disturbance. Respiratory: Negative for shortness of breath. Cardiovascular: Negative for chest pain. Gastrointestinal: Negative for constipation, diarrhea, nausea and vomiting. Poor appetite Endocrine: Negative for polydipsia and polyuria. Skin: Positive for wound. Negative for rash. Neurological: Negative for dizziness and weakness. Psychiatric/Behavioral: Negative for sleep disturbance. All other systems reviewed and are negative. ROS negative except for those mentioned in HPI. OBJECTIVE: Vitals: 10/11/22 0404 10/11/22 0600 10/11/22 0800 10/11/22 0905 BP: 136/81 135/79 135/79 BP Location: Right arm Right arm Patient Position: Sitting Sitting Pulse: 78 76 Resp: 16 16 Temp: 37.4 C (99.4 F) 36.5 C (97.7 F) TempSrc: Temporal Temporal SpO2: 96% Weight: 207 lb 8 oz (94.1 kg) Height: Physical Exam Vitals reviewed. Constitutional: Appearance: Normal appearance. Comments: Sitting up in the chair, no acute distress. HENT: Head: Normocephalic. Mouth/Throat: Mouth: Mucous membranes are moist. Eyes: Extraocular Movements: Extraocular movements intact. Cardiovascular: Rate and Rhythm: Normal rate and regular rhythm. Pulses: Normal pulses. Heart sounds: Normal heart sounds. Pulmonary: Effort: Pulmonary effort is normal. Breath sounds: Normal breath sounds. Abdominal: General: Bowel sounds are normal. Palpations: Abdomen is soft. Musculoskeletal: General: Swelling (Left hand 2-3+.) present. Cervical back: Neck supple. Comments: Trace BLE edema. Skin: General: Skin is warm and dry. Comments: MSCI noted. Left hand bandaid. Neurological: General: No focal deficit present. Mental Status: He is alert and oriented to person, place, and time. Mental status is at baseline. Psychiatric: Mood and Affect: Mood normal. 24 hour intake/output: Intake/Output Summary (Last 24 hours) at 10/11/2022 0953 Last data filed at 10/11/2022 0600 Gross per 24 hour Intake 700 ml Output 1000 ml Net -300 ml Diet: Adult diet Regular; No Added Salt (3-4 gm); 5 carb choices (75 gm/meal) Medications (as per EMR): HomeMeds: @MEDHMEDS@ Scheduled Meds:acetaminophen, 1,000 mg, Oral, q8h aspirin, 81 mg, Oral, Daily carvedilol, 12.5 mg, Oral, BID WC ceFAZolin, 2,000 mg, IntraVENous, q8h clopidogrel, 75 mg, Oral, Daily furosemide, 40 mg, Oral, Daily heparin, 5,000 Units, SubCUTAneous, BID ibuprofen, 400 mg, Oral, q6h Insulin Pump - Bolus Dose (Patient Supplied), , SubCUTAneous, 4x daily AC & HS Lidocaine, 1 patch, TransDERmal, Daily pantoprazole, 40 mg, Oral, qAM AC polyethylene glycol (PEG) 3350, 17 g, Oral, Daily rosuvastatin, 10 mg, Oral, Once per day on Thu rosuvastatin, 20 mg, Oral, Once per day on Thu Sat senna-docusate sodium, 2 tablet, Oral, Nightly Continuous Infusions:Insulin Pump - Basal Dose (Patient Supplied), , Last Rate: 0.6 mL/hr at 10/09/22 1130 PRN Meds:PRN medications: calcium gluconate, dextrose, dextrose, glucagon (rDNA), glucose, ipratropium-albuterol, magnesium hydroxide, magnesium sulfate OR magnesium sulfate, ondansetron ODT OR ondansetron, oxyCODONE OR oxyCODONE, potassium chloride OR potassium chloride 20 mEq in sodium chloride 0.9 % 250 mL IVPB OR potassium chloride 40 mEq in sodium chloride 0.9 % 500 mL IVPB, potassium chloride CR, simethicone Diagnostic Workup: I reviewed pertinent Laboratory results, Radiographic results, and Other Clinical Notes at the time of today's encounter. Labs: No components found for: LABA1C No components found for: EAG Lab Results Component Value Date NA 135 10/11/2022 K 3.4 (L) 10/11/2022 CL 98 10/11/2022 CO2 28 10/11/2022 BUN 20 10/11/2022 CREATININE 0.86 10/11/2022 GLUCOSE 171 (H) 10/11/2022 CALCIUM 8.4 10/11/2022 Lab Results Component Value Date CHOL 81 10/10/2022 Lab Results Component Value Date TRIG 69 10/10/2022 Lab Results Component Value Date HDL 32 (L) 10/10/2022 Lab Results Component Value Date LDLCALC 35 10/10/2022 No results found for: VLDL Lab Results Component Value Date CHOLHDLRATIO 3 10/10/2022 No results found for: CSCO80DVI No results found for: TSH, J6UPLSE, H3JMBTZ, THYROIDAB Radiology reportsas per the Radiologist Radiology: ECG 12 lead Result Date: 10/08/2022 Sinus rhythm Probable left atrial enlargement Consider anteroseptal infarct ST elevation, consider inferior injury ECG 12 lead Result Date: 10/08/[address] elevation, lateral leads Electronically Signed On 10-08-2022 7:42:13 EDT by Denise Mendoza XR chest 1 view Result Date: 10/08/2022 Patient Name: JAYDON ARELLANO : 1965 Exam Date/Time: 10/08/2022 05:21 Procedure: XR CHEST 1 VIEW Ordering Provider: YANEZ ANDREW Reason For Exam: Shortness of breath INDICATION: 56-year-old; shortness of breath. VIEWS: Chest portable-1 image COMPARISON: 10/07/2022 FINDINGS: Interval removal of endotracheal tube and enteric tube. The right IJ central venous catheter and mediastinal drain and left chest tube remain. Multiple cardiac monitoring wires and leads are present, limiting overall evaluation of support devices. Median sternotomy wires and fixation hardware remain. The trachea is midline. The cardiac silhouette is stable. The lung volumes are low with mild pulmonary vascular congestion. New left lung base opacities are present with blunting of the costophrenic angle. 1. Mild pulmonary vessel congestion. 2. Left lung base opacities may reflect atelectasis versus developing small pleural effusion. Report Dictated on Electronically Signed By: Amita Wilder Electronically Signed Date/Time: 10/08/2022 6:34 AM EDT Transesophageal echocardiogram (SAGAR) with contrast and 3D PRN Result Date: 10/07/2022 Left Ventricle: Left ventricle size is normal. Mildly reduced left ventricular systolic function. The EF by visual approximation is 45%. Severe hypokinesis of mid inferoseptal, apical septal, and mid anterior espinosa Right Ventricle: Right ventricle size is normal. Low normal systolic function. No significant valvular abnormalities. XR chest 1 view Result Date: 10/07/2022 [facility] 1965 [id number] Exam Date/Time: 10/07/2022 13:37 Procedure: XR CHEST 1 VIEW Ordering Provider: YANEZ ANDREW Reason For Exam: Post op open heart surgery PORTABLE CHEST: INDICATION: Status post open heart surgery COMPARISON: 10/01/2022 Obtained at 1315 hours. A single portable AP radiograph of the chest was obtained. The heart is normal in size. The mediastinal silhouette is normal. There are changes associated with recent open heart surgery. A left-sided chest tube is present as is a mediastinal tube. There is no pneumothorax. There is a small effusion on the left. There is no pleural thickening. The osseous structures are unremarkable. The ET tube and NG tube are unchanged. A right internal jugular central venous catheter is present with the tip overlying the superior vena cava. Postoperative changes. No acute process. Report Dictated on Electronically Signed By: Andrews Ribeiro Electronically Signed Date/Time: 10/07/2022 3:02 PM EDT History/Other: Past Medical History: Past Medical History: Diagnosis Date Coronary artery disease January 2007 Diabetes mellitus (HCC) Approx 1995 Hyperlipidemia Myocardial infarction (CMS/HCC) (HCC) February 2008 Past Surgical History: Past Surgical History: Procedure Laterality Date CARDIAC CATHETERIZATION last was on 09/29/2022 CORONARY STENT PLACEMENT 6 total, last was in December 2018 Allergy(ies): Allergies Allergen Reactions Penicillins Anaphylaxis, Hives, Shortness of breath, Itching, Swelling and Rash Other reaction(s): anaphylaxis, Unknown SOB, rash, hives Lisinopril Cough Ramipril Cough Family History: No family history on file. Social History: Social History Tobacco Use Smoking status: Never Smokeless tobacco: Former Types: Chew Quit date: 08/11/2002 Vaping Use Vaping Use: Never used Substance Use Topics Alcohol use: Yes Alcohol/week: 15.0 standard drinks of alcohol Types: 12 Cans of beer, 3 Shots of liquor per week Drug use: Not Currently Portions of the information within this encounter were entered using an electronic dictation system. Best attempts were made to edit/proofread the information prior to note completion. Despite the review of information, some errors may remain. If there are questions related to the information contained within the note please contact the signing physician directly. I spent 35 minutes with the pt which involved review of insulin pump settings and history, coordination of care, medical evaluation, review of records, and/or counseling of the pt regarding his/her condition/disease state/prognosis on the date of this note. Associated attestation - Ashlee Beckham MD - 10/11/2022 12:03 PM EDT Attending Supervising Physician's Attestation Statement I performed a history and physical examination on the patient and discussed the management with the nurse practitioner. I reviewed and agree with the findings and plan as documented in her note. Patient is 56 years old and he has history of type 1 diabetes on long-term insulin use, insulin pump use, CAD s/p PCI, hyperlipidemia and he underwent CABGx 4 on 10/07/2022 No overnight events Patient endorses to hyperglycemia requiring multiple correction boluses Pump data reviewed - overnight sugars were between 170-190 , however fasting sugars were in the low 200's . Took a bolus with breakfast around 8 am and still noted to be in low 200's so has taken 2 more correction boluses. He had Disabled automode last night in view of hyperglycemia and switched back to automode this morning around 10 am Overall insulin requirements was 46 units yesterday and he required close to 28-29 units of basal insulin. Site changed on 10/09. Site is intact. Appetite is on lower side otherwise . [place] unwell this morning , but feels better now and has been ambulating around the unit. Maybe discharged home today On Exam he is alert and oriented x 3 CVS:S1S2 + , Surgical scar noted no lower extremity edema Pump site is intact I reviewed the patient's Past Medical History, Past Surgical History, Medications, and Allergies. Assessment: Type 1 diabetes with hyperglycemia and nursing home insulin use Insulin pump status - Currently not in use Diabetes complicated by retinopathy and CAD CAD S/P CABG X 4 HLD Recommendations: Current sugars are significant for post meal and fasting hyperglycemia . Overnight sugars were fairly controlled - No DKA on labs or clinical parameters . Pump site is intact. Higher insulin needs likely due to post operative status , pain and stress. He is currently using automode , advised to continue this. I have changed his carb ratio 12 am - 5 pm 1: 6 and 5 pm - 12 am 1: 4 - to address post meal hyperglycemia. Also changed his basal rates to 1 unit/hr ( in case he switches to manual mode , he will need additional insulin based on current requirements) Patient can continue insulin pump use along with CGM. He is alert and oriented x3 and feels comfortable using the pump. Advised patient to inform nursing staff when taking a bolus so that this can be entered in epic. We will continue to monitor sugars before each meal and at bedtime. If he gets discharged today , advised to make close follow up with endocrine. He has back up lantus vial at home if needed - discussed about dosing. Portions of the information within this encounter were entered using an electronic dictation system. Best attempts were made to edit/proofread the information prior to note completion. Despite the review of information, some errors may remain. If there are questions related to the information contained within the note please contact the signing physician directly. I spent 10 minutes with the pt which involved coordination of care, medical evaluation, review of records, and/or counseling of the pt regarding his/her condition/disease state/prognosis on the date of this note. I personally saw and evaluated the patient. I reviewed and agree with the SKYE's documentation. I provided a substantive portion of the care of this patient. I personally performed the medical decision making in entirety for the encounter as mentioned above Query sent to treatment team below: To Treating Physician: Patient s/p 10/07 CABG x 4 for MV CAD. Follow up PN reported consumptive thrombocytopenia and POD# 1: VSS overnight with epi gtt, pt urine output has decreased given a total of 1L and 50 Albumin. Epic reported plats 115, fibrinogen 149 and protiime 14.0 with art line map <70. MAR reported IV epi and albumin 10/07 and IV levophed 10/08 to 10/09. Can this be clarified as: cardiogenic shock other shock hypotension other please specify clinically undetermined PLEASE DOCUMENT ANY ADDITIONAL DIAGNOSIS AND/OR SPECIFICITY IN THE PROGRESS NOTES 10/11/22 6:11 AM Normal Expected postoperative course following major Cardiac Surgery Images from the original note were not included. Cardiothoracic Surgery/[facility] Progress Note PATIENT NAME: Jaydon Arellano DATE: 10/11/22 HPI: 56 y.o. male with pmHx of ischemic cardiomyopathy, CAD s/p PCI (last 2018), prior cardiac arrest (2007), T1DM, HLD and ETOH, seen by [facility] (Dr. Valle) with c/o chest heaviness and muscle ache in his left chest at rest plus associated symptoms of SOB, lightheadedness and dizzness. OP cath completed 09/29/22 which showed MVCAD: 90% ISR prox LAD, 80% ISR distal mid LAD, 70% Prox OM1, 70% Prox RCA. CTS was consulted for surgical revascularization. Last ECHO 06/07/21: showed EF of 50%, Trivial MR, Trival TR. Patient was seen in OP setting and consented to surgical intervention. He presented 10/07/22 - and underwent CABGx4 (GUERRIER to LAD, SVG to OM, SVG to RPDA, [facility] Diag[facility]. Surgery/Procedure: 10/08/22 CABG x 4 (GUERRIER-LAD, rsvg to om, rsvg to rpda, rsvg to diag) [facility], sternal plated with Dr. Bagley Interval History: 10/11/22, POD# 4: VSS, less frequent PVCs, pain better controlled with NSAID. No acute issues noted by nursing or patient. Patient stated he is ready to go home today: BCx NGTD - fever likely contributed to atelectasis and postoperative state following major surgery. Review of Systems Constitutional: Negative for diaphoresis, fatigue and fever. Respiratory: Negative for cough, shortness of breath and wheezing. Cardiovascular: Negative for chest pain, palpitations and leg swelling. Gastrointestinal: Negative for abdominal distention, constipation and diarrhea. Skin: Negative for color change, pallor and rash. Objective: Last BM Date: 10/10/22 Vitals: BP: 136/81, MAP (mmHg): 97, BP Method: Automatic Heart Rate: 78 Resp: 16 Temp: 37.4 C (99.4 F), Temp Source: Temporal BMI (Calculated): 29.7 Pacer Wires: none CXR: BMP: Recent Labs 10/09/22 0000 10/10/22 0035 10/11/22 0006 NA 132* 130* 135 K 3.7 3.5 3.4* CL 100 98 98 CO2 23 28 28 BUN 21* 24* 20 CREATININE 0.80 0.84 0.86 CALCIUM 8.6 8.5 8.4 MG 1.7 1.8 1.9 CBC: Recent Labs 10/09/22 0000 WBC 7.5 HGB 10.3* HCT 29.9* PLT 100* MCV 84.0 RDW 13.9 INR: Recent Labs 10/09/22 0000 10/10/22 0035 INR 1.2* 1.0 Physical Exam Cardiovascular: Rate and Rhythm: Normal rate and regular rhythm. Heart sounds: Normal heart sounds. No murmur heard. No friction rub. Pulmonary: Effort: Pulmonary effort is normal. Skin: General: Skin is warm and dry. Capillary Refill: Capillary refill takes less than 2 seconds. Findings: Bruising and ecchymosis present. Comments: Surgical Incisions: well approximate; clean dry with no drainage noted. Surrounding skin no redness, warmth, or signs of infection noted. Neurological: Mental Status: He is alert. Psychiatric: Behavior: Behavior is cooperative. Assessment: MVCAD s/p PCI (last-2018) now s/p CABGx4 Ischemic cardiomyopathy T1DM ETOH use Post operative Pulm Management: Normal Post-operative Course Post-operative Atrial Fibrillation: []Yes [x] No Acute blood loss anemia/consumptive thrombocytopenia Plan: Patient Status: Telemetry Medications as ordered ASA, statin Increase BB to home dose PO lasix - will discharge on short course Hold home ARB Endo following insulin pump OP follow up with [facility] Endo team PT/OT: home with home assist Pulmonary hygiene: IS and Acapella GI prophy: PO protonix DVT prophy:TEDs, SCDs, and Heparin SubQ Disposition: d/c today home Central Line: []Yes [x] No Arterial Line: []Yes [x] No Buitrago: []Yes [x] No Restraints: []Yes [x] No Patient discussed and plan of day developed from multidisciplinary rounds between Cardiothoracic Surgery (Cardiothoracic Surgeon, SKYE) and Critical Care Attending Cardiac Core Medications: ASA, Statin, and BB EF: 45% - 10/07/22 Blood Conservation: None noted in post-operative period Director Funds Development: Dr. Valle Nutrition Assessment Type and Reason for Visit: Reassess Nutrition Recommendations/Plan: Continue current Adult diet Regular; No Added Salt (3-4 gm); 5 carb choices (75 gm/meal). Provided diet education and [facility] handout. RD contact name and number previously provided at initial visit. Continue ONS Ensure High Protein, bid. Provides 160 kcals and 16 gm protein per serving. Please document all % meal and ONS intakes under I/O flowsheet. Mtr nutrition status, labs, weights, intakes, and skin integrity. RD to follow weekly. Educated on diet for heart health. Learners: Patient Readiness: Acceptance Method: Explanation and Handout Response: Demonstrated Understanding Malnutrition Assessment: Malnutrition Status: No malnutrition Context: Acute Illness Findings of the 6 clinical characteristics of malnutrition: Energy Intake: Mild decrease in energy intake (Comment) (per pt, intake not at 100% of energy requirements yet since CABG, however is consuming most of his meals) Weight Loss: No significant weight loss (wt gain) Body Fat Loss: No significant body fat loss Muscle Mass Loss: No significant muscle mass loss Fluid Accumulation: No significant fluid accumulation Ship Scaler Strength: Not Performed Nutrition Assessment: Pt is a 56 y.o. male with pmHx of ischemic cardiomyopathy, CAD s/p PCI (last 2018), prior cardiac arrest (2007), T1DM, HLD and ETOH, seen by [facility] with c/o chest heaviness and muscle ache in his left chest at rest plus associated symptoms of SOB, lightheadedness and dizzness. OP cath completed 09/29/22 which showed MVCAD: 90% ISR prox LAD, 80% ISR distal mid LAD, 70% Prox OM1, 70% Prox RCA. CTS was consulted for surgical revascularization. Last ECHO 06/07/21: showed EF of 50%, Trivial MR, Trival TR. Patient was seen in OP setting and consented to surgical intervention. He presented 10/07/22 - and underwent CABGx4 (GUERRIER to LAD, SVG to OM, SVG to RPDA, SVG to Diag) [facility] on 10/08. Pt now POD# 3: VSS up to chair this morning on RA. Temp spiked x1 to 101.7; cultured by CCM attending overnight. Pt stated he had dinner last night, which was the first full meal he had since his surgery. Stated he had a full breakfast this morning as well. No issues with appetite or GI. Pt is satisfied with his ONS. RD epidemiology intern provided diet education and handout for heart healthy diet to pt, who was very receptive. Pt mentioned he is familiar with basic guidelines for both cardiac and DM diets, however still open to discussion. Pt did have a few nutrition-related questions, to which RD epidemiology intern answered as well. Estimated Daily Nutrient Needs: Energy Requirements Based On: Kcal/kg Weight Used for Energy Requirements: [place] (25-30 kcal/kg) Weight for Energy Calculation (kg): 75.3 kg Total Energy Requirements (kcals/day): 4035-1523 Weight Used for Protein Requirements: [place] (1.2-1.5 g/kg) Weight in Kg Used for Protein Requirements: 75.3 kg Estimated Total Protein (g/day): 90-113 Estimated Daily Total Fluid (ml/day): or per MD Nutrition Related Findings: I/O-; BS+; abd wdl; edema non-pitting ble; agapito 20; last bm 10/07; labs reviewed Wound Type: Multiple, Surgical Incision (sternum & pretibial L) Current Nutrition Therapies: Adult diet Regular; No Added Salt (3-4 gm); 5 carb choices (75 gm/meal) Current Oral Intake Average Meal Intake: 76-100% (per pt, not consuming 100% of energy requirements, however is eating most of his meals) Average Supplements Intake: 76-100% (per pt) Anthropometric Measures: Height: 177.8 cm (5' 10 ) Current Body Weight: 93.9 kg (207 lb) (10/10) Weight Source: Standing Scale Admission Body Weight: 89.4 kg (197 lb) (10/07, no method indicated) Usual Body Weight: (195# on 12/19/21, 198# on 05/30/22) [place] Body Weight (lbs) (Calculated): 166 lbs [place] Body Weight (Kg) (Calculated): 75 kg % [place] Body Weight (Calculated): 124.7 % BMI (kg/m2) (Calculated): 29.7 Weight Adjustment For: No Adjustment BMI Categories: Overweight (BMI 25.0-29.9) Nutrition Diagnosis: Increased nutrient needs related to increase demand for energy/nutrients as evidenced by wounds (surgical) Nutrition Interventions: Nutrition Education/Counseling: Education completed ([facility] handout covered and pt questions were answered) Coordination of Nutrition Care: Continue to monitor while inpatient Plan of Care discussed with: pt Goals: Previous Goal Met: Progressing toward Goal(s) Goals: Meet at least 75% of estimated needs, by next RD assessment Nutrition Monitoring and Evaluation: Behavioral-Environmental Outcomes: Knowledge or Skill Food/Nutrient Intake Outcomes: Food and Nutrient Intake, Supplement Intake Physical Signs/Symptoms Outcomes: Biochemical Data, Fluid Status or Edema, Hemodynamic Status, Nutrition Focused Physical Findings, Skin, Weight Discharge Planning: Too soon to determine Jade Torrez Contact: [phone] Physical Therapy Pt politely declined PT at this time but reports he feels comfortable with the [facility] ex's. Ambulated twice this morning independently around the unit. Discussed walking program and sternal precautions with pt. Will re-attempt at a later date. Elvira Fallon PTA Department of Internal Medicine Division of Endocrinology, Diabetes, & Metabolism Endocrinology Note Patient Name: Jaydon Arellano : 1965 AGE: 56 y.o. 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: Yes [facility] endocrine ASSESSMENT: Dm1 with hyperglycemia and nursing home insulin Insulin pump status Stress Hyperglycemia DM1 with Retinopathy CAD s/p CABGx4 on 10-08-22 HLD ETOH use PLAN: Continue home insulin pump at current settings He is awake and alert and able to manage his pump ICU goal <180 GMF goal <150 POCT ACHS- q 1 on gtt Hypoglycemia per protocol Carb controlled diet ANTICIPATED ENDOCRINE HOME GOING RECOMMENDATIONS: Optimized for Discharge from Endocrine standpoint: yes Home Going Endocrine Rx Recommendations-- Lispro (lyumjev) via medtronic 770 G pump using Guardian CGM in auto mode- current settings Outpt Follow Up-- [facility] Endocrine Team SUBJECTIVE/HPI: CHIEF COMPLAINT: No chief complaint on file. CABGx4 and DM1 on insulin pump Sees [facility] endocrine team outpatient Patient has medtronic 770gwith guardian- currently all off- does have all supplies in room- states he is due for upgrade- works close with [employer]. However- he may switch to [employer] T slim down the road with dexcom. States had good control prior to surgery Reviewed pump at bedside- settings below Has old site on right back- asked to change this out with new pump start- likely not today Bgl noted below Resting in chair Awake alert Vss Had bfast this AM Denies nv or abd pain BGL slightly elevated He gave correction bolus for this States he was not counting carbs correctly to enter into pump. States he will do better about entering his carbs into the pump. Will not make changes today Spoke to nursing Type of DM: 1 Onset of DM: 2002 Home DM Medication Regimen: insulin pump medtronic 770g with guardian cgm DM control (last A1c/glucose data): Lab Results Component Value Date HGBA1C 7.7 (H) 10/01/2022 Per [facility] endocrine last notes pump settings Current diabetes regimen is as follows: Lispro (lyumjev) via [employer] 770 G pump using [employer] CGM in auto mode. Basal insulin for backup: Basaglar Glucagon: baqsimi, feels lows at home Reviewed current settings at bedside Basal rate: 12A-4A-0.650 4A-6A-0.750 6A-12A-0.600 14.9= 24 hour basal rate Insulin:carb ratio 12A-5P= 7 5P-12A=4.5 Sensitivity 12A-12A= 40 Blood glucose target- 12A-12A: 90-110 Glucose Date/Time Value Ref Range Status 10/10/2022 08:52 AM 219 (H) 70 - 100 mg/dL Final 10/09/2022 09:25 PM 209 (H) 70 - 100 mg/dL Final 10/09/2022 01:17 PM 190 (H) 70 - 100 mg/dL Final 10/09/2022 12:13 PM 228 (H) 70 - 100 mg/dL Final 10/09/2022 11:08 AM 245 (H) 70 - 100 mg/dL Final 10/09/2022 09:59 AM 235 (H) 70 - 100 mg/dL Final Review of Systems All other systems reviewed and are negative. ROS negative except for those mentioned in HPI. OBJECTIVE: Vitals: 10/10/22 0400 10/10/22 0600 10/10/22 0822 10/10/22 0855 BP: 122/66 109/64 BP Location: Right arm Right arm Patient Position: Lying Sitting Pulse: 70 74 Resp: 18 16 Temp: 37.1 C (98.7 F) 36.7 C (98 F) TempSrc: Temporal Temporal SpO2: 96% 96% Weight: 207 lb (93.9 kg) Height: 5' 10 (1.778 m) Physical Exam Vitals reviewed. Constitutional: General: He is awake. He is not in acute distress. Appearance: Normal appearance. He is not toxic-appearing. HENT: Head: Normocephalic and atraumatic. Cardiovascular: Rate and Rhythm: Normal rate. Pulses: Normal pulses. Pulmonary: Effort: Pulmonary effort is normal. Abdominal: General: There is no distension. Palpations: Abdomen is soft. Skin: General: Skin is warm and dry. Neurological: General: No focal deficit present. Mental Status: He is alert and oriented to person, place, and time. Psychiatric: Mood and Affect: Mood normal. Behavior: Behavior normal. Behavior is cooperative. Thought Content: Thought content normal. 24 hour intake/output: Intake/Output Summary (Last 24 hours) at 10/10/2022 0921 Last data filed at 10/10/2022 0500 Gross per 24 hour Intake -- Output 1940 ml Net -1940 ml Diet: Adult diet Regular; No Added Salt (3-4 gm); 5 carb choices (75 gm/meal) Medications (as per EMR): HomeMeds: @MEDHMEDS@ Scheduled Meds:acetaminophen, 1,000 mg, Oral, q8h aspirin, 81 mg, Oral, Daily carvedilol, 6.25 mg, Oral, BID WC ceFAZolin, 2,000 mg, IntraVENous, q8h clopidogrel, 75 mg, Oral, Daily heparin, 5,000 Units, SubCUTAneous, BID Insulin Pump - Bolus Dose (Patient Supplied), , SubCUTAneous, 4x daily AC & HS Lidocaine, 1 patch, TransDERmal, Daily pantoprazole, 40 mg, Oral, qAM AC polyethylene glycol (PEG) 3350, 17 g, Oral, Daily rosuvastatin, 10 mg, Oral, Once per day on Thu rosuvastatin, 20 mg, Oral, Once per day on Thu senna-docusate sodium, 2 tablet, Oral, Nightly Continuous Infusions:Insulin Pump - Basal Dose (Patient Supplied), , Last Rate: 0.6 mL/hr at 10/09/22 1130 PRN Meds:PRN medications: calcium gluconate, dextrose, dextrose, glucagon (rDNA), glucose, ipratropium-albuterol, magnesium hydroxide, magnesium sulfate OR magnesium sulfate, ondansetron ODT OR ondansetron, oxyCODONE OR oxyCODONE, potassium chloride OR potassium chloride 20 mEq in sodium chloride 0.9 % 250 mL IVPB OR potassium chloride 40 mEq in sodium chloride 0.9 % 500 mL IVPB, potassium chloride CR, simethicone Diagnostic Workup: I reviewed pertinent Laboratory results, Radiographic results, and Other Clinical Notes at the time of today's encounter. Labs: No components found for: LABA1C No components found for: EAG Lab Results Component Value Date NA 130 (L) 10/10/2022 K 3.5 10/10/2022 CL 98 10/10/2022 CO2 28 10/10/2022 BUN 24 (H) 10/10/2022 CREATININE 0.84 10/10/2022 GLUCOSE 160 (H) 10/10/2022 CALCIUM 8.5 10/10/2022 Lab Results Component Value Date CHOL 81 10/10/2022 Lab Results Component Value Date TRIG 69 10/10/2022 Lab Results Component Value Date HDL 32 (L) 10/10/2022 Lab Results Component Value Date LDLCALC 35 10/10/2022 No results found for: VLDL Lab Results Component Value Date CHOLHDLRATIO 3 10/10/2022 No results found for: LPGL35QEV No results found for: TSH, K1PRFLQ, W0BVNCU, THYROIDAB Radiology reportsas per the Radiologist Radiology: ECG 12 lead Result Date: 10/08/2022 Sinus rhythm Probable left atrial enlargement Consider anteroseptal infarct ST elevation, consider inferior injury ECG 12 lead Result Date: 10/08/[address] elevation, lateral leads Electronically Signed On 10-08-2022 7:42:13 EDT by Denise Mendoza XR chest 1 view Result Date: 10/08/2022 Patient Name: JAYDON ARELLANO : 1965 [facility]#: [id number] Exam Date/Time: 10/08/2022 05:21 Procedure: XR CHEST 1 VIEW Ordering Provider: YANEZ ANDREW Reason For Exam: Shortness of breath INDICATION: 56-year-old; shortness of breath. VIEWS: Chest portable-1 image COMPARISON: 10/07/2022 FINDINGS: Interval removal of endotracheal tube and enteric tube. The right IJ central venous catheter and mediastinal drain and left chest tube remain. Multiple cardiac monitoring wires and leads are present, limiting overall evaluation of support devices. Median sternotomy wires and fixation hardware remain. The trachea is midline. The cardiac silhouette is stable. The lung volumes are low with mild pulmonary vascular congestion. New left lung base opacities are present with blunting of the costophrenic angle. 1. Mild pulmonary vessel congestion. 2. Left lung base opacities may reflect atelectasis versus developing small pleural effusion. Report Dictated on Electronically Signed By: Amita Wilder Electronically Signed Date/Time: 10/08/2022 6:34 AM EDT Transesophageal echocardiogram (SAGAR) with contrast and 3D PRN Result Date: 10/07/2022 Left Ventricle: Left ventricle size is normal. Mildly reduced left ventricular systolic function. The EF by visual approximation is 45%. Severe hypokinesis of mid inferoseptal, apical septal, and mid anterior espinosa Right Ventricle: Right ventricle size is normal. Low normal systolic function. No significant valvular abnormalities. XR chest 1 view Result Date: 10/07/2022 [facility] 1965 [id number] Exam Date/Time: 10/07/2022 13:37 Procedure: XR CHEST 1 VIEW Ordering Provider: YANEZ ANDREW Reason For Exam: Post op open heart surgery PORTABLE CHEST: INDICATION: Status post open heart surgery COMPARISON: 10/01/2022 Obtained at 1315 hours. A single portable AP radiograph of the chest was obtained. The heart is normal in size. The mediastinal silhouette is normal. There are changes associated with recent open heart surgery. A left-sided chest tube is present as is a mediastinal tube. There is no pneumothorax. There is a small effusion on the left. There is no pleural thickening. The osseous structures are unremarkable. The ET tube and NG tube are unchanged. A right internal jugular central venous catheter is present with the tip overlying the superior vena cava. Postoperative changes. No acute process. Report Dictated on Electronically Signed By: Andrews Ribeiro Electronically Signed Date/Time: 10/07/2022 3:02 PM EDT History/Other: Past Medical History: Past Medical History: Diagnosis Date Coronary artery disease January 2007 Diabetes mellitus (HCC) Approx 1995 Hyperlipidemia Myocardial infarction (CMS/HCC) (HCC) February 2008 Past Surgical History: Past Surgical History: Procedure Laterality Date CARDIAC CATHETERIZATION last was on 09/29/2022 CORONARY STENT PLACEMENT 6 total, last was in December 2018 Allergy(ies): Allergies Allergen Reactions Penicillins Anaphylaxis, Hives, Shortness of breath, Itching, Swelling and Rash Other reaction(s): anaphylaxis, Unknown SOB, rash, hives Lisinopril Cough Ramipril Cough Family History: No family history on file. Social History: Social History Tobacco Use Smoking status: Never Smokeless tobacco: Former Types: Chew Quit date: 08/11/2002 Vaping Use Vaping Use: Never used Substance Use Topics Alcohol use: Yes Alcohol/week: 15.0 standard drinks of alcohol Types: 12 Cans of beer, 3 Shots of liquor per week Drug use: Not Currently Portions of the information within this encounter were entered using an electronic dictation system. Best attempts were made to edit/proofread the information prior to note completion. Despite the review of information, some errors may remain. If there are questions related to the information contained within the note please contact the signing physician directly. I spent 20 minutes with the pt which involved coordination of care, medical evaluation, review of records, and/or counseling of the pt regarding his/her condition/disease state/prognosis on the date of this note. Associated attestation - Ashlee Beckham MD - 10/10/2022 6:15 PM EDT Attending Supervising Physician's Attestation Statement I performed a history and physical examination on the patient and discussed the management with the [facility] [place]. I reviewed and agree with the findings and plan as documented in her note. Patient is 56 years old and he has history of type 1 diabetes on long-term insulin use, insulin pump use, CAD s/p PCI, hyperlipidemia and he underwent CABGx 4 on 10/07/2022 No overnight events Blood sugars are in the low 200s today Appetite has been fair. No nausea or vomiting. On Exam he is alert and oriented x 3 CVS:S1S2 + , Surgical scar noted no lower extremity edema Pump site is intact CGM site is also intact I reviewed the patient's Past Medical History, Past Surgical History, Medications, and Allergies. Assessment: Type 1 diabetes with hyperglycemia and nursing home insulin use Insulin pump status - Currently not in use Diabetes complicated by retinopathy and CAD CAD S/P CABG X 4 HLD Recommendations: My initial plan was to change his carb ratio, however patient mentions that he has not been accurately counting carbs. Hence he would like to try doing that first before I can change carb ratio. No changes made to pump settings Patient can continue insulin pump use along with CGM. He is alert and oriented x3 and feels comfortable using the pump. Advised patient to inform nursing staff when taking a bolus so that this can be entered in invino. We will continue to monitor sugars before each meal and at bedtime Portions of the information within this encounter were entered using an electronic dictation system. Best attempts were made to edit/proofread the information prior to note completion. Despite the review of information, some errors may remain. If there are questions related to the information contained within the note please contact the signing physician directly. I spent 15 minutes with the pt which involved coordination of care, medical evaluation, review of records, and/or counseling of the pt regarding his/her condition/disease state/prognosis on the date of this note. I personally saw and evaluated the patient. I reviewed and agree with the SKYE's documentation. I provided a substantive portion of the care of this patient. I personally performed the medical decision making in entirety for the encounter as mentioned above Images from the original note were not included. Cardiothoracic Surgery/CCM Progress Note PATIENT NAME: Jaydon Arellano DATE: 10/10/22 HPI: 56 y.o. male with pmHx of ischemic cardiomyopathy, CAD s/p PCI (last 2018), prior cardiac arrest (2007), T1DM, HLD and ETOH, seen by [facility] (Dr. Valle) with c/o chest heaviness and muscle ache in his left chest at rest plus associated symptoms of SOB, lightheadedness and dizzness. OP cath completed 09/29/22 which showed MVCAD: 90% ISR prox LAD, 80% ISR distal mid LAD, 70% Prox OM1, 70% Prox RCA. CTS was consulted for surgical revascularization. Last ECHO 06/07/21: showed EF of 50%, Trivial MR, Trival TR. Patient was seen in OP setting and consented to surgical intervention. He presented 10/07/22 - and underwent CABGx4 (GUERRIER to LAD, SVG to OM, SVG to RPDA, SVG to Diag) [facility] with Dr. Bagley. Surgery/Procedure: 10/08/22 CABG x 4 (GUERRIER-LAD, rsvg to om, rsvg to rpda, rsvg to diag) [facility], sternal plated with Dr. Bagley Interval History: 10/10/22, POD# 3: VSS up to chair this morning on RA. Temp spiked x1 to 101.7; cultured by CCM attending overnight. Today feels well. No issues or concerns this morning. Walked schulz already with nursing. No BM to date - passing flatus. Review of Systems Constitutional: Negative for diaphoresis, fatigue and fever. Respiratory: Negative for cough, shortness of breath and wheezing. Cardiovascular: Negative for chest pain, palpitations and leg swelling. Gastrointestinal: Negative for abdominal distention, constipation and diarrhea. Skin: Negative for color change, pallor and rash. Objective: Last BM Date: 10/07/22 Vitals: BP: 122/66, MAP (mmHg): 81, BP Method: Automatic Heart Rate: 70 Resp: 18 Temp: 37.1 C (98.7 F), Temp Source: Temporal BMI (Calculated): 29.86 Pacer Wires: none CXR: BMP: Recent Labs 10/07/22 1151 10/08/22 0006 10/09/22 0000 10/10/22 0035 NA 136 136 132* 130* K 3.4* 4.0 3.7 3.5 CL 109* 104 100 98 CO2 BUN 14 19 21* 24* CREATININE 0.72 0.78 0.80 0.84 CALCIUM 8.3* 7.9* 8.6 8.5 MG 2.8* 1.9 1.7 1.8 PHOS 1.6* -- -- -- CBC: Recent Labs 10/07/22 1151 10/07/22 1152 10/08/22 0006 10/09/22 0000 WBC 8.3 -- 9.4 7.5 HGB 10.5* 11.4 10.5* 10.3* HCT 30.5* -- 30.4* 29.9* PLT 115* -- 119* 100* MCV 84.7 -- 84.2 84.0 RDW 13.6 -- 13.9 13.9 INR: Recent Labs 10/08/22 0006 10/09/22 0000 10/10/22 0035 INR 1.2* 1.2* 1.0 Physical Exam Cardiovascular: Rate and Rhythm: Normal rate and regular rhythm. Heart sounds: Normal heart sounds. No murmur heard. No friction rub. Pulmonary: Effort: Pulmonary effort is normal. Skin: General: Skin is warm and dry. Capillary Refill: Capillary refill takes less than 2 seconds. Findings: Bruising and ecchymosis present. Comments: Surgical Incisions: well approximate; clean dry with no drainage noted. Surrounding skin no redness, warmth, or signs of infection noted. Neurological: Mental Status: He is alert. Psychiatric: Behavior: Behavior is cooperative. Assessment: MVCAD s/p PCI (last-2018) now s/p CABGx4 Ischemic cardiomyopathy T1DM ETOH use Post operative Pulm Management: Normal Post-operative Course Post-operative Atrial Fibrillation: []Yes [x] No Acute blood loss anemia/consumptive thrombocytopenia Plan: Patient Status: Telemetry Medications as ordered ASA, statin Add plavix - due to prior stents - still open Add low dose BB Hold home ARB Check lipid panel Remove introducer Endo following insulin pump OP follow up with [facility] Endo team PT/OT: home with home assist Pulmonary hygiene: IS and Acapella GI prophy: PO protonix DVT prophy:TEDs, SCDs, and Heparin SubQ Disposition: likely home over weekend Central Line: [x]Yes [] No Arterial Line: []Yes [x] No Buitrago: []Yes [x] No Restraints: []Yes [x] No Patient discussed and plan of day developed from multidisciplinary rounds between Cardiothoracic Surgery (Cardiothoracic Surgeon, SKYE) and Critical Care Attending Cardiac Core Medications: ASA, Statin, and BB EF: 45% - 10/07/22 Blood Conservation: None noted in post-operative period Director Funds Development: Dr. Valle Physical Therapy Facility/Department: [facility] Physical Therapy Daily Treatment Note NAME: Jaydon Arellano : 1965 Date of Service: 10/09/2022 Discharge Recommendations: Home with assist PRN PT Equipment Recommendations Equipment Needed: No Assessment Requires PT Follow-Up: Yes Assessment: Jaydon ambulated x 2 today (including this session. He is feeling SOB with ambulation. He has been up in the chair all day, and is fatigued. His CT's, lines and buitrago have been removed, so he needed no device for ambulation. He wanted to return to bed at the end of ambulation, he is requiring mod assist for transferring back to bed. He did perform his P&C exercises this morning, the ones he could remember. He is following his sternal precautions nicely. Recommend home with assist as needed upon discharge. Performance Deficits/Impairments: Decreased functional mobility , Decreased endurance, Decreased ROM, Decreased coordination, Decreased balance, Increased pain, Decreased posture, Decreased strength Treatment Diagnosis: decreased functional mobility and independence Decision Making: Medium Complexity Patient Diagnosis(es): The primary encounter diagnosis was CAD in venetie ira artery. A diagnosis of Coronary artery disease involving coronary bypass graft, unspecified whether angina present, unspecified whether venetie ira or transplanted heart was also pertinent to this visit. has a past medical history of Coronary artery disease (January 2007), Diabetes mellitus (HCC) (1995), Hyperlipidemia, and Myocardial infarction ([facility]/HCC) ([facility]) (February 2008). has a past surgical history that includes Cardiac catheterization (last was on 09/29/2022) and Coronary stent placement (6 total, last was in December 2018). Restrictions Restrictions/Precautions Restrictions/Precautions: General Precautions, Surgical Protocols, Fall Risk, Weight Bearing Required Braces or Orthoses?: No Position Activity Restriction Sternal Precautions: No Pushing, No Pulling, 10# Lifting Restrictions Sternal Precautions: YES Other position/activity restrictions: art line, CTs and buitrago have been removed. He is following his sternal precautions well. Vision/Hearing Vision: Within Functional Limits Hearing: Functional/adequate for paticipation in therapy Subjective General Chart Reviewed: Yes Patient Assessed for Rehabilitation Services: Yes Response To Previous Treatment: Patient with no complaints from previous session. Family / Caregiver Present: Yes ( visiting) Diagnosis: CAD, s/p CABG x 4 on 10/07/22 Follows Commands: Within Functional Limits Subjective Subjective: Pt is up in the chair, willing to ambulate in the halls. He has been up in the chair since early this morning, is ready to be back to bed after ambulation. Patient Stated Goal: To heal from this surgery, to go home. Cognition/Orientation Overall Cognitive Status: WNL Overall Orientation Status: Within Normal Limits Objective Bed mobility Rolling to Right: Minimal assistance Sit to Supine: Moderate assistance Scooting: Minimal assistance Transfers Sit to Stand: Minimal Assistance Stand to sit: Minimal Assistance Bed to Chair: Minimal assistance Ambulation Ambulation: Yes Ambulation 1 Surface 1: Level tile Device 1: No device (he held onto his heart pillow.) Assistance 1: Standby assistance Quality of Gait 1: No LOB, reciprocal stepping, slow melly Quality of Gait Comment 1: He took 2 standing rest breaks due to feeling short of breath. Distance (ft) 1: 100', then 50', then 25' Balance Posture: Good Sitting - Static: Good Sitting - Dynamic: Good Standing - Static: Fair, + Standing - Dynamic: Fair Plan Times per Week: 6-7 Plan Weeks: 2 Current Treatment Recommendations: Strengthening, ROM, Transfer Training, Gait Training, Stair training, Endurance Training, Home Exercise Program Safety Safety Devices Safety Devices in Place: Yes Type of Devices: Nurse notified, Patient at risk for falls, Call light within reach, Left in bed Restraints Restraints Initially in Place: No Outcomes Score AM-PAC Score AM-PAC Inpatient Mobility Raw Score (No Stairs) : 13 Goals Encounter Problems Encounter Problems (Active) Cardiac Patient will perform bed mobility with independence in order to improve independence and prepare for out of bed mobility. (Progressing) Start: 10/08/22 Expected End: 10/22/22 Patient will complete sit to stand transfer with independence to none in order to improve safety and prepare for out of bed mobility. (Progressing) Start: 10/08/22 Expected End: 10/22/22 Patient will ambulate 600 feet or ambulate 5 minutes with independence with RPE of 14 or lower. (Progressing) Start: 10/08/22 Expected End: 10/22/22 Patient will ascend and descend 5 # stairs with supervision rail for balance only. (Not Addressed) Start: 10/08/22 Expected End: 10/22/22 Patient will be independent with P&C exercises. (Progressing) Start: 10/08/22 Expected End: 10/22/22 Patient will be independent with managing secretions and home walking program. (Progressing) Start: 10/08/22 Expected End: 10/22/22 Education Education Given To: Patient Education Provided: Goals, PT Role, Plan of Care, Transfer Training, Home Exercise Program Education Method: Verbal, Demonstration Barriers to Learning: None Education Outcome: Verbalized understanding, Demonstrated understanding, Continued education needed Therapy Time Individual Co-treatment Time In 1325 Time Out 1350 Minutes 25 Timed Code Treatment Minutes: 25 Minutes Monalisa Costa PT Images from the original note were not included. Cardiothoracic Surgery Note PATIENT NAME: Jaydon Arellano : 1965 (56 y.o.) TODAY'S DATE: 10/09/2022 Objective: BP 96/60 Pulse 77 Temp 37 C (98.6 F) (Oral) Resp 14 Ht 5' 10 (1.778 m) Wt 208 lb 1.6 oz (94.4 kg) SpO2 93% BMI 29.86 kg/m Chest tubes assessed: no air leak, subcutaneous air noted. Chest tubes removed without difficulty and dressing applied. Patient tolerated well. Patient and nurse educated on possible complications to observe for. Will continue to monitor. Department of Internal Medicine Division of Endocrinology, Diabetes, & Metabolism Endocrinology Note Patient Name: Jaydon Arellano : 1965 AGE: 56 y.o. 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 Clerk: Yes [facility] endocrine ASSESSMENT: Dm1 with hyperglycemia and nursing home insulin Insulin pump status Stress Hyperglycemia DM1 with Retinopathy CAD s/p CABGx4 on 10-08-22 HLD ETOH use PLAN: Continue on insulin gtt per protocol Patient to restart his home insulin pump Nursing to stop insulin gtt in 1.5 hrs after his pump is started Discussed with patient and nursing at bedside He is awake and alert and able to manage his pump ICU goal <180 GMF goal <150 POCT ACHS- q 1 on gtt Hypoglycemia per protocol Carb controlled diet ANTICIPATED ENDOCRINE HOME GOING RECOMMENDATIONS: Optimized for Discharge from Endocrine standpoint: yes Home Going Endocrine Rx Recommendations-- Lispro (lyumjev) via medtronic 770 G pump using Guardian CGM in auto mode- current settings Outpt Follow Up-- [facility] Endocrine Team SUBJECTIVE/HPI: CHIEF COMPLAINT: No chief complaint on file. CABGx4 and DM1 on insulin pump Sees [facility] endocrine team outpatient Patient has medtronic 770gwith guardian- currently all off- does have all supplies in room- states he is due for upgrade- works close with [employer]. However- he may switch to [employer] T slim down the road with dexcom. States had good control prior to surgery Reviewed pump at bedside- settings below Has old site on right back- asked to change this out with new pump start- likely not today Bgl noted below Resting in chair Awake alert Vss Had muffin and fruit for bfast today No nv noted Family in room Spoke at length with family, patient and nursing on insulin pump plan at bedside He is setting up now to resume pump Nursing to stop ins gtt in 1.5 hrs after initiation We will FU on him again this afternoon Type of DM: 1 Onset of DM: 2002 Home DM Medication Regimen: insulin pump medtronic 770g with guardian cgm DM control (last A1c/glucose data): Lab Results Component Value Date HGBA1C 7.7 (H) 10/01/2022 Per [facility] endocrine last notes pump settings Current diabetes regimen is as follows: Lispro (lyumjev) via medtronic 770 G pump using Guardian CGM in auto mode. Basal insulin for backup: Basaglar Glucagon: baqsimi, feels lows at home Reviewed current settings at bedside Basal rate: 12A-4A-0.650 4A-6A-0.750 6A-12A-0.600 14.9= 24 hour basal rate Insulin:carb ratio 12A-5P= 7 5P-12A=4.5 Sensitivity 12A-12A= 40 Blood glucose target- 12A-12A: 90-110 Glucose Date/Time Value Ref Range Status 10/09/2022 08:11 AM 159 (H) 70 - 100 mg/dL Final 10/09/2022 06:57 AM 173 (H) 70 - 100 mg/dL Final 10/09/2022 06:56 AM 179 (H) 70 - 100 mg/dL Final 10/09/2022 06:02 AM 137 (H) 70 - 100 mg/dL Final 10/09/2022 04:59 AM 109 (H) 70 - 100 mg/dL Final 10/09/2022 03:57 AM 105 (H) 70 - 100 mg/dL Final Review of Systems All other systems reviewed and are negative. ROS negative except for those mentioned in HPI. OBJECTIVE: Vitals: 10/09/22 0548 10/09/22 0600 10/09/22 0700 10/09/22 0820 BP: 100/65 BP Location: Left arm Patient Position: Sitting Pulse: 85 86 91 Resp: 18 Temp: 37 C (98.6 F) TempSrc: Oral SpO2: 93% 91% 92% Weight: 208 lb 1.6 oz (94.4 kg) Height: Physical Exam Vitals reviewed. Constitutional: General: He is awake. He is not in acute distress. Appearance: He is ill-appearing. He is not toxic-appearing. HENT: Head: Normocephalic and atraumatic. Cardiovascular: Rate and Rhythm: Normal rate. Pulmonary: Effort: Pulmonary effort is normal. Abdominal: General: There is no distension. Palpations: Abdomen is soft. Skin: General: Skin is warm and dry. Neurological: General: No focal deficit present. Mental Status: He is alert and oriented to person, place, and time. Psychiatric: Mood and Affect: Mood normal. Behavior: Behavior normal. Behavior is cooperative. Thought Content: Thought content normal. 24 hour intake/output: Intake/Output Summary (Last 24 hours) at 10/09/2022 0907 Last data filed at 10/09/2022 0700 Gross per 24 hour Intake 1996 ml Output 1220 ml Net 776 ml Diet: Adult diet Regular; No Added Salt (3-4 gm); 5 carb choices (75 gm/meal) Medications (as per EMR): HomeMeds: @MEDHMEDS@ Scheduled Meds:acetaminophen, 1,000 mg, Oral, q8h aspirin, 81 mg, Oral, Daily ceFAZolin, 2,000 mg, IntraVENous, q8h chlorhexidine, 15 mL, Mouth/Throat, BID heparin, 5,000 Units, SubCUTAneous, BID ketorolac, 15 mg, IntraVENous, q6h Lidocaine, 1 patch, TransDERmal, Daily mupirocin, , Nasal, BID pantoprazole, 40 mg, Oral, qAM AC polyethylene glycol (PEG) 3350, 17 g, Oral, Daily rosuvastatin, 10 mg, Oral, Once per day on Thu rosuvastatin, 20 mg, Oral, Once per day on Thu Sat senna-docusate sodium, 2 tablet, Oral, Nightly Continuous Infusions:insulin regular, 1-50 Units/hr, Last Rate: 1.5 Units/hr (10/09/22 0815) PRN Meds:PRN medications: calcium gluconate, dextrose, dextrose, glucagon (rDNA), glucose, ipratropium-albuterol, magnesium hydroxide, magnesium sulfate OR magnesium sulfate, morphine sulfate OR morphine sulfate, ondansetron ODT OR ondansetron, oxyCODONE OR oxyCODONE, potassium chloride OR potassium chloride 20 mEq in sodium chloride 0.9 % 250 mL IVPB OR potassium chloride 40 mEq in sodium chloride 0.9 % 500 mL IVPB, potassium chloride CR, simethicone Diagnostic Workup: I reviewed pertinent Laboratory results, Radiographic results, and Other Clinical Notes at the time of today's encounter. Labs: No components found for: LABA1C No components found for: EAG Lab Results Component Value Date NA 132 (L) 10/09/2022 K 3.7 10/09/2022 CL 100 10/09/2022 CO2 23 10/09/2022 BUN 21 (H) 10/09/2022 CREATININE 0.80 10/09/2022 GLUCOSE 111 (H) 10/09/2022 CALCIUM 8.6 10/09/2022 No results found for: CHLPL, CHOL No results found for: TRIG No results found for: HDL No results found for: LDLCALC No results found for: VLDL No results found for: CHOLHDLRATIO No results found for: [id number] No results found for: TSH, Q5THWUD, B5HASDF, THYROIDAB Radiology reportsas per the Radiologist Radiology: ECG 12 lead Result Date: 10/08/2022 Sinus rhythm Probable left atrial enlargement Consider anteroseptal infarct ST elevation, consider inferior injury ECG 12 lead Result Date: 10/08/[address] elevation, lateral leads Electronically Signed On 10-08-2022 7:42:13 EDT by Denise Mendoza XR chest 1 view Result Date: 10/08/2022 Patient Name: JAYDON ARELLANO : 1965 Exam Date/Time: 10/08/2022 05:21 Procedure: XR CHEST 1 VIEW Ordering Provider: YANEZ ANDREW Reason For Exam: Shortness of breath INDICATION: 56-year-old; shortness of breath. VIEWS: Chest portable-1 image COMPARISON: 10/07/2022 FINDINGS: Interval removal of endotracheal tube and enteric tube. The right IJ central venous catheter and mediastinal drain and left chest tube remain. Multiple cardiac monitoring wires and leads are present, limiting overall evaluation of support devices. Median sternotomy wires and fixation hardware remain. The trachea is midline. The cardiac silhouette is stable. The lung volumes are low with mild pulmonary vascular congestion. New left lung base opacities are present with blunting of the costophrenic angle. 1. Mild pulmonary vessel congestion. 2. Left lung base opacities may reflect atelectasis versus developing small pleural effusion. Report Dictated on Electronically Signed By: Amita Wilder Electronically Signed Date/Time: 10/08/2022 6:34 AM EDT Transesophageal echocardiogram (SAGAR) with contrast and 3D PRN Result Date: 10/07/2022 Left Ventricle: Left ventricle size is normal. Mildly reduced left ventricular systolic function. The EF by visual approximation is 45%. Severe hypokinesis of mid inferoseptal, apical septal, and mid anterior espinosa Right Ventricle: Right ventricle size is normal. Low normal systolic function. No significant valvular abnormalities. XR chest 1 view Result Date: 10/07/2022 [facility] 1965 [id number] Exam Date/Time: 10/07/2022 13:37 Procedure: XR CHEST 1 VIEW Ordering Provider: YANEZ ANDREW Reason For Exam: Post op open heart surgery PORTABLE CHEST: INDICATION: Status post open heart surgery COMPARISON: 10/01/2022 Obtained at 1315 hours. A single portable AP radiograph of the chest was obtained. The heart is normal in size. The mediastinal silhouette is normal. There are changes associated with recent open heart surgery. A left-sided chest tube is present as is a mediastinal tube. There is no pneumothorax. There is a small effusion on the left. There is no pleural thickening. The osseous structures are unremarkable. The ET tube and NG tube are unchanged. A right internal jugular central venous catheter is present with the tip overlying the superior vena cava. Postoperative changes. No acute process. Report Dictated on Electronically Signed By: Andrews Ribeiro Electronically Signed Date/Time: 10/07/2022 3:02 PM EDT History/Other: Past Medical History: Past Medical History: Diagnosis Date Coronary artery disease January 2007 Diabetes mellitus (HCC) Approx 1995 Hyperlipidemia Myocardial infarction (CMS/HCC) (HCC) February 2008 Past Surgical History: Past Surgical History: Procedure Laterality Date CARDIAC CATHETERIZATION last was on 09/29/2022 CORONARY STENT PLACEMENT 6 total, last was in December 2018 Allergy(ies): Allergies Allergen Reactions Penicillins Anaphylaxis, Hives, Shortness of breath, Itching, Swelling and Rash Other reaction(s): anaphylaxis, Unknown SOB, rash, hives Lisinopril Cough Ramipril Cough Family History: No family history on file. Social History: Social History Tobacco Use Smoking status: Never Smokeless tobacco: Former Types: Chew Quit date: 08/11/2002 Vaping Use Vaping Use: Never used Substance Use Topics Alcohol use: Yes Alcohol/week: 15.0 standard drinks of alcohol Types: 12 Cans of beer, 3 Shots of liquor per week Drug use: Not Currently Portions of the information within this encounter were entered using an electronic dictation system. Best attempts were made to edit/proofread the information prior to note completion. Despite the review of information, some errors may remain. If there are questions related to the information contained within the note please contact the signing physician directly. I spent 20 minutes with the pt which involved coordination of care, medical evaluation, review of records, and/or counseling of the pt regarding his/her condition/disease state/prognosis on the date of this note. Associated attestation - Ashlee Beckham MD - 10/09/2022 5:15 PM EDT Attending Supervising Physician's Attestation Statement I performed a history and physical examination on the patient and discussed the management with the nurse practitioner. I reviewed and agree with the findings and plan as documented in her note. Patient is 56 years old and he has history of type 1 diabetes on long-term insulin use, insulin pump use, CAD s/p PCI, hyperlipidemia and he underwent CABGx 4 on 10/07/2022 No overnight events Appetite remains on the lower side No nausea or vomiting Was transitioned to insulin pump therapy earlier this morning. Insulin drip. 1 and half hours after pump was started Overall blood sugars and insulin requirements were on the minimal side overnight Blood sugars at the time of my exam was 193 and patient was using auto mode Made changes to his basal settings as mentioned below On Exam he is alert and oriented x 3 CVS:S1S2 + , Surgical scar noted no lower extremity edema Pump site is intact CGM site is also intact I reviewed the patient's Past Medical History, Past Surgical History, Medications, and Allergies. Assessment: Type 1 diabetes with hyperglycemia and nursing home insulin use Insulin pump status - Currently not in use Diabetes complicated by retinopathy and CAD CAD S/P CABG X 4 HLD Recommendations: Patient has been transitioned to insulin pump as mentioned below. Patient can continue insulin pump use along with CGM. He is alert and oriented x3 and feels comfortable using the pump. Advised patient to inform nursing staff when taking a bolus so that this can be entered in invino. We will continue to monitor sugars before each meal and at bedtime I have changed his manual basal rate settings 12 AM - 4 AM 0.750 , 4 AM - 12 AM 0.800 -reflecting a total daily dose of 19 units/day which is his usual basal requirement while on auto mode. No other changes made to settings I spent 20 minutes with the pt which involved coordination of care, medical evaluation, review of records, and/or counseling of the pt regarding his/her condition/disease state/prognosis on the date of this note. I personally saw and evaluated the patient. I reviewed and agree with the SKYE's documentation. I provided a substantive portion of the care of this patient. I personally performed the medical decision making in entirety for the encounter as mentioned above Images from the original note were not included. Cardiothoracic Surgery/CCM Progress Note PATIENT NAME: Jaydon Arellano DATE: 10/09/22 HPI: 56 y.o. male with pmHx of ischemic cardiomyopathy, CAD s/p PCI (last 2018), prior cardiac arrest (2007), T1DM, HLD and ETOH, seen by [facility] (Dr. Valle) with c/o chest heaviness and muscle ache in his left chest at rest plus associated symptoms of SOB, lightheadedness and dizzness. OP cath completed 09/29/22 which showed MVCAD: 90% ISR prox LAD, 80% ISR distal mid LAD, 70% Prox OM1, 70% Prox RCA. CTS was consulted for surgical revascularization. Last ECHO 06/07/21: showed EF of 50%, Trivial MR, Trival TR. Patient was seen in OP setting and consented to surgical intervention. He presented 10/07/22 - and underwent CABGx4 (GUERRIER to LAD, SVG to OM, SVG to RPDA, SVG to Diag) EDUARDO with Dr. Bagley. Surgery/Procedure: 10/08/22 Carmella - CABG x 4 (GUERRIER-LAD, SVG to SAYDA/RPDA,Diag) GIACOMOH, sternal plated Interval History: 10/09/22, POD# 02: Afebrile, NSR on tele, BP stable on low dose levophed throughout yesterday and last night to push MAP 70-75, currently weaned off, on RA. Labs stable. Patient sitting up in chair, doing well. No major complaints. Review of Systems Constitutional: Positive for fatigue. Negative for chills, diaphoresis and fever. Respiratory: Negative for cough, shortness of breath and wheezing. Cardiovascular: Positive for chest pain. Negative for palpitations and leg swelling. Gastrointestinal: Negative for abdominal distention, abdominal pain, nausea and vomiting. Neurological: Negative for dizziness, syncope and light-headedness. Objective: CT output cc/24hrs: 120 (100/20) UO cc/24hrs: 1,057 Last BM Date: 10/07/22 Vitals: BP: 134/55, MAP (mmHg): 77, BP Method: Arterial line Heart Rate: 78 Resp: 20 Temp: 37.2 C (99 F), Temp Source: Oral BMI (Calculated): 29.86 BMP: Recent Labs 10/07/22 1151 10/08/22 0006 10/09/22 0000 NA 136 136 132* K 3.4* 4.0 3.7 CL 109* 104 100 CO2 BUN 14 19 21* CREATININE 0.72 0.78 0.80 CALCIUM 8.3* 7.9* 8.6 MG 2.8* 1.9 1.7 PHOS 1.6* -- -- CBC: Recent Labs 10/07/22 1151 10/07/22 1152 10/08/22 0006 10/09/22 0000 WBC 8.3 -- 9.4 7.5 HGB 10.5* 11.4 10.5* 10.3* HCT 30.5* -- 30.4* 29.9* PLT 115* -- 119* 100* MCV 84.7 -- 84.2 84.0 RDW 13.6 -- 13.9 13.9 INR: Recent Labs 10/07/22 1151 10/08/22 0006 10/09/22 0000 INR 1.3* 1.2* 1.2* Physical Exam Vitals reviewed. Constitutional: General: He is not in acute distress. Appearance: He is not ill-appearing or diaphoretic. Cardiovascular: Rate and Rhythm: Normal rate and regular rhythm. Pulses: Normal pulses. Heart sounds: No murmur heard. Pulmonary: Effort: Pulmonary effort is normal. Breath sounds: No wheezing, rhonchi or rales. Comments: Shallow breaths, diminished in bases bilaterally. Abdominal: General: There is no distension. Palpations: Abdomen is soft. Tenderness: There is no abdominal tenderness. Comments: Chest tubes in place. Genitourinary: Comments: Buitrago. Musculoskeletal: Right lower leg: No edema. Left lower leg: No edema. Skin: General: Skin is warm and dry. Capillary Refill: Capillary refill takes less than 2 seconds. Findings: No bruising or lesion. Comments: MSI well approximated, no redness, warmth or drainage noted. Neurological: General: No focal deficit present. Mental Status: He is alert and oriented to person, place, and time. Psychiatric: Mood and Affect: Mood normal. Behavior: Behavior normal. Judgment: Judgment normal. Assessment: MVCAD s/p PCI (last-2018) now s/p CABGx4 Ischemic cardiomyopathy T1DM HLD ETOH use Post operative Pulm Management: Normal Post-operative Course Post-operative Atrial Fibrillation: []Yes [x] No Acute blood loss anemia/consumptive none noted Plan: Patient Status: ICU Weaned off of levophed. -DC arterial line. Continue aspirin, statin. No BB yet, will consider adding if BP can tolerate after diuresis. Lasix 40mg IV once this AM. Remove buitrago after AM diuresis. Remove chest tubes today after ambulation. Toradol 15mg IV q6h x24 hours. DC daily CBC's. Endocrinology following for blood glucose management. -Patient uses insulin pump at home. Bowel regimen. DVT prophy. PT/OT, progressive mobility, out of bed for meals. PT recs: Home with assist PRN (10/08/22) Pulmonary hygiene: IS and Acapella GI prophy: PO protonix DVT prophy:TEDs, SCDs, and Heparin SubQ Disposition: TBD Central Line: [x]Yes [] No Arterial Line: []Yes [x] No Buitrago: [x]Yes [] No Restraints: []Yes [x] No Patient discussed and plan of day developed from multidisciplinary rounds between Cardiothoracic Surgery (Cardiothoracic Surgeon, SKYE) and Critical Care Attending Cardiac Core Medications: ASA, Statin, and No BB due to hypotension EF: 45% (10/07/22) Blood Conservation: None noted in post-operative period Director Funds Development: Dr. Valle ([place]) Associated attestation - Miky Yañez MD - 10/09/2022 9:02 PM EDT I have personally seen the patient and examined along with the SKYE/resident team. I personally obtained the ashton and relevent portions of the history and performed physical exam. I reviewed the chart including MAR , labs and radiology and discussed the patient's plan of action with the resident/SKYE. This note reflects my plan of care as I have edited the note to reflect my findings and my assessment and plan. Discussed with: []Residents [x]Patient/Family [x]RN []Consultants [x]SW/TCC []Other [x]SKYE Personally Reviewed: [x]Epic notes [x]Radiology studies [x]Labs []EKG []Other Assessment: 56 year-old male with PMH significant for CAD with prior PCI (most recently in December 2018), prior cardiac arrest in February 2008, ischemic cardiomyopahty, sinus bradycardia, hyperlipidemia, DM1, and alcohol use (15 drinks/wk). Patient is post-op day two from four-vessel CABG with Dr. Bagley. Plan: -weaned off vasopressors -ok to remove arterial line -holding BB, start tomorrow if HDS -spot dose lasix -remove buitrago -remove chest tubes -insulin regimen per endo -continue pulmonary hygiene measures, PT/OT -Remain ICU status -Remainder as per SKYE documentation Excluding procedures, the total critical care time caring for this patient with life threatening, unstable organ failure, including direct patient contact, review of medical record, management of life support systems, review of data including imaging and labs, discussions with other team members, patient's family and physicians at least 35 minutes so far today. Occupational Therapy Facility/Department: [facility] Occupational Therapy Initial Evaluation NAME: Jaydon Arellano : 1965 Date of Service: 10/08/2022 Discharge Recommendations: Home with assist PRN, Continue to assess pending progress Assessment REQUIRES OT FOLLOW-UP: Yes Performance deficits / Impairments: Decreased functional mobility , Decreased ADL status, Decreased strength, Decreased endurance, Decreased balance, Decreased high-level IADLs, Decreased safe awareness Assessment: Pt presented and requires CABG x4. Pt previously indep with ADLs, IADLs, ambulation, ran a half marathon 3 weeks ago. Pt currently requires CGA to stand from recliner and mod assist for ADLs, limited by lines/tubes this date. Pt will likely progress to home with PRN assist. Prognosis: Good Decision Making: Medium Complexity Exam: AM PAC Activity Tolerance Activity Tolerance: Patient Tolerated treatment well Activity Tolerance: limited by lines/tubes this date Patient Diagnosis(es): The primary encounter diagnosis was CAD in venetie ira artery. A diagnosis of Coronary artery disease involving coronary bypass graft, unspecified whether angina present, unspecified whether venetie ira or transplanted heart was also pertinent to this visit. has a past medical history of Coronary artery disease (January 2007), Diabetes mellitus (HCC) (1995), Hyperlipidemia, and Myocardial infarction (CMS/HCC) ([facility]) (February 2008). has a past surgical history that includes Cardiac catheterization (last was on 09/29/2022) and Coronary stent placement (6 total, last was in December 2018). Restrictions Restrictions/Precautions Restrictions/Precautions: General Precautions, Surgical Protocols, Fall Risk Required Braces or Orthoses?: No Position Activity Restriction Sternal Precautions: No Pushing, No Pulling, 10# Lifting Restrictions Sternal Precautions: YES Other position/activity restrictions: Art line, tele, buitrago, chest tube, IV Vision/Hearing Vision: Within Functional Limits Hearing: Functional/adequate for paticipation in therapy Cognition/Orientation Overall Cognitive Status: WNL Overall Orientation Status: Within Normal Limits Subjective General Chart Reviewed: Yes Patient Assessed for Rehabilitation Services: Yes Additional Pertinent Hx: ischemic cardiomyopathy, CAD s/p PCI (last 2018), prior cardiac arrest (2007) Family / Caregiver Present: Yes () Diagnosis: CABG x4 Subjective Subjective: Pt seated in recliner,pleassant and agreeable to OT eval General Comments Comments: Pt ok to see per RN Patient Stated Goal: to walk Pain Assessment Pain Assessment: 0-10 (hurts to breath) Pain Score: 6 Social/Functional History Social/Functional History Lives With: Spouse Type of Home: House Home Layout: One level Home Access: Stairs to enter with rails Entrance Stairs - Number of Steps: 5 Entrance Stairs - Rails: Right Bathroom Shower/Tub: Tub/Shower unit Bathroom Toilet: Standard Bathroom Equipment: (grab bar outside of the shower (bathroom set up for WC from previous special shopper)) Home Equipment: (no device at baseline) Receives Help From: Family ADL Assistance: Independent Homemaking Assistance: Independent Homemaking Responsibilities: Yes Ambulation Assistance: Independent With device?: No Transfer Assistance: Independent Active Crate Maker: Yes Mode of Transportation: Car 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 Objective Gross Assessment: Yes (limited d/t precautions and art line but functional) Strength: Within functional limits Coordination: Within functional limits Tone: Normal Sensation: Intact Observation/Palpation Posture: Good Observation: aware of precautions but still requires minimal cues Balance Sitting Balance: Independent Standing Balance: Contact guard assistance Standing Balance Time: ~2 minutes Activity: weight shifting and marches Comment: could have stood longer- reports it feels good to be up ADL LE Dressing: Moderate assistance Additional Comments: able to doff B socks but unable to don- mod assist over all Bed mobility Comment: NA seated in recliner at beginning and end of session Transfers Sit to stand: Contact guard assistance Stand to sit: Contact guard assistance Transfer Comments: CGA to elevate from chair holding sternal pillow, no device, endorses slight dizziness that resolves with time, CGA to return to sitting. Sensation Overall Sensation Status: (DM, states he does not feel things like others do.) Plan Times per Week: 3-5 Plan Weeks: 4 Current Treatment Recommendations: Strengthening, Balance Training, Functional Mobility Training, Safety Education & Training, Pain Management, Patient/Caregiver Education & Training, Equipment Evaluation, Education, & procurement, Positioning, Modalities (comment), Self-Care / ADL, Home Management Training Safety Safety Devices in place: Yes Type of devices: Call light within reach, Left in chair, Nurse notified, No alarms engaged upon entry into room Restraints Initially in place: No AM-PAC Score AM-PAC Inpatient Daily Activity Raw Score: 19 ADL Inpatient CMS G-Code Modifier: CK Goals Encounter Problems Encounter Problems (Active) Dressing Upper Extremities Patient will complete upper body dressing independently Start: 10/08/22 Expected End: 11/05/22 Dressings Lower Extremities Patient will dress lower body independently Start: 10/08/22 Expected End: 11/05/22 Grooming Patient will complete daily grooming tasks independently Start: 10/08/22 Expected End: 11/05/22 Mobility Patient will demonstrate functional ambulation independently Start: 10/08/22 Expected End: 11/05/22 Toileting Patient will complete toileting tasks at standard toilet with independence. Start: 10/08/22 Expected End: 11/05/22 Transfers Patient will complete functional transfer with no assistive device with independence in order to prepare for ambulation. Start: 10/08/22 Expected End: 11/05/22 Patient will perform bed mobility with independence in order to improve independence and prepare for out of bed mobility. Start: 10/08/22 Expected End: 11/05/22 Education Education Given To: Patient Education Provided: OT role, Plan of care, Precautions, Transfer training, ADL adaptive strategies, Discharge recommendations Education Method: Verbal Barriers to Learning: None Education Outcome: Verbalized understanding Therapy Time Individual Co-treatment Time In 1425 Time Out 1441 Minutes 16 Loyda Robins OT Physical Therapy Facility/Department: [facility] Physical Therapy Initial Evaluation NAME: Jaydon Arellano : 1965 Date of Service: 10/08/2022 Discharge Recommendations: Home with assist PRN PT Equipment Recommendations Equipment Needed: No Assessment Requires PT Follow-Up: Yes Assessment: Jaydon Arellano was admitted on 10/07/22 with CAD, is now s/p CABG x 4 on 10/07/22. He has sternal precautions. He is up in the chair at onset, requires min assist and verbal cues to stand and to sit. He still has an arterial line, so no ambulation this session. He has a CT to suction, still has buitrago catheter for urine. He is awake and pleasant, is fully aware of his sternal precautions. He did perform P&C exercises # 1-9 x 10 reps. He is active, ran a half marathon 3 weeks ago. 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 He lives with his in a 1 story home with 5 steps to enter with a railing. 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 He has 6 stents, now CABG. He is doing well at this point, anticipate he will return home with family assist upon discharge. Performance Deficits/Impairments: Decreased functional mobility , Decreased endurance, Decreased ROM, Decreased coordination, Decreased balance, Increased pain, Decreased posture, Decreased strength Treatment Diagnosis: decreased functional mobility and independence Decision Making: Medium Complexity Activity Tolerance Activity Tolerance: Patient limited by fatigue, Patient limited by pain, Patient limited by endurance Patient Diagnosis(es): The primary encounter diagnosis was CAD in venetie ira artery. A diagnosis of Coronary artery disease involving coronary bypass graft, unspecified whether angina present, unspecified whether venetie ira or transplanted heart was also pertinent to this visit. has a past medical history of Coronary artery disease (January 2007), Diabetes mellitus ([facility]) (1995), Hyperlipidemia, and Myocardial infarction (CMS/HCC) ([facility]) (February 2008). has a past surgical history that includes Cardiac catheterization (last was on 09/29/2022) and Coronary stent placement (6 total, last was in December 2018). Restrictions Restrictions/Precautions Restrictions/Precautions: Weight Bearing, General Precautions, Fall Risk Required Braces or Orthoses?: No Position Activity Restriction Sternal Precautions: No Pushing, No Pulling, 10# Lifting Restrictions Sternal Precautions: YES Other position/activity restrictions: He still has his art line in, so no ambulation at this time. Vision/Hearing Vision: Within Functional Limits Hearing: Functional/adequate for paticipation in therapy Cognition/Orientation Overall Cognitive Status: WNL Overall Orientation Status: Within Normal Limits Subjective General Chart Reviewed: Yes Patient Assessed for Rehabilitation Services: Yes Response To Previous Treatment: Not applicable Family / Caregiver Present: Yes (they left midway through the evaluation.) Diagnosis: CAD, s/p CABG x 4 on 10/07/22 Follows Commands: Within Functional Limits Subjective Subjective: Pt is up in the chair, willing to stand and to perform exercises with PT. He is nicely cooperative and pleasant. Likes to joke around a bit. Patient Stated Goal: To heal from this surgery, to go home. 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 He complains of pain in his back more than anteriorly. Nurse aware, and is monitoring. AROM RLE (degrees) RLE AROM: WFL AROM LLE (degrees) LLE AROM : WFL Strength RLE Strength RLE: WFL Strength LLE Strength LLE: WFL Tone RLE RLE Tone: Normotonic Tone LLE LLE Tone: Normotonic Coordination Rapid Alternating Movements: Normal Sensation Overall Sensation Status: (DM, states he does not feel things like others do.) Bed mobility Comment: NT, up in chair at onset and end of this session. Transfers Sit to Stand: Moderate Assistance Stand to sit: Minimal Assistance Ambulation Ambulation: No (He is still on pressors and has his art line in. No ambulation this session.) Balance Posture: Good Sitting - Static: Good Sitting - Dynamic: Good Standing - Static: Good, - Other exercises Other exercises?: Yes Other exercises 1: deep breathing x 10 reps Other exercises 2: P&C exercises # 1-9 x 5 reps. Plan Times per Week: 6-7 Plan Weeks: 2 Current Treatment Recommendations: Strengthening, ROM, Transfer Training, Gait Training, Stair training, Endurance Training, Home Exercise Program Safety Safety Devices Safety Devices in Place: Yes Type of Devices: Nurse notified, Patient at risk for falls, Left in chair, Call light within reach Restraints Restraints Initially in Place: No Outcomes Score AM-PAC Score AM-PAC Inpatient Mobility Raw Score (No Stairs) : 9 Goals Encounter Problems Encounter Problems (Active) Cardiac Patient will perform bed mobility with independence in order to improve independence and prepare for out of bed mobility. Start: 10/08/22 Expected End: 10/22/22 Patient will complete sit to stand transfer with independence to none in order to improve safety and prepare for out of bed mobility. Start: 10/08/22 Expected End: 10/22/22 Patient will ambulate 600 feet or ambulate 5 minutes with independence with RPE of 14 or lower. Start: 10/08/22 Expected End: 10/22/22 Patient will ascend and descend 5 # stairs with supervision rail for balance only. Start: 10/08/22 Expected End: 10/22/22 Patient will be independent with P&C exercises. Start: 10/08/22 Expected End: 10/22/22 Patient will be independent with managing secretions and home walking program. Start: 10/08/22 Expected End: 10/22/22 Education Education Given To: Patient Education Provided: Goals, PT Role, Plan of Care, Transfer Training, Home Exercise Program Education Method: Verbal, Demonstration Barriers to Learning: None Education Outcome: Verbalized understanding, Demonstrated understanding, Continued education needed Therapy Time Individual Co-treatment Time In 1000 Time Out 1025 Minutes 25 Timed Code Treatment Minutes: 13 Minutes Monalisa Costa PT Images from the original note were not included. PATIENT NAME: Jaydon Arellano DATE: 10/08/22 HPI: 56 y.o. male with pmHx of ischemic cardiomyopathy, CAD s/p PCI (last 2018), prior cardiac arrest (2007), T1DM, HLD and ETOH use seen by [facility] (Dr. Valle) with c/o chest heaviness and muscle ache in his left chest at rest plus associated symptoms of SOB, lightheadedness and dizzness. OP cath completed 09/29/22 which showed MVCAD: 90% ISR prox LAD, 80% ISR distal mid LAD, 70% Prox OM1, 70% Prox RCA. CTS was consulted for surgical revascularization. Last ECHO 06/07/21: showed EF of 50%, Trivial MR, Trival TR. Patient was seen in OP setting and consented to surgical intervention. He presented 10/07/22 - and underwent CABGx4 (GUERRIER to LAD, SVG to OM, SVG to RPDA, SVG to Diag) [facility] with Dr. Bagley. Surgery/Procedure: 10/08/22 [place] - CABG x 4 (GUERRIER-LAD, SVG to SAYDA/RPDA,Diag) LEVH, sternal plated Interval History: 10/08/22, POD# 1: VSS overnight with epi gtt, pt urine output has decreased given a total of 1L and 50 Albumin Review of Systems Constitutional: Negative for diaphoresis, fatigue and fever. Respiratory: Negative for cough, shortness of breath and wheezing. Cardiovascular: Negative for chest pain, palpitations and leg swelling. Gastrointestinal: Negative for abdominal distention, constipation and diarrhea. Skin: Negative for color change, pallor and rash. Objective: CT output cc/24hrs: 420 UO cc/24hrs: 1300 Last BM Date: 10/07/22 Remains on Epi gtt @0.04 Insulin gtt Vitals: BP: (!) 120/48, MAP (mmHg): 66, BP Method: Arterial line Heart Rate: 78 Resp: 13 Temp: 37.6 C (99.7 F), Temp Source: Bladder BMI (Calculated): 28.27 CXR: BMP: Recent Labs 10/07/22 1151 10/08/22 0006 NA 136 136 K 3.4* 4.0 CL 109* 104 CO2 BUN 14 19 CREATININE 0.72 0.78 CALCIUM 8.3* 7.9* MG 2.8* 1.9 PHOS 1.6* -- CBC: Recent Labs 10/07/22 1151 10/07/22 1152 10/08/22 0006 WBC 8.3 -- 9.4 HGB 10.5* 11.4 10.5* HCT 30.5* -- 30.4* PLT 115* -- 119* MCV 84.7 -- 84.2 RDW 13.6 -- 13.9 INR: Recent Labs 10/07/22 1151 10/08/22 0006 INR 1.3* 1.2* Physical Exam Cardiovascular: Rate and Rhythm: Normal rate and regular rhythm. Heart sounds: Normal heart sounds. No murmur heard. No friction rub. Pulmonary: Effort: Pulmonary effort is normal. Skin: General: Skin is warm and dry. Capillary Refill: Capillary refill takes less than 2 seconds. Findings: Bruising and ecchymosis present. Neurological: Mental Status: He is alert. Psychiatric: Behavior: Behavior is cooperative. Assessment: MVCAD s/p PCI (last-2018) now s/p CABGx4 Ischemic cardiomyopathy T1DM HLD ETOH use Post operative Pulm Management: Normal Post-operative Course Post-operative Atrial Fibrillation: []Yes [x] No Acute blood loss anemia/consumptive none noted Plan: Patient Status: Telemetry Up to chair Target SBP > 90 rapid wean epi - if needed transition to levophed Bolus with 500LR GDMT for CAD with preserved EF DC art line Continue Toradol Simethicone for gastric bubble Endocrine to follow pt has DM 1 with insulin pump that is still poorly controlled Consider lasix this PM Keep buitrago cath PT/OT - TBD PT recs: - TBD Pulmonary hygiene: IS and Acapella GI prophy: PO protonix DVT prophy:TEDs, SCDs, and Heparin SubQ Disposition: TBD Central Line: [x]Yes [] No Arterial Line: [x]Yes [] No Buitrago: [x]Yes [] No Restraints: []Yes [x] No Patient discussed and plan of day developed from multidisciplinary rounds between Cardiothoracic Surgery (Cardiothoracic Surgeon, SKYE) and Critical Care Attending Cardiac Core Medications: ASA EF: 45% Blood Conservation: None noted in post-operative period Director Funds Development: Does not have one Associated attestation - Miky Yañez MD - 10/08/2022 7:27 PM EDT I have personally seen the patient and examined along with the SKYE/resident team. I personally obtained the ashton and relevent portions of the history and performed physical exam. I reviewed the chart including MAR , labs and radiology and discussed the patient's plan of action with the resident/SKYE. This note reflects my plan of care as I have edited the note to reflect my findings and my assessment and plan. Discussed with: []Residents [x]Patient/Family [x]RN []Consultants []SW/TCC []Other [x]SKYE Personally Reviewed: [x]Epic notes [x]Radiology studies [x]Labs [x]EKG []Other Assessment: 56 year-old male with PMH significant for CAD with prior PCI (most recently in December 2018), prior cardiac arrest in February 2008, ischemic cardiomyopahty, sinus bradycardia, hyperlipidemia, DM1, and alcohol use (15 drinks/wk). Patient presents to ICU s/p four vessel CABG with Dr. Bagley. Plan: -Remove arterial line -simethicone for gastric distension -insulin per endo -Start GDMT -OOB to chair. Encourage mobilization. Continue pulmonary hygiene measures. -Spot dose lasix -Continue buitrago today -Remainder as per SKYE documentation ICU Checklist: DVT prophylaxis: subcutaneous heparin GI prophylaxis: protonix Lines/Tubes and dates: right internal jugular introducer, buitrago GOC/Family Discussions: full code Excluding procedures, the total critical care time caring for this patient with life threatening, unstable organ failure, including direct patient contact, review of medical record, management of life support systems, review of data including imaging and labs, discussions with other team members, patient's family and physicians at least 35 minutes so far today. Pt. Was extubated to 4L NC. Pt. Vocalized name, had clear breath sounds and no stridor noted. documented in this encounter [facility] 10-11-2022 Note Cardiothoracic Surge ry/CCM Progress Note PATIENT NAME: Jaydon Arellano DATE: 10/11/22 HPI: 56 y.o. male with pmHx of ischemic cardiomyopathy, CAD s/p PCI (last 2018), prior cardiac arrest (2007), T1DM, HLD and ETOH, seen by [facility] (Dr. Valle) with c/o chest heaviness and muscle ache in his left chest at rest plus associated symptoms of SOB, lightheadedness and dizzness. OP cath completed 09/29/22 which showed MVCAD: 90% ISR prox LAD, 80% ISR distal mid LAD, 70% Prox OM1, 70% Prox RCA. CTS was consulted for surgical revascularization. Last ECHO 06/07/21: showed EF of 50%, Trivial MR, Trival TR. Patient was seen in OP setting and consented to surgical intervention. He presented 10/07/22 - and underwent CABGx4 (GUERRIER to LAD, SVG to OM, SVG to RPDA, SVG to Diag) [facility] with Dr. Bagley. Surgery/Procedure: 10/08/22 CABG x 4 (GUERRIER-LAD, rsvg to om, rsvg to rpda, rsvg to diag) LEVH, sternal plated with Dr. Bagley Interval History: 10/11/22, POD# 4: VSS, less frequent PVCs, pain better controlled with NSAID. No acute issues noted by nursing or patient. Patient stated he is ready to go home today: BCx NGTD - fever likely contributed to atelectasis and postoperative state following major surgery. Review of Systems Constitutional: Negative for diaphoresis, fatigue and fever. Respiratory: Negative for cough, shortness of breath and wheezing. Cardiovascular: Negative for chest pain, palpitations and leg swelling. Gastrointestinal: Negative for abdominal distention, constipation and diarrhea. Skin: Negative for color change, pallor and rash. Objective: Last BM Date: 10/10/22 Vitals: BP: 136/81, MAP (mmHg): 97, BP Method: Automatic Heart Rate: 78 Resp: 16 Temp: 37.4 ?C (99.4 ?F), Temp Source: Temporal BMI (Calculated): 29.7 Pacer Wires: none CXR: BMP: Recent Labs 10/09/22 0000 10/10/22 0035 10/11/22 0006 NA 132* 130* 135 K 3.7 3.5 3.4* CL 100 98 98 CO2 23 28 28 BUN 21* 24* 20 CREATININE 0.80 0.84 0.86 CALCIUM 8.6 8.5 8.4 MG 1.7 1.8 1.9 CBC: Recent Labs 10/09/22 0000 WBC 7.5 HGB 10.3* HCT 29.9* PLT 100* MCV 84.0 RDW 13.9 INR: Recent Labs 10/09/22 0000 10/10/22 0035 INR 1.2* 1.0 Physical Exam Cardiovascular: Rate and Rhythm: Normal rate and regular rhythm. Heart sounds: Normal heart sounds. No murmur heard. No friction rub. Pulmonary: Effort: Pulmonary effort is normal. Skin: General: Skin is warm and dry. Capillary Refill: Capillary refill takes less than 2 seconds. Findings: Bruising and ecchymosis present. Comments: Surgical Incisions: well approximate; clean dry with no drainage noted. Surrounding skin no redness, warmth, or signs of infection noted. Neurological: Mental Status: He is alert. Psychiatric: Behavior: Behavior is cooperative. Assessment: MVCAD s/p PCI (last-2019) now s/p CABGx4 Ischemic cardiomyopathy T1DM ETOH use Post operative Pulm Management: Normal Post-operative Course Post-operative Atrial Fibrillation: []Yes [x] No Acute blood loss anemia/consumptive thrombocytopenia Plan: Patient Status: Telemetry Medications as ordered ASA, statin Increase BB to home dose PO lasix - will discharge on short course Hold home [facility] Endo following insulin pump OP follow up with [facility] End[facility] team PT/OT: home with home assist Pulmonary hygiene: IS and Acapella GI prophy: PO protonix DVT prophy:TEDs, SCDs, and Heparin SubQ Disposition: d/c today home Central Line: []Yes [x] No Arterial Line: []Yes [x] No Buitrago: []Yes [x] No Restraints: []Yes [x] No Patient discussed and plan of day developed from multidisciplinary rounds between Cardiothoracic Surgery (Cardiothoracic Surgeon, SKYE) and Critical Care Attending Cardiac Core Medications: ASA, Statin, and BB EF: 45% - 10/07/22 Blood Conservation: None noted in post-operative period Director Funds Development: Dr. Valle [facility] 10-10-2022 Nurse Note 1418 - Debbi Yanez NP notified of patient reporting feeling short of breath and unable to take deep breath without dull pain and muscle spasms. Per Debbi Yanez NP, administer PRN medications and reassess before considering new orders. Care ongoing. 1315 - Amita Dunn STERILE SUPERVISOR at bedside and updated on patient status. See new orders. [facility] 10-10-2022 Nurse Note 1418 - Debbi Yanez NP notified of patient reporting feeling short of breath and unable to take deep breath without dull pain and muscle spasms. Per Debbi Yanez STERILE SUPERVISOR, administer PRN medications and reassess before considering new orders. Care ongoing. 1315 - Amita Dunn STERILE SUPERVISOR at bedside and updated on patient status. See new orders. documented in this encounter [facility] 10-10-2022 Note Care Management Prog ress Note Patient remains on HLU s/p CABG x 4 POD # 3. VSS, on RA, low dose BB, insulin per patient own pump, and PT/OT recommending home with assist. [facility] patient co-insurance of 20% with any home health care company. Updated patient of cost and agreeableALVARO PACC updated. Discharge Milestones and Delays Expected Date/Time: 10/11/[address] discharge order Complete med reconciliation Case mgmt discharge readiness Clinical Stability Diagnsotic Workup Expected Discharge History Expected Date/Time Set By Reviewed At 10/11/2022 Kelley Nixon RN 10/10/2022 10:18 AM 10/12/2022 Kelley Nixon RN 10/09/2022 9:31 AM 10/12/2022 Kelley Nixon RN 10/08/2022 11:11 AM 10/12/2022 Veronica Wilson RN 10/07/2022 12:45 PM 10/12/2022 Ericka Bagley MD 10/07/2022 6:12 AM Length of Stay (Days): 3 GMLOS: 5.9 [facility] 10-10-2022 Note Formatting of this n ote might be different from the original. [facility] is the only provider in pt's area that can accept [employer] Ins. Pt agreeable to co-pay for [facility] visits. Updated [facility] of potential discharge over weekend. [facility] 10-10-2022 Note Formatting of this n ote might be different from the original. [facility] is the only provider in 's area that can accept [employer] Ins. Pt agreeable to co-pay for [facility] visits. Updated [facility] of potential discharge over weekend. [facility] 10-10-2022 Note Formatting of this n ote is different from the original. Images from the original note were not included. Care Management Progress Note Patient remains on HLU s/p CABG x 4 POD # 3. VSS, on RA, low dose BB, insulin per patient own pump, and PT/OT recommending home with assist. [facility] patient co-insurance of 20% with any home health care company. Updated patient of cost and agreeableALVARO PACC updated. Discharge Milestones and Delays Expected Date/Time: 10/11/[address] discharge order Complete med reconciliation Case mgmt discharge readiness Clinical Stability Diagnsotic Workup Expected Discharge History Expected Date/Time Set By Reviewed At 10/11/2022 Kelley Nixon RN 10/10/2022 10:18 AM 10/12/2022 Kelley Nixon RN 10/09/2022 9:31 AM 10/12/2022 Kelley Nixon RN 10/08/2022 11:11 AM 10/12/2022 Veronica Wilson RN 10/07/2022 12:45 PM 10/12/2022 Ericka Bagley MD 10/07/2022 6:12 AM Length of Stay (Days): 3 GMLOS: 5.9 [facility] 10-10-2022 Note Formatting of this n ote is different from the original. Images from the original note were not included. Care Management Progress Note Patient remains on HLU s/p CABG x 4 POD # 3. VSS, on RA, low dose BB, insulin per patient own pump, and PT/OT recommending home with assist. Spoke with Jeffrey to verify patient co-insurance of 20% with any home health care company. Updated patient of cost and agreeableALVARO PACC updated. Discharge Milestones and Delays Expected Date/Time: 10/11/[address] discharge order Complete med reconciliation Case mgmt discharge readiness Clinical Stability Diagnsotic Workup Expected Discharge History Expected Date/Time Set By Reviewed At 10/11/2022 Kelley Nixon RN 10/10/2022 10:18 AM 10/12/2022 Kelley Nixon RN 10/09/2022 9:31 AM 10/12/2022 Kelley Nixon RN 10/08/2022 11:11 AM 10/12/2022 Veronica Wilson RN 10/07/2022 12:45 PM 10/12/2022 Ericka Bagley MD 10/07/2022 6:12 AM Length of Stay (Days): 3 GMLOS: 5.9 T [facility] 10-10-2022 Note Cardiothoracic Surge ry/CCM Progress Note PATIENT NAME: Jaydon Arellano DATE: 10/10/22 HPI: 56 y.o. male with pmHx of ischemic cardiomyopathy, CAD s/p PCI (last 2018), prior cardiac arrest (2007), T1DM, HLD and ETOH, seen by [facility] (Dr. Valle) with c/o chest heaviness and muscle ache in his left chest at rest plus associated symptoms of SOB, lightheadedness and dizzness. OP cath completed 09/29/22 which showed MVCAD: 90% ISR prox LAD, 80% ISR distal mid LAD, 70% Prox OM1, 70% Prox RCA. CTS was consulted for surgical revascularization. Last ECHO 06/07/21: showed EF of 50%, Trivial MR, Trival TR. Patient was seen in OP setting and consented to surgical intervention. He presented 10/07/22 - and underwent CABGx4 (GUERRIER to LAD, SVG to OM, SVG to RPDA, SVG to Diag) [facility] with Dr. Bagley. Surgery/Procedure: 10/08/22 CABG x 4 (GUERRIER-LAD, rsvg to om, rsvg to rpda, rsvg to diag) [facility], sternal plated with Dr. Bagley Interval History: 10/10/22, POD# 3: VSS up to chair this morning on RA. Temp spiked x1 to 101.7; cultured by CCM attending overnight. Today feels well. No issues or concerns this morning. Walked schulz already with nursing. No BM to date - passing flatus. Review of Systems Constitutional: Negative for diaphoresis, fatigue and fever. Respiratory: Negative for cough, shortness of breath and wheezing. Cardiovascular: Negative for chest pain, palpitations and leg swelling. Gastrointestinal: Negative for abdominal distention, constipation and diarrhea. Skin: Negative for color change, pallor and rash. Objective: Last BM Date: 10/07/22 Vitals: BP: 122/66, MAP (mmHg): 81, BP Method: Automatic Heart Rate: 70 Resp: 18 Temp: 37.1 ?C (98.7 ?F), Temp Source: Temporal BMI (Calculated): 29.86 Pacer Wires: none CXR: BMP: Recent Labs 10/07/22 1151 10/08/22 0006 10/09/22 0000 10/10/22 0035 NA 136 136 132* 130* K 3.4* 4.0 3.7 3.5 CL 109* 104 100 98 CO2 28 BUN 14 19 21* 24* CREATININE 0.72 0.78 0.80 0.84 CALCIUM 8.3* 7.9* 8.6 8.5 MG 2.8* 1.9 1.7 1.8 PHOS 1.6* -- -- -- CBC: Recent Labs 10/07/22 1151 10/07/22 1152 10/08/22 0006 10/09/22 0000 WBC 8.3 -- 9.4 7.5 HGB 10.5* 11.4 10.5* 10.3* HCT 30.5* -- 30.4* 29.9* PLT 115* -- 119* 100* MCV 84.7 -- 84.2 84.0 RDW 13.6 -- 13.9 13.9 INR: Recent Labs 10/08/22 0006 10/09/22 0000 10/10/22 0035 INR 1.2* 1.2* 1.0 Physical Exam Cardiovascular: Rate and Rhythm: Normal rate and regular rhythm. Heart sounds: Normal heart sounds. No murmur heard. No friction rub. Pulmonary: Effort: Pulmonary effort is normal. Skin: General: Skin is warm and dry. Capillary Refill: Capillary refill takes less than 2 seconds. Findings: Bruising and ecchymosis present. Comments: Surgical Incisions: well approximate; clean dry with no drainage noted. Surrounding skin no redness, warmth, or signs of infection noted. Neurological: Mental Status: He is alert. Psychiatric: Behavior: Behavior is cooperative. Assessment: MVCAD s/p PCI (last-2018) now s/p CABGx4 Ischemic cardiomyopathy T1DM ETOH use Post operative Pulm Management: Normal Post-operative Course Post-operative Atrial Fibrillation: []Yes [x] No Acute blood loss anemia/consumptive thrombocytopenia Plan: Patient Status: Telemetry Medications as ordered ASA, statin Add plavix - due to prior stents - still open Add low dose BB Hold home ARB Check lipid panel Remove introducer Endo following insulin pump OP follow up with [facility] Endo team PT/OT: home with home assist Pulmonary hygiene: IS and Acapella GI prophy: PO protonix DVT prophy:TEDs, SCDs, and Heparin SubQ Disposition: likely home over weekend Central Line: [x]Yes [] No Arterial Line: []Yes [x] No Buitrago: []Yes [x] No Restraints: []Yes [x] No Patient discussed and plan of day developed from multidisciplinary rounds between Cardiothoracic Surgery (Cardiothoracic Surgeon, SKYE) and Critical Care Attending Cardiac Core Medications: ASA, Statin, and BB EF: 45% - 10/07/22 Blood Conservation: None noted in post-operative period Director Funds Development: Dr. Valle [facility] 10-09-2022 Note Care Management Prog ress Note Patient remains on HLU s/p CABG x 4 POD # 2. On RA, in NSR on tele, weaned off Levo this am, chest tube to water seal-potential removal post ambulation today, diuresis, remove A-line and buitrago, insulin per endocrine-anticipate home usage of home pump, and PT/OT recommending home with assist. Patient from home with ALVARO following, attempting to secure [facility] agency-difficult location and insurance, patient and CTS providers aware. Discharge Milestones and Delays Expected Date/Time: 10/12/[address] discharge order Complete med reconciliation Case mgmt discharge readiness Clinical Stability Diagnsotic Workup Expected Discharge History Expected Date/Time Set By Reviewed At 10/12/2022 Kelley Nixon RN 10/09/2022 9:31 AM 10/12/2022 Kelley Nixon RN 10/08/2022 11:11 AM 10/12/2022 Veronica Wilson RN 10/07/2022 12:45 PM 10/12/2022 Ericka Bagley MD 10/07/2022 6:12 AM Length of Stay (Days): 2 GMLOS: No GMLOS Documented [facility] 10-09-2022 Note Formatting of this n ote is different from the original. Images from the original note were not included. Care Management Progress Note Patient remains on HLU s/p CABG x 4 POD # 2. On RA, in NSR on tele, weaned off Levo this am, chest tube to water seal-potential removal post ambulation today, diuresis, remove A-line and buitrago, insulin per endocrine-anticipate home usage of home pump, and PT/OT recommending home with assist. Patient from home with ALVARO following, attempting to secure [facility] agency-difficult location and insurance, patient and CTS providers aware. Discharge Milestones and Delays Expected Date/Time: 10/12/[address] discharge order Complete med reconciliation Case mgmt discharge readiness Clinical Stability Diagnsotic Workup Expected Discharge History Expected Date/Time Set By Reviewed At 10/12/2022 Kelley Nixon RN 10/09/2022 9:31 AM 10/12/2022 Kelley Nixon RN 10/08/2022 11:11 AM 10/12/2022 Veronica Wilson RN 10/07/2022 12:45 PM 10/12/2022 Ericka Bagley MD 10/07/2022 6:12 AM Length of Stay (Days): 2 GMLOS: No GMLOS Documented T [facility] 10-09-2022 Note Formatting of this n ote is different from the original. Images from the original note were not included. Care Management Progress Note Patient remains on HLU s/p CABG x 4 POD # 2. On RA, in NSR on tele, weaned off Levo this am, chest tube to water seal-potential removal post ambulation today, diuresis, remove A-line and buitrago, insulin per endocrine-anticipate home usage of home pump, and PT/OT recommending home with assist. Patient from home with , JOHN following, attempting to secure [facility] agency-difficult location and insurance, patient and CTS providers aware. Discharge Milestones and Delays Expected Date/Time: 10/12/[address] discharge order Complete med reconciliation Case mgmt discharge readiness Clinical Stability Diagnsotic Workup Expected Discharge History Expected Date/Time Set By Reviewed At 10/12/2022 Kelley Nixon RN 10/09/2022 9:31 AM 10/12/2022 Kelley Nixon RN 10/08/2022 11:11 AM 10/12/2022 Veronica Wilson RN 10/07/2022 12:45 PM 10/12/2022 Ericka Bagley MD 10/07/2022 6:12 AM Length of Stay (Days): 2 GMLOS: No GMLOS Documented T [facility] 10-08-2022 Note Received referral an d reviewed chart. Phase II Cardiac Rehab Referral discussed with Jaydon Arellano. Cardiac Rehab education provided and reviewed handout. Patient given contact info for [facility] cardiac rehab programs. [facility] 10-08-2022 Note Formatting of this n ote might be different from the original. Care Managment Initial Assessment Date: 10/08/2022 Patient Name: Jaydon Arellano : 1965 Patient Information Source of Information: Patient Cognition/Language: WFL - Within Functional Limits Permission given to speak with patient automobile rental representative/caregiver as indicated: Yes Confirmation of Payer with patient/family: Yes Payer Name: Jeffrey : No Confirmation of Primary Care Physician: Confirmed PCP Name: Dr. Garcia Seen in last 2 years?: Yes Primary Caregiver: Self If assistance needed, confirmed caregiver ready, willing and able to care for patient at discharge: Confirmed with: Living Arrangements Current Residence: House Number of Floors 1 Number of Entry Steps: 3 Bed/Bath Levels: Both first floor Facility: Facility Name: Plan to Return: Lives with: Spouse/significant other Support Systems: Spouse/significant other Activities of Daily Living Ambulation: Independent Bathing/Dressing: Independent Elimination/Continence/Toileting: Independent Feeding: Independent Who Assists with Activities of Daily Living: Instrumental Activities of Daily Living Prescription Coverage: Yes [facility] Used[facility] Medication Management: Independent Transportation/Shopping: Independent Transportation Mode: Car Needs Assistance with Transportation at Discharge: No Meal Preparation: Independent Laundry/Cleaning: Independent Finances/Bill Paying: Independent Communication: Independent Types of Care Services/Equipment Utilized Care Services: Dialysis Type: Durable Medical Equipment: Patient's Goal/Discharge Plan Patient expects to be discharged to: home Discharge Planning Actions: Continue to follow Patient's Choice Rights and [employer] and Collaborative Relationships Disclosed as Indicated for Post-Acute Care: Interdisciplinary Team Engagement: PT/OT, Home Health Care Social Work Referral for: Additional Information: Patient admitted to HLU s/p CABG x 4 POD # 1. Spoke with patient and family at bedside, introduced self and role. Patient from home with , is independent, has PCP and prescription coverage, will have a ride home and JOHN PACC attempting to locate accepting [facility] agency. TCC to follow. Kelley Nixon RN T [facility] 10-08-2022 Note Formatting of this n ote might be different from the original. Care Managment Initial Assessment Date: 10/08/2022 Patient Name: Jaydon Arellano : 1965 Patient Information Source of Information: Patient Cognition/Language: WFL - Within Functional Limits Permission given to speak with patient automobile rental representative/caregiver as indicated: Yes Confirmation of Payer with patient/family: Yes Payer Name: Jeffrey : No Confirmation of Primary Care Physician: Confirmed PCP Name: Dr. Garcia Seen in last 2 years?: Yes Primary Caregiver: Self If assistance needed, confirmed caregiver ready, willing and able to care for patient at discharge: Confirmed with: Living Arrangements Current Residence: House Number of Floors 1 Number of Entry Steps: 3 Bed/Bath Levels: Both first floor Facility: Facility Name: Plan to Return: Lives with: Spouse/significant other Support Systems: Spouse/significant other Activities of Daily Living Ambulation: Independent Bathing/Dressing: Independent Elimination/Continence/Toileting: Independent Feeding: Independent Who Assists with Activities of Daily Living: Instrumental Activities of Daily Living Prescription Coverage: Yes [facility]acy Used: [facility] Medication Management: Independent Transportation/Shopping: Independent Transportation Mode: Car Needs Assistance with Transportation at Discharge: No Meal Preparation: Independent Laundry/Cleaning: Independent Finances/Bill Paying: Independent Communication: Independent Types of Care Services/Equipment Utilized Care Services: Dialysis Type: Durable Medical Equipment: Patient's Goal/Discharge Plan Patient expects to be discharged to: home Discharge Planning Actions: Continue to follow Patient's Choice Rights and [employer] and Collaborative Relationships Disclosed as Indicated for Post-Acute Care: Interdisciplinary Team Engagement: PT/OT, Home Health Care Social Work Referral for: Additional Information: Patient admitted to HLU s/p CABG x 4 POD # 1. Spoke with patient and family at bedside, introduced self and role. Patient from home with , is independent, has PCP and prescription coverage, will have a ride home and JOHN PACC attempting to locate accepting [facility] agency. TCC to follow. Kelley Nixon RN T [facility] 10-08-2022 Note Nutrition Assessment Type and Reason for Visit: Initial, Consult, Patient Education (s/p open heart surgery) Nutrition Recommendations/Plan: Continue JOSH diet. Per MNT protocol, will modify carb limit to 5 choices (75 g/meal) for more appropriate CHO and kcal allotment for pt stature Per MNT protocol, will order Ensure HP BID to promote adequate p.o./protein intake and post op healing (160 kcal, 16 g protein, 8 oz each) Provided heart healthy diet handout with [facility] RD phone number for reference. Will follow up prior to discharge for diet education needs assessment. Pt denies education needs related to DM RD will monitor overall nutrition status and follow weekly Malnutrition Assessment: Malnutrition Status: At risk for malnutrition (Comment) (s/p open heart surgery) Context: Acute Illness Nutrition Assessment: Pt with PMH including ischemic cardiomyopathy, CAD s/p PCI (last 2018), prior cardiac arrest (2007), T1DM, HLD and ETOH (15 drinks/wk) presented for planned surgery after workup for chest heaviness and muscle ache in his left chest at rest with SOB, lightheadedness, and dizzness which included OP cath completed 09/29/22 which showed MVCAD. CTS was consulted for surgical revascularization. He underwent CABGx4 on 10/07/22. Extubated with diet ordered. Pt reports he had an emirati muffin for breakfast, which he tolerated well. He denies N/V, reports adequate p.o. intake prior to admission, states he does intermittent fasting during the weekdays, only eats during 4 hour window between 5p.m. and 9 p.m. and reports diet is supervised by endorcrinologist who is aware of intermittent fasting. Pt reports he counts carbs, has no questions related to DM diet. Pt is familiar with heart healthy diet as well, however states that it never hurts to review. RD provided heart healthy diet handout with [facility] RD phone number. Pt is agreeable to ONS Estimated Daily Nutrient Needs: Energy Requirements Based On: Kcal/kg Weight Used for Energy Requirements: [place] (25-30 kcal/kg) Weight for Energy Calculation (kg): 75.3 kg Total Energy Requirements (kcals/day): 8727-9947 Weight Used for Protein Requirements: [place] (1.2-1.5 g/kg) Weight in Kg Used for Protein Requirements: 75.3 kg Estimated Total Protein (g/day): 90-113 Estimated Daily Total Fluid (ml/day): or per MD Nutrition Related Findings: Nutrition History: Independent of feeding. Teeth: Intact GI symptoms: None at this time. Agapito Scale Score: 19 .Wound Type: Multiple, Surgical Incision Net IO Since Admission: 3,737.09 mL [10/08/22 1209] Edema: RUE Edema: None, LUE Edema: None, RLE Edema: Other (Comment) (trace), LLE Edema: Other (Comment) (trace) Bowel Sounds (All Quadrants): Hypoactive Abdomen Inspection: Soft, Surgical scar Last BM Date: 10/07/22 Labs and meds reviewed: acetaminophen, 1,000 mg, Oral, q8h aspirin, 81 mg, Oral, Daily ceFAZolin, 2,000 mg, IntraVENous, q8h chlorhexidine, 15 mL, Mouth/Throat, BID heparin, 5,000 Units, SubCUTAneous, BID Lidocaine, 1 patch, TransDERmal, Daily mupirocin, , Nasal, BID pantoprazole, 40 mg, Oral, qAM AC polyethylene glycol (PEG) 3350, 17 g, Oral, Daily senna-docusate sodium, 2 tablet, Oral, Nightly EPINEPHrine, 0.01-0.2 mcg/kg/min, Last Rate: Stopped (10/08/22 1100) insulin regular, 1-50 Units/hr, Last Rate: 3 Units/hr (10/08/22 1202) norepinephrine, 0.01-3.3 mcg/kg/min, Last Rate: 0.08 mcg/kg/min (10/08/22 1200) BMP: Recent Labs 10/07/22 1151 10/08/22 0006 NA 136 136 K 3.4* 4.0 CL 109* 104 CO2 BUN 14 19 CREATININE 0.72 0.78 GLUCOSE 112* 129* CALCIUM 8.3* 7.9* MG 2.8* 1.9 PHOS 1.6* -- Recent Labs 10/08/22 0655 10/08/22 0801 10/08/22 0907 10/08/22 1014 10/08/22 1056 10/08/22 1201 POCGLU 128* 131* 176* 228* 179* 214* Lab Results Component Value Date HGBA1C 7.7 (H) 10/01/2022 Current Nutrition Therapies: Adult diet Regular; No Added Salt (3-4 gm); 3 carb choices (45 gm/meal) Current Oral Intake Average Meal Intake: (tolerated an emirati muffin at breakfast) Average Supplements Intake: None Ordered Anthropometric Measures: Height: 177.8 cm (5' 10 ) Current Body Weight: 90.2 kg (198 lb 13.7 oz) ([facility] 10/08/22) Admission Body Weight: 89.4 kg (197 lb) (10/07, no method indicated) Usual Body Weight: (195# on 12/19/21, 198# on 05/30/22) [place] Body Weight (lbs) (Calculated): 166 lbs [place] Body Weight (Kg) (Calculated): 75 kg % [place] Body Weight (Calculated): 119.8 % BMI (kg/m2) (Calculated): 28.5 BMI Categories: Overweight (BMI 25.0-29.9) Wt Readings from Last 10 Encounters: 10/08/22 90.2 kg (198 lb 13.7 oz) 10/01/22 81.5 kg (179 lb 11.2 oz) 10/01/22 89.8 kg (198 lb) Nutrition Diagnosis: Increased nutrient needs related to increase demand for energy/nutrients as evidenced by wounds (surgical) Nutrition Interventions: Food and/or Nutrient Delivery: Modify Current Diet, Start Oral Nutrition Supplement Nutriti (more content not included)... [facility] 10-08-2022 Consult note Associated Order (s): IP CONSULT TO CARDIAC REHAB Received referral and reviewed chart. Phase II Cardiac Rehab Referral discussed with Jaydon Arellano. Cardiac Rehab education provided and reviewed handout. Patient given contact info for [place] [facility] [place] cardiac rehab programs. [facility] 10-08-2022 Consult note Associated Order (s): IP CONSULT TO CARDIAC REHAB Received referral and reviewed chart. Phase II Cardiac Rehab Referral discussed with Jaydon Arellano. Cardiac Rehab education provided and reviewed handout. Patient given contact info for [place] [facility] [place] cardiac rehab programs. Associated Order(s): IP CONSULT TO DIETITIAN Nutrition Assessment Type and Reason for Visit: Initial, Consult, Patient Education (s/p open heart surgery) Nutrition Recommendations/Plan: Continue JOSH diet. Per MNT protocol, will modify carb limit to 5 choices (75 g/meal) for more appropriate CHO and kcal allotment for pt stature Per MNT protocol, will order Ensure HP BID to promote adequate p.o./protein intake and post op healing (160 kcal, 16 g protein, 8 oz each) Provided heart healthy diet handout with [facility] RD phone number for reference. Will follow up prior to discharge for diet education needs assessment. Pt denies education needs related to DM RD will monitor overall nutrition status and follow weekly Malnutrition Assessment: Malnutrition Status: At risk for malnutrition (Comment) (s/p open heart surgery) Context: Acute Illness Nutrition Assessment: Pt with PMH including ischemic cardiomyopathy, CAD s/p PCI (last 2018), prior cardiac arrest (2007), T1DM, HLD and ETOH (15 drinks/wk) presented for planned surgery after workup for chest heaviness and muscle ache in his left chest at rest with SOB, lightheadedness, and dizzness which included OP cath completed 09/29/22 which showed MVCAD. CTS was consulted for surgical revascularization. He underwent CABGx4 on 10/07/22. Extubated with diet ordered. Pt reports he had an emirati muffin for breakfast, which he tolerated well. He denies N/V, reports adequate p.o. intake prior to admission, states he does intermittent fasting during the weekdays, only eats during 4 hour window between 5p.m. and 9 p.m. and reports diet is supervised by endorcrinologist who is aware of intermittent fasting. Pt reports he counts carbs, has no questions related to DM diet. Pt is familiar with heart healthy diet as well, however states that it never hurts to review. RD provided heart healthy diet handout with [facility] RD phone number. Pt is agreeable to ONS Estimated Daily Nutrient Needs: Energy Requirements Based On: Kcal/kg Weight Used for Energy Requirements: [place] (25-30 kcal/kg) Weight for Energy Calculation (kg): 75.3 kg Total Energy Requirements (kcals/day): 6601-1403 Weight Used for Protein Requirements: [place] (1.2-1.5 g/kg) Weight in Kg Used for Protein Requirements: 75.3 kg Estimated Total Protein (g/day): 90-113 Estimated Daily Total Fluid (ml/day): or per MD Nutrition Related Findings: Nutrition History: Independent of feeding. Teeth: Intact GI symptoms: None at this time. Agapito Scale Score: 19 .Wound Type: Multiple, Surgical Incision Net IO Since Admission: 3,737.09 mL [10/08/22 1209] Edema: RUE Edema: None, LUE Edema: None, RLE Edema: Other (Comment) (trace), LLE Edema: Other (Comment) (trace) Bowel Sounds (All Quadrants): Hypoactive Abdomen Inspection: Soft, Surgical scar Last BM Date: 10/07/22 Labs and meds reviewed: acetaminophen, 1,000 mg, Oral, q8h aspirin, 81 mg, Oral, Daily ceFAZolin, 2,000 mg, IntraVENous, q8h chlorhexidine, 15 mL, Mouth/Throat, BID heparin, 5,000 Units, SubCUTAneous, BID Lidocaine, 1 patch, TransDERmal, Daily mupirocin, , Nasal, BID pantoprazole, 40 mg, Oral, qAM AC polyethylene glycol (PEG) 3350, 17 g, Oral, Daily senna-docusate sodium, 2 tablet, Oral, Nightly EPINEPHrine, 0.01-0.2 mcg/kg/min, Last Rate: Stopped (10/08/22 1100) insulin regular, 1-50 Units/hr, Last Rate: 3 Units/hr (10/08/22 1202) norepinephrine, 0.01-3.3 mcg/kg/min, Last Rate: 0.08 mcg/kg/min (10/08/22 1200) BMP: Recent Labs 10/07/22 1151 10/08/22 0006 NA 136 136 K 3.4* 4.0 CL 109* 104 CO2 BUN 14 19 CREATININE 0.72 0.78 GLUCOSE 112* 129* CALCIUM 8.3* 7.9* MG 2.8* 1.9 PHOS 1.6* -- Recent Labs 10/08/22 0655 10/08/22 0801 10/08/22 0907 10/08/22 1014 10/08/22 1056 10/08/22 1201 POCGLU 128* 131* 176* 228* 179* 214* Lab Results Component Value Date HGBA1C 7.7 (H) 10/01/2022 Current Nutrition Therapies: Adult diet Regular; No Added Salt (3-4 gm); 3 carb choices (45 gm/meal) Current Oral Intake Average Meal Intake: (tolerated an emirati muffin at breakfast) Average Supplements Intake: None Ordered Anthropometric Measures: Height: 177.8 cm (5' 10 ) Current Body Weight: 90.2 kg (198 lb 13.7 oz) ([facility] 10/08/22) Admission Body Weight: 89.4 kg (197 lb) (10/07, no method indicated) Usual Body Weight: (195# on 12/19/21, 198# on 05/30/22) [place] Body Weight (lbs) (Calculated): 166 lbs [place] Body Weight (Kg) (Calculated): 75 kg % [place] Body Weight (Calculated): 119.8 % BMI (kg/m2) (Calculated): 28.5 BMI Categories: Overweight (BMI 25.0-29.9) Wt Readings from Last 10 Encounters: 10/08/22 90.2 kg (198 lb 13.7 oz) 10/01/22 81.5 kg (179 lb 11.2 oz) 10/01/22 89.8 kg (198 lb) Nutrition Diagnosis: Increased nutrient needs related to increase demand for energy/nutrients as evidenced by wounds (surgical) Nutrition Interventions: Food and/or Nutrient Delivery: Modify Current Diet, Start Oral Nutrition Supplement Nutrition Education/Counseling: Education initiated, Education needed Coordination of Nutrition Care: Continue to monitor while inpatient Goals: Goals: PO intake 75% or greater, prior to discharge Nutrition Monitoring and Evaluation: Behavioral-Environmental Outcomes: Knowledge or Skill Food/Nutrient Intake Outcomes: Food and Nutrient Intake, Supplement Intake Physical Signs/Symptoms Outcomes: Biochemical Data, GI Status, Fluid Status or Edema, Skin, Weight Discharge Planning: Too soon to determine Lashell Chau RD, LD Contact: *[phone] or via EPIC chat Associated Order(s): IP CONSULT TO ENDOCRINOLOGY Department of Internal Medicine Division of Endocrinology, Diabetes, & Metabolism Endocrinology Note Patient Name: Jaydon Arellano : 1965 AGE: 56 y.o. Room/Bed: [facility] A Admission Date: 10/07/2022 Visit Date: 10/08/2022 Reason for Endocrine Consult: post op heart Provider/Team Requesting Consult: cts PCP: JARETH GARCIA MD Outpt Watch And Clock Repair Clerk: Yes [facility] endocrine ASSESSMENT: Dm1 with hyperglycemia and nursing home insulin Insulin pump status Stress Hyperglycemia DM1 with Retinopathy CAD s/p CABGx4 on 10-08-22 HLD ETOH use PLAN: Continue on insulin gtt per protocol- likely keep on for today Noted he received decadron 10 mg IVx1 in OR yesterday Once we resume insulin pump on patient in the future- will need to be fully awake alert and have all home supplies with him. ICU goal <180 GMF goal <150 POCT ACHS- q 1 on gtt Hypoglycemia per protocol Carb controlled diet ANTICIPATED ENDOCRINE HOME GOING RECOMMENDATIONS: Optimized for Discharge from Endocrine standpoint: No Home Going Endocrine Rx Recommendations-- Lispro (lyumjev) via medtronic 770 G pump using Guardian CGM in auto mode- current settings Outpt Follow Up-- [facility] Endocrine Team SUBJECTIVE/HPI: CHIEF COMPLAINT: No chief complaint on file. 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 However- he may switch to Tandem T slim down the road with dexcom. States had good control prior to surgery Reviewed pump at bedside- settings below Has old site on right back- asked to change this out with new pump start- likely not today Bgl noted below Resting in chair Received steroids in OR Extubated Awake alert oriented Has all pump supplies in room and cgm VSS On low dose pressors Insulin gtt 3/hr Had emirati muffin for brfast Denies nv or abd pain CT in place Spoke to nursing Discussed insulin gtt after surgery Type of DM: 1 Onset of DM: 2002 Home DM Medication Regimen: insulin pump medtronic 770g with guardian cgm DM control (last A1c/glucose data): Lab Results Component Value Date HGBA1C 7.7 (H) 10/01/2022 Per [facility] endocrine last notes pump settings Current diabetes regimen is as follows: Lispro (lyumjev) via medtronic 770 G pump using Guardian CGM in auto mode. Basal insulin for backup: Basaglar Glucagon: manish, feels lows at home Reviewed current settings at bedside Basal rate: 12A-4A-0.650 4A-6A-0.750 6A-12A-0.600 14.9= 24 hour basal rate Insulin:carb ratio 12A-5P= 7 5P-12A=4.5 Sensitivity 12A-12A= 40 Blood glucose target- 12A-12A: 90-110 Glucose Date/Time Value Ref Range Status 10/08/2022 09:07 AM 176 (H) 70 - 100 mg/dL Final 10/08/2022 08:01 AM 131 (H) 70 - 100 mg/dL Final 10/08/2022 06:55 AM 128 (H) 70 - 100 mg/dL Final 10/08/2022 06:07 AM 113 (H) 70 - 100 mg/dL Final 10/08/2022 05:18 AM 113 (H) 70 - 100 mg/dL Final 10/08/2022 04:08 AM 121 (H) 70 - 100 mg/dL Final Review of Systems All other systems reviewed and are negative. ROS negative except for those mentioned in HPI. OBJECTIVE: Vitals: 10/08/22 0800 10/08/22 0815 10/08/22 0823 10/08/22 0830 BP: BP Location: Patient Position: Pulse: 83 74 75 74 Resp: Temp: 37.3 C (99.1 F) TempSrc: Temporal SpO2: Weight: Height: Physical Exam Vitals and nursing note reviewed. Constitutional: General: He is awake. He is not in acute distress. Appearance: He is ill-appearing. He is not toxic-appearing. HENT: Head: Normocephalic and atraumatic. Cardiovascular: Rate and Rhythm: Normal rate. Pulmonary: Effort: Pulmonary effort is normal. Abdominal: Palpations: Abdomen is soft. Musculoskeletal: General: Normal range of motion. Skin: General: Skin is warm and dry. Neurological: General: No focal deficit present. Mental Status: He is alert and oriented to person, place, and time. Psychiatric: Mood and Affect: Mood normal. Behavior: Behavior normal. Behavior is cooperative. Thought Content: Thought content normal. 24 hour intake/output: Intake/Output Summary (Last 24 hours) at 10/08/2022932 Last data filed at 10/08/2022 0800 Gross per 24 hour Intake 6995.09 ml Output 3063 ml Net 3932.09 ml Diet: Adult diet Regular; No Added Salt (3-4 gm); 3 carb choices (45 gm/meal) Medications (as per EMR): HomeMeds: @MEDHMEDS@ Scheduled Meds:acetaminophen, 1,000 mg, Oral, q8h aspirin, 81 mg, Oral, Daily ceFAZolin, 2,000 mg, IntraVENous, q8h chlorhexidine, 15 mL, Mouth/Throat, BID heparin, 5,000 Units, SubCUTAneous, BID Lidocaine, 1 patch, TransDERmal, Daily mupirocin, , Nasal, BID pantoprazole, 40 mg, Oral, qAM AC polyethylene glycol (PEG) 3350, 17 g, Oral, Daily senna-docusate sodium, 2 tablet, Oral, Nightly Continuous Infusions:EPINEPHrine, 0.01-0.2 mcg/kg/min, Last Rate: 0.01 mcg/kg/min (10/08/22 0830) insulin regular, 1-50 Units/hr, Last Rate: 2 Units/hr (10/08/22 0909) norepinephrine, 0.01-3.3 mcg/kg/min PRN Meds:PRN medications: calcium gluconate, dextrose, dextrose, EPINEPHrine, glucagon (rDNA), glucose, HYDROmorphone, ipratropium-albuterol, magnesium hydroxide, magnesium sulfate OR magnesium sulfate, norepinephrine, ondansetron ODT OR ondansetron, oxyCODONE OR oxyCODONE, potassium chloride OR potassium chloride 20 mEq in sodium chloride 0.9 % 250 mL IVPB OR potassium chloride 40 mEq in sodium chloride 0.9 % 500 mL IVPB, potassium chloride CR, simethicone Diagnostic Workup: I reviewed pertinent Laboratory results, Radiographic results, and Other Clinical Notes at the time of today's encounter. Labs: No components found for: LABA1C No components found for: EAG Lab Results Component Value Date NA 136 10/08/2022 K 4.0 10/08/2022 CL 104 10/08/2022 CO2 23 10/08/2022 BUN 19 10/08/2022 CREATININE 0.78 10/08/2022 GLUCOSE 129 (H) 10/08/2022 CALCIUM 7.9 (L) 10/08/2022 No results found for: CHLPL, CHOL No results found for: TRIG No results found for: HDL No results found for: LDLCALC No results found for: VLDL No results found for: CHOLHDLRATIO No results found for: [id number] No results found for: TSH, X3ATPUM, V6EGKCD, THYROIDAB Radiology reportsas per the Radiologist Radiology: ECG 12 lead Result Date: 10/08/2022 Sinus rhythm Probable left atrial enlargement Consider anteroseptal infarct ST elevation, consider inferior injury ECG 12 lead Result Date: 10/08/[address] elevation, lateral leads Electronically Signed On 10-08-2022 7:42:13 EDT by Denise Mendoza XR chest 1 view Result Date: 10/08/2022 Patient Name: JAYDON ARELLANO : 1965 Exam Date/Time: 10/08/2022 05:21 Procedure: XR CHEST 1 VIEW Ordering Provider: YANEZ ANDREW Reason For Exam: Shortness of breath INDICATION: 56-year-old; shortness of breath. VIEWS: Chest portable-1 image COMPARISON: 10/07/2022 FINDINGS: Interval removal of endotracheal tube and enteric tube. The right IJ central venous catheter and mediastinal drain and left chest tube remain. Multiple cardiac monitoring wires and leads are present, limiting overall evaluation of support devices. Median sternotomy wires and fixation hardware remain. The trachea is midline. The cardiac silhouette is stable. The lung volumes are low with mild pulmonary vascular congestion. New left lung base opacities are present with blunting of the costophrenic angle. 1. Mild pulmonary vessel congestion. 2. Left lung base opacities may reflect atelectasis versus developing small pleural effusion. Report Dictated on Electronically Signed By: Amita Meño Electronically Signed Date/Time: 10/08/2022 6:34 AM EDT Transesophageal echocardiogram (SAGAR) with contrast and 3D PRN Result Date: 10/07/2022 Left Ventricle: Left ventricle size is normal. Mildly reduced left ventricular systolic function. The EF by visual approximation is 45%. Severe hypokinesis of mid inferoseptal, apical septal, and mid anterior espinosa Right Ventricle: Right ventricle size is normal. Low normal systolic function. No significant valvular abnormalities. XR chest 1 view Result Date: 10/07/2022 Patient Name: JAYDON ARELLANO : 1965 Exam Date/Time: 10/07/2022 13:37 Procedure: XR CHEST 1 VIEW Ordering Provider: YANEZ ANDREW Reason For Exam: Post op open heart surgery PORTABLE CHEST: INDICATION: Status post open heart surgery COMPARISON: 10/01/2022 Obtained at 1315 hours. A single portable AP radiograph of the chest was obtained. The heart is normal in size. The mediastinal silhouette is normal. There are changes associated with recent open heart surgery. A left-sided chest tube is present as is a mediastinal tube. There is no pneumothorax. There is a small effusion on the left. There is no pleural thickening. The osseous structures are unremarkable. The ET tube and NG tube are unchanged. A right internal jugular central venous catheter is present with the tip overlying the superior vena cava. Postoperative changes. No acute process. Report Dictated on Electronically Signed By: Andrews Ribeiro Electronically Signed Date/Time: 10/07/2022 3:02 PM EDT History/Other: Past Medical History: Past Medical History: Diagnosis Date Coronary artery disease January 2007 Diabetes mellitus (HCC) Approx 1995 Hyperlipidemia Myocardial infarction (CMS/HCC) (HCC) February 2008 Past Surgical History: Past Surgical History: Procedure Laterality Date CARDIAC CATHETERIZATION last was on 09/29/2022 CORONARY STENT PLACEMENT 6 total, last was in December 2018 Allergy(ies): Allergies Allergen Reactions Penicillins Anaphylaxis, Hives, Shortness of breath, Itching, Swelling and Rash Other reaction(s): anaphylaxis, Unknown SOB, rash, hives Lisinopril Cough Ramipril Cough Family History: No family history on file. Social History: Social History Tobacco Use Smoking status: Never Smokeless tobacco: Former Types: Chew Quit date: 08/11/2002 Vaping Use Vaping Use: Never used Substance Use Topics Alcohol use: Yes Alcohol/week: 15.0 standard drinks of alcohol Types: 12 Cans of beer, 3 Shots of liquor per week Drug use: Not Currently Portions of the information within this encounter were entered using an electronic dictation system. Best attempts were made to edit/proofread the information prior to note completion. Despite the review of information, some errors may remain. If there are questions related to the information contained within the note please contact the signing physician directly. I spent 40 minutes with the pt which involved coordination of care, medical evaluation, review of records, and/or counseling of the pt regarding his/her condition/disease state/prognosis on the date of this note. Associated attestation - Ashlee Beckham MD - 10/08/2022 2:01 PM EDT Attending Supervising Physician's Attestation Statement The patient is a 56 y.o. male. I have performed a history and physical examination of the patient. I discussed the case with the nurse practitioner. Patient is 56 years old and he has history of type 1 diabetes on long-term insulin use, insulin pump use, CAD s/p PCI, hyperlipidemia and he underwent CABGx 4 on 10/07/2022 Patient endorses to have been diagnosed with diabetes in 1997, was diagnosed with type I in 2002 he currently follows with endocrine at [facility] He uses a medtronic 770g - closed loop hybrid system insulin pump and his settings are as mentioned below. Pump reviewed . It is disconnected and is at bedside Last 7 days : in automode 85% , TIR 67% , High 15% , low 3% 7 day basal requirement 23 units/day and Bolus 16 units/day DM is complicated by CAD and retinopathy diet is fair he is an [employer]ep [employer]. Avid runner - recently completed half marathon. Feels okay at the moment. appetite is on the lower side. No GI issues. Recent A1C was 7.7% normal renal functions On Exam he is alert and oriented x 3 CVS:S1S2 + , Surgical scar noted chest tubes noted no lower extremity edema Insulin gtt at 5 units/hour also on levophed recived a dose of decadron yesterday I reviewed the patient's Past Medical History, Past Surgical History, Medications, and Allergies. 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 He has all his supplies with him at this time and feels comfortable using the pump. Continue sugar checks per protocol. Will continue to follow. I reviewed and agree with the findings and plan documented in her note.. Portions of the information within this encounter were entered using an electronic dictation system. Best attempts were made to edit/proofread the information prior to note completion. Despite the review of information, some errors may remain. If there are questions related to the information contained within the note please contact the signing physician directly. I spent 35 minutes with the pt which involved coordination of care, medical evaluation, review of records, and/or counseling of the pt regarding his/her condition/disease state/prognosis on the date of this note. I personally saw and evaluated the patient. I reviewed and agree with the SKYE's documentation. I provided a substantive portion of the care of this patient. I personally performed the medical decision making in entirety for the encounter as mentioned above Images from the original note were not included. [facility]: Critical Care Consultation Note Date: 10/07/22 PATIENT NAME: Jaydon Arellano : 1965 (56 y.o.) Reason for Consult: Critical Care & Vent Management HPI: 56 y.o. male with pmHx of ischemic cardiomyopathy, CAD s/p PCI (last 2018), prior cardiac arrest (2007), T1DM, HLD and ETOH use seen by [facility] (Dr. Valle) with c/o chest heaviness and muscle ache in his left chest at rest plus associated symptoms of SOB, lightheadedness and dizzness. OP cath completed 09/29/22 which showed MVCAD: 90% ISR prox LAD, 80% ISR distal mid LAD, 70% Prox OM1, 70% Prox RCA. CTS was consulted for surgical revascularization. Last ECHO 06/07/21: showed EF of 50%, Trivial MR, Trival TR. Patient was seen in OP setting and consented to surgical intervention. He presented 10/07/22 - and underwent CABGx4 (GUERRIER to LAD, SVG to OM, SVG to RPDA, SVG to Diag) EDUARDO with Dr. Bagley. Surgery: 10/07/22: CABGx4 (GUERRIER to LAD, SVG to OM, SVG to RPDA, SVG to Diag) EDUARDO with Dr. Bagley Interval History: 10/07/22: POD #0: Patient arrived to the unit, intubated and sedated. Surgical hand off completed below. Review of Systems Unable to perform ROS: Intubated Allergies: Penicillins, Lisinopril, and Ramipril Past Medical History: has a past medical history of Coronary artery disease (January 2007), Diabetes mellitus (HCC) (1995), Hyperlipidemia, and Myocardial infarction (CMS/HCC) (HCC) (February 2008). Past Surgical History: has a past surgical history that includes Cardiac catheterization (last was on 09/29/2022) and Coronary stent placement (6 total, last was in December 2018). Social History: reports that he has never smoked. He quit smokeless tobacco use about 20 years ago. His smokeless tobacco use included chew. He reports current alcohol use of about 15.0 standard drinks of alcohol per week. He reports that he does not currently use drugs. Family History: family history is not on file. Medications: Prior to Admission medications Medication Sig Start Date End Date Taking? Authorizing Provider aspirin 81 MG EC tablet Take 81 mg by mouth daily. Yes Historical Provider, carvedilol (Coreg) 12.5 MG tablet Take 1 tablet by mouth in the morning and 1 tablet in the evening. Yes Historical Provider, chlorhexidine (Peridex) 0.12 % solution Use 15 mL in the mouth or throat Once for 1 dose. Swish for 30 seconds and spit out the night before surgery. Do not swallow. 10/01/22 10/07/22 Yes RIKA Monroe CNP co-enzyme Q-10 30 MG capsule Take 30 mg by mouth daily. Yes Historical Provider, losartan (Cozaar) 25 MG tablet Take 1 tablet by mouth daily with supper. Yes Historical Provider, mupirocin (Bactroban) 2 % ointment Apply liberal amount per nostril the night before surgery and then again the morning of surgery 10/01/22 Yes RIKA oMnroe CNP rosuvastatin (Crestor) 10 MG tablet Take 1 tablet by mouth three times a week. Mon, Weds, Thu with dinner Yes Historical Provider, Accu-Chek Guide test strip 1 strip by Other route in the morning and 1 strip at noon and 1 strip in the evening. Take with meals. 07/02/22 Historical Provider, clopidogrel (Plavix) 75 MG tablet Take 1 tablet by mouth daily with supper. Historical Provider, MD Blunt 100 UNIT/ML injection Insulin pump 07/02/22 Historical Provider, nitroglycerin (Nitrostat) 0.[address] 0.4 mg under the tongue Daily as needed. Historical Provider, rosuvastatin (Crestor) 20 MG tablet Take 20 mg by mouth daily. , , Thursday & Thursday with dinner Historical Provider, aspirin 325 MG tablet Take 1 tablet by mouth in the morning. 10/01/22 Historical Provider, Insulin Glargine w/ Trans Port 100 UNIT/ML solution pen-injector Inject 15 Units under the skin daily. 03/28/22 10/01/22 Historical ProviderMD Surgery Hand Off: Arrival Time in HLU: 12:45 Complications/Pertinent Events: No swan in place Medications given in route: none Gtts OR report Epinephrine: 0.01 Propofol: 10 Insulin: 4 Amicar: 29 Current gtts upon arrival Epinephrine: 0.01 Propofol: 20 Insulin: 3 Amicar: 29 Blood Transfusions Intra Op: yes [] no [x] CellSaver: yes Additional Interventions/Misc during Handoff none Objective: BP (!) 151/88 Pulse 54 Temp 36.1 C (97 F) (Temporal) Resp 16 Ht 5' 10 (1.778 m) Wt 197 lb 14.4 oz (89.8 kg) SpO2 100% BMI 28.40 kg/m Intake/Output Summary (Last 24 hours) at 10/07/2022 1259 Last data filed at 10/07/2022 1207 Gross per 24 hour Intake 2567.2 ml Output 1950 ml Net 617.2 ml Physical Exam Constitutional: Interventions: He is sedated and intubated. HENT: Mouth/Throat: Comments: ETT in place Neck: Vascular: No JVD. Trachea: Trachea normal. Cardiovascular: Rate and Rhythm: Normal rate and regular rhythm. Pulses: Radial pulses are 2+ on the right side and 2+ on the left side. Heart sounds: Normal heart sounds, S1 normal and S2 normal. Pulmonary: Effort: He is intubated. Breath sounds: Decreased breath sounds present. Abdominal: General: Bowel sounds are absent. Genitourinary: Comments: Buitrago catheter to straight drain Musculoskeletal: Right lower leg: No edema. Left lower leg: No edema. Skin: Findings: Bruising and ecchymosis present. Comments: Surgical dressing dry and intact Diagnostics: Reviewed in EMR Labs: Reviewed in EMR BMP: Recent Labs 10/07/22 1151 NA 136 K 3.4* CL 109* CO2 23 BUN 14 CREATININE 0.72 CALCIUM 8.3* MG 2.8* PHOS 1.6* CBC: Recent Labs 10/07/22 1151 10/07/22 1152 WBC 8.3 -- HGB 10.5* 11.4 HCT 30.5* -- PLT 115* -- MCV 84.7 -- RDW 13.6 -- INR: Recent Labs 10/07/22 1151 INR 1.3* Assessment: MVCAD s/p PCI (last-2018) now s/p CABGx4 Ischemic cardiomyopathy T1DM HLD ETOH use Post operative Pulm Management: Normal Post-operative Course Post-operative Atrial Fibrillation: []Yes [x] No Acute blood loss anemia/consumptive thrombocytopenia Plan: - Sugamadex - Hemodynamic goals: SBP 90-130 mmHg, MAP 60-75 - PRN Hypertension 1st option Cardene gtt 2nd option or if Cardene unavailable Nitro -PRN Hypotension 1st option Epinephrine gtt - Temp pacing wires/mode: none - Chest tubes: no air leak or fluctuation noted, suction - Ancef surgical prophy - 5 doses total - Wean to Extubation: Arrival Time in unit: 1245 - Vent: ACVC+, TV 6ml/kg/min, rate 12, fio2 100% PEEP 8 VAP protocol: HOB >30 degrees; peridex BID - Insulin gtt; per endo/protocol - GI prophy: Protonix IV daily Patient treatment plan and plan of care discuss with Dr. Miky Yañez Director Funds Development: Dr. Valle Associated attestation - Miky Yañez MD - 10/07/2022 5:13 PM EDT I have personally seen the patient and examined along with the SKYE/resident team. I personally obtained the ashton and relevent portions of the history and performed physical exam. I reviewed the chart including MAR , labs and radiology and discussed the patient's plan of action with the resident/SKYE. This note reflects my plan of care as I have edited the note to reflect my findings and my assessment and plan. Discussed with: []Residents [x]Patient/Family [x]RN []Consultants []SW/TCC []Other [x]SKYE Personally Reviewed: [x]Epic notes [x]Radiology studies [x]Labs []EKG []Other Assessment: 56 year-old male with PMH significant for CAD with prior PCI (most recently in December 2018), prior cardiac arrest in February 2008, ischemic cardiomyopahty, sinus bradycardia, hyperlipidemia, DM1, and alcohol use (15 drinks/wk). Patient presents to ICU s/p four vessel CABG with Dr. Bagley. Plan: -Continue lung protective ventilation while intubated. -Start SBT once awake, alert and with adequate pain control. -Monitor chest tube output -insulin per endo -continue periop abx -Continue multimodal pain regimen -Continue low dose epi gtt for inotropy, HR support. Patient does not have temp pacing wires. -Remainder as per SKYE documentation. ICU Checklist: DVT prophylaxis: SCDs GI prophylaxis: Protonix Lines/Tubes and dates: PIV, Right internal jugular introducer, ETT, OGT, Chest tubesx3, buitrago GOC/Family Discussions: Full code, family updated at bedside. Excluding procedures, the total critical care time caring for this patient with life threatening, unstable organ failure, including direct patient contact, review of medical record, management of life support systems, review of data including imaging and labs, discussions with other team members, patient's family and physicians at least 35 minutes so far today. documented in this encounter [facility] 10-08-2022 Consult note Associated Order (s): IP CONSULT TO DIETITIAN Nutrition Assessment Type and Reason for Visit: Initial, Consult, Patient Education (s/p open heart surgery) Nutrition Recommendations/Plan: Continue JOSH diet. Per MNT protocol, will modify carb limit to 5 choices (75 g/meal) for more appropriate CHO and kcal allotment for pt stature Per MNT protocol, will order Ensure HP BID to promote adequate p.o./protein intake and post op healing (160 kcal, 16 g protein, 8 oz each) Provided heart healthy diet handout with [facility] RD phone number for reference. Will follow up prior to discharge for diet education needs assessment. Pt denies education needs related to DM RD will monitor overall nutrition status and follow weekly Malnutrition Assessment: Malnutrition Status: At risk for malnutrition (Comment) (s/p open heart surgery) Context: Acute Illness Nutrition Assessment: Pt with PMH including ischemic cardiomyopathy, CAD s/p PCI (last 2018), prior cardiac arrest (2007), T1DM, HLD and ETOH (15 drinks/wk) presented for planned surgery after workup for chest heaviness and muscle ache in his left chest at rest with SOB, lightheadedness, and dizzness which included OP cath completed 09/29/22 which showed MVCAD. CTS was consulted for surgical revascularization. He underwent CABGx4 on 10/07/22. Extubated with diet ordered. Pt reports he had an emirati muffin for breakfast, which he tolerated well. He denies N/V, reports adequate p.o. intake prior to admission, states he does intermittent fasting during the weekdays, only eats during 4 hour window between 5p.m. and 9 p.m. and reports diet is supervised by endorcrinologist who is aware of intermittent fasting. Pt reports he counts carbs, has no questions related to DM diet. Pt is familiar with heart healthy diet as well, however states that it never hurts to review. RD provided heart healthy diet handout with [facility] RD phone number. Pt is agreeable to ONS Estimated Daily Nutrient Needs: Energy Requirements Based On: Kcal/kg Weight Used for Energy Requirements: [place] (25-30 kcal/kg) Weight for Energy Calculation (kg): 75.3 kg Total Energy Requirements (kcals/day): 0639-4785 Weight Used for Protein Requirements: [place] (1.2-1.5 g/kg) Weight in Kg Used for Protein Requirements: 75.3 kg Estimated Total Protein (g/day): 90-113 Estimated Daily Total Fluid (ml/day): or per MD Nutrition Related Findings: Nutrition History: Independent of feeding. Teeth: Intact GI symptoms: None at this time. Agapito Scale Score: 19 .Wound Type: Multiple, Surgical Incision Net IO Since Admission: 3,737.09 mL [10/08/22 1209] Edema: RUE Edema: None, LUE Edema: None, RLE Edema: Other (Comment) (trace), LLE Edema: Other (Comment) (trace) Bowel Sounds (All Quadrants): Hypoactive Abdomen Inspection: Soft, Surgical scar Last BM Date: 10/07/22 Labs and meds reviewed: acetaminophen, 1,000 mg, Oral, q8h aspirin, 81 mg, Oral, Daily ceFAZolin, 2,000 mg, IntraVENous, q8h chlorhexidine, 15 mL, Mouth/Throat, BID heparin, 5,000 Units, SubCUTAneous, BID Lidocaine, 1 patch, TransDERmal, Daily mupirocin, , Nasal, BID pantoprazole, 40 mg, Oral, qAM AC polyethylene glycol (PEG) 3350, 17 g, Oral, Daily senna-docusate sodium, 2 tablet, Oral, Nightly EPINEPHrine, 0.01-0.2 mcg/kg/min, Last Rate: Stopped (10/08/22 1100) insulin regular, 1-50 Units/hr, Last Rate: 3 Units/hr (10/08/22 1202) norepinephrine, 0.01-3.3 mcg/kg/min, Last Rate: 0.08 mcg/kg/min (10/08/22 1200) BMP: Recent Labs 10/07/22 1151 10/08/22 0006 NA 136 136 K 3.4* 4.0 CL 109* 104 CO2 BUN 14 19 CREATININE 0.72 0.78 GLUCOSE 112* 129* CALCIUM 8.3* 7.9* MG 2.8* 1.9 PHOS 1.6* -- Recent Labs 10/08/22 0655 10/08/22 0801 10/08/22 0907 10/08/22 1014 10/08/22 1056 10/08/22 1201 POCGLU 128* 131* 176* 228* 179* 214* Lab Results Component Value Date HGBA1C 7.7 (H) 10/01/2022 Current Nutrition Therapies: Adult diet Regular; No Added Salt (3-4 gm); 3 carb choices (45 gm/meal) Current Oral Intake Average Meal Intake: (tolerated an emirati muffin at breakfast) Average Supplements Intake: None Ordered Anthropometric Measures: Height: 177.8 cm (5' 10 ) Current Body Weight: 90.2 kg (198 lb 13.7 oz) ([facility] 10/08/22) Admission Body Weight: 89.4 kg (197 lb) (10/07, no method indicated) Usual Body Weight: (195# on 12/19/21, 198# on 05/30/22) [place] Body Weight (lbs) (Calculated): 166 lbs [place] Body Weight (Kg) (Calculated): 75 kg % [place] Body Weight (Calculated): 119.8 % BMI (kg/m2) (Calculated): 28.5 BMI Categories: Overweight (BMI 25.0-29.9) Wt Readings from Last 10 Encounters: 10/08/22 90.2 kg (198 lb 13.7 oz) 10/01/22 81.5 kg (179 lb 11.2 oz) 10/01/22 89.8 kg (198 lb) Nutrition Diagnosis: Increased nutrient needs related to increase demand for energy/nutrients as evidenced by wounds (surgical) Nutrition Interventions: Food and/or Nutrient Delivery: Modify Current Diet, Start Oral Nutrition Supplement Nutrition Education/Counseling: Education initiated, Education needed Coordination of Nutrition Care: Continue to monitor while inpatient Goals: Goals: PO intake 75% or greater, prior to discharge Nutrition Monitoring and Evaluation: Behavioral-Environmental Outcomes: Knowledge or Skill Food/Nutrient Intake Outcomes: Food and Nutrient Intake, Supplement Intake Physical Signs/Symptoms Outcomes: Biochemical Data, GI Status, Fluid Status or Edema, Skin, Weight Discharge Planning: Too soon to determine Lashell Chau RD, LD Contact: *[phone] or via [employer] chat [facility] 10-08-2022 Consult note Associated Order (s): IP CONSULT TO ENDOCRINOLOGY Department of Internal Medicine Division of Endocrinology, Diabetes, & Metabolism Endocrinology Note Patient Name: Jaydon Arellano : 1965 AGE: 56 y.o. 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 ICU goal <180 GMF goal <150 POCT ACHS- q 1 on gtt Hypoglycemia per protocol Carb controlled diet ANTICIPATED ENDOCRINE HOME GOING RECOMMENDATIONS: Optimized for Discharge from Endocrine standpoint: No Home Going Endocrine Rx Recommendations-- Lispro (lyumjev) via medtronic 770 G pump using Guardian CGM in auto mode- current settings Outpt Follow Up-- [facility] Endocrine Team SUBJECTIVE/HPI: CHIEF COMPLAINT: No chief complaint on file. 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 However- he may switch to Tandem T slim down the road with dexcom. States had good control prior to surgery Reviewed pump at bedside- settings below Has old site on right back- asked to change this out with new pump start- likely not today Bgl noted below Resting in chair Received steroids in OR Extubated Awake alert oriented Has all pump supplies in room and cgm VSS On low dose pressors Insulin gtt 3/hr Had emirati muffin for brfast Denies nv or abd pain CT in place Spoke to nursing Discussed insulin gtt after surgery Type of DM: 1 Onset of DM: 2002 Home DM Medication Regimen: insulin pump medtronic 770g with guardian cgm DM control (last A1c/glucose data): Lab Results Component Value Date HGBA1C 7.7 (H) 10/01/2022 Per [facility] endocrine last notes pump settings Current diabetes regimen is as follows: Lispro (lyumjev) via medtronic 770 G pump using Guardian CGM in auto mode. Basal insulin for backup: Basaglar Glucagon: manish, feels lows at home Reviewed current settings at bedside Basal rate: 12A-4A-0.650 4A-6A-0.750 6A-12A-0.600 14.9= 24 hour basal rate Insulin:carb ratio 12A-5P= 7 5P-12A=4.5 Sensitivity 12A-12A= 40 Blood glucose target- 12A-12A: 90-110 Glucose Date/Time Value Ref Range Status 10/08/2022 09:07 AM 176 (H) 70 - 100 mg/dL Final 10/08/2022 08:01 AM 131 (H) 70 - 100 mg/dL Final 10/08/2022 06:55 AM 128 (H) 70 - 100 mg/dL Final 10/08/2022 06:07 AM 113 (H) 70 - 100 mg/dL Final 10/08/2022 05:18 AM 113 (H) 70 - 100 mg/dL Final 10/08/2022 04:08 AM 121 (H) 70 - 100 mg/dL Final Review of Systems All other systems reviewed and are negative. ROS negative except for those mentioned in HPI. OBJECTIVE: Vitals: 10/08/22 0800 10/08/22 0815 [id number] BP: BP Location: Patient Position: Pulse: 83 74 75 74 Resp: Temp: 37.3 C (99.1 F) TempSrc: Temporal SpO2: Weight: Height: Physical Exam Vitals and nursing note reviewed. Constitutional: General: He is awake. He is not in acute distress. Appearance: He is ill-appearing. He is not toxic-appearing. HENT: Head: Normocephalic and atraumatic. Cardiovascular: Rate and Rhythm: Normal rate. Pulmonary: Effort: Pulmonary effort is normal. Abdominal: Palpations: Abdomen is soft. Musculoskeletal: General: Normal range of motion. Skin: General: Skin is warm and dry. Neurological: General: No focal deficit present. Mental Status: He is alert and oriented to person, place, and time. Psychiatric: Mood and Affect: Mood normal. Behavior: Behavior normal. Behavior is cooperative. Thought Content: Thought content normal. 24 hour intake/output: Intake/Output Summary (Last 24 hours) at 10/08/2022932 Last data filed at 10/08/2022 0800 Gross per 24 hour Intake 6995.09 ml Output 3063 ml Net 3932.09 ml Diet: Adult diet Regular; No Added Salt (3-4 gm); 3 carb choices (45 gm/meal) Medications (as per EMR): HomeMeds: @MEDHMEDS@ Scheduled Meds:acetaminophen, 1,000 mg, Oral, q8h aspirin, 81 mg, Oral, Daily ceFAZolin, 2,000 mg, IntraVENous, q8h chlorhexidine, 15 mL, Mouth/Throat, BID heparin, 5,000 Units, SubCUTAneous, BID Lidocaine, 1 patch, TransDERmal, Daily mupirocin, , Nasal, BID pantoprazole, 40 mg, Oral, qAM AC polyethylene glycol (PEG) 3350, 17 g, Oral, Daily senna-docusate sodium, 2 tablet, Oral, Nightly Continuous Infusions:EPINEPHrine, 0.01-0.2 mcg/kg/min, Last Rate: 0.01 mcg/kg/min (10/08/22829) insulin regular, 1-50 Units/hr, Last Rate: 2 Units/hr (10/08/22908) norepinephrine, 0.01-3.3 mcg/kg/min PRN Meds:PRN medications: calcium gluconate, dextrose, dextrose, EPINEPHrine, glucagon (rDNA), glucose, HYDROmorphone, ipratropium-albuterol, magnesium hydroxide, magnesium sulfate OR magnesium sulfate, norepinephrine, ondansetron ODT OR ondansetron, oxyCODONE OR oxyCODONE, potassium chloride OR potassium chloride 20 mEq in sodium chloride 0.9 % 250 mL IVPB OR potassium chloride 40 mEq in sodium chloride 0.9 % 500 mL IVPB, potassium chloride CR, simethicone Diagnostic Workup: I reviewed pertinent Laboratory results, Radiographic results, and Other Clinical Notes at the time of today's encounter. Labs: No components found for: LABA1C No components found for: EAG Lab Results Component Value Date NA 136 10/08/2022 K 4.0 10/08/2022 CL 104 10/08/2022 CO2 23 10/08/2022 BUN 19 10/08/2022 CREATININE 0.78 10/08/2022 GLUCOSE 129 (H) 10/08/2022 CALCIUM 7.9 (L) 10/08/2022 No results found for: CHLPL, CHOL No results found for: TRIG No results found for: HDL No results found for: LDLCALC No results found for: VLDL No results found for: CHOLHDLRATIO No results found for: [id number] No results found for: TSH, O9DSYXL, G6LQHQK, THYROIDAB Radiology reportsas per the Radiologist Radiology: ECG 12 lead Result Date: 10/08/2022 Sinus rhythm Probable left atrial enlargement Consider anteroseptal infarct ST elevation, consider inferior injury ECG 12 lead Result Date: 10/08/[address] elevation, lateral leads Electronically Signed On 10-08-2022 7:42:13 EDT by Denise Mendoza XR chest 1 view Result Date: 10/08/2022 [facility] 1965 [id number] Exam Date/Time: 10/08/2022 05:21 Procedure: XR CHEST 1 VIEW Ordering Provider: YANEZ ANDREW Reason For Exam: Shortness of breath INDICATION: 56-year-old; shortness of breath. VIEWS: Chest portable-1 image COMPARISON: 10/07/2022 FINDINGS: Interval removal of endotracheal tube and enteric tube. The right IJ central venous catheter and mediastinal drain and left chest tube remain. Multiple cardiac monitoring wires and leads are present, limiting overall evaluation of support devices. Median sternotomy wires and fixation hardware remain. The trachea is midline. The cardiac silhouette is stable. The lung volumes are low with mild pulmonary vascular congestion. New left lung base opacities are present with blunting of the costophrenic angle. 1. Mild pulmonary vessel congestion. 2. Left lung base opacities may reflect atelectasis versus developing small pleural effusion. Report Dictated on Electronically Signed By: Amita Wilder Electronically Signed Date/Time: 10/08/2022 6:34 AM EDT Transesophageal echocardiogram (SAGAR) with contrast and 3D PRN Result Date: 10/07/2022 Left Ventricle: Left ventricle size is normal. Mildly reduced left ventricular systolic function. The EF by visual approximation is 45%. Severe hypokinesis of mid inferoseptal, apical septal, and mid anterior espinosa Right Ventricle: Right ventricle size is normal. Low normal systolic function. No significant valvular abnormalities. XR chest 1 view Result Date: 10/07/2022 Patient Name: [facility]AY[facility]ANO : 1965 [id number] Exam Date/Time: 10/07/2022 13:37 Procedure: XR CHEST 1 VIEW Ordering Provider: YANEZ ANDREW Reason For Exam: Post op open heart surgery PORTABLE CHEST: INDICATION: Status post open heart surgery COMPARISON: 10/01/2022 Obtained at 1315 hours. A single portable AP radiograph of the chest was obtained. The heart is normal in size. The mediastinal silhouette is normal. There are changes associated with recent open heart surgery. A left-sided chest tube is present as is a mediastinal tube. There is no pneumothorax. There is a small effusion on the left. There is no pleural thickening. The osseous structures are unremarkable. The ET tube and NG tube are unchanged. A right internal jugular central venous catheter is present with the tip overlying the superior vena cava. Postoperative changes. No acute process. Report Dictated on Electronically Signed By: Andrews Ribeiro Electronically Signed Date/Time: 10/07/2022 3:02 PM EDT History/Other: Past Medical History: Past Medical History: Diagnosis Date Coronary artery disease January 2007 Diabetes mellitus (HCC) Approx 1995 Hyperlipidemia Myocardial infarction (CMS/HCC) (HCC) February 2008 Past Surgical History: Past Surgical History: Procedure Laterality Date CARDIAC CATHETERIZATION last was on 09/29/2022 CORONARY STENT PLACEMENT 6 total, last was in December 2018 Allergy(ies): Allergies Allergen Reactions Penicillins Anaphylaxis, Hives, Shortness of breath, Itching, Swelling and Rash Other reaction(s): anaphylaxis, Unknown SOB, rash, hives Lisinopril Cough Ramipril Cough Family History: No family history on file. Social History: Social History Tobacco Use Smoking status: Never Smokeless tobacco: Former Types: Chew Quit date: 08/11/2002 Vaping Use Vaping Use: Never used Substance Use Topics Alcohol use: Yes Alcohol/week: 15.0 standard drinks of alcohol Types: 12 Cans of beer, 3 Shots of liquor per week Drug use: Not Currently Portions of the information within this encounter were entered using an electronic dictation system. Best attempts were made to edit/proofread the information prior to note completion. Despite the review of information, some errors may remain. If there are questions related to the information contained within the note please contact the signing physician directly. I spent 40 minutes with the pt which involved coordination of care, medical evaluation, review of records, and/or counseling of the pt regarding his/her condition/disease state/prognosis on the date of this note. Associated attestation - Ashlee Beckham MD - 10/08/2022 2:01 PM EDT Attending Supervising Physician's Attestation Statement The patient is a 56 y.o. male. I have performed a history and physical examination of the patient. I discussed the case with the nurse practitioner. Patient is 56 years old and he has history of type 1 diabetes on long-term insulin use, insulin pump use, CAD s/p PCI, hyperlipidemia and he underwent CABGx 4 on 10/07/2022 Patient endorses to have been diagnosed with diabetes in 1997, was diagnosed with type I in 2002 he currently follows with endocrine at [facility] He uses a medtronic 770g - closed loop hybrid system insulin pump and his settings are as mentioned below. Pump reviewed . It is disconnected and is at bedside Last 7 days : in automode 85% , TIR 67% , High 15% , low 3% 7 day basal requirement 23 units/day and Bolus 16 units/day DM is complicated by CAD and retinopathy diet is fair he is an [employer]. Avid runner - recently completed half marathon. Feels okay at the moment. appetite is on the lower side. No GI issues. Recent A1C was 7.7% normal renal functions On Exam he is alert and oriented x 3 CVS:S1S2 + , Surgical scar noted chest tubes noted no lower extremity edema Insulin gtt at 5 units/hour also on levophed recived a dose of decadron yesterday I reviewed the patient's Past Medical History, Past Surgical History, Medications, and Allergies. Physical Exam: Vitals: 10/08/22 1215 10/08/22 1230 10/08/22 1245 10/08/22 1300 BP: BP Location: Patient Position: Pulse: 73 76 74 69 Resp: Temp: TempSrc: SpO2: 97% 97% 98% 97% Weight: Height: Assessment: Type 1 diabetes with hyperglycemia and nursing home insulin use Insulin pump status - Currently not in use Diabetes complicated by retinopathy and CAD CAD S/P CABG X 4 HLD Recommendations: Given degree of hyperglycemia and high insulin needs , will continue insulin drip for today When drip requirements are better will transition to his insulin pump. He has all his supplies with him at this time and feels comfortable using the pump. Continue sugar checks per protocol. Will continue to follow. I reviewed and agree with the findings and plan documented in her note.. Portions of the information within this encounter were entered using an electronic dictation system. Best attempts were made to edit/proofread the information prior to note completion. Despite the review of information, some errors may remain. If there are questions related to the information contained within the note please contact the signing physician directly. I spent 35 minutes with the pt which involved coordination of care, medical evaluation, review of records, and/or counseling of the pt regarding his/her condition/disease state/prognosis on the date of this note. I personally saw and evaluated the patient. I reviewed and agree with the SKYE's documentation. I provided a substantive portion of the care of this patient. I personally performed the medical decision making in entirety for the encounter as mentioned above [facility] 10-07-2022 Note Patient: Jaydon calvert Procedure Summary Date: 10/07/22 Room / Location: [address] Operating Room Anesthesia Start: 722 Anesthesia Stop: 130 Procedures: CABG,STERNAL PLATING, SAGAR (Chest) Echocardiography transesophageal real-time OPEN TREATMENT OF STERNUM FRACTURE WITH OR WITHOUT SKELETAL FIXATION Diagnosis: Atherosclerotic heart disease of [place] ira coronary artery without angina pectoris (Atherosclerotic heart disease of [place] ira coronary artery without angina pectoris [I25.10]) Surgeons: Ericka Bagley MD Responsible Provider: Bryant Benoit MD Anesthesia Type: general ASA Status: 4 Anesthesia Type: general Vitals Value Taken Time BP 88/62 10/07/22 1300 Temp 36.8 ?C (98.24 ?F) 10/07/22 1301 Pulse 77 10/07/22 1301 Resp 19 10/07/22 1301 SpO2 100 % 10/07/22 1301 Vitals shown include unvalidated device data. Anesthesia Post Evaluation Patient location during evaluation: ICU Patient participation: complete - patient cannot participate Level of consciousness: intubated and sedated Pain management: adequate Airway patency: patent Dental Injury: no Cardiovascular status: acceptable and hemodynamically stable Respiratory status: acceptable, ETT, intubated and ventilator Hydration status: acceptable Nausea/Vomiting: controlled No notable events documented. Patient can be discharged once all PACU criteria has been met. [facility] [employer] [facility] 10-07-2022 Note Patient: Jaydon calvert Procedure Summary Date: 10/07/22 Room / Location: [facility] OR [address] [place] [address] Operating Room Anesthesia Start: 722 Anesthesia Stop: 130 Procedures: CABG,STERNAL PLATING, SAGAR (Chest) Echocardiography transesophageal real-time OPEN TREATMENT OF STERNUM FRACTURE WITH OR WITHOUT SKELETAL FIXATION Diagnosis: Atherosclerotic heart disease of [place] coronary artery without angina pectoris (Atherosclerotic heart disease of [place] coronary artery without angina pectoris [I25.10]) Surgeons: Ericka Bagley MD Responsible Provider: Bryant Benoit MD Anesthesia Type: general ASA Status: 4 Anesthesia Type: general Vitals Value Taken Time BP 88/62 10/07/22 1300 Temp 36.8 ?C (98.24 ?F) 10/07/22 1300 Pulse 73 10/07/22 1300 Resp 15 10/07/22 1300 SpO2 100 % 10/07/22 1300 Vitals shown include unvalidated device data. Anesthesia Post Evaluation Patient participation: complete - patient cannot participate Post-procedure mental status: sedated/intubated. Pain score: 0 Pain management: adequate Multimodal analgesia pain management approach Airway patency: patent Two or more strategies used to mitigate risk of obstructive sleep apnea Cardiovascular status: hemodynamically stable Respiratory status: acceptable, intubated, ventilator and ETT Hydration status: acceptable No notable events documented. MIPS #[id number] PONV Patient received an inhalational anesthetic (4554F) Patient does not exhibit three or more risk factors for PONV (X0430)) MIPS # 424 Perioperative Temperature Management Anesthesia time was 60 minutes or longer (4255F) Anesthesai administered was General (inhalational or TIVA) or Neuraxial block (X0424) At least one body temperature greater than 95.8F/35.5C achieved within the 30 mins immediately prior to or the 15 minutes immediately following anesthesia end time (G9771) MIPS #477 Multimodal Pain Management Not emergent case Patient was not administered multimodal pain management (G2149) Intubated patient (G2149) MIPS #404 Anesthesiology Smoking Abstinence The patient is not a current smoker (e.g. cigarette, cigar, pipe, e-cigarette/vaping/marijuana) If no stop here (XX404) I completed my handoff to the receiving clinician during which we: 1. Identified the patient 2. Identified the responsible provider 3. Reviewed the pertinent medical history 4. Discussed the surgical course 5. Reviewed intra-op anesthesia management and issues during anesthesia 6. Set expectations for post-procedure period 7. Allowed opportunity for questions and acknowledgement of understanding. [facility] 10-07-2022 Miscellaneous Notes Form faxed to [employer] at on October 07, 2022; transmission ok. Form signed. Thank you Type of letter/form/fax request: HCP (Ins[facility] [employer]) Form received from:[employer] Placed on Provider (SHARI Oneill)for completion Completed form needs to be faxed to [phone] documented in this encounter [facility] 10-07-2022 Note Formatting of this n ote might be different from the original. Pt is extubated per policy and protocol [facility] 10-07-2022 Note Formatting of this n ote might be different from the original. Pt is extubated per policy and protocol [facility] 10-07-2022 Consult note Formatting of th is note is different from the original. Images from the original note were not included. [facility]: Critical Care Consultation Note Date: 10/07/22 PATIENT NAME: Jaydon Arellano : 1965 (56 y.o.) Reason for Consult: Critical Care & Vent Management HPI: 56 y.o. male with pmHx of ischemic cardiomyopathy, CAD s/p PCI (last 2018), prior cardiac arrest (2007), T1DM, HLD and ETOH use seen by [facility] (Dr. Valle) with c/o chest heaviness and muscle ache in his left chest at rest plus associated symptoms of SOB, lightheadedness and dizzness. OP cath completed 09/29/22 which showed MVCAD: 90% ISR prox LAD, 80% ISR distal mid LAD, 70% Prox OM1, 70% Prox RCA. CTS was consulted for surgical revascularization. Last ECHO 06/07/21: showed EF of 50%, Trivial MR, Trival TR. Patient was seen in OP setting and consented to surgical intervention. He presented 10/07/22 - and underwent CABGx4 (GUERRIER to LAD, SVG to OM, SVG to RPDA, SVG to Diag) [facility] with Dr. Bagley. Surgery: 10/07/22: CABGx4 (GUERRIER to LAD, SVG to OM, SVG to RPDA, SVG to Diag) [facility] with Dr. Bagley Interval History: 10/07/22: POD #0: Patient arrived to the unit, intubated and sedated. Surgical hand off completed below. Review of Systems Unable to perform ROS: Intubated Allergies: Penicillins, Lisinopril, and Ramipril Past Medical History: has a past medical history of Coronary artery disease (January 2007), Diabetes mellitus ([facility]) (1995), Hyperlipidemia, and Myocardial infarction ([facility]/HCC) ([facility]) (February 2008). Past Surgical History: has a past surgical history that includes Cardiac catheterization (last was on 09/29/2022) and Coronary stent placement (6 total, last was in December 2018). Social History: reports that he has never smoked. He quit smokeless tobacco use about 20 years ago. His smokeless tobacco use included chew. He reports current alcohol use of about 15.0 standard drinks of alcohol per week. He reports that he does not currently use drugs. Family History: family history is not on file. Medications: Prior to Admission medications Medication Sig Start Date End Date Taking? Authorizing Provider aspirin 81 MG EC tablet Take 81 mg by mouth daily. Yes Historical Provider, carvedilol (Coreg) 12.5 MG tablet Take 1 tablet by mouth in the morning and 1 tablet in the evening. Yes Historical Provider, chlorhexidine (Peridex) 0.12 % solution Use 15 mL in the mouth or throat Once for 1 dose. Swish for 30 seconds and spit out the night before surgery. Do not swallow. 10/01/22 10/07/22 Yes Debbi Yanez APRN - SHARI co-enzyme Q-10 30 MG capsule Take 30 mg by mouth daily. Yes Historical Provider, losartan (Cozaar) 25 MG tablet Take 1 tablet by mouth daily with supper. Yes Historical Provider, mupirocin (Bactroban) 2 % ointment Apply liberal amount per nostril the night before surgery and then again the morning of surgery 10/01/22 Yes RIKA Monroe CNP rosuvastatin (Crestor) 10 MG tablet Take 1 tablet by mouth three times a week. Mon, Weds, Thu with dinner Yes Historical Provider, Accu-Chek Guide test strip 1 strip by Other route in the morning and 1 strip at noon and 1 strip in the evening. Take with meals. 07/02/22 Historical Provider, clopidogrel (Plavix) 75 MG tablet Take 1 tablet by mouth daily with supper. Historical Provider, Lyumjev 100 UNIT/ML injection Insulin pump 07/02/22 Historical Provider, nitroglycerin (Nitrostat) 0.[address] 0.4 mg under the tongue Daily as needed. Historical Provider, rosuvastatin (Crestor) 20 MG tablet Take 20 mg by mouth daily. , , Thursday & Thursday with dinner Historical Provider, aspirin 325 MG tablet Take 1 tablet by mouth in the morning. 10/01/22 Historical Provider, Insulin Glargine w/ Trans Port 100 UNIT/ML solution pen-injector Inject 15 Units under the skin daily. 03/28/22 10/01/22 Historical Provider, Surgery Hand Off: Arrival Time in HLU: 12:45 Complications/Pertinent Events: No swan in place Medications given in route: none Gtts OR report Epinephrine: 0.01 Propofol: 10 Insulin: 4 Amicar: 29 Current gtts upon arrival Epinephrine: 0.01 Propofol: 20 Insulin: 3 Amicar: 29 Blood Transfusions Intra Op: yes [] no [x] CellSaver: yes Additional Interventions/Misc during Handoff none Objective: BP (!) 151/88 Pulse 54 Temp 36.1 C (97 F) (Temporal) Resp 16 Ht 5' 10 (1.778 m) Wt 197 lb 14.4 oz (89.8 kg) SpO2 100% BMI 28.40 kg/m Intake/Output Summary (Last 24 hours) at 10/07/2022 1259 Last data filed at 10/07/2022 1207 Gross per 24 hour Intake 2567.2 ml Output 1950 ml Net 617.2 ml Physical Exam Constitutional: Interventions: He is sedated and intubated. HENT: Mouth/Throat: Comments: ETT in place Neck: Vascular: No JVD. Trachea: Trachea normal. Cardiovascular: Rate and Rhythm: Normal rate and regular rhythm. Pulses: Radial pulses are 2+ on the right side and 2+ on the left side. Heart sounds: Normal heart sounds, S1 normal and S2 normal. Pulmonary: Effort: He is intubated. Breath sounds: Decreased breath sounds present. Abdominal: General: Bowel sounds are absent. Genitourinary: Comments: Buitrago catheter to straight drain Musculoskeletal: Right lower leg: No edema. Left lower leg: No edema. Skin: Findings: Bruising and ecchymosis present. Comments: Surgical dressing dry and intact Diagnostics: Reviewed in EMR Labs: Reviewed in EMR BMP: Recent Labs 10/07/22 1151 NA 136 K 3.4* CL 109* CO2 23 BUN 14 CREATININE 0.72 CALCIUM 8.3* MG 2.8* PHOS 1.6* CBC: Recent Labs 10/07/22 1151 10/07/22 1152 WBC 8.3 -- HGB 10.5* 11.4 HCT 30.5* -- PLT 115* -- MCV 84.7 -- RDW 13.6 -- INR: Recent Labs 10/07/22 1151 INR 1.3* Assessment: MVCAD s/p PCI (last-2018) now s/p CABGx4 Ischemic cardiomyopathy T1DM HLD ETOH use Post operative Pulm Management: Normal Post-operative Course Post-operative Atrial Fibrillation: []Yes [x] No Acute blood loss anemia/consumptive thrombocytopenia Plan: - Sugamadex - Hemodynamic goals: SBP 90-130 mmHg, MAP 60-75 - PRN Hypertension 1st option Cardene gtt 2nd option or if Cardene unavailable Nitro -PRN Hypotension 1st option Epinephrine gtt - Temp pacing wires/mode: none - Chest tubes: no air leak or fluctuation noted, suction - Ancef surgical prophy - 5 doses total - Wean to Extubation: Arrival Time in unit: 1245 - Vent: ACVC+, TV 6ml/kg/min, rate 12, fio2 100% PEEP 8 VAP protocol: HOB >30 degrees; peridex BID - Insulin gtt; per endo/protocol - GI prophy: Protonix IV daily Patient treatment plan and plan of care discuss with Dr. Miky Yañez Director Funds Development: Dr. Valle Associated attestation - Miky Yañez MD - 10/07/2022 5:13 PM EDT I have personally seen the patient and examined along with the SKYE/resident team. I personally obtained the ashton and relevent portions of the history and performed physical exam. I reviewed the chart including MAR , labs and radiology and discussed the patient's plan of action with the resident/SKYE. This note reflects my plan of care as I have edited the note to reflect my findings and my assessment and plan. Discussed with: []Residents [x]Patient/Family [x]RN []Consultants []SW/TCC []Other [x]SKYE Personally Reviewed: [x]Epic notes [x]Radiology studies [x]Labs []EKG []Other Assessment: 56 year-old male with PMH significant for CAD with prior PCI (most recently in December 2018), prior cardiac arrest in February 2008, ischemic cardiomyopahty, sinus bradycardia, hyperlipidemia, DM1, and alcohol use (15 drinks/wk). Patient presents to ICU s/p four vessel CABG with Dr. Bagley. Plan: -Continue lung protective ventilation while intubated. -Start SBT once awake, alert and with adequate pain control. -Monitor chest tube output -insulin per endo -continue periop abx -Continue multimodal pain regimen -Continue low dose epi gtt for inotropy, HR support. Patient does not have temp pacing wires. -Remainder as per SKYE documentation. ICU Checklist: DVT prophylaxis: SCDs GI prophylaxis: Protonix Lines/Tubes and dates: PIV, Right internal jugular introducer, ETT, OGT, Chest tubesx3, buitrago GOC/Family Discussions: Full code, family updated at bedside. Excluding procedures, the total critical care time caring for this patient with life threatening, unstable organ failure, including direct patient contact, review of medical record, management of life support systems, review of data including imaging and labs, discussions with other team members, patient's family and physicians at least 35 minutes so far today. [facility] 10-07-2022 Note Central Venous Line: Date/Time: 10/07/2022 7:40 AM A central venous line was placed in the Procedural for the following indication(s): central venous access and CVP monitoring. Sterility preparation included the following: provider hand hygiene performed prior to central venous catheter insertion, all 5 sterile barriers used (gloves, gown, cap, mask, large sterile drape) during central venous catheter insertion, antiseptic used during central venous catheter insertion and skin prep agent completely dried prior to procedure. Medical reason for not performing maximal sterile barrier technique: no The patient was placed in Trendelenburg position. Right internal jugular vein was prepped. The site was prepped with Chlorhexidine. Size: 8 [place] Catheter type: introducer Number of Lumens: single lumen During the procedure, the following specific steps were taken: target vein identified, needle advanced into vein and blood aspirated and guidewire advanced into vein. Procedure performed using ultrasound guidance - Image permanently retained with wire or catheter in vein. Sterile gel and probe cover used in ultrasound-guided central venous catheter insertion. Intravenous verification was obtained by ultrasound. Post insertion care included: all ports aspirated, all ports flushed easily, guidewire removed intact, Biopatch applied, line sutured in place and dressing applied. During the procedure the patient experienced: patient tolerated procedure well with no complications. Staffing Performed: ANTOLIN Resident/HOT MILL SUPERVISOR: RIKA Pichardo CRNA Performed by: RIKA Pichardo CRNA Authorized by: RIKA Pichardo CRNA [facility] 10-07-2022 Note Arterial Line: Date/Time: 10/07/2022 7:33 AM An arterial line was placed Procedure performed using ultrasound guidance - Image permanently retained with wire or catheter in vein and surface landmarks.in the Procedural for the following indication(s): continuous blood pressure monitoring and blood sampling needed. A 20 gauge (size), 1 and 3/4 inch (length), Arrow (type) catheter was placed, into the Left radial artery, secured by Tegaderm and tape. Events: patient tolerated procedure well with no complications. Staffing Performed: ANTOLIN Resident/HOT MILL SUPERVISOR: RIKA Pichardo CRNA Performed by: RIKA Pichardo CRNA Authorized by: RIKA Pichardo CRNA [facility] 10-07-2022 Note Airway Date/Time: 10/07/2022 7:33 AM Urgency: scheduled Airway not difficult General Information and Staff Patient location during procedure: Procedural Resident/HOT MILL SUPERVISOR: RIKA Pichardo CRNA Performed: HOT MILL SUPERVISOR Performed by: RIKA Pichardo CRNA Authorized by: RIKA Pichardo CRNA Indications and Patient Condition Indications for airway management: anesthesia and airway protection Sedation level: Asleep Preoxygenated: yes Patient position: sniffing Mask difficulty assessment: 1 - vent by mask Final Airway Details Final airway type: endotracheal airway Successful airway: ETT Cuffed: yes Successful intubation technique: direct laryngoscopy Endotracheal tube insertion site: oral Blade: Ally Blade size: #4 ETT size (mm): 8.0 Cormack-Lehane Classification: grade I - full view of glottis Placement verified by: chest auscultation and capnometry Measured from: lips ETT to lips (cm): 23 Number of attempts at approach: 1 [facility] 10-07-2022 Note DATE OF PROCEDURE: PREOPERATIVE DIAGNOSIS: Coronary artery disease Ischemic cardiomyopathy POSTOPERATIVE DIAGNOSIS: Coronary artery disease Ischemic cardiomyopathy PROCEDURE: 1. Coronary artery bypass grafting x 4 - Left internal mammary artery to the left anterior descending - Saphenous vein graft to the obtuse marginal - Saphenous vein graft to the right posterior descending artery - Saphenous vein graft to the diagonal 2. Endoscopic vein harvest, left lower extremity SURGEON: Ericka Bagley MD CROCHET BEADER: MICHAEL Sotelo, PGY 2 COMPLICATIONS: None intra-op CONDITION: Stable DESCRIPTION OF PROCEDURE: The patient was prepped and draped in the appropriate manner, having undergone general endotracheal anesthetic in addition to [place] catheter placement, arterial line, and buitrago catheter placement. An antibiotic and a beta phil were administered pre-operatively and documented. Incision and conduit harvest/preparation: A midline sternotomy incision was utilized in standard fashion. The sternum was divided with the oscillating saw. The left internal mammary artery was taken down with clips and bovie cauterization. Papaverine was used. The left lower extremity saphenous vein was harvested via the endoscopic approach. The patient was fully heparinized prior to dividing and prepping the mammary. Cannulation and cardiopulmonary bypass: After cannulation, the patient was placed on cardiopulmonary bypass support. Ascending aortic cross-clamp was applied. Antegrade cardioplegia (microplegia) was delivered till the heart was arrested in diastole. Cardioplegia was re-administered every 20 minutes while the ascending aorta was cross clamped. Aortic canula: 21 Fr soft flow angled cannula in distal ascending aorta Venous canula: 29/29 Fr triple stage cannula via right atrial appendage Cardioplegia: Antegrade via cannula in the mid ascending aorta. Coronary artery bypass: Bypasses were performed to the venetie ira arterial targets using the conduits listed above with 7-0 Prolene distally and 6-0 Prolene proximally to the ascending aorta. The left internal mammary artery was anastomosed to the LAD with 7-0 Prolene. CPB wean and decannulation: The patient was given a dose of warm blood cardioplegia. Valsalva breaths were mechanically administered and the aorta was unclamped. The heart returned to normal sinus rhythm. Pacing wire was not placed. The DLP left in place as a root vent. The patient was rewarmed and weaned from cardiopulmonary bypass support without difficulty. Protamine was administered and cannulas were removed without difficulty. Two 24 Fr alexx drains were placed, one in the left pleural space and one in the mediastinum. Closure: Hemostasis was achieved. The sternum and incision were closed with sternal wires, running 0, 2-0 and 4-0 stitches. Dressings applied, and the patient was transferred to the cardiovascular intensive care unit in stable condition. Cardiopulmonary bypass time: 96 minutes Cross clamp time: 87 minutes Intra-op SAGAR: 40% EF, no significant valvular abnormalities Ericka Bagley MD Cardiothoracic Surgery [facility] 10-07-2022 Note H&P reviewed. The pa jazzy was examined and there are no changes to the H&P. [facility] 10-07-2022 Attending History and physical note H&P reviewed. The patient was examined and there are no changes to the H&P. Source Note - Ericka Bagley MD - 10/01/2022 12:00 PM EDT Images from the original note were not included. [facility] CARDIOVASCULAR & THORACIC SURGERY [address] [facility] [address] Dept: [phone] Dept Loc: [phone] Visit type: New Reason for Visit: Coronary artery disease Assessment and plan 56-year-old male with type 1 diabetes and coronary artery disease. Coronary artery disease: I discussed with him the indications, risks, benefits, and perioperative course of a coronary artery bypass grafting. I discussed alternatives including no intervention, medical therapy only, and percutaneous coronary intervention with medications. A surgical revascularization is recommended in his case. On my review of the coronary angiogram, he does have good targets and will need 3 vessel bypass grafts. He is quite functional and is of low risk. He is agreeable. We also discussed utility of repeat echocardiogram. When he had his heart attack several years ago, his ejection fraction was low to 30-35% and has since improved to 50% last year. He does not have any murmurs. We discussed proceeding to surgery without a repeat echo and probabilities of concomitant interventions if intraoperative transesophageal echocardiogram identifies any valvular lesions. He understands and is willing to proceed without preoperative surface echo. Although he is quite fit and has been training for a triathlon, his symptoms have increased. I have cautioned against any exertional activity. He should rest till his surgical intervention. The risks of the procedure/s include but are not limited to, bleeding, infection, pneumonia, respiratory failure, prolonged Intensive Care Unit stay, multiorgan failure, renal failure needing temporary and/or permanent dialysis, cerebrovascular accident, pulmonary embolism, deep venous thrombosis, cardiac failure or ischemia or arrhythmia, and . Although he is quite young, the lesions in the right coronary artery and left circumflex distribution are not significant enough arterial conduits use. Type 1 diabetes, elevated hemoglobin A1c: Discussed importance of diabetes control especially with continued coronary artery disease. Stressed importance of decreasing A1c. He will be evaluated by the public health program manager while admitted. Ericka Bagley MD Cardiothoracic Surgery History of Present Illness Jaydon Arellano is a 56 y.o. male referred by Dr. Valle for CABG. Per note, pt has a history of CAD with multiple stenting to his LAD most recently in December 2018, cardiac arrest in February 2008, ischemic cardiomyopathy, sinus bradycardia, and hyperlipidemia. He is also an insulin dependent diabetic. Pt saw Cardiology with c/o chest heaviness and muscle ache in his left chest with rest and exertion. He reported that his exercise tolerance has decreased and that he has more SOB when running. He also reported having some lightheadedness and dizziness. A1C was 8.1. Pt then underwent a heart catheterization on 09/29/22 which demonstrated multivessel disease. Pt is here now for an evaluation. Past Medical History Past Medical History: Diagnosis Date Coronary artery disease January 2007 Diabetes mellitus (HCC) 1995 Hyperlipidemia Myocardial infarction (CMS/HCC) (HCC) February 2008 Past Surgical History Past Surgical History: Procedure Laterality Date CARDIAC CATHETERIZATION last was on 09/29/2022 CORONARY STENT PLACEMENT 6 total, last was in December 2018 Family History No family history on file. Social History Social History Tobacco Use Smoking status: Never Smokeless tobacco: Former Types: Chew Quit date: 08/11/2002 Vaping Use Vaping Use: Never used Substance Use Topics Alcohol use: Yes Alcohol/week: 15.0 standard drinks of alcohol Types: 12 Cans of beer, 3 Shots of liquor per week Drug use: Not Currently Allergies Allergies Allergen Reactions Penicillins Anaphylaxis, Hives, Shortness of breath, Itching, Swelling and Rash Other reaction(s): anaphylaxis, Unknown SOB, rash, hives Lisinopril Cough Ramipril Cough Medications Current Outpatient Medications: Accu-Chek Guide test strip, 1 strip by Other route in the morning and 1 strip at noon and 1 strip in the evening. Take with meals., Disp: , Rfl: carvedilol (Coreg) 12.5 MG tablet, Take 1 tablet by mouth in the morning and 1 tablet in the evening., Disp: , Rfl: clopidogrel (Plavix) 75 MG tablet, Take 1 tablet by mouth daily with supper., Disp: , Rfl: losartan (Cozaar) 25 MG tablet, Take 1 tablet by mouth daily with supper., Disp: , Rfl: nitroglycerin (Nitrostat) 0.4 MG SL tablet, Place 0.4 mg under the tongue Daily as needed., Disp: , Rfl: rosuvastatin (Crestor) 10 MG tablet, Take 1 tablet by mouth three times a week. Mon, Weds, Fri with dinner, Disp: , Rfl: aspirin 81 MG EC tablet, Take 81 mg by mouth daily., Disp: , Rfl: Lyumjev 100 UNIT/ML injection, Insulin pump, Disp: , Rfl: mupirocin (Bactroban) 2 % ointment, Apply liberal amount per nostril the night before surgery and then again the morning of surgery, Disp: 1 g, Rfl: 0 rosuvastatin (Crestor) 20 MG tablet, Take 20 mg by mouth daily. , , Thursday & Thursday with dinner, Disp: , Rfl: Review of Systems Review of Systems Constitutional: Positive for fatigue. Respiratory: Positive for chest tightness and shortness of breath. Neurological: Positive for dizziness and light-headedness. All other systems reviewed and are negative. Physical Exam Vitals: BP 115/69 Pulse (!) 47 Temp 36.1 C (97 F) (Temporal) Resp 20 Ht 5' 10 (1.778 m) Wt 198 lb (89.8 kg) SpO2 99% BMI 28.41 kg/m Constitutional: General: Not in acute distress. Appearance: Normal appearance. Not toxic-appearing. Ear, nose, mouth: Bilateral external ear and nose normal. Nose: Nose normal. Mouth: Appearance normal, no bleeding, moist mucus membranes Eyes: General: No scleral icterus. No discharge from bilateral eyes Extraocular Movements: Extraocular movements intact. Pupils equal and reactive bilaterally Cardiovascular: Heart: Regular rhythm. Normal heart sounds. Vascular: No carotid bruit. Edema: No edema in bilateral lower extremities Pulmonary: Effort: Pulmonary effort is normal. No respiratory distress. Breath sounds: Normal breath sounds. No wheezing. Chest wall: No tenderness. Abdominal: Appearance: Not distended Palpations: There is no abdominal tenderness, no guarding. Musculoskeletal: Bilateral upper and lower extremities: Normal range of motion, no deformity Head: Normocephalic and atraumatic. Neck: Normal range of motion and neck supple. No muscular tenderness. Lymphadenopathy: Cervical: No cervical adenopathy. Skin: General: Skin is warm and dry. Coloration: Skin is not jaundiced. Neurological: General: No focal deficit present. Cranial Nerves: No obvious cranial nerve deficit. Psychiatric: Mood and Affect: Mood normal. Thought Content: Thought content normal. Patient has good judgement and insight Mental Status: Alert and oriented to place, person, and time. Labs Auto WBC Date/Time Value Ref Range Status 10/01/2022 04:16 PM 5.0 3.6 - 10.7 10*3/uL Final Hemoglobin Date/Time Value Ref Range Status 10/01/2022 04:16 PM 14.5 13.0 - 18.0 g/dL Final Platelets Date/Time Value Ref Range Status 10/01/2022 04:16 PM 168 140 - 440 10*3/uL Final SODIUM Date/Time Value Ref Range Status 10/01/2022 04:16 PM 137 135 - 145 mmol/L Final POTASSIUM Date/Time Value Ref Range Status 10/01/2022 04:16 PM 3.9 3.5 - 5.1 mmol/L Final CREATININE Date/Time Value Ref Range Status 10/01/2022 04:16 PM 0.80 0.66 - 1.25 mg/dL Final Imaging Heart Catheterization 09/29/22 Echocardiogram 06/07/21 Patient Care Team: PCP: ABIODUN Villa Cardiology: Daniel Valle MD Disclaimer INFORMED CONSENT:The nature and purpose of the proposed treatment or procedure have been discussed. The risks and benefits of the proposed treatment or procedures have been reviewed. Alternatives have been reviewed in addition to the risks and benefits of not receiving treatments or undergoing procedures. Pursuant to this discussion, the patient agrees to undergo the proposed treatment or procedure. Captured images seen in this note from are not a substitute for a comprehensive interpretation of the entire data set as reflected by the interpreting physician with regard to radiology, echocardiography, and other diagnostic images. This note may have been dictated using [employer] Medical Practice Edition 2.6 and/or [employer] Voice Recognition Feature. The document was proofread, however unrecognized voice recognition director of loss prevention errors may be present. [facility] 10-07-2022 Note Formatting of this n ote might be different from the original. DATE OF PROCEDURE: 10/07/2022 PREOPERATIVE DIAGNOSIS: Coronary artery disease Ischemic cardiomyopathy POSTOPERATIVE DIAGNOSIS: Coronary artery disease Ischemic cardiomyopathy PROCEDURE: 1. Coronary artery bypass grafting x 4 - Left internal mammary artery to the left anterior descending - Saphenous vein graft to the obtuse marginal - Saphenous vein graft to the right posterior descending artery - Saphenous vein graft to the diagonal 2. Endoscopic vein harvest, left lower extremity SURGEON: Ericka aBgley MD CROCHET BEADER: MICHAEL Sotelo, PGY 2 COMPLICATIONS: None intra-op CONDITION: Stable DESCRIPTION OF PROCEDURE: The patient was prepped and draped in the appropriate manner, having undergone general endotracheal anesthetic in addition to Jasper-John Paul catheter placement, arterial line, and buitrago catheter placement. An antibiotic and a beta phil were administered pre-operatively and documented. Incision and conduit harvest/preparation: A midline sternotomy incision was utilized in standard fashion. The sternum was divided with the oscillating saw. The left internal mammary artery was taken down with clips and bovie cauterization. Papaverine was used. The left lower extremity saphenous vein was harvested via the endoscopic approach. The patient was fully heparinized prior to dividing and prepping the mammary. Cannulation and cardiopulmonary bypass: After cannulation, the patient was placed on cardiopulmonary bypass support. Ascending aortic cross-clamp was applied. Antegrade cardioplegia (microplegia) was delivered till the heart was arrested in diastole. Cardioplegia was re-administered every 20 minutes while the ascending aorta was cross clamped. Aortic canula: 21 Fr soft flow angled cannula in distal ascending aorta Venous canula: 29/29 Fr triple stage cannula via right atrial appendage Cardioplegia: Antegrade via cannula in the mid ascending aorta. Coronary artery bypass: Bypasses were performed to the [place] arterial targets using the conduits listed above with 7-0 Prolene distally and 6-0 Prolene proximally to the ascending aorta. The left internal mammary artery was anastomosed to the LAD with 7-0 Prolene. CPB wean and decannulation: The patient was given a dose of warm blood cardioplegia. Valsalva breaths were mechanically administered and the aorta was unclamped. The heart returned to normal sinus rhythm. Pacing wire was not placed. The DLP left in place as a root vent. The patient was rewarmed and weaned from cardiopulmonary bypass support without difficulty. Protamine was administered and cannulas were removed without difficulty. Two 24 Fr alexx drains were placed, one in the left pleural space and one in the mediastinum. Closure: Hemostasis was achieved. The sternum and incision were closed with sternal wires, running 0, 2-0 and 4-0 stitches. Dressings applied, and the patient was transferred to the cardiovascular intensive care unit in stable condition. Cardiopulmonary bypass time: 96 minutes Cross clamp time: 87 minutes Intra-op SAGAR: 40% EF, no significant valvular abnormalities Ericka Aziken, MD Cardiothoracic Surgery [facility] 10-07-2022 Note Formatting of this n ote might be different from the original. DATE OF PROCEDURE: 10/07/2022 PREOPERATIVE DIAGNOSIS: Coronary artery disease Ischemic cardiomyopathy POSTOPERATIVE DIAGNOSIS: Coronary artery disease Ischemic cardiomyopathy PROCEDURE: 1. Coronary artery bypass grafting x 4 - Left internal mammary artery to the left anterior descending - Saphenous vein graft to the obtuse marginal - Saphenous vein graft to the right posterior descending artery - Saphenous vein graft to the diagonal 2. Endoscopic vein harvest, left lower extremity SURGEON: Ericka Bagley MD CROCHET BEADER: MICHAEL Sotelo, PGY 2 COMPLICATIONS: None intra-op CONDITION: Stable DESCRIPTION OF PROCEDURE: The patient was prepped and draped in the appropriate manner, having undergone general endotracheal anesthetic in addition to Jasper-John Paul catheter placement, arterial line, and buitrago catheter placement. An antibiotic and a beta phil were administered pre-operatively and documented. Incision and conduit harvest/preparation: A midline sternotomy incision was utilized in standard fashion. The sternum was divided with the oscillating saw. The left internal mammary artery was taken down with clips and bovie cauterization. Papaverine was used. The left lower extremity saphenous vein was harvested via the endoscopic approach. The patient was fully heparinized prior to dividing and prepping the mammary. Cannulation and cardiopulmonary bypass: After cannulation, the patient was placed on cardiopulmonary bypass support. Ascending aortic cross-clamp was applied. Antegrade cardioplegia (microplegia) was delivered till the heart was arrested in diastole. Cardioplegia was re-administered every 20 minutes while the ascending aorta was cross clamped. Aortic canula: 21 Fr soft flow angled cannula in distal ascending aorta Venous canula: 29/29 Fr triple stage cannula via right atrial appendage Cardioplegia: Antegrade via cannula in the mid ascending aorta. Coronary artery bypass: Bypasses were performed to the [place] arterial targets using the conduits listed above with 7-0 Prolene distally and 6-0 Prolene proximally to the ascending aorta. The left internal mammary artery was anastomosed to the LAD with 7-0 Prolene. CPB wean and decannulation: The patient was given a dose of warm blood cardioplegia. Valsalva breaths were mechanically administered and the aorta was unclamped. The heart returned to normal sinus rhythm. Pacing wire was not placed. The DLP left in place as a root vent. The patient was rewarmed and weaned from cardiopulmonary bypass support without difficulty. Protamine was administered and cannulas were removed without difficulty. Two 24 Fr alexx drains were placed, one in the left pleural space and one in the mediastinum. Closure: Hemostasis was achieved. The sternum and incision were closed with sternal wires, running 0, 2-0 and 4-0 stitches. Dressings applied, and the patient was transferred to the cardiovascular intensive care unit in stable condition. Cardiopulmonary bypass time: 96 minutes Cross clamp time: 87 minutes Intra-op SAGAR: 40% EF, no significant valvular abnormalities Ericka Bagley MD Cardiothoracic Surgery [facility] 10-07-2022 History and physical note H&P reviewed. The patient was examined and there are no changes to the H&P. Source Note - Ericka Bagley MD - 10/01/2022 12:00 PM EDT Images from the original note were not included. [facility] CARDIOVASCULAR & THORACIC SURGERY [address] [facility] [address] Dept: [phone] Dept Loc: [phone] Visit type: New Reason for Visit: Coronary artery disease Assessment and plan 56-year-old male with type 1 diabetes and coronary artery disease. Coronary artery disease: I discussed with him the indications, risks, benefits, and perioperative course of a coronary artery bypass grafting. I discussed alternatives including no intervention, medical therapy only, and percutaneous coronary intervention with medications. A surgical revascularization is recommended in his case. On my review of the coronary angiogram, he does have good targets and will need 3 vessel bypass grafts. He is quite functional and is of low risk. He is agreeable. We also discussed utility of repeat echocardiogram. When he had his heart attack several years ago, his ejection fraction was low to 30-35% and has since improved to 50% last year. He does not have any murmurs. We discussed proceeding to surgery without a repeat echo and probabilities of concomitant interventions if intraoperative transesophageal echocardiogram identifies any valvular lesions. He understands and is willing to proceed without preoperative surface echo. Although he is quite fit and has been training for a triathlon, his symptoms have increased. I have cautioned against any exertional activity. He should rest till his surgical intervention. The risks of the procedure/s include but are not limited to, bleeding, infection, pneumonia, respiratory failure, prolonged Intensive Care Unit stay, multiorgan failure, renal failure needing temporary and/or permanent dialysis, cerebrovascular accident, pulmonary embolism, deep venous thrombosis, cardiac failure or ischemia or arrhythmia, and . Although he is quite young, the lesions in the right coronary artery and left circumflex distribution are not significant enough arterial conduits use. Type 1 diabetes, elevated hemoglobin A1c: Discussed importance of diabetes control especially with continued coronary artery disease. Stressed importance of decreasing A1c. He will be evaluated by the public health program manager while admitted. Ericka Bagley MD Cardiothoracic Surgery History of Present Illness Jaydon Arellano is a 56 y.o. male referred by Dr. Valle for CABG. Per note, pt has a history of CAD with multiple stenting to his LAD most recently in December 2018, cardiac arrest in February 2008, ischemic cardiomyopathy, sinus bradycardia, and hyperlipidemia. He is also an insulin dependent diabetic. Pt saw Cardiology with c/o chest heaviness and muscle ache in his left chest with rest and exertion. He reported that his exercise tolerance has decreased and that he has more SOB when running. He also reported having some lightheadedness and dizziness. A1C was 8.1. Pt then underwent a heart catheterization on 09/29/22 which demonstrated multivessel disease. Pt is here now for an evaluation. Past Medical History Past Medical History: Diagnosis Date Coronary artery disease January 2007 Diabetes mellitus (HCC) Approx 1995 Hyperlipidemia Myocardial infarction (CMS/HCC) (HCC) February 2008 Past Surgical History Past Surgical History: Procedure Laterality Date CARDIAC CATHETERIZATION last was on 09/29/2022 CORONARY STENT PLACEMENT 6 total, last was in December 2018 Family History No family history on file. Social History Social History Tobacco Use Smoking status: Never Smokeless tobacco: Former Types: Chew Quit date: 08/11/2002 Vaping Use Vaping Use: Never used Substance Use Topics Alcohol use: Yes Alcohol/week: 15.0 standard drinks of alcohol Types: 12 Cans of beer, 3 Shots of liquor per week Drug use: Not Currently Allergies Allergies Allergen Reactions Penicillins Anaphylaxis, Hives, Shortness of breath, Itching, Swelling and Rash Other reaction(s): anaphylaxis, Unknown SOB, rash, hives Lisinopril Cough Ramipril Cough Medications Current Outpatient Medications: Accu-Chek Guide test strip, 1 strip by Other route in the morning and 1 strip at noon and 1 strip in the evening. Take with meals., Disp: , Rfl: carvedilol (Coreg) 12.5 MG tablet, Take 1 tablet by mouth in the morning and 1 tablet in the evening., Disp: , Rfl: clopidogrel (Plavix) 75 MG tablet, Take 1 tablet by mouth daily with supper., Disp: , Rfl: losartan (Cozaar) 25 MG tablet, Take 1 tablet by mouth daily with supper., Disp: , Rfl: nitroglycerin (Nitrostat) 0.4 MG SL tablet, Place 0.4 mg under the tongue Daily as needed., Disp: , Rfl: rosuvastatin (Crestor) 10 MG tablet, Take 1 tablet by mouth three times a week. Thu, , Thu with dinner, Disp: , Rfl: aspirin 81 MG EC tablet, Take 81 mg by mouth daily., Disp: , Rfl: Lyumjev 100 UNIT/ML injection, Insulin pump, Disp: , Rfl: mupirocin (Bactroban) 2 % ointment, Apply liberal amount per nostril the night before surgery and then again the morning of surgery, Disp: 1 g, Rfl: 0 rosuvastatin (Crestor) 20 MG tablet, Take 20 mg by mouth daily. , , Thursday & Thursday with dinner, Disp: , Rfl: Review of Systems Review of Systems Constitutional: Positive for fatigue. Respiratory: Positive for chest tightness and shortness of breath. Neurological: Positive for dizziness and light-headedness. All other systems reviewed and are negative. Physical Exam Vitals: BP 115/69 Pulse (!) 47 Temp 36.1 C (97 F) (Temporal) Resp 20 Ht 5' 10 (1.778 m) Wt 198 lb (89.8 kg) SpO2 99% BMI 28.41 kg/m Constitutional: General: Not in acute distress. Appearance: Normal appearance. Not toxic-appearing. Ear, nose, mouth: Bilateral external ear and nose normal. Nose: Nose normal. Mouth: Appearance normal, no bleeding, moist mucus membranes Eyes: General: No scleral icterus. No discharge from bilateral eyes Extraocular Movements: Extraocular movements intact. Pupils equal and reactive bilaterally Cardiovascular: Heart: Regular rhythm. Normal heart sounds. Vascular: No carotid bruit. Edema: No edema in bilateral lower extremities Pulmonary: Effort: Pulmonary effort is normal. No respiratory distress. Breath sounds: Normal breath sounds. No wheezing. Chest wall: No tenderness. Abdominal: Appearance: Not distended Palpations: There is no abdominal tenderness, no guarding. Musculoskeletal: Bilateral upper and lower extremities: Normal range of motion, no deformity Head: Normocephalic and atraumatic. Neck: Normal range of motion and neck supple. No muscular tenderness. Lymphadenopathy: Cervical: No cervical adenopathy. Skin: General: Skin is warm and dry. Coloration: Skin is not jaundiced. Neurological: General: No focal deficit present. Cranial Nerves: No obvious cranial nerve deficit. Psychiatric: Mood and Affect: Mood normal. Thought Content: Thought content normal. Patient has good judgement and insight Mental Status: Alert and oriented to place, person, and time. Labs Auto WBC Date/Time Value Ref Range Status 10/01/2022 04:16 PM 5.0 3.6 - 10.7 10*3/uL Final Hemoglobin Date/Time Value Ref Range Status 10/01/2022 04:16 PM 14.5 13.0 - 18.0 g/dL Final Platelets Date/Time Value Ref Range Status 10/01/2022 04:16 PM 168 140 - 440 10*3/uL Final SODIUM Date/Time Value Ref Range Status 10/01/2022 04:16 PM 137 135 - 145 mmol/L Final POTASSIUM Date/Time Value Ref Range Status 10/01/2022 04:16 PM 3.9 3.5 - 5.1 mmol/L Final CREATININE Date/Time Value Ref Range Status 10/01/2022 04:16 PM 0.80 0.66 - 1.25 mg/dL Final Imaging Heart Catheterization 09/29/22 Echocardiogram 06/07/21 Patient Care Team: PCP: ABIODUN Villa Cardiology: Daniel Valle MD Disclaimer INFORMED CONSENT:The nature and purpose of the proposed treatment or procedure have been discussed. The risks and benefits of the proposed treatment or procedures have been reviewed. Alternatives have been reviewed in addition to the risks and benefits of not receiving treatments or undergoing procedures. Pursuant to this discussion, the patient agrees to undergo the proposed treatment or procedure. Captured images seen in this note from are not a substitute for a comprehensive interpretation of the entire data set as reflected by the interpreting physician with regard to radiology, echocardiography, and other diagnostic images. This note may have been dictated using [employer] Practice Edition 2.6 and/or [employer] Voice Recognition Feature. The document was proofread, however unrecognized voice recognition director of loss prevention errors may be present. Images from the original note were not included. Comprehensive PreSurgical History and Physical ? Name: Jaydon Arellano : 1965 (Age-56 y.o.) Date of Service: Pt seen/examined on 10/01/2022 Procedure Information Date/Time: 10/07/22 0730 Procedures: CABG, SAGAR (Chest) Echocardiography transesophageal real-time Location: [address] Operating Room Surgeons: Ericka Bagley MD Chief Complaint: Atherosclerotic heart disease of ven[place] ir[place] coronary artery without angina pectoris History Of Present Illness: Case: [id number] Date/Time: 10/07/22 0730 Procedures: CABG, SAGAR (Chest) [71246 CPT(R)] Echocardiography transesophageal real-time [15849 CPT(R)] Anesthesia type: General Diagnosis: Atherosclerotic heart disease of [place] ir[place] coronary artery without angina pectoris [I25.10] Pre-op diagnosis: Atherosclerotic heart disease of [place] ir[place] coronary artery without angina pectoris [I25.10] Location: [address] Operating Room Surgeons: Ericka Bagley MD Per note, pt has a history of CAD with multiple stenting to his LAD most recently in December 2018, cardiac arrest in February 2008, ischemic cardiomyopathy, sinus bradycardia, and hyperlipidemia. He is also an insulin dependent diabetic. Pt saw Cardiology with c/o chest heaviness and muscle ache in his left chest with rest and exertion. He reported that his exercise tolerance has decreased and that he has more SOB when running. He also reported having some lightheadedness and dizziness. A1C was 8.1. Pt then underwent a heart catheterization on 09/29/22 which demonstrated multivessel disease. Past Medical History: Past Medical History: January 2007: Coronary artery disease Approx 1995: Diabetes mellitus (HCC) No date: Hyperlipidemia February 2008: Myocardial infarction (CMS/HCC) (HCC) Past Surgical History: Past Surgical History: last was on 09/29/2022: CARDIAC CATHETERIZATION 6 total, last was in December 2018: CORONARY STENT PLACEMENT Medications Prior to Admission: Prior to Admission medications Medication Sig Start Date End Date Taking? Authorizing Provider Accu-Chek Guide test strip 1 strip by Other route in the morning and 1 strip at noon and 1 strip in the evening. Take with meals. 07/02/22 Historical Provider, aspirin 325 MG tablet Take 1 tablet by mouth in the morning. Historical Provider, carvedilol (Coreg) 12.5 MG tablet Take 1 tablet by mouth in the morning and 1 tablet in the evening. Historical Provider, chlorhexidine (Peridex) 0.12 % solution Use 15 mL in the mouth or throat Once for 1 dose. Swish for 30 seconds and spit out the night before surgery. Do not swallow. 10/01/22 10/01/22 RIKA Monroe CNP clopidogrel (Plavix) 75 MG tablet Take 1 tablet by mouth in the morning. Historical Provider, Insulin Glargine w/ Trans Port 100 UNIT/ML solution pen-injector Inject 15 Units under the skin daily. 03/28/22 Historical ProviderMD losartan (Cozaar) 25 MG tablet Take 1 tablet by mouth daily. Historical ProviderMD mupirocin (Bactroban) 2 % ointment Apply liberal amount per nostril the night before surgery and then again the morning of surgery 10/01/22 RIKA Monroe CNP nitroglycerin (Nitrostat) 0.[address] 0.4 mg under the tongue Daily as needed. Historical Provider, rosuvastatin (Crestor) 10 MG tablet Take 1 tablet by mouth in the morning. Historical Provider, CHRONIC NARCOTIC USE: No Allergies: Penicillins, Lisinopril, and Ramipril Can the patient take acetaminophen: Yes Social History: TOBACCO: reports that he has never smoked. He quit smokeless tobacco use about 20 years ago. His smokeless tobacco use included chew. ETOH: reports current alcohol use of about 15.0 standard drinks of alcohol per week. Social History Substance and Sexual Activity Drug Use Not Currently Family History: No family history on file. REVIEW OF SYSTEMS: Review of Systems Constitutional: Negative for chills and fever. Respiratory: Positive for cough and shortness of breath. Cardiovascular: Positive for chest pain, palpitations and leg swelling. Gastrointestinal: Negative for abdominal pain, blood in stool, diarrhea and vomiting. Genitourinary: Negative for dysuria and hematuria. Skin: Negative for rash and wound. Neurological: Positive for dizziness. Negative for syncope. Physical Exam: Physical Exam Vitals reviewed. Constitutional: Appearance: Normal appearance. HENT: Head: Normocephalic and atraumatic. Nose: Nose normal. Mouth/Throat: Mouth: Mucous membranes are moist. Pharynx: Oropharynx is clear. Cardiovascular: Rate and Rhythm: Normal rate and regular rhythm. Pulses: Radial pulses are 2+ on the right side. Heart sounds: Normal heart sounds. No murmur heard. Pulmonary: Effort: Pulmonary effort is normal. Breath sounds: Normal breath sounds. No wheezing or rhonchi. Abdominal: General: Bowel sounds are normal. Palpations: Abdomen is soft. Tenderness: There is no abdominal tenderness. Musculoskeletal: Cervical back: Normal range of motion and neck supple. Right lower leg: No edema. Left lower leg: No edema. Comments: Moves all extremities Skin: General: Skin is warm and dry. Capillary Refill: Capillary refill takes less than 2 seconds. Findings: No rash. Neurological: Mental Status: He is alert and oriented to person, place, and time. Sensory: Sensation is intact. Motor: Motor function is intact. Psychiatric: Mood and Affect: Mood and affect normal. Vitals: Vitals Value Taken Time BP 115/69 10/01/22 1513 Temp 36.1 C (97 F) 10/01/22 1513 Pulse 47 10/01/22 1513 Resp 20 10/01/22 1513 SpO2 99 % 10/01/22 1513 Labs: Lab Results Component Value Date WBC 5.0 10/01/2022 HGB 14.5 10/01/2022 HCT 42.6 10/01/2022 MCV 85.7 10/01/2022 PLT 168 10/01/2022 Lab Results Component Value Date NA 137 10/01/2022 K 3.9 10/01/2022 CL 102 10/01/2022 CO2 27 10/01/2022 BUN 14 10/01/2022 CREATININE 0.80 10/01/2022 GLUCOSE 105 (H) 10/01/2022 CALCIUM 8.8 10/01/2022 PROT 7.4 10/01/2022 ALKPHOS 81 10/01/2022 AST 36 10/01/2022 ALT 26 10/01/2022 EGFR >90.0 10/01/2022 Javi's Simple Cardiac Risk Index: JAVI'S SIMPLE CARDIAC RISK SCORE: 3 Interpretation: 0 Points Class I 0.5% 1 Point Class II 1.3% 2 Points Class III 3.6% 3+ Points Class IV 9.1% METS: >4 METS (Able to climb a flight of stairs with no chest pain or shortness of breath): No PAT Pain Score: 2 Postop Pain Management Plan (Pain consult ordered?): Pain consult not indicated at this time ? EKG: ECG Waveforms - Scan on 10/01/2022 3:52 PMECG Waveforms - Scan on 10/01/2022 3:52 PM Interpretation Summary IMPRESSION: Sinus bradycardia ECG Measurements QRSD Interval: 93 ms QT Interval: 480 ms QTC Interval: 418 ms Heart Rate: 45 bpm P [place]: 29 degrees QRS [place]: 63 degrees T Wave [place]: 38 degrees ECHO and EF: Procedure Date: 08-07-2008 Case #: [id number] Conclusions: 42 YEAR old male with a h/o ischemic cardiomyopathy and LVEF of 40-45%. H/o VF arrest in the setting of coronary occlusion. Has a residual scar and therefore EPS undertaken to evaluate for risk stratification A) Normal SN function B) No dual AVN Physiology. No infrahisian disease C) Baseline tenuous VA conduction D) No evidence of V-tachycardia/VF with S-5 protocol from RVA and RVOT Post-Procedure Recommendations: A) No indication for an ICD at this point B) FU with cardiologists at [place] for further cardiac care. ASSESSMENT/PLAN: Patient is considered intermediate risk for this high risk procedure/surgery () with no reducible risk factors. Based on the above evaluation, the benefits of the planned procedure likely exceed the risks. 1) Atherosclerotic heart disease of venetie ira coronary artery without angina pectoris - Follows with [facility] for cardiology - History of stents Yes, . Patient instructed to continue aspirin uninterrupted as discontinuation of aspirin in the presence of a coronary stent has been associated with jacqueline-operative stent thrombosis, myocardial infarction and . Patient verbalized understanding rationale and instruction. -Patient reports compliance to medication. - Managed per surgery 2) DM - Managed by Dr. Bosch CCMilagros. - Patient reports compliance to medications - Diabetic medications per PAT protocol. Patient will take PAT insulin pump protocol and communicate this to his public health program manager to ensure that they are comfortable with this regimen for the patient based on his insulin needs for his procedure. - Patient aware per anesthesia protocol, BS must be below 250 DOS No results found for: HGBA1C 3) HLD -statin therapy - Yes, crestor -lifestyle modifications encouraged No results found for: CHOL No results found for: HDL No results found for: LDLCALC No results found for: TRIG No results found for: CHOLHDL Visit Type: Pre-Admission Testing Visit Labs Ordered: As per surgeon's and PAT orders Sleep Referral Ordered: YES - POSITIVE SCREEN PER SLEEP REFERRAL PROTOCOL Electronically signed by: Anayeli Thomas NP Date: 10/01/2022 at 4:50 PM PAT Protocol referenced includes: 1. Anesthesia Lab Protocol Orders 2. Perioperative Cardiovascular Risk Assessment 3. Anesthesia Assessment 4. Pain Assessment and Acute Pain Service Consult (if appropriate) 5. Medical Clearance/Consult from Internal Medicine (IMS) 6. Shower/Wash Order (for designated surgeries) 7. MIGUEL Screen and Sleep Clinic Referral (if appropriate) documented in this encounter [facility] 10-01-2022 Note Patient: Jaydon calvert Procedure Information Date/Time: 10/07/22 0730 Procedures: CABG,STERNAL PLATING, SAGAR (Chest) Echocardiography transesophageal real-time OPEN TREATMENT OF STERNUM FRACTURE WITH OR WITHOUT SKELETAL FIXATION Location: [facility] OR Operating Room Surgeons: Ericka Bagley MD Past Medical History: Past Medical History: January 2007: Coronary artery disease Approx 1995: Diabetes mellitus (HCC) No date: Hyperlipidemia February 2008: Myocardial infarction (CMS/HCC) (HCC) Past Surgical History: Past Surgical History: last was on 09/29/2022: CARDIAC CATHETERIZATION 6 total, last was in December 2018: CORONARY STENT PLACEMENT Social History: TOBACCO: reports that he has never smoked. He quit smokeless tobacco use about 20 years ago. His smokeless tobacco use included chew. ETOH: reports current alcohol use of about 15.0 standard drinks of alcohol per week. Social History Substance and Sexual Activity Drug Use Not Currently Family History: No family history on file. Screening: unknown Clinical information reviewed: Tobacco Allergies Meds Med Hx Surg Hx Fam Hx Soc Hx Physical Exam Airway Mallampati: II TM distance: >3 FB Neck ROM: full Mouth Open: normalendotracheal tube not in place Cardiovascular Dental dentition normal Pulmonary Abdominal Anesthesia Plan patient is NPO appropriate Any family history or previous problems with anesthesia no ASA 4 general Any family history or previous problems with anesthesia no The patient is not a current smoker. Anesthetic plan and risks discussed with patient. Blood Glucose Patient has an insulin pump sliding scale not ordered MIGUEL Screening STOP-Bang Total Score: 5 Labs: No results found for: WBC, HGB, HCT, MCV, PLT No results found for: NA, K, CL, CO2, BUN, CREATININE, GLUCOSE, CALCIUM, PROT, BILIRUBINFL, ALKPHOS, AST, ALT, EGFR, GLOB No echocardiogram results found for the past 14 days No results found for this or any previous visit. ECG 10/01/2022 IMPRESSION: Sinus bradycardia [facility] 10-01-2022 Note Comprehensive PreSur gical History and Physical ? Name: Jaydon Arellano : 1965 (Age-56 y.o.) Date of Service: Pt seen/examined on 10/01/2022 Procedure Information Date/Time: 10/07/22 0730 Procedures: CABG, SAGAR (Chest) Echocardiography transesophageal real-time Location: [facility] OR [facility] Operating Room Surgeons: Ericka Bagley MD Chief Complaint: Atherosclerotic heart disease of venetie ira coronary artery without angina pectoris History Of Present Illness: Case: [id number] Date/Time: 10/07/22 0730 Procedures: CABG, SAGAR (Chest) [22332 CPT(R)] Echocardiography transesophageal real-time [64706 CPT(R)] Anesthesia type: General Diagnosis: Atherosclerotic heart disease of ven[place] ir[place] coronary artery without angina pectoris [I25.10] Pre-op diagnosis: Atherosclerotic heart disease of ven[place]ie ir[place] coronary artery without angina pectoris [I25.10] Location: [facility] OR [address] [place] [address] Operating Room Surgeons: Ericka Bagley MD Per note, pt has a history of CAD with multiple stenting to his LAD most recently in December 2018, cardiac arrest in February 2008, ischemic cardiomyopathy, sinus bradycardia, and hyperlipidemia. He is also an insulin dependent diabetic. Pt saw Cardiology with c/o chest heaviness and muscle ache in his left chest with rest and exertion. He reported that his exercise tolerance has decreased and that he has more SOB when running. He also reported having some lightheadedness and dizziness. A1C was 8.1. Pt then underwent a heart catheterization on 09/29/22 which demonstrated multivessel disease. Past Medical History: Past Medical History: January 2007: Coronary artery disease 1995: Diabetes mellitus ([facility]) No date: Hyperlipidemia February 2008: Myocardial infarction ([facility]/HCC) ([facility]) Past Surgical History: Past Surgical History: last was on 09/29/2022: CARDIAC CATHETERIZATION 6 total, last was in December 2018: CORONARY STENT PLACEMENT Medications Prior to Admission: Prior to Admission medications Medication Sig Start Date End Date Taking? Authorizing Provider Accu-Chek Guide test strip 1 strip by Other route in the morning and 1 strip at noon and 1 strip in the evening. Take with meals. 07/02/22 Historical Provider, aspirin 325 MG tablet Take 1 tablet by mouth in the morning. Historical Provider, carvedilol (Coreg) 12.5 MG tablet Take 1 tablet by mouth in the morning and 1 tablet in the evening. Historical Provider, chlorhexidine (Peridex) 0.12 % solution Use 15 mL in the mouth or throat Once for 1 dose. Swish for 30 seconds and spit out the night before surgery. Do not swallow. 10/01/22 10/01/22 Debbi Yanez APRN - [employer] clopidogrel (Plavix) 75 MG tablet Take 1 tablet by mouth in the morning. Historical Provider, Insulin Glargine w/ Trans Port 100 UNIT/ML solution pen-injector Inject 15 Units under the skin daily. 03/28/22 Historical Provider, losartan (Cozaar) 25 MG tablet Take 1 tablet by mouth daily. Historical Provider, mupirocin (Bactroban) 2 % ointment Apply liberal amount per nostril the night before surgery and then again the morning of surgery 10/01/22 Debbi Yanez APRN - [facility] nitroglycerin (Nitrostat) 0.[address] 0.4 mg under the tongue Daily as needed. Historical Provider, rosuvastatin (Crestor) 10 MG tablet Take 1 tablet by mouth in the morning. Historical Provider, CHRONIC NARCOTIC USE: No Allergies: Penicillins, Lisinopril, and Ramipril Can the patient take acetaminophen: Yes Social History: TOBACCO: reports that he has never smoked. He quit smokeless tobacco use about 20 years ago. His smokeless tobacco use included chew. ETOH: reports current alcohol use of about 15.0 standard drinks of alcohol per week. Social History Substance and Sexual Activity Drug Use Not Currently Family History: No family history on file. REVIEW OF SYSTEMS: Review of Systems Constitutional: Negative for chills and fever. Respiratory: Positive for cough and shortness of breath. Cardiovascular: Positive for chest pain, palpitations and leg swelling. Gastrointestinal: Negative for abdominal pain, blood in stool, diarrhea and vomiting. Genitourinary: Negative for dysuria and hematuria. Skin: Negative for rash and wound. Neurological: Positive for dizziness. Negative for syncope. Physical Exam: Physical Exam Vitals reviewed. Constitutional: Appearance: Normal appearance. HENT: Head: Normocephalic and atraumatic. Nose: Nose normal. Mouth/Throat: Mouth: Mucous membranes are moist. Pharynx: Oropharynx is clear. Cardiovascular: Rate and Rhythm: Normal rate and regular rhythm. Pulses: Radial pulses are 2+ on the right side. Heart sounds: Normal heart sounds. No murmur heard. Pulmonary: Effort: Pulmonary effort is normal. Breath sounds: Normal breath sounds. No wheezing or rhonchi. Abdominal: General: Bowel sounds are normal. Palpations: Abdomen is soft. Tenderne (more content not included)... [facility] 10-01-2022 Note Comprehensive PreSur gical History and Physical ? Name: Jaydon Arellano : 1965 (Age-56 y.o.) Date of Service: Pt seen/examined on 10/01/2022 Procedure Information Date/Time: 10/07/22 0730 Procedures: CABG, SAGAR (Chest) Echocardiography transesophageal real-time Location: [address] Operating Room Surgeons: Ericka Bagley MD Chief Complaint: Atherosclerotic heart disease of ven[place] ir[place] coronary artery without angina pectoris History Of Present Illness: Case: [id number] Date/Time: 10/07/22 0730 Procedures: CABG, SAGAR (Chest) [37372 CPT(R)] Echocardiography transesophageal real-time [72439 CPT(R)] Anesthesia type: General Diagnosis: Atherosclerotic heart disease of ven[place] ir[place] coronary artery without angina pectoris [I25.10] Pre-op diagnosis: Atherosclerotic heart disease of ven[place] ir[place] coronary artery without angina pectoris [I25.10] Location: [address] Operating Room Surgeons: Ericka Bagley MD Per note, pt has a history of CAD with multiple stenting to his LAD most recently in December 2018, cardiac arrest in February 2008, ischemic cardiomyopathy, sinus bradycardia, and hyperlipidemia. He is also an insulin dependent diabetic. Pt saw Cardiology with c/o chest heaviness and muscle ache in his left chest with rest and exertion. He reported that his exercise tolerance has decreased and that he has more SOB when running. He also reported having some lightheadedness and dizziness. A1C was 8.1. Pt then underwent a heart catheterization on 09/29/22 which demonstrated multivessel disease. Past Medical History: Past Medical History: January 2007: Coronary artery disease Approx 1995: Diabetes mellitus ([facility]) No date: Hyperlipidemia February 2008: Myocardial infarction ([facility]/HCC) ([facility]) Past Surgical History: Past Surgical History: last was on 09/29/2022: CARDIAC CATHETERIZATION 6 total, last was in December 2018: CORONARY STENT PLACEMENT Medications Prior to Admission: Prior to Admission medications Medication Sig Start Date End Date Taking? Authorizing Provider Accu-Chek Guide test strip 1 strip by Other route in the morning and 1 strip at noon and 1 strip in the evening. Take with meals. 07/02/22 Historical Provider, aspirin 325 MG tablet Take 1 tablet by mouth in the morning. Historical Provider, carvedilol (Coreg) 12.5 MG tablet Take 1 tablet by mouth in the morning and 1 tablet in the evening. Historical Provider, chlorhexidine (Peridex) 0.12 % solution Use 15 mL in the mouth or throat Once for 1 dose. Swish for 30 seconds and spit out the night before surgery. Do not swallow. 10/01/22 10/01/22 RIKA Monroe CNP clopidogrel (Plavix) 75 MG tablet Take 1 tablet by mouth in the morning. Historical Provider, Insulin Glargine w/ Trans Port 100 UNIT/ML solution pen-injector Inject 15 Units under the skin daily. 03/28/22 Historical Provider, losartan (Cozaar) 25 MG tablet Take 1 tablet by mouth daily. Historical Provider, mupirocin (Bactroban) 2 % ointment Apply liberal amount per nostril the night before surgery and then again the morning of surgery 10/01/22 RIKA Monroe CNP nitroglycerin (Nitrostat) 0.[address] 0.4 mg under the tongue Daily as needed. Historical Provider, rosuvastatin (Crestor) 10 MG tablet Take 1 tablet by mouth in the morning. Historical Provider, CHRONIC NARCOTIC USE: No Allergies: Penicillins, Lisinopril, and Ramipril Can the patient take acetaminophen: Yes Social History: TOBACCO: reports that he has never smoked. He quit smokeless tobacco use about 20 years ago. His smokeless tobacco use included chew. ETOH: reports current alcohol use of about 15.0 standard drinks of alcohol per week. Social History Substance and Sexual Activity Drug Use Not Currently Family History: No family history on file. REVIEW OF SYSTEMS: Review of Systems Constitutional: Negative for chills and fever. Respiratory: Positive for cough and shortness of breath. Cardiovascular: Positive for chest pain, palpitations and leg swelling. Gastrointestinal: Negative for abdominal pain, blood in stool, diarrhea and vomiting. Genitourinary: Negative for dysuria and hematuria. Skin: Negative for rash and wound. Neurological: Positive for dizziness. Negative for syncope. Physical Exam: Physical Exam Vitals reviewed. Constitutional: Appearance: Normal appearance. HENT: Head: Normocephalic and atraumatic. Nose: Nose normal. Mouth/Throat: Mouth: Mucous membranes are moist. Pharynx: Oropharynx is clear. Cardiovascular: Rate and Rhythm: Normal rate and regular rhythm. Pulses: Radial pulses are 2+ on the right side. Heart sounds: Normal heart sounds. No murmur heard. Pulmonary: Effort: Pulmonary effort is normal. Breath sounds: Normal breath sounds. No wheezing or rhonchi. Abdominal: General: Bowel sounds are normal. Palpations: Abdomen is soft. Tenderne (more content not included)... [facility] 10-01-2022 Note Prep for Procedure O rder Request: 10/01/22 Surgeon: Dr. Bagley Surgery/Procedure: CABG & SAGAR Plan Admit: Yes PAT Appointment: 10/01/22 at 3:00 PM Date if yes: 10/01/22 Date of Surgery/Procedure: 10/07/22 at 7:30 AM Medication needed prescribed: [] None [x] Nasal ointment and mouth rinse [] Other: [facility] 10-01-2022 History and physical note Images from the original note were not included. Comprehensive PreSurgical History and Physical ? Name: Jaydon Arellano : 1965 (Age-56 y.o.) Date of Service: Pt seen/examined on 10/01/2022 Procedure Information Date/Time: 10/07/22 0730 Procedures: CABG, SAGAR (Chest) Echocardiography transesophageal real-time Location: [facility] OR [address] [place] [address] Operating Room Surgeons: Ericka Bagley MD Chief Complaint: Atherosclerotic heart disease of [place] ir[place] coronary artery without angina pectoris History Of Present Illness: Case: [id number] Date/Time: 10/07/22 07 Procedures: CABG, SAGAR (Chest) [90675 CPT(R)] Echocardiography transesophageal real-time [80632 CPT(R)] Anesthesia type: General Diagnosis: Atherosclerotic heart disease of ven[place] ir[place] coronary artery without angina pectoris [I25.10] Pre-op diagnosis: Atherosclerotic heart disease of [place] ir[place] coronary artery without angina pectoris [I25.10] Location: [address] Operating Room Surgeons: Ericka Bagley MD Per note, pt has a history of CAD with multiple stenting to his LAD most recently in December 2018, cardiac arrest in February 2008, ischemic cardiomyopathy, sinus bradycardia, and hyperlipidemia. He is also an insulin dependent diabetic. Pt saw Cardiology with c/o chest heaviness and muscle ache in his left chest with rest and exertion. He reported that his exercise tolerance has decreased and that he has more SOB when running. He also reported having some lightheadedness and dizziness. A1C was 8.1. Pt then underwent a heart catheterization on 09/29/22 which demonstrated multivessel disease. Past Medical History: Past Medical History: January 2007: Coronary artery disease Approx 1995: Diabetes mellitus (HCC) No date: Hyperlipidemia February 2008: Myocardial infarction (CMS/HCC) (HCC) Past Surgical History: Past Surgical History: last was on 09/29/2022: CARDIAC CATHETERIZATION 6 total, last was in December 2018: CORONARY STENT PLACEMENT Medications Prior to Admission: Prior to Admission medications Medication Sig Start Date End Date Taking? Authorizing Provider Accu-Chek Guide test strip 1 strip by Other route in the morning and 1 strip at noon and 1 strip in the evening. Take with meals. 07/02/22 Historical Provider, aspirin 325 MG tablet Take 1 tablet by mouth in the morning. Historical Provider, carvedilol (Coreg) 12.5 MG tablet Take 1 tablet by mouth in the morning and 1 tablet in the evening. Historical Provider, chlorhexidine (Peridex) 0.12 % solution Use 15 mL in the mouth or throat Once for 1 dose. Swish for 30 seconds and spit out the night before surgery. Do not swallow. 10/01/22 10/01/22 RIKA Monroe CNP clopidogrel (Plavix) 75 MG tablet Take 1 tablet by mouth in the morning. Historical Provider, Insulin Glargine w/ Trans Port 100 UNIT/ML solution pen-injector Inject 15 Units under the skin daily. 03/28/22 Historical Provider, losartan (Cozaar) 25 MG tablet Take 1 tablet by mouth daily. Historical Provider, mupirocin (Bactroban) 2 % ointment Apply liberal amount per nostril the night before surgery and then again the morning of surgery 10/01/22 RIKA Monroe CNP nitroglycerin (Nitrostat) 0.[address] 0.4 mg under the tongue Daily as needed. Historical Provider, rosuvastatin (Crestor) 10 MG tablet Take 1 tablet by mouth in the morning. Historical Provider, CHRONIC NARCOTIC USE: No Allergies: Penicillins, Lisinopril, and Ramipril Can the patient take acetaminophen: Yes Social History: TOBACCO: reports that he has never smoked. He quit smokeless tobacco use about 20 years ago. His smokeless tobacco use included chew. ETOH: reports current alcohol use of about 15.0 standard drinks of alcohol per week. Social History Substance and Sexual Activity Drug Use Not Currently Family History: No family history on file. REVIEW OF SYSTEMS: Review of Systems Constitutional: Negative for chills and fever. Respiratory: Positive for cough and shortness of breath. Cardiovascular: Positive for chest pain, palpitations and leg swelling. Gastrointestinal: Negative for abdominal pain, blood in stool, diarrhea and vomiting. Genitourinary: Negative for dysuria and hematuria. Skin: Negative for rash and wound. Neurological: Positive for dizziness. Negative for syncope. Physical Exam: Physical Exam Vitals reviewed. Constitutional: Appearance: Normal appearance. HENT: Head: Normocephalic and atraumatic. Nose: Nose normal. Mouth/Throat: Mouth: Mucous membranes are moist. Pharynx: Oropharynx is clear. Cardiovascular: Rate and Rhythm: Normal rate and regular rhythm. Pulses: Radial pulses are 2+ on the right side. Heart sounds: Normal heart sounds. No murmur heard. Pulmonary: Effort: Pulmonary effort is normal. Breath sounds: Normal breath sounds. No wheezing or rhonchi. Abdominal: General: Bowel sounds are normal. Palpations: Abdomen is soft. Tenderness: There is no abdominal tenderness. Musculoskeletal: Cervical back: Normal range of motion and neck supple. Right lower leg: No edema. Left lower leg: No edema. Comments: Moves all extremities Skin: General: Skin is warm and dry. Capillary Refill: Capillary refill takes less than 2 seconds. Findings: No rash. Neurological: Mental Status: He is alert and oriented to person, place, and time. Sensory: Sensation is intact. Motor: Motor function is intact. Psychiatric: Mood and Affect: Mood and affect normal. Vitals: Vitals Value Taken Time BP 115/69 10/01/22 1513 Temp 36.1 C (97 F) 10/01/22 1513 Pulse 47 10/01/22 1513 Resp 20 10/01/22 1513 SpO2 99 % 10/01/22 1513 Labs: Lab Results Component Value Date WBC 5.0 10/01/2022 HGB 14.5 10/01/2022 HCT 42.6 10/01/2022 MCV 85.7 10/01/2022 PLT 168 10/01/2022 Lab Results Component Value Date NA 137 10/01/2022 K 3.9 10/01/2022 CL 102 10/01/2022 CO2 27 10/01/2022 BUN 14 10/01/2022 CREATININE 0.80 10/01/2022 GLUCOSE 105 (H) 10/01/2022 CALCIUM 8.8 10/01/2022 PROT 7.4 10/01/2022 ALKPHOS 81 10/01/2022 AST 36 10/01/2022 ALT 26 10/01/2022 EGFR >90.0 10/01/2022 Javi's Simple Cardiac Risk Index: JAVI'S SIMPLE CARDIAC RISK SCORE: 3 Interpretation: 0 Points Class I 0.5% 1 Point Class II 1.3% 2 Points Class III 3.6% 3+ Points Class IV 9.1% METS: >4 METS (Able to climb a flight of stairs with no chest pain or shortness of breath): No PAT Pain Score: 2 Postop Pain Management Plan (Pain consult ordered?): Pain consult not indicated at this time ? EKG: ECG Waveforms - Scan on 10/01/2022 3:52 PMECG Waveforms - Scan on 10/01/2022 3:52 PM Interpretation Summary IMPRESSION: Sinus bradycardia ECG Measurements QRSD Interval: 93 ms QT Interval: 480 ms QTC Interval: 418 ms Heart Rate: 45 bpm P [place]: 29 degrees QRS [place]: 63 degrees T Wave [place]: 38 degrees ECHO and EF: Procedure Date: 08-07-2008 Case #: [id number] Conclusions: 42 YEAR old male with a h/o ischemic cardiomyopathy and LVEF of 40-45%. H/o VF arrest in the setting of coronary occlusion. Has a residual scar and therefore EPS undertaken to evaluate for risk stratification A) Normal SN function B) No dual AVN Physiology. No infrahisian disease C) Baseline tenuous VA conduction D) No evidence of V-tachycardia/VF with S-5 protocol from RVA and RVOT Post-Procedure Recommendations: A) No indication for an ICD at this point B) FU with cardiologists at [facility] for further cardiac care. ASSESSMENT/PLAN: Patient is considered intermediate risk for this high risk procedure/surgery () with no reducible risk factors. Based on the above evaluation, the benefits of the planned procedure likely exceed the risks. 1) Atherosclerotic heart disease of venetie ira coronary artery without angina pectoris - Follows with [facility] for cardiology - History of stents Yes, . Patient instructed to continue aspirin uninterrupted as discontinuation of aspirin in the presence of a coronary stent has been associated with jacqueline-operative stent thrombosis, myocardial infarction and . Patient verbalized understanding rationale and instruction. -Patient reports compliance to medication. - Managed per surgery 2) DM - Managed by Dr. Bosch CCMilagros. - Patient reports compliance to medications - Diabetic medications per PAT protocol. Patient will take PAT insulin pump protocol and communicate this to his public health program manager to ensure that they are comfortable with this regimen for the patient based on his insulin needs for his procedure. - Patient aware per anesthesia protocol, BS must be below 250 DOS No results found for: HGBA1C 3) HLD -statin therapy - Yes, crestor -lifestyle modifications encouraged No results found for: CHOL No results found for: HDL No results found for: LDLCALC No results found for: TRIG No results found for: CHOLHDL Visit Type: Pre-Admission Testing Visit Labs Ordered: As per surgeon's and PAT orders Sleep Referral Ordered: YES - POSITIVE SCREEN PER SLEEP REFERRAL PROTOCOL Electronically signed by: Anayeli Thomas NP Date: 10/01/2022 at 4:50 PM PAT Protocol referenced includes: 1. Anesthesia Lab Protocol Orders 2. Perioperative Cardiovascular Risk Assessment 3. Anesthesia Assessment 4. Pain Assessment and Acute Pain Service Consult (if appropriate) 5. Medical Clearance/Consult from Internal Medicine (IMS) 6. Shower/Wash Order (for designated surgeries) 7. MIGUEL Screen and Sleep Clinic Referral (if appropriate) [facility] [employer] Work Phone: 10-01-2022 Note [facility] [address] [facility] [address] Dept: [phone] Dept Loc: [phone] Visit type: New Reason for Visit: Coronary artery disease Assessment and plan 56-year-old male with type 1 diabetes and coronary artery disease. Coronary artery disease: I discussed with him the indications, risks, benefits, and perioperative course of a coronary artery bypass grafting. I discussed alternatives including no intervention, medical therapy only, and percutaneous coronary intervention with medications. A surgical revascularization is recommended in his case. On my review of the coronary angiogram, he does have good targets and will need 3 vessel bypass grafts. He is quite functional and is of low risk. He is agreeable. We also discussed utility of repeat echocardiogram. When he had his heart attack several years ago, his ejection fraction was low to 30-35% and has since improved to 50% last year. He does not have any murmurs. We discussed proceeding to surgery without a repeat echo and probabilities of concomitant interventions if intraoperative transesophageal echocardiogram identifies any valvular lesions. He understands and is willing to proceed without preoperative surface echo. Although he is quite fit and has been training for a triathlon, his symptoms have increased. I have cautioned against any exertional activity. He should rest till his surgical intervention. The risks of the procedure/s include but are not limited to, bleeding, infection, pneumonia, respiratory failure, prolonged Intensive Care Unit stay, multiorgan failure, renal failure needing temporary and/or permanent dialysis, cerebrovascular accident, pulmonary embolism, deep venous thrombosis, cardiac failure or ischemia or arrhythmia, and . Although he is quite young, the lesions in the right coronary artery and left circumflex distribution are not significant enough arterial conduits use. Type 1 diabetes, elevated hemoglobin A1c: Discussed importance of diabetes control especially with continued coronary artery disease. Stressed importance of decreasing A1c. He will be evaluated by the public health program manager while admitted. Ericka Bagley MD Cardiothoracic Surgery History of Present Illness Jaydon Arellano is a 56 y.o. male referred by Dr. Valle for CABG. Per note, pt has a history of CAD with multiple stenting to his LAD most recently in December 2018, cardiac arrest in February 2008, ischemic cardiomyopathy, sinus bradycardia, and hyperlipidemia. He is also an insulin dependent diabetic. Pt saw Cardiology with c/o chest heaviness and muscle ache in his left chest with rest and exertion. He reported that his exercise tolerance has decreased and that he has more SOB when running. He also reported having some lightheadedness and dizziness. A1C was 8.1. Pt then underwent a heart catheterization on 09/29/22 which demonstrated multivessel disease. Pt is here now for an evaluation. Past Medical History Past Medical History: Diagnosis Date Coronary artery disease January 2007 Diabetes mellitus (HCC) Approx 1995 Hyperlipidemia Myocardial infarction (CMS/HCC) (HCC) February 2008 Past Surgical History Past Surgical History: Procedure Laterality Date CARDIAC CATHETERIZATION last was on 09/29/2022 CORONARY STENT PLACEMENT 6 total, last was in December 2018 Family History No family history on file. Social History Social History Tobacco Use Smoking status: Never Smokeless tobacco: Former Types: Chew Quit date: 08/11/2002 Vaping Use Vaping Use: Never used Substance Use Topics Alcohol use: Yes Alcohol/week: 15.0 standard drinks of alcohol Types: 12 Cans of beer, 3 Shots of liquor per week Drug use: Not Currently Allergies Allergies Allergen Reactions Penicillins Anaphylaxis, Hives, Shortness of breath, Itching, Swelling and Rash Other reaction(s): anaphylaxis, Unknown SOB, rash, hives Lisinopril Cough Ramipril Cough Medications Current Outpatient Medications: Accu-Chek Guide test strip, 1 strip by Other route in the morning and 1 strip at noon and 1 strip in the evening. Take with meals., Disp: , Rfl: carvedilol (Coreg) 12.5 MG tablet, Take 1 tablet by mouth in the morning and 1 tablet in the evening., Disp: , Rfl: clopidogrel (Plavix) 75 MG tablet, Take 1 tablet by mouth daily with supper., Disp: , Rfl: losartan (Cozaar) 25 MG tablet, Take 1 tablet by mouth daily with supper., Disp: , Rfl: nitroglycerin (Nitrostat) 0.4 MG SL tablet, Place 0.4 mg under the tongue Daily as needed., Disp: , Rfl: rosuvastatin (Crestor) 10 MG tablet, Take 1 tablet by mouth three times a week. Mon, Weds, Fri with dinner, Disp: , Rfl: aspirin 81 MG EC tablet, Take 81 mg by mouth daily., Disp: , Rfl: Lyumjev 100 UNIT/ML injection, Insulin pump, Disp: , Rfl: mupirocin (Bactroban) (more content not included)... [facility] 10-01-2022 Telephone encounter Note Surg proc placed [facility] 10-01-2022 Miscellaneous Notes Surg proc placed Prep for Procedure Order Request: 10/01/22 Surgeon: Dr. Bagley Surgery/Procedure: CABG & SAGAR Plan Admit: Yes PAT Appointment: 10/01/22 at 3:00 PM Date if yes: 10/01/22 Date of Surgery/Procedure: 10/07/22 at 7:30 AM Medication needed prescribed: [] None [x] Nasal ointment and mouth rinse [] Other: documented in this encounter [facility] 10-01-2022 Telephone encounter Note Prep for Procedure Order Request: 10/01/22 Surgeon: Dr. Bagley Surgery/Procedure: CABG & SAGAR Plan Admit: Yes PAT Appointment: 10/01/22 at 3:00 PM Date if yes: 10/01/22 Date of Surgery/Procedure: 10/07/22 at 7:30 AM Medication needed prescribed: [] None [x] Nasal ointment and mouth rinse [] Other: [facility] 10-01-2022 History of Present illness Narrative Images from the original note were not included. [facility]ARDIOVASC[facility]ORACIC SURGERY [address] [facility] [address] Dept: [phone] Dept Loc: [phone] Visit type: New Reason for Visit: Coronary artery disease Assessment and plan 56-year-old male with type 1 diabetes and coronary artery disease. Coronary artery disease: I discussed with him the indications, risks, benefits, and perioperative course of a coronary artery bypass grafting. I discussed alternatives including no intervention, medical therapy only, and percutaneous coronary intervention with medications. A surgical revascularization is recommended in his case. On my review of the coronary angiogram, he does have good targets and will need 3 vessel bypass grafts. He is quite functional and is of low sex risk. He is agreeable. We also discussed utility of repeat echocardiogram. When he had his heart attack several years ago, his ejection fraction was low to 30-35% and has since improved to 50% last year. He does not have any murmurs. We discussed proceeding to surgery without a repeat echo and probabilities of concomitant interventions if intraoperative transesophageal echocardiogram identifies any valvular lesions. He understands and is willing to proceed without preoperative surface echo. Although he is quite fit and has been training for a triathlon, his symptoms have increased. I have cautioned against any exertional activity. He should rest till his surgical intervention. The risks of the procedure/s include but are not limited to, bleeding, infection, pneumonia, respiratory failure, prolonged Intensive Care Unit stay, multiorgan failure, renal failure needing temporary and/or permanent dialysis, cerebrovascular accident, pulmonary embolism, deep venous thrombosis, cardiac failure or ischemia or arrhythmia, and . Although he is quite young, the lesions in the right coronary artery and left circumflex distribution are not significant enough arterial conduits use. Type 1 diabetes, elevated hemoglobin A1c: Discussed importance of diabetes control especially with continued coronary artery disease. Stressed importance of decreasing A1c. He will be evaluated by the public health program manager while admitted. Ericka Bagley MD Cardiothoracic Surgery History of Present Illness Jaydon Arellano is a 56 y.o. male referred by Dr. Valle for CABG. Per note, pt has a history of CAD with multiple stenting to his LAD most recently in December 2018, cardiac arrest in February 2008, ischemic cardiomyopathy, sinus bradycardia, and hyperlipidemia. He is also an insulin dependent diabetic. Pt saw Cardiology with c/o chest heaviness and muscle ache in his left chest with rest and exertion. He reported that his exercise tolerance has decreased and that he has more SOB when running. He also reported having some lightheadedness and dizziness. A1C was 8.1. Pt then underwent a heart catheterization on 09/29/22 which demonstrated multivessel disease. Pt is here now for an evaluation. Past Medical History Past Medical History: Diagnosis Date Coronary artery disease January 2007 Diabetes mellitus (HCC) Approx 1995 Hyperlipidemia Myocardial infarction (CMS/HCC) (HCC) February 2008 Past Surgical History Past Surgical History: Procedure Laterality Date CARDIAC CATHETERIZATION last was on 09/29/2022 CORONARY STENT PLACEMENT 6 total, last was in December 2018 Family History No family history on file. Social History Social History Tobacco Use Smoking status: Never Smokeless tobacco: Former Types: Chew Quit date: 08/11/2002 Vaping Use Vaping Use: Never used Substance Use Topics Alcohol use: Yes Alcohol/week: 15.0 standard drinks of alcohol Types: 12 Cans of beer, 3 Shots of liquor per week Drug use: Not Currently Allergies Allergies Allergen Reactions Penicillins Anaphylaxis, Hives, Shortness of breath, Itching, Swelling and Rash Other reaction(s): anaphylaxis, Unknown SOB, rash, hives Lisinopril Cough Ramipril Cough Medications Current Outpatient Medications: Accu-Chek Guide test strip, 1 strip by Other route in the morning and 1 strip at noon and 1 strip in the evening. Take with meals., Disp: , Rfl: carvedilol (Coreg) 12.5 MG tablet, Take 1 tablet by mouth in the morning and 1 tablet in the evening., Disp: , Rfl: clopidogrel (Plavix) 75 MG tablet, Take 1 tablet by mouth daily with supper., Disp: , Rfl: losartan (Cozaar) 25 MG tablet, Take 1 tablet by mouth daily with supper., Disp: , Rfl: nitroglycerin (Nitrostat) 0.4 MG SL tablet, Place 0.4 mg under the tongue Daily as needed., Disp: , Rfl: rosuvastatin (Crestor) 10 MG tablet, Take 1 tablet by mouth three times a week. Mon, , Thu with dinner, Disp: , Rfl: aspirin 81 MG EC tablet, Take 81 mg by mouth daily., Disp: , Rfl: Lyumjev 100 UNIT/ML injection, Insulin pump, Disp: , Rfl: mupirocin (Bactroban) 2 % ointment, Apply liberal amount per nostril the night before surgery and then again the morning of surgery, Disp: 1 g, Rfl: 0 rosuvastatin (Crestor) 20 MG tablet, Take 20 mg by mouth daily. , , Thursday & Thursday with dinner, Disp: , Rfl: Review of Systems Review of Systems Constitutional: Positive for fatigue. Respiratory: Positive for chest tightness and shortness of breath. Neurological: Positive for dizziness and light-headedness. All other systems reviewed and are negative. Physical Exam Vitals: BP 115/69 Pulse (!) 47 Temp 36.1 C (97 F) (Temporal) Resp 20 Ht 5' 10 (1.778 m) Wt 198 lb (89.8 kg) SpO2 99% BMI 28.41 kg/m Constitutional: General: Not in acute distress. Appearance: Normal appearance. Not toxic-appearing. Ear, nose, mouth: Bilateral external ear and nose normal. Nose: Nose normal. Mouth: Appearance normal, no bleeding, moist mucus membranes Eyes: General: No scleral icterus. No discharge from bilateral eyes Extraocular Movements: Extraocular movements intact. Pupils equal and reactive bilaterally Cardiovascular: Heart: Regular rhythm. Normal heart sounds. Vascular: No carotid bruit. Edema: No edema in bilateral lower extremities Pulmonary: Effort: Pulmonary effort is normal. No respiratory distress. Breath sounds: Normal breath sounds. No wheezing. Chest wall: No tenderness. Abdominal: Appearance: Not distended Palpations: There is no abdominal tenderness, no guarding. Musculoskeletal: Bilateral upper and lower extremities: Normal range of motion, no deformity Head: Normocephalic and atraumatic. Neck: Normal range of motion and neck supple. No muscular tenderness. Lymphadenopathy: Cervical: No cervical adenopathy. Skin: General: Skin is warm and dry. Coloration: Skin is not jaundiced. Neurological: General: No focal deficit present. Cranial Nerves: No obvious cranial nerve deficit. Psychiatric: Mood and Affect: Mood normal. Thought Content: Thought content normal. Patient has good judgement and insight Mental Status: Alert and oriented to place, person, and time. Labs Auto WBC Date/Time Value Ref Range Status 10/01/2022 04:16 PM 5.0 3.6 - 10.7 10*3/uL Final Hemoglobin Date/Time Value Ref Range Status 10/01/2022 04:16 PM 14.5 13.0 - 18.0 g/dL Final Platelets Date/Time Value Ref Range Status 10/01/2022 04:16 PM 168 140 - 440 10*3/uL Final SODIUM Date/Time Value Ref Range Status 10/01/2022 04:16 PM 137 135 - 145 mmol/L Final POTASSIUM Date/Time Value Ref Range Status 10/01/2022 04:16 PM 3.9 3.5 - 5.1 mmol/L Final CREATININE Date/Time Value Ref Range Status 10/01/2022 04:16 PM 0.80 0.66 - 1.25 mg/dL Final Imaging Heart Catheterization 09/29/22 Echocardiogram 06/07/21 Patient Care Team: PCP: ABIODUN Villa Cardiology: Daniel Valle MD Disclaimer INFORMED CONSENT:The nature and purpose of the proposed treatment or procedure have been discussed. The risks and benefits of the proposed treatment or procedures have been reviewed. Alternatives have been reviewed in addition to the risks and benefits of not receiving treatments or undergoing procedures. Pursuant to this discussion, the patient agrees to undergo the proposed treatment or procedure. Captured images seen in this note from are not a substitute for a comprehensive interpretation of the entire data set as reflected by the interpreting physician with regard to radiology, echocardiography, and other diagnostic images. This note may have been dictated using [employer] Practice Edition 2.6 and/or [employer] Voice Recognition Feature. The document was proofread, however unrecognized voice recognition director of loss prevention errors may be present. documented in this encounter [facility] 10-01-2022 History of Present illness Narrative Images from the original note were not included. [facility] CARDIOVASCULAR [facility]ORACIC SURGERY [address] [facility] [address] [facility] [address] Dept: [phone] Dept Loc: [phone] Visit type: New Reason for Visit: Coronary artery disease Assessment and plan 56-year-old male with type 1 diabetes and coronary artery disease. Coronary artery disease: I discussed with him the indications, risks, benefits, and perioperative course of a coronary artery bypass grafting. I discussed alternatives including no intervention, medical therapy only, and percutaneous coronary intervention with medications. A surgical revascularization is recommended in his case. On my review of the coronary angiogram, he does have good targets and will need 3 vessel bypass grafts. He is quite functional and is of low risk. He is agreeable. We also discussed utility of repeat echocardiogram. When he had his heart attack several years ago, his ejection fraction was low to 30-35% and has since improved to 50% last year. He does not have any murmurs. We discussed proceeding to surgery without a repeat echo and probabilities of concomitant interventions if intraoperative transesophageal echocardiogram identifies any valvular lesions. He understands and is willing to proceed without preoperative surface echo. Although he is quite fit and has been training for a triathlon, his symptoms have increased. I have cautioned against any exertional activity. He should rest till his surgical intervention. The risks of the procedure/s include but are not limited to, bleeding, infection, pneumonia, respiratory failure, prolonged Intensive Care Unit stay, multiorgan failure, renal failure needing temporary and/or permanent dialysis, cerebrovascular accident, pulmonary embolism, deep venous thrombosis, cardiac failure or ischemia or arrhythmia, and . Although he is quite young, the lesions in the right coronary artery and left circumflex distribution are not significant enough arterial conduits use. Type 1 diabetes, elevated hemoglobin A1c: Discussed importance of diabetes control especially with continued coronary artery disease. Stressed importance of decreasing A1c. He will be evaluated by the public health program manager while admitted. Ericka Bagley MD Cardiothoracic Surgery History of Present Illness Jaydon Arellano is a 56 y.o. male referred by Dr. Valle for CABG. Per note, pt has a history of CAD with multiple stenting to his LAD most recently in December 2018, cardiac arrest in February 2008, ischemic cardiomyopathy, sinus bradycardia, and hyperlipidemia. He is also an insulin dependent diabetic. Pt saw Cardiology with c/o chest heaviness and muscle ache in his left chest with rest and exertion. He reported that his exercise tolerance has decreased and that he has more SOB when running. He also reported having some lightheadedness and dizziness. A1C was 8.1. Pt then underwent a heart catheterization on 09/29/22 which demonstrated multivessel disease. Pt is here now for an evaluation. Past Medical History Past Medical History: Diagnosis Date Coronary artery disease January 2007 Diabetes mellitus (HCC) Approx 1995 Hyperlipidemia Myocardial infarction (CMS/HCC) (HCC) February 2008 Past Surgical History Past Surgical History: Procedure Laterality Date CARDIAC CATHETERIZATION last was on 09/29/2022 CORONARY STENT PLACEMENT 6 total, last was in December 2018 Family History No family history on file. Social History Social History Tobacco Use Smoking status: Never Smokeless tobacco: Former Types: Chew Quit date: 08/11/2002 Vaping Use Vaping Use: Never used Substance Use Topics Alcohol use: Yes Alcohol/week: 15.0 standard drinks of alcohol Types: 12 Cans of beer, 3 Shots of liquor per week Drug use: Not Currently Allergies Allergies Allergen Reactions Penicillins Anaphylaxis, Hives, Shortness of breath, Itching, Swelling and Rash Other reaction(s): anaphylaxis, Unknown SOB, rash, hives Lisinopril Cough Ramipril Cough Medications Current Outpatient Medications: Accu-Chek Guide test strip, 1 strip by Other route in the morning and 1 strip at noon and 1 strip in the evening. Take with meals., Disp: , Rfl: carvedilol (Coreg) 12.5 MG tablet, Take 1 tablet by mouth in the morning and 1 tablet in the evening., Disp: , Rfl: clopidogrel (Plavix) 75 MG tablet, Take 1 tablet by mouth daily with supper., Disp: , Rfl: losartan (Cozaar) 25 MG tablet, Take 1 tablet by mouth daily with supper., Disp: , Rfl: nitroglycerin (Nitrostat) 0.4 MG SL tablet, Place 0.4 mg under the tongue Daily as needed., Disp: , Rfl: rosuvastatin (Crestor) 10 MG tablet, Take 1 tablet by mouth three times a week. Thu, , Thu with dinner, Disp: , Rfl: aspirin 81 MG EC tablet, Take 81 mg by mouth daily., Disp: , Rfl: Lyumjev 100 UNIT/ML injection, Insulin pump, Disp: , Rfl: mupirocin (Bactroban) 2 % ointment, Apply liberal amount per nostril the night before surgery and then again the morning of surgery, Disp: 1 g, Rfl: 0 rosuvastatin (Crestor) 20 MG tablet, Take 20 mg by mouth daily. , , Thursday & Thursday with dinner, Disp: , Rfl: Review of Systems Review of Systems Constitutional: Positive for fatigue. Respiratory: Positive for chest tightness and shortness of breath. Neurological: Positive for dizziness and light-headedness. All other systems reviewed and are negative. Physical Exam Vitals: BP 115/69 Pulse (!) 47 Temp 36.1 C (97 F) (Temporal) Resp 20 Ht 5' 10 (1.778 m) Wt 198 lb (89.8 kg) SpO2 99% BMI 28.41 kg/m Constitutional: General: Not in acute distress. Appearance: Normal appearance. Not toxic-appearing. Ear, nose, mouth: Bilateral external ear and nose normal. Nose: Nose normal. Mouth: Appearance normal, no bleeding, moist mucus membranes Eyes: General: No scleral icterus. No discharge from bilateral eyes Extraocular Movements: Extraocular movements intact. Pupils equal and reactive bilaterally Cardiovascular: Heart: Regular rhythm. Normal heart sounds. Vascular: No carotid bruit. Edema: No edema in bilateral lower extremities Pulmonary: Effort: Pulmonary effort is normal. No respiratory distress. Breath sounds: Normal breath sounds. No wheezing. Chest wall: No tenderness. Abdominal: Appearance: Not distended Palpations: There is no abdominal tenderness, no guarding. Musculoskeletal: Bilateral upper and lower extremities: Normal range of motion, no deformity Head: Normocephalic and atraumatic. Neck: Normal range of motion and neck supple. No muscular tenderness. Lymphadenopathy: Cervical: No cervical adenopathy. Skin: General: Skin is warm and dry. Coloration: Skin is not jaundiced. Neurological: General: No focal deficit present. Cranial Nerves: No obvious cranial nerve deficit. Psychiatric: Mood and Affect: Mood normal. Thought Content: Thought content normal. Patient has good judgement and insight Mental Status: Alert and oriented to place, person, and time. Labs Auto WBC Date/Time Value Ref Range Status 10/01/2022 04:16 PM 5.0 3.6 - 10.7 10*3/uL Final Hemoglobin Date/Time Value Ref Range Status 10/01/2022 04:16 PM 14.5 13.0 - 18.0 g/dL Final Platelets Date/Time Value Ref Range Status 10/01/2022 04:16 PM 168 140 - 440 10*3/uL Final SODIUM Date/Time Value Ref Range Status 10/01/2022 04:16 PM 137 135 - 145 mmol/L Final POTASSIUM Date/Time Value Ref Range Status 10/01/2022 04:16 PM 3.9 3.5 - 5.1 mmol/L Final CREATININE Date/Time Value Ref Range Status 10/01/2022 04:16 PM 0.80 0.66 - 1.25 mg/dL Final Imaging Heart Catheterization 09/29/22 Echocardiogram 06/07/21 Patient Care Team: PCP: ABIODUN Villa Cardiology: Daniel Valle MD Disclaimer INFORMED CONSENT:The nature and purpose of the proposed treatment or procedure have been discussed. The risks and benefits of the proposed treatment or procedures have been reviewed. Alternatives have been reviewed in addition to the risks and benefits of not receiving treatments or undergoing procedures. Pursuant to this discussion, the patient agrees to undergo the proposed treatment or procedure. Captured images seen in this note from are not a substitute for a comprehensive interpretation of the entire data set as reflected by the interpreting physician with regard to radiology, echocardiography, and other diagnostic images. This note may have been dictated using [employer] Practice Edition 2.6 and/or [employer] Voice Recognition Feature. The document was proofread, however unrecognized voice recognition director of loss prevention errors may be present. documented in this encounter [facility] [employer] 05-30-2022 Note HNO ID: [id number] Author: Danita Oneill APRN.[employer]ICE [employer] SUPERVISOR Service: ? Author Type: Nurse Practitioner Type: Progress Notes Filed: 05/30/2022 12:55 PM Note Text: Reason for Consultation: DM Type 1 Referring Physician: SELF HISTORY OF PRESENT ILLNESS Mr. Arellano is a 56 year old male presenting here today for a follow up of DM Type 1. As I recall, he was initially diagnosed with diabetes 2002. Patient of Dr. Bosch LV 11/21/21 A1C today is 7.1 History in addition to diabetes include: hyperlipidemia, cardiovascular disease (CAD, S/P stent), retinopathy He is under the care of cardiology, Dr. Dotson. Struggling with [employer] pump. Difference between CGM and fingerstick. Tends to run higher overnight. Had labs done with PCP Accucheck strips covered but still $50 He has used invokana in the past when he saw Dr. Maravilla. [place] his glucose was more stable and it helped his weight, kidneys and heart. He would be in favor of trying again and is aware it is off label for type 1 DM Current diabetes regimen is as follows: Lispro (lyumjev) via [employer] 770 G pump using CGM in auto mode. Basal insulin for backup: Basaglar Glucagon: baqsimi Basal rate: 00:00= 0.60 0400= 0.750 0600=0.60 14.7= 24 hour basal rate Bolus: Insulin:carb ratio 00:00= 7 1700=4.5 Sensitivity 00:00= 40 Blood glucose target 00:00= 90-110 Insulin duration=2 hrs Pump info: Using the bolus wizard; occ manual boluses. Site change every 4.5 days he is checking his blood glucose with Guardian 3 CGM he does bring a log book today for review. LDE Blood Sugar Frequency: CGM 14 day download (05/17/22 to 05/30/22) In target 66% Above range 23% Very high 7% Low 3% Very low 1% Auto mode 70% Sensor wear 67% BG ranges 54 to 361 BG is high on average overnight. Readings start to come down after waking and remain good on average during the day. Hypoglycemia frequency: occasionally Hypoglycemia awareness: Yes Regarding symptoms of hypoglycemia, he is not experiencing any symptoms such as polyuria, polydipsia, nocturia or rapid weight loss or blurry vision, Overall, the patient has no acute complaints at this time. PAST MEDICAL HISTORY Diagnosis Date CAD (coronary artery disease) PTCA/stent 01/17, [place] 01/18 Other and unspecified hyperlipidemia Type I (juvenile type) diabetes mellitus with ophthalmic manifestations, not stated as uncontrolled(250.51) PAST SURGICAL HISTORY Procedure Laterality Date PAST SURGICAL HISTORY OF wisdom teeth FAMILY HISTORY Problem Relation Age of Onset Alzheimer's Disease Father Social History Tobacco Use Smoking status: Never Smokeless tobacco: Former Types: Snuff Quit date: 04/13/2003 Allergies As of Date: 05/30/2022 Allergen Noted Reaction CONTRAST DYE 06/27/2010 Itching PENICILLIN G 02/25/2010 Shortness of Breath SEASONAL ALLERGIES 09/04/2011 Other: See Comments Fully Assessed 05/30/2022 Current Outpatient Medications Medication Sig Dispense Refill insulin glargine (BASAGLAR KWIKPEN U-100 INSULIN) 100 unit/mL (3 mL) Inject subcutaneously 15 units daily if insulin pump fails 15 mL 2 glucagon (BAQSIMI) 3 mg/actuation nasal spray Use 1 [place] in the nose as needed for low blood sugar. May repeat after 15 minutes using a new device if there is no response. 2 Each 2 insulin lispro-aabc (LYUMJEV U-100 INSULIN) 100 unit/mL solution Infuse up to 55 units daily per insulin pump 50 mL 3 Insulin [place], Disposable, (PEN NEEDLE) 32 gauge x 5/32 Inject 1 Each subcutaneously q 24 HR. Give with each insulin administration. 100 Each 3 blood sugar diagnostic (ACCU-CHEK GUIDE TEST STRIPS) test strip Use as instructed; 4 strips per day, IDDM, E10.319 400 Strip 3 losartan (COZAAR) 25 mg tablet Take 1 tablet by mouth once daily. Aspirin 81 mg ORAL Tab Take 81 mg by mouth once daily. rosuvastatin (CRESTOR) 20 mg tablet take one every other day 0 clopidogrel (PLAVIX) 75 mg tablet Take one(1) tablet daily. 0 carvedilol (COREG) 12.5 mg tablet Take one(1) tablet twice daily. 0 cetirizine (ZYRTEC) 10 mg tablet Take 10 mg by mouth once daily. (Patient not taking: Reported on 05/30/2022) No current facility-administered medications for this visit. REVIEW OF SYSTEMS Answers submitted by the patient for this visit: Core Review of Systems (Submitted on 05/27/2022) Fever : Yes Night Sweats: Yes Recent Unintentional Weight Change: No Nasal Congestion: No Hearing Loss: No Vision Disturbance: No A Cough: No Difficulty Breathing?: No Chest Pain: No Irregular Heart Beat: No Leg Swelling: No Nausea: Yes Diarrhea: No Black Tarry Stools: No Difficulty Urinating?: No Awaken at Night More Than Once to Urinate?: Yes Joint Pain or Stiffness: Yes Muscle Aches: No Leg or Foot Discomfort at Night?: No A Rash: No Dizziness: No Headaches: Yes Memory Loss: No Seizures: No PHYSICAL EXAMINATION BP 126/87 Pulse 57 Ht 177.8 cm (more content not included)... [facility] 05-30-2022 Instructions Danita Oneill APRN.[facility] - 05/30/2022 12:01 PM EST Basal rate: 00:00= 0.65 0400= 0.750 0600=0.60 14.7= 24 hour basal rate Bolus: Insulin:carb ratio 00:00= 7 1700=4.5 Sensitivity 00:00= 40 Blood glucose target 00:00= 90-110 Insulin duration=2 hrs Forward a copy of your labs to us. Follow up in 6 months as planned Danita Oneill, MSN, HEAVY EQUIPMENT MECHANIC, STERILE SUPERVISOR-C, CDE Endocrinology [facility] Medical Office [facility]/[place] [address] Fax: documented in this encounter [facility] 05-30-2022 History of Present illness Narrative Reason for Consultation: DM Type 1 Referring Physician: SELF HISTORY OF PRESENT ILLNESS Mr. Arellano is a 56 year old male presenting here today for a follow up of DM Type 1. As I recall, he was initially diagnosed with diabetes 2002. Patient of Dr. Bosch 11/21/21 A1C today is 7.1 History in addition to diabetes include: hyperlipidemia, cardiovascular disease (CAD, S/P stent), retinopathy He is under the care of cardiology, Dr. Dotson. Struggling with Medtronic pump. Difference between CGM and fingerstick. Tends to run higher overnight. Had labs done with PCP Accucheck strips covered but still $50 He has used invokana in the past when he saw Dr. Maravilla. [place] his glucose was more stable and it helped his weight, kidneys and heart. He would be in favor of trying again and is aware it is off label for type 1 DM Current diabetes regimen is as follows: Lispro (lyumjev) via medtronic 770 G pump using CGM in auto mode. Basal insulin for backup: Basaglar Glucagon: baqsimi Basal rate: 00:00= 0.60 0400= 0.750 0600=0.60 14.7= 24 hour basal rate Bolus: Insulin:carb ratio 00:00= 7 1700=4.5 Sensitivity 00:00= 40 Blood glucose target 00:00= 90-110 Insulin duration=2 hrs Pump info: Using the bolus wizard; occ manual boluses. Site change every 4.5 days he is checking his blood glucose with Guardian 3 CGM he does bring a log book today for review. LDE Blood Sugar Frequency: CGM 14 day download (05/17/22 to 05/30/22) In target 66% Above range 23% Very high 7% Low 3% Very low 1% Auto mode 70% Sensor wear 67% BG ranges 54 to 361 BG is high on average overnight. Readings start to come down after waking and remain good on average during the day. Hypoglycemia frequency: occasionally Hypoglycemia awareness: Yes Regarding symptoms of hypoglycemia, he is not experiencing any symptoms such as polyuria, polydipsia, nocturia or rapid weight loss or blurry vision, Overall, the patient has no acute complaints at this time. PAST MEDICAL HISTORY Diagnosis Date CAD (coronary artery disease) PTCA/stent 01/17, [place] 01/18 Other and unspecified hyperlipidemia Type I (juvenile type) diabetes mellitus with ophthalmic manifestations, not stated as uncontrolled(250.51) PAST SURGICAL HISTORY Procedure Laterality Date PAST SURGICAL HISTORY OF wisdom teeth FAMILY HISTORY Problem Relation Age of Onset Alzheimer's Disease Father Social History Tobacco Use Smoking status: Never Smokeless tobacco: Former Types: Snuff Quit date: 04/13/2003 Allergies As of Date: 05/30/2022 Allergen Noted Reaction CONTRAST DYE 06/27/2010 Itching PENICILLIN G 02/25/2010 Shortness of Breath SEASONAL ALLERGIES 09/04/2011 Other: See Comments Fully Assessed 05/30/2022 Current Outpatient Medications Medication Sig Dispense Refill insulin glargine (BASAGLAR KWIKPEN U-100 INSULIN) 100 unit/mL (3 mL) Inject subcutaneously 15 units daily if insulin pump fails 15 mL 2 glucagon (BAQSIMI) 3 mg/actuation nasal spray Use 1 [place] in the nose as needed for low blood sugar. May repeat after 15 minutes using a new device if there is no response. 2 Each 2 insulin lispro-aabc (LYUMJEV U-100 INSULIN) 100 unit/mL solution Infuse up to 55 units daily per insulin pump 50 mL 3 Insulin [place], Disposable, (PEN NEEDLE) 32 gauge x 5/32 Inject 1 Each subcutaneously q 24 HR. Give with each insulin administration. 100 Each 3 blood sugar diagnostic (ACCU-CHEK GUIDE TEST STRIPS) test strip Use as instructed; 4 strips per day, IDDM, E10.319 400 Strip 3 losartan (COZAAR) 25 mg tablet Take 1 tablet by mouth once daily. Aspirin 81 mg ORAL Tab Take 81 mg by mouth once daily. rosuvastatin (CRESTOR) 20 mg tablet take one every other day 0 clopidogrel (PLAVIX) 75 mg tablet Take one(1) tablet daily. 0 carvedilol (COREG) 12.5 mg tablet Take one(1) tablet twice daily. 0 cetirizine (ZYRTEC) 10 mg tablet Take 10 mg by mouth once daily. (Patient not taking: Reported on 05/30/2022) No current facility-administered medications for this visit. REVIEW OF SYSTEMS Answers submitted by the patient for this visit: Core Review of Systems (Submitted on 05/27/2022) Fever : Yes Night Sweats: Yes Recent Unintentional Weight Change: No Nasal Congestion: No Hearing Loss: No Vision Disturbance: No A Cough: No Difficulty Breathing?: No Chest Pain: No Irregular Heart Beat: No Leg Swelling: No Nausea: Yes Diarrhea: No Black Tarry Stools: No Difficulty Urinating?: No Awaken at Night More Than Once to Urinate?: Yes Joint Pain or Stiffness: Yes Muscle Aches: No Leg or Foot Discomfort at Night?: No A Rash: No Dizziness: No Headaches: Yes Memory Loss: No Seizures: No PHYSICAL EXAMINATION BP 126/87 Pulse 57 Ht 177.8 cm (5' 10 ) Wt 90.2 kg (198 lb 12.8 oz) SpO2 100% BMI 28.52 kg/m2 Physical Exam Constitutional: Appearance: Normal appearance. Cardiovascular: Rate and Rhythm: Normal rate and regular rhythm. Pulmonary: Effort: Pulmonary effort is normal. Breath sounds: Normal breath sounds. Skin: General: Skin is warm and dry. Neurological: Mental Status: He is alert and oriented to person, place, and time. Psychiatric: Mood and Affect: Mood normal. Behavior: Behavior normal. DATA Creatinine Date Value Ref Range Status 07/20/2020 0.87 0.73 - 1.22 mg/dL Final Hemoglobin A1C (%) Date Value 01/13/2011 7.2 Hemoglobin A1c (%) Date Value 02/26/2016 6.6 Hemoglobin A1C (POCT) (%) Date Value 11/21/2021 7.6 ) No components found for: URINEALBUMIN Cholesterol, Total (mg/dL) Date Value 09/04/2011 158 HDL Cholesterol (mg/dL) Date Value 07/27/2014 70 LDL Cholesterol (mg/dL) Date Value 09/04/2011 69 LDL Calculated (mg/dL) Date Value 07/27/2014 46 Triglyceride (mg/dL) Date Value 07/27/2014 23 *labs reviewed via Care Everywhere. IMPRESSION: Mr. Arellano is a 56 year old male here for evaluation of DM Type 1 complicated by retinopathy, hyperlipidemia, hypoglycemia, cardiovascular disease RECOMMENDATIONS: (E10.319) Type 1 diabetes mellitus with retinopathy, macular edema presence unspecified, unspecified laterality, unspecified retinopathy severity (HCC) (primary encounter diagnosis) Comment: glycemic control is improving. Small change to overnight basal when he is not in automode. Plan: HEMOGLOBIN A1C (POC) Basal rate: 00:00= 0.65 0400= 0.750 0600=0.60 14.7= 24 hour basal rate Bolus: Insulin:carb ratio 00:00= 7 1700=4.5 Sensitivity 00:00= 40 Blood glucose target 00:00= 90-110 Insulin duration=2 hrs Forward a copy of your labs to us. Extend time in automode. Follow up in 6 months as planned (E10.649) Hypoglycemia due to type 1 diabetes mellitus (HCC) Comment/Plan: continue CGM (E78.2) Mixed hyperlipidemia Comment/Plan: crestor managed per cardiology/PCP (I25.10) Coronary artery disease, unspecified vessel or lesion type, unspecified whether angina present, unspecified whether [place] ira or transplanted heart Comment/Plan: per cardiology (Z96.41) Insulin pump status Comment: Medtronic 770 with Guardian 3 CGM Plan: see above I spent a total of 30 minutes on the date of the service which included preparing to see the patient, [id number] patient care, completing clinical documentation, obtaining and/or reviewing separately obtained history, performing a medically appropriate examination, counseling and educating the patient/family/caregiver, ordering medications, tests, or procedures, and communicating results to the patient/family/caregiver. Danita Oneill MSN, HEAVY EQUIPMENT MECHANIC, STERILE SUPERVISOR-C, CDE Endocrinology [facility] Medical Office [facility]/[address] [place] [address] Fax: documented in this encounter [facility] 03-27-2022 Miscellaneous Notes Patient via [employer] requesting refills as follows: Requested Prescriptions Pending Prescriptions Disp Refills insulin lispro-aabc (LYUMJEV U-100 INSULIN) 100 unit/mL solution 50 mL 3 Si units daily for insulin pump use. Please review and advise. Anayeli Blank Ma documented in this encounter [facility] 03-17-2022 Miscellaneous Notes Mychart message sent with alert if not read. CLOSED Please tell him to change insulin:carbohyrate ratios to: 0000 1:7 1700 1:4.5 Also, decrease high alert to 220 mg/dL. Thanks documented in this encounter [facility] 01-31-2022 Miscellaneous Notes Form faxed, transmission ok Closed Form signed. Thank you Type of letter/form/fax request: Certificate of Medical Necessity Form received from:[employer] Placed on Provider (CNP. Oneill)for completion Completed form needs to be faxed to [phone] documented in this encounter [facility] 01-28-2022 Miscellaneous Notes Form faxed, transmission ok CLOSED Form signed. Thank you Form on docs desk/basket for review from [employer]. Please review and sign. Needs to be faxed to [phone]. Attached last two office notes. documented in this encounter [facility] 12-24-2021 Miscellaneous Notes Received a faxed notification from [email or web address] that the Appeal has been APPROVED FOR ACCU CHEK GUIDE TEST STRIPS. Effective: 12/18/2021---12/23/2022 Case# [id number] Patient notified via [employer] message. Closed. Faxed appeal letter, and last OV note from 11/2021 to the Appeal Department at [employer] [phone]. Transmission ok. Will await approval / denial. Patient updated via [employer] message. Letter printed and signed. Thank you PA was completed with [employer] for Accu Chek Guide meter/supplies because patient is using a Medtronic 770G Insulin Pump, and this is compatible with this pump. Received a faxed notification from [email or web address] that the PA is DENIED FOR COVERAGE. State's he must use the formulary. We can complete the Appeals process for this. Please generate an appeal letter and we will [facility] via fax: [phone]. documented in this encounter [facility] 12-18-2021 Miscellaneous Notes Ignore request, requesting PA through [employer]. Closed He is on a 770 G pump and would use Accu chek guide strips which I send in November. He would need a PA for the Accu chek strips that link with his meter. Thank you Contour next meter communicates with Medtronic Insulin pump. Insurance will only cover this meter and strips. Sent patient [employer] message. Requested Prescriptions Pending Prescriptions Disp Refills Blood-Glucose Meter 1 Each 0 Sig: Use as instructed to check glucose 3 times daily. Dispense Contour Next Meter blood sugar diagnostic test strip 300 Each 3 Sig: Use as instructed to check glucose 3 times daily. Dispense Contour Next Test Strips. Please review and advise. Anayeli Blank Ma documented in this encounter [facility] documented as of this encounter (statuses as of 11/29/2022) [facility] History of Past illness Narrative* Problem Noted Date Diagnosed Date Resolved Date Ischemic cardiomyopathy 12/12/202111/11 Overview: EF 50% in 05/2021 Hypoglycemia due to type 1 diabetes mellitus 2 11/29/2022 documented as of this encounter (statuses as of 12/02/2022) [facility] History of Past illness Narrative* Problem Noted Date Diagnosed Date Resolved Date Ischemic cardiomyopathy 12/12/202111/11 Overview: EF 50% in 05/2021 Hypoglycemia due to type 1 diabetes mellitus 2 11/29/2022 documented as of this encounter (statuses as of 12/05/2022) [facility] History of Past illness Narrative* Problem Noted Date Diagnosed Date Resolved Date Ischemic cardiomyopathy 12/12/202111/11 Overview: EF 50% in 05/2021 Hypoglycemia due to type 1 diabetes mellitus 2 11/29/2022 documented as of this encounter (statuses as of 12/09/2022) [facility] History of Past illness Narrative* Problem Noted Date Diagnosed Date Resolved Date Ischemic cardiomyopathy 12/12/202111/11 Overview: EF 50% in 05/2021 Hypoglycemia due to type 1 diabetes mellitus 2 11/29/2022 documented as of this encounter (statuses as of 12/11/2022) [facility] History of Past illness Narrative* Problem Noted Date Diagnosed Date Resolved Date Ischemic cardiomyopathy 12/12/202111/11 Overview: EF 50% in 05/2021 Hypoglycemia due to type 1 diabetes mellitus 2 11/29/2022 documented as of this encounter (statuses as of 12/12/2022) [address]01-[address]22 History of Past illness Narrative* Problem Noted Date Diagnosed Date Resolved Date Ischemic cardiomyopathy 12/12/202111/11 Overview: EF 50% in 05/2021 Hypoglycemia due to type 1 diabetes mellitus 2 11/29/2022 documented as of this encounter (statuses as of 12/19/2022) [facility] History of Past illness Narrative* Problem Noted Date Diagnosed Date Resolved Date Ischemic cardiomyopathy 12/12/202111/11 Overview: EF 50% in 05/2021 Hypoglycemia due to type 1 diabetes mellitus 2 11/29/2022 documented as of this encounter (statuses as of 12/23/2022) [address]01-[address]22 History of Past illness Narrative* Problem Noted Date Diagnosed Date Resolved Date Ischemic cardiomyopathy 12/12/202111/11 Overview: EF 50% in 05/2021 Hypoglycemia due to type 1 diabetes mellitus 2 11/29/2022 documented as of this encounter (statuses as of 01/03/2023) [address]01-[address]22 History of Past illness Narrative* Problem Noted Date Diagnosed Date Resolved Date Ischemic cardiomyopathy 12/12/202111/11 Overview: EF 50% in 05/2021 Hypoglycemia due to type 1 diabetes mellitus 2 11/29/2022 documented as of this encounter (statuses as of 01/06/2023) [facility] History of Past illness Narrative* Problem Noted Date Diagnosed Date Resolved Date Ischemic cardiomyopathy 12/12/202111/11 Overview: EF 50% in 05/2021 Hypoglycemia due to type 1 diabetes mellitus 2 11/29/2022 documented as of this encounter (statuses as of 01/10/2023) [facility] History of Past illness Narrative* Problem Noted Date Diagnosed Date Resolved Date Ischemic cardiomyopathy 12/12/202111/11 Overview: EF 50% in 05/2021 Hypoglycemia due to type 1 diabetes mellitus 2 11/29/2022 documented as of this encounter (statuses as of 01/16/2023) [facility] History of Past illness Narrative* Problem Noted Date Diagnosed Date Resolved Date Ischemic cardiomyopathy 12/12/202111/11 Overview: EF 50% in 05/2021 Hypoglycemia due to type 1 diabetes mellitus 2 11/29/2022 documented as of this encounter (statuses as of 01/20/2023) [address]22 History of Past illness Narrative* Problem Noted Date Diagnosed Date Resolved Date Ischemic cardiomyopathy 12/12/202111/11 Overview: EF 50% in 05/2021 Hypoglycemia due to type 1 diabetes mellitus 2 11/29/2022 documented as of this encounter (statuses as of 01/30/2023) [address]22 History of Past illness Narrative* Problem Noted Date Diagnosed Date Resolved Date Ischemic cardiomyopathy 12/12/202111/11 Overview: EF 50% in 05/2021 Hypoglycemia due to type 1 diabetes mellitus 2 11/29/2022 documented as of this encounter (statuses as of 02/03/2023) [facility] History of Past illness Narrative* Problem Noted Date Diagnosed Date Resolved Date Ischemic cardiomyopathy 12/12/202111/11 Overview: EF 50% in 05/2021 Hypoglycemia due to type 1 diabetes mellitus 2 11/29/2022 documented as of this encounter (statuses as of 02/05/2023) [address]22 History of Past illness Narrative* Problem Noted Date Diagnosed Date Resolved Date Ischemic cardiomyopathy 12/12/202111/11 Overview: EF 50% in 05/2021 Hypoglycemia due to type 1 diabetes mellitus 2 11/29/2022 documented as of this encounter (statuses as of 02/06/2023) [facility] History of Past illness Narrative* Problem Noted Date Diagnosed Date Resolved Date Ischemic cardiomyopathy 12/12/202111/11 Overview: EF 50% in 05/2021 Hypoglycemia due to type 1 diabetes mellitus 2 11/29/2022 documented as of this encounter (statuses as of 02/10/2023) [address]22 History of Past illness Narrative* Problem Noted Date Diagnosed Date Resolved Date Ischemic cardiomyopathy 12/12/202111/11 Overview: EF 50% in 05/2021 Hypoglycemia due to type 1 diabetes mellitus 2 11/29/2022 documented as of this encounter (statuses as of 02/14/2023) [address]22 History of Past illness Narrative* Problem Noted Date Diagnosed Date Resolved Date Ischemic cardiomyopathy 12/12/202111/11 Overview: EF 50% in 05/2021 Hypoglycemia due to type 1 diabetes mellitus 2 11/29/2022 documented as of this encounter (statuses as of 02/17/2023) [facility] of Past illness Narrative* Problem Noted Date Diagnosed Date Resolved Date Ischemic cardiomyopathy 12/12/202111/11 Overview: EF 50% in 05/2021 Hypoglycemia due to type 1 diabetes mellitus 2 11/29/2022 documented as of this encounter (statuses as of 02/19/2023) [facility] History of Past illness Narrative* Problem Noted Date Diagnosed Date Resolved Date Ischemic cardiomyopathy 12/12/202111/11 Overview: EF 50% in 05/2021 Hypoglycemia due to type 1 diabetes mellitus 2 11/29/2022 documented as of this encounter (statuses as of 02/19/2023) [facility] of Past illness Narrative* Problem Noted Date Diagnosed Date Resolved Date Ischemic cardiomyopathy 12/12/202111/11 Overview: EF 50% in 05/2021 Hypoglycemia due to type 1 diabetes mellitus 2 11/29/2022 documented as of this encounter (statuses as of 02/24/2023) [facility] Miscellaneous Notes* Telephone Encounter - Anayeli Blank Ma - 11/26/2021 1:33 PM EDT Form Faxed, Transmission ok Closed * Telephone Encounter - Danita Oneill APRN.CNP - 11/26/2021 1:07 PM EDT Form signed. Thank you * Telephone Encounter - Remedios Bentley MA - 11/26/2021 10:09 AM EDT Type of letter/form/fax request: HCP Prescription Form received from:[employer] Placed on Provider (CNP. Sarah MELÉNDEZ)for completion Completed form needs to be faxed to [phone] [facility] History of Present illness Narrative* Danita Oneill, RIKA.SHARI - 11/21/2021 11:15 AM EDT Reason for Consultation: DM Type 1 Referring Physician: SELF HISTORY OF PRESENT ILLNESS Mr. Arellano is a 56 year old male presenting here today for a follow up of DM Type 1. As I recall,he was initially diagnosed with diabetes 2002. Patient of Dr. Bosch; [place] 07/20/20 He is new for me today. A1C today is 7.6 History in addition to diabetes include: hyperlipidemia, and cardiovascular disease (CAD, S/P stent), retinopathy He needs his medtronic form completed but needed to be seen. He is under the care of cardiology, Dr. Dotson. He has been seen by Dr. Aaron Maravilla in the past and used invokana. Was having an allergic reaction to something recently and is having that addressed but sugars were higher for awhile. Has been on current pump for abut a year. Considering switching to tandem/ omnipod and Dexcom but not eligible for 3 more years. Had labs done in July at [facility] Current diabetes regimen is as follows: Lispro (lyumjev) via medtronic 770 G pump using CGM in auto mode. Basal insulin for backup:denies Glucagon: yes but likely . Basal rate: 00:00= 0.60 0400= 0.750 0600=0.60 14.7= 24 hour basal rate Bolus: Insulin:carb ratio 00:00= 8 1700=6 Sensitivity 00:00= 40 Blood glucose target 00:00= 90-110 Insulin duration=2 hrs Pump info: Using the bolus wizard; occ manual boluses. Site change every 8 days he is checking his blood glucose 1- 8 times daily plus CGM he does bring a log book today for review. LDE Blood Sugar Frequency: CGM 14 day download ( 10/29/21 to 12/22/21) In target 63% Above range 25% Very high 11% Low 1% Very low 0% BG is stable overnight and during the day until about 3 pm when it starts to rise. He is the highest from 3 pm to Midnight. Auto mode 67 % Sensor wear 65% BG ranges 40 to >400 Hypoglycemia frequency: occasionally Hypoglycemia awareness: Yes Regarding symptoms of hypoglycemia, he is not experiencing any symptoms such as polyuria, polydipsia, nocturia or rapid weight loss or blurry vision, Overall, the patient has no acute complaints at this time. PAST MEDICAL HISTORY Diagnosis Date CAD (coronary artery disease) [place]CA/stent 01/17, [place] 01/18 Other and unspecified hyperlipidemia Type I (juvenile type) diabetes mellitus with ophthalmic manifestations, not stated as uncontrolled(250.51) PAST SURGICAL HISTORY Procedure Laterality Date PAST SURGICAL HISTORY OF wisdom teeth FAMILY HISTORY Problem Relation Age of Onset Alzheimer's Disease Father Social History Tobacco Use Smoking status: Never Smokeless tobacco: Former Types: Snuff Quit date: 04/13/2003 Allergies As of Date: 11/21/2021 Allergen Noted Reaction CONTRAST DYE 06/27/2010 Itching PENICILLIN G 02/25/2010 Shortness of Breath SEASONAL ALLERGIES 09/04/2011 Other: See Comments Fully Assessed 11/21/2021 Current Outpatient Medications Medication Sig Dispense Refill cetirizine (ZYRTEC) 10 mg tablet Take 10 mg by mouth once daily. insulin lispro-aabc (LYUMJEV U-100 INSULIN) 100 unit/mL solution 55 units daily for insulin pump use. 50 mL 3 blood sugar diagnostic (CONTOUR NEXT TEST STRIPS) test strip Use as instructed to test glucose 4 times daily. DX: E10.319, insulin dependent. 400 Strip 3 losartan (COZAAR) 25 mg tablet Take 1 tablet by mouth once daily. Aspirin 81 mg ORAL Tab Take 81 mg by mouth once daily. rosuvastatin (CRESTOR) 20 mg tablet take one every other day 0 clopidogrel (PLAVIX) 75 mg tablet Take one(1) tablet daily. 0 carvedilol (COREG) 12.5 mg tablet Take one(1) tablet twice daily. 0 No current facility-administered medications for this visit. REVIEW OF SYSTEMS General: no fever and no chills Skin: no rashes, pruritis or dry skin Cardiac: denies chest pain, heart palpitations or orthopnea Pulmonary: denies wheezing, productive cough or exertional dyspnea PHYSICAL EXAMINATION BP 111/71 (BP Site: Right Arm, BP Position: Sitting, BP Cuff Size: Regular Adult) Pulse 55 Ht 179.2cm (5' 10.55 ) Wt 87.2 kg (192 lb 3.2 oz) SpO2 98% BMI 27.15 kg/m2 Physical Exam Constitutional: Appearance: Normal appearance. Cardiovascular: Rate and Rhythm: Normal rate and regular rhythm. Pulmonary: Effort: Pulmonary effort is normal. Breath sounds: Normal breath sounds. Skin: General: Skin is warm and dry. Neurological: Mental Status: He is alert and oriented to person, place, and time. Psychiatric: Mood and Affect: Mood normal. Behavior: Behavior normal. Feet:Shoes and socks removed, sensitive to 10 gm monofilament, and calluses noted bilaterally. Right foot 2nd toe with black area on toenail which is growing out DATA Creatinine Date Value Ref Range Status 07/20/2020 0.87 0.73 - 1.22 mg/dL Final Hemoglobin A1C (%) Date Value 07/16/2020 7.5 01/13/2011 7.2 Hemoglobin A1c (%) Date Value 02/26/2016 6.6 Hemoglobin A1C (POCT) (%) Date Value 01/03/2019 7.4 ) No components found for: URINEALBUMIN Cholesterol, Total (mg/dL) Date Value 09/04/2011 158 HDL Cholesterol (mg/dL) Date Value 07/27/2014 70 LDL Cholesterol (mg/dL) Date Value 09/04/2011 69 LDL Calculated (mg/dL) Date Value 07/27/2014 46 Triglyceride (mg/dL) Date Value 07/27/2014 23 *labs reviewed via Care Everywhere. IMPRESSION: Mr. 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 Carb ratio at dinner adjusted. Recommend he had accessto basal insulin and glucagon/baqsimi rx also updated. Plan: HEMOGLOBIN A1C (POC), insulin glargine (BASAGLAR KWIKPEN U-100 INSULIN) 100 unit/mL (3 mL), Insulin [place], Disposable, (PEN NEEDLE) 32 gauge x 5/32 , glucagon (BAQSIMI) 3 mg/actuation nasal spray, insulin lispro-aabc (LYUMJEV U-100 INSULIN) 100 unit/mL solution, blood sugar diagnostic (ACCU-CHEK GUIDE TEST STRIPS) test strip Basal rate: 00:00= 0.60 0400= 0.750 0600=0.60 14.7= 24 hour basal rate Bolus: Insulin:carb ratio 00:00= 8 1700=5 Sensitivity 00:00= 40 Blood glucose target 00:00= 90-110 Insulin duration=2 hrs (E10.649) Hypoglycemia due to type 1 diabetes mellitus (HCC) Comment/Plan: glucagon (BAQSIMI) 3 mg/actuation nasal spray (E78.2) Mixed hyperlipidemia Comment/Plan: crestor managed per cardiology/PCP (Z96.41) Insulin pump status Comment: Medtronic 770 with guardian 3 CGM Plan: see above I spent a total of 30 minutes on the date of the service which included preparing to see the patient, [id number] patient care, completing clinical documentation, obtaining and/or reviewing separately obtained history, performing a medically appropriate examination, counseling and educating the pat ient/family/caregiver, ordering medications, tests, or procedures, and communicating results to thepatient/family/caregiver. Danita Oneill, MSN, HEAVY EQUIPMENT MECHANIC, STERILE SUPERVISOR-C, CDE Endocrinology [facility] Medical Office [facility]/[address] [place] [address] Fax: documented in this encounterGrant Hospital08-01-2022 Miscellaneous Notes* Telephone Encounter - Amita Horn RN - 11/11/2021 9:57 AM EDT Patient is scheduled with Danita on 11/21/2021. Will hold forms until then. KEEP OPEN. * Telephone Encounter - Anayeli Blank Ma - 11/05/2021 1:45 PM EDT Received fax from [employer] for Pump and Diabetic supplies. Patients last office visit was 07/20/20 and no upcoming appt is scheduled. Sent patient Sverhmarkethart message to make follow up appointment. Form is held at nurse station. NR documented in this encounterGrant Hospital07-27-2022 History of Present illness Narrative* This is a 55-year-old male here today with complaints of rash that is been ongoing over the course the last 3 to 4 weeks. He has an underlying history of type 1 diabetes. Also uses co-Q10 [id number]. Notes that roughly a month ago he started using a new brand of co-Q10 prior to onset of the rash. Notes that the rash is itchy and blotchy and presents in different places on his body at different times. Initially started on his feet and torso now most notable on his thighs. He denies any lipor tongue swelling denies any fevers or chills. Denies any chest pain. Denies any difficulty breathing but does note that over the last 3 weeks or so he has felt as though he has had some episodes ofsome mild shortness of breath though he shows no evidence of respiratory distress at time of exam. No tachypnea no tachycardia and maintaining 100% oxygen saturation. * The remainder of the systems were reviewed and are negative unless noted above [facility] Work Phone: evaluation note* Diagnosis Controlled type 1 diabetes mellitus with retinopathy, macular edema presence unspecified, unspecified laterality, unspecified retinopathy severity (HCC)- Primary Hypoglycemia due to type 1 diabetes mellitus (HCC) Mixed hyperlipidemia Insulin pump status [facility] Diagnosis Controlled type 1 diabetes mellitus with retinopathy, macular edema presence unspecified, unspecified laterality, unspecified retinopathy severity (HCC) [facility]* Diagnosis Controlled type 1 diabetes mellitus with retinopathy, macular edema presence unspecified, unspecified laterality, unspecified retinopathy severity (HCC) [facility] Diagnosis Type 1 diabetes mellitus with retinopathy, macular edema presence unspecified, unspecified laterality, unspecified retinopathy severity (HCC)- Primary Hypoglycemia due to type 1 diabetes mellitus (HCC) Mixed hyperlipidemia Coronary artery disease, unspecified vessel or lesion type, unspecified whether angina present, unspecified whether [place] or transplanted heart Insulin pump status documented in this encounter [facility] note* Diagnosis Type 1 diabetes mellitus with retinopathy, macular edema presence unspecified, unspecified laterality, unspecified retinopathy severity (HCC)- Primary documented in this encounter [facility] note* Diagnosis CAD in [place] artery- Primary Preoperative clearance Unspecified pre-operative examination Atherosclerotic heart disease of [place] coronary artery without angina pectoris documented in this encounter [facility] note* Diagnosis CAD, multiple vessel- Primary Atherosclerotic heart disease of [place] coronary artery without angina pectoris documented in this encounter [facility] note* Diagnosis CAD, multiple vessel- Primary Atherosclerotic heart disease of [place] coronary artery without angina pectoris documented in this encounter [facility] note* Diagnosis CAD in [place] artery- Primary CAD in [place] artery Coronary artery disease involving coronary bypass graft, unspecified whether angina present, unspecified whether [place] or transplanted heart S/P CABG (coronary artery bypass graft) Postsurgical aortocoronary bypass status documented in this encounter [facility] note* Diagnosis S/P CABG (coronary artery bypass graft)- Primary Postsurgical aortocoronary bypass status documented in this encounter [facility] note* Diagnosis S/P CABG (coronary artery bypass graft)- Primary Postsurgical aortocoronary bypass status documented in this encounter [facility] note* Diagnosis S/P CABG (coronary artery bypass graft)- Primary Postsurgical aortocoronary bypass status documented in this encounter [facility] note* Diagnosis S/P CABG (coronary artery bypass graft)- Primary Postsurgical aortocoronary bypass status documented in this encounter [facility] note* Diagnosis S/P CABG (coronary artery bypass graft)- Primary Postsurgical aortocoronary bypass status documented in this encounter [facility] note* Diagnosis S/P CABG (coronary artery bypass graft)- Primary Postsurgical aortocoronary bypass status documented in this encounter [facility] note* Diagnosis S/P CABG (coronary artery bypass graft)- Primary Postsurgical aortocoronary bypass status documented in this encounter [facility] note* Diagnosis Type 1 diabetes mellitus with retinopathy, macular edema presence unspecified, unspecified laterality, unspecified retinopathy severity (HCC)- Primary Chronic systolic heart failure (HCC) Chronic systolic heart failure Mixed hyperlipidemia Insulin pump status [facility] encounter [facility]* Diagnosis S/P CABG (coronary artery bypass graft)- Primary Postsurgical aortocoronary bypass status [facility] Diagnosis S/P CABG (coronary artery bypass graft)- Primary Postsurgical aortocoronary bypass status [facility] in [facility] Diagnosis S/P CABG (coronary artery bypass graft)- Primary Postsurgical aortocoronary bypass status [facility] Diagnosis S/P CABG (coronary artery bypass graft)- Primary Postsurgical aortocoronary bypass status documented in this encounter [facility] note* Diagnosis S/P CABG (coronary artery bypass graft)- Primary Postsurgical aortocoronary bypass status [facility] Diagnosis S/P CABG (coronary artery bypass graft)- Primary Postsurgical aortocoronary bypass status [facility] in [facility]* Diagnosis S/P CABG (coronary artery bypass graft)- Primary Postsurgical aortocoronary bypass status [facility] in [facility] Diagnosis S/P CABG (coronary artery bypass graft)- Primary Postsurgical aortocoronary bypass status [facility] in [facility]* Diagnosis S/P CABG (coronary artery bypass graft)- Primary Postsurgical aortocoronary bypass status [facility] Diagnosis S/P CABG (coronary artery bypass graft)- Primary Postsurgical aortocoronary bypass status documented in this encounter [facility] note* Diagnosis S/P CABG (coronary artery bypass graft)- Primary Postsurgical aortocoronary bypass status [facility] Diagnosis S/P CABG (coronary artery bypass graft)- Primary Postsurgical aortocoronary bypass status [facility] Diagnosis S/P CABG (coronary artery bypass graft)- Primary Postsurgical aortocoronary bypass status [facility] Diagnosis S/P CABG (coronary artery bypass graft)- Primary Postsurgical aortocoronary bypass status [facility]* Diagnosis S/P CABG (coronary artery bypass graft)- Primary Postsurgical aortocoronary bypass status [facility] Summary Purpose Family History No Family History Records FoundNo Family History Records FoundNo Family History Records FoundNo Family History Records FoundNo Family History Records FoundNo Family History Records FoundNo Family History Records Found Advance Directives No Advanced Directives Records FoundLatest Code Status on File Code Status Date Activated Date Inactivated Comments Full Code 10/07/2022 6:12 AM 10/11/2022 3:50 PM Latest Code Status on File Code Status Date Activated Date Inactivated Comments Full Code 10/07/2022 6:12 AM 10/11/2022 3:50 PM Additional Source Comments (unrecognized sect ion and content) No Status Records FoundNo Status Records FoundNo Status Records FoundNo Status Records FoundNo Status Records FoundNo Status Records FoundNo Status Records Found INFORMATION SOURCE (unrecogn ized section and content) DATE CREATED AUTHOR AUTHOR'S ORGANIZ ATION 07/13/2020 [facility] DATE CREATED AUTHOR AUTHOR'S ORGANIZ ATION 12/20/2021 [facility] DATE CREATED AUTHOR AUTHOR'S ORGANIZ ATION 12/20/2021 [employer] DATE CREATED AUTHOR AUTHOR'S ORGANIZ ATION 11/12/2022 [facility] DATE CREATED AUTHOR AUTHOR'S ORGANIZ ATION 02/24/[address] [facility] DATE CREATED AUTHOR AUTHOR'S ORGANIZ ATION 02/25/2023 [facility] Source Comments (unrecognize d section and content) In the event this informatio n is protected by the Federal Confidentiality of Alcohol and Drug Abuse Patient Records regulations: The Federal rules restrict any use of the information to criminally investigate or prosecute any alcohol or drug abuse patient.[facility] HospitalIn the event this information is protected by the Federal Confidentiality of Alcohol and Drug Abuse Patient Records regulations: The Federal rules restrict any use of the information to criminally investigate or prosecute any alcohol or drug abuse patient.[facility] HospitalIn the event this information is protected by the Federal Confidentiality of Alcohol and Drug Abuse Patient Records regulations: The Federal rules restrict any use of the information to criminally investigate or prosecute any alcohol or drug abuse patient.[facility] HospitalIn the event this information is protected by the Federal Confidentiality of Alcohol and Drug Abuse Patient Records regulations: The Federal rules restrict any use of the information to criminally investigate or prosecute any alcohol or drug abuse patient.[facility] HospitalIn the event this information is protected by the Federal Confidentiality of Alcohol and Drug Abuse Patient Records regulations: The Federal rules restrict any use of the information to criminally investigate or prosecute any alcohol or drug abuse patient.[facility] HospitalIn the event this information is protected by the Federal Confidentiality of Alcohol and Drug Abuse Patient Records regulations: The Federal rules restrict any use of the information to criminally investigate or prosecute any alcohol or drug abuse patient.[facility] HospitalIn the event this information is protected by the Federal Confidentiality of Alcohol and Drug Abuse Patient Records regulations: The Federal rules restrict any use of the information to criminally investigate or prosecute any alcohol or drug abuse patient.[facility] HospitalIn the event this information is protected by the Federal Confidentiality of Alcohol and Drug Abuse Patient Records regulations: The Federal rules restrict any use of the information to criminally investigate or prosecute any alcohol or drug abuse patient.[facility] HospitalIn the event this information is protected by the Federal Confidentiality of Alcohol and Drug Abuse Patient Records regulations: The Federal rules restrict any use of the information to criminally investigate or prosecute any alcohol or drug abuse patient.[facility] HospitalIn the event this information is protected by the Federal Confidentiality of Alcohol and Drug Abuse Patient Records regulations: The Federal rules restrict any use of the information to criminally investigate or prosecute any alcohol or drug abuse patient.[facility] HospitalIn the event this information is protected by the Federal Confidentiality of Alcohol and Drug Abuse Patient Records regulations: The Federal rules restrict any use of the information to criminally investigate or prosecute any alcohol or drug abuse patient.[facility] HospitalIn the event this information is protected by the Federal Confidentiality of Alcohol and Drug Abuse Patient Records regulations: The Federal rules restrict any use of the information to criminally investigate or prosecute any alcohol or drug abuse patient.[facility] HospitalIn the event this information is protected by the Federal Confidentiality of Alcohol and Drug Abuse Patient Records regulations: The Federal rules restrict any use of the information to criminally investigate or prosecute any alcohol or drug abuse patient.[facility] HospitalIn the event this information is protected by the Federal Confidentiality of Alcohol and Drug Abuse Patient Records regulations: The Federal rules restrict any use of the information to criminally investigate or prosecute any alcohol or drug abuse patient.[facility] HospitalIn the event this information is protected by the Federal Confidentiality of Alcohol and Drug Abuse Patient Records regulations: The Federal rules restrict any use of the information to criminally investigate or prosecute any alcohol or drug abuse patient.[facility] HospitalIn the event this information is protected by the Federal Confidentiality of Alcohol and Drug Abuse Patient Records regulations: The Federal rules restrict any use of the information to criminally investigate or prosecute any alcohol or drug abuse patient.[facility] HospitalIn the event this information is protected by the Federal Confidentiality of Alcohol and Drug Abuse Patient Records regulations: The Federal rules restrict any use of the information to criminally investigate or prosecute any alcohol or drug abuse patient.[facility] HospitalIn the event this information is protected by the Federal Confidentiality of Alcohol and Drug Abuse Patient Records regulations: The Federal rules restrict any use of the information to criminally investigate or prosecute any alcohol or drug abuse patient.[facility] HospitalIn the event this information is protected by the Federal Confidentiality of Alcohol and Drug Abuse Patient Records regulations: The Federal rules restrict any use of the information to criminally investigate or prosecute any alcohol or drug abuse patient.[facility] HospitalIn the event this information is protected by the Federal Confidentiality of Alcohol and Drug Abuse Patient Records regulations: The Federal rules restrict any use of the information to criminally investigate or prosecute any alcohol or drug abuse patient.[facility] HospitalIn the event this information is protected by the Federal Confidentiality of Alcohol and Drug Abuse Patient Records regulations: The Federal rules restrict any use of the information to criminally investigate or prosecute any alcohol or drug abuse patient.[facility] HospitalIn the event this information is protected by the Federal Confidentiality of Alcohol and Drug Abuse Patient Records regulations: The Federal rules restrict any use of the information to criminally investigate or prosecute any alcohol or drug abuse patient.[facility] HospitalIn the event this information is protected by the Federal Confidentiality of Alcohol and Drug Abuse Patient Records regulations: The Federal rules restrict any use of the information to criminally investigate or prosecute any alcohol or drug abuse patient.[facility] HospitalIn the event this information is protected by the Federal Confidentiality of Alcohol and Drug Abuse Patient Records regulations: The Federal rules restrict any use of the information to criminally investigate or prosecute any alcohol or drug abuse patient.[facility] HospitalIn the event this information is protected by the Federal Confidentiality of Alcohol and Drug Abuse Patient Records regulations: The Federal rules restrict any use of the information to criminally investigate or prosecute any alcohol or drug abuse patient.[facility] HospitalIn the event this information is protected by the Federal Confidentiality of Alcohol and Drug Abuse Patient Records regulations: The Federal rules restrict any use of the information to criminally investigate or prosecute any alcohol or drug abuse patient.[facility] HospitalIn the event this information is protected by the Federal Confidentiality of Alcohol and Drug Abuse Patient Records regulations: The Federal rules restrict any use of the information to criminally investigate or prosecute any alcohol or drug abuse patient.[facility] HospitalIn the event this information is protected by the Federal Confidentiality of Alcohol and Drug Abuse Patient Records regulations: The Federal rules restrict any use of the information to criminally investigate or prosecute any alcohol or drug abuse patient.[facility] HospitalIn the event this information is protected by the Federal Confidentiality of Alcohol and Drug Abuse Patient Records regulations: The Federal rules restrict any use of the information to criminally investigate or prosecute any alcohol or drug abuse patient.[facility] HospitalIn the event this information is protected by the Federal Confidentiality of Alcohol and Drug Abuse Patient Records regulations: The Federal rules restrict any use of the information to criminally investigate or prosecute any alcohol or drug abuse patient.[facility] HospitalIn the event this information is protected by the Federal Confidentiality of Alcohol and Drug Abuse Patient Records regulations: The Federal rules restrict any use of the information to criminally investigate or prosecute any alcohol or drug abuse patient.[facility] HospitalIn the event this information is protected by the Federal Confidentiality of Alcohol and Drug Abuse Patient Records regulations: The Federal rules restrict any use of the information to criminally investigate or prosecute any alcohol or drug abuse patient.[facility] HospitalIn the event this information is protected by the Federal Confidentiality of Alcohol and Drug Abuse Patient Records regulations: The Federal rules restrict any use of the information to criminally investigate or prosecute any alcohol or drug abuse patient.[facility] HospitalIn the event this information is protected by the Federal Confidentiality of Alcohol and Drug Abuse Patient Records regulations: The Federal rules restrict any use of the information to criminally investigate or prosecute any alcohol or drug abuse patient.[facility] HospitalIn the event this information is protected by the Federal Confidentiality of Alcohol and Drug Abuse Patient Records regulations: The Federal rules restrict any use of the information to criminally investigate or prosecute any alcohol or drug abuse patient.[facility] HospitalIn the event this information is protected by the Federal Confidentiality of Alcohol and Drug Abuse Patient Records regulations: The Federal rules restrict any use of the information to criminally investigate or prosecute any alcohol or drug abuse patient.[facility] HospitalIn the event this information is protected by the Federal Confidentiality of Alcohol and Drug Abuse Patient Records regulations: The Federal rules restrict any use of the information to criminally investigate or prosecute any alcohol or drug abuse patient.[facility] HospitalIn the event this information is protected by the Federal Confidentiality of Alcohol and Drug Abuse Patient Records regulations: The Federal rules restrict any use of the information to criminally investigate or prosecute any alcohol or drug abuse patient.[facility] HospitalIn the event this information is protected by the Federal Confidentiality of Alcohol and Drug Abuse Patient Records regulations: The Federal rules restrict any use of the information to criminally investigate or prosecute any alcohol or drug abuse patient.[facility] HospitalIn the event this information is protected by the Federal Confidentiality of Alcohol and Drug Abuse Patient Records regulations: The Federal rules restrict any use of the information to criminally investigate or prosecute any alcohol or drug abuse patient.[facility] HospitalIn the event this information is protected by the Federal Confidentiality of Alcohol and Drug Abuse Patient Records regulations: The Federal rules restrict any use of the information to criminally investigate or prosecute any alcohol or drug abuse patient.[facility] HospitalIn the event this information is protected by the Federal Confidentiality of Alcohol and Drug Abuse Patient Records regulations: The Federal rules restrict any use of the information to criminally investigate or prosecute any alcohol or drug abuse patient.[facility] HospitalIn the event this information is protected by the Federal Confidentiality of Alcohol and Drug Abuse Patient Records regulations: The Federal rules restrict any use of the information to criminally investigate or prosecute any alcohol or drug abuse patient.[facility] HospitalIn the event this information is protected by the Federal Confidentiality of Alcohol and Drug Abuse Patient Records regulations: The Federal rules restrict any use of the information to criminally investigate or prosecute any alcohol or drug abuse patient.[facility] HospitalIn the event this information is protected by the Federal Confidentiality of Alcohol and Drug Abuse Patient Records regulations: The Federal rules restrict any use of the information to criminally investigate or prosecute any alcohol or drug abuse patient.[facility] HospitalIn the event this information is protected by the Federal Confidentiality of Alcohol and Drug Abuse Patient Records regulations: The Federal rules restrict any use of the information to criminally investigate or prosecute any alcohol or drug abuse patient.[facility] Reason for Visit (unrecogniz ed section and content) Reason Comments HCP Prescription [employer] Reason Onset Date Comments Refill Request 12/18/2021 Reason Comments PA-ACCU CHEK GUIDE 2021 Reason Comments Medtronic Form Pump and Diabetic Nickerson pplies Reason Comments Medtronic Form CMN-pump, diabetic s upplies, sensor Reason Comments Certificate of Medical Necessity Med[employer] Reason Comments Results Reason Comments Insulin Dependent Diabetes Mellitus Reason Onset Date Comments Surgery Scheduling 10/01/2022 Reason Comments New Patient Reason Comments HCP (Insulin Infusion Pump & CGM Supply) [employer] Specialty Diagnoses / Procedures Referred By Contac t Referred To Contact Diagnoses 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] Procedures RI CABG W/ARTERIAL GRAFT THREE ARTERIAL GRAFTS RI ECHO TRANSESOPHAG R-T 2D W/PRB IMG ACQUISJ I&R RI OPEN TX STERNUM FRACTURE W/WO SKELETAL FIXATION CABG,STERNAL PLATING, SAGAR Echocardiography transesophageal real-time OPEN TREATMENT OF STERNUM FRACTURE WITH OR WITHOUT SKELETAL FIXATION Ericka Bagley MD [address] [place] [address] [address] [place] [address] [address] [place] [address] [place] [address] Referral ID Status Reason Start Date Expiration Date Visits Re quested Visits Authorized [id number] 1 Reason Onset Date Comments Follow-up 10/15/2022 Eye site Reason Comments Farxiga Reason Comments Cardiac Rehab Initial Assessment Reason Comments Med Refill Reason Comments Cardiac Rehab Reason Comments Post-op Reason Comments Insulin pump Reason Comments Follow Up Reason Comments Cardiac Rehab 30 day assessment Reason Comments Cardiac Rehab 60 day assessment Reason Comments Cardiac Rehab 90 day assessment Reason Comments [employer] Form Prescription for Ins ulin pump and supplies Reason Comments Medtronic Form CMN-Transmitter OOW Reason Comments Cardiac Rehab Discharge Reason Comments PA--Guardian 4 Transmitter Care Teams (unrecognized sec tion and content) 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 Start Date End Date Jareth Garcia MD [address] [facility] [address] [place] [address] PCP - General Family Practice 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 Start Date End Date Jareth Garcia MD [address] [place] [address] [address] [place] [address] PCP - General Family Practice 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 Start Date End Date Jareth Garcia MD [address] [facility] [address] [place] [address] PCP - General Family Practice 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 Start Date End Date Jareth Garcia MD [address] [facility] [address] [place] [address] PCP - General Family Medicine 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 Start Date End Date Jareth Garcia MD [address] [facility] [address] [place] [address] PCP - General Family Medicine 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 Start Date End Date Jareth Garcia MD [address] [facility] [address] [place] [address] PCP - General Family Medicine 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 Start Date End Date Jareth Garcia MD [address] [facility] [address] [place] [address] PCP - General Family Medicine 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 Start Date End Date Jareth Garcia MD [address] [facility] [address] [place] [address] PCP - General Family Medicine 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 Start Date End Date Jareth Garcia MD [address] [place] [address] PCP - General Family Medicine 10/01/22 Jareth Garcia MD [address] [place] [address] Family Medicine 10/01/22 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 Start Date End Date Jareth Garcia MD [address] [place] [address] PCP - General Family Medicine 10/01/22 Jareth Garcia MD [address] [place] [address] Family Medicine 10/01/22 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 Start Date End Date Jareth Garcia MD [address] [place] [address] PCP - General Family Medicine 10/01/22 Jareth Garcia MD [address] [place] [address] Family Medicine 10/01/22 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 Start Date End Date Jareth Garcia MD [address] [place] [address] PCP - General Family Medicine 10/01/22 Jareth Garcia MD [address] [place] [address] Family Medicine 10/01/22 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 Start Date End Date Jareth Garcia MD [address] [place] [address] PCP - General Family Medicine 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 Start Date End Date Jareth Garcia MD [address] [place] [address] PCP - General Family Medicine 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 Start Date End Date Jareth Garcia MD [address] [place] [address] PCP - General Family Medicine 10/01/22 Jareth Garcia MD [address] [place] [address] Family Medicine 10/01/22 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 Start Date End Date Jareth Garcia MD [address] [place] [address] PCP - General Family Medicine 10/01/22 Jareth Garcia MD [address] [place] [address] Family Medicine 10/01/22 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 Start Date End Date Jareth Garcia MD [address] [place] [address] PCP - General Family Medicine 10/01/22 Jareth Garcia MD [address] [place] [address] Family Medicine 10/01/22 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 Start Date End Date Jareth Garcia MD [address] [place] [address] PCP - General Family Medicine 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 Start Date End Date Jareth Garcia MD [address] [place] [address] PCP - General Family Medicine 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 Start Date End Date Jareth Garcia MD [address] [place] [address] PCP - General Family Medicine 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 Start Date End Date Jareth Garcia MD [address] [place] [address] PCP - General Family Medicine 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 Start Date End Date Jareth Garcia MD [address] [facility] [address] [place] [address] PCP - General Family Medicine 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 Start Date End Date Jareth Garcia MD [address] [facility] [address] [place] [address] PCP - General Family Medicine 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 Start Date End Date Jareth Garcia MD [address] [facility] [address] [place] [address] PCP - General Family Medicine 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 Start Date End Date Jareth Garcia MD [address] [facility] [address] [place] [address] PCP - General Family Medicine 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 Start Date End Date Jareth Garcia MD [address] [facility] [address] [place] [address] PCP - General Family Medicine 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 Start Date End Date Jareth Garcia MD [address] [facility] [address] [place] [address] PCP - General Family Medicine 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 Start Date End Date Jareth Garcia MD [address] [facility] [address] [place] [address] PCP - General Family Medicine 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 Start Date End Date Jareth Garcia MD [address] [facility] [address] [place] [address] PCP - General Family Medicine 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 Start Date End Date Jareth Garcia MD [address] [facility] [address] [place] [address] PCP - General Family Medicine 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 Start Date End Date Jareth Garcia MD [address] [facility] [address] [place] [address] PCP - General Family Medicine 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 Start Date End Date Jareth Garcia MD [address] [facility] [address] [place] [address] PCP - General Family Medicine 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 Start Date End Date Jareth Garcia MD [address] [facility] [address] [place] [address] PCP - General Family Medicine 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 Start Date End Date Jareth Garcia MD [address] [facility] [address] [place] [address] PCP - General Family Medicine 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 Start Date End Date Jareth Garcia MD [address] [facility] [address] [place] [address] PCP - General Family Medicine 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 Start Date End Date Jareth Garcia MD [address] [facility] [address] [place] [address] PCP - General Family Medicine 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 Start Date End Date Jareth Garcia MD [address] [facility] [address] [place] [address] PCP - General Family Medicine 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 Start Date End Date Jareth Garcia MD [address] [facility] [address] [place] [address] PCP - General Family Medicine 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 Start Date End Date Jareth Garcia MD [address] [facility] [address] [place] [address] PCP - General Family Medicine 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 Start Date End Date Jareth Garcia MD [address] [facility] [address] [place] [address] PCP - General Family Medicine 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 Start Date End Date Jareth Garcia MD [address] [facility] [address] [place] [address] PCP - General Family Medicine 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 Start Date End Date Jareth Garcia MD [address] [facility] [address] [place] [address] PCP - General Family Medicine 07/20/20 Scheduled Active and Recently Administ ered Medications (unrecognized section and content) Continuous Medication Order 10/09/2022 10/10/2022 10/11/2022 Insulin Pump - Basal Dose (Patient Supplied) SubCUTAneous, Continuous, Starting on Evelin 10/09/22 at 1130, Basal rate: 12A-4A-0.650 4A-6A-0.750 6A-12A-0.600 14.9= 24 hour basal rate Insulin:carb ratio 12A-5P= 7 5P-12A=4.5 Sensitivity 12A-12A= 40 Blood glucose target- 12A-12A: 90-110, What type of insulin is the patient using in their insulin pump? Insulin lispro, What is the patient's 24 hour basal dose (Units/hour x 24 hours)? Answer in units. 14.9 1130 (New Bag - Provider: Na Sr, RN) insulin regular 100 units in 100 mL NS (Myxredlin) infusion (premix) (CANCELED) 1-50 Units/hr (1-50 mL/hr), IntraVENous, Continuous, Starting on Thu10/07/22 at 1300, Recovery & On Unit, As guided by calculator flowsheet Low target: 120 High target: 160 Hold insulin infusion if BS< 100 mg/dl, if BS < 70 mg/dl follow hypoglycemia treatment orders, continue to check BS as ordered, and restart insulin infusion if and when BS increases back into goal range. BUD: 30 days at room temperature 0000 (Rate/Dose Verify - Provider: Marti Sales RN)0103 (Rate/Dose Verify - Provider: Marti Sales RN)0200 (Rate/Dose Verify - Provider: Marti Sales RN)0314 (Rate/Dose Change - Provider: Marti Sales RN)0400 (Rate/Dose Change - Provider: Marti Sales RN)0500 (Rate/Dose Verify - Provider: Dottie Lipscomb RN)0603 (Rate/Dose Verify - Provider: Marti Sales RN)0700 (Rate/Dose Change - Provider: Dottie Lipscomb, HALIE)0815 (Rate/Dose Change - Provider: Na Sr, HALIE)0908 (Rate/Dose Change - Provider: Na Sr, RN)1002 (Rate/Dose Change - Provider: Na Sr, RN)1110 (Rate/Dose Change - Provider: Na Sr, RN)1214 (Stopped - Provider: Na Sr, RN) PRN Medication Order 10/09/2022 10/10/2022 10/11/2022 calcium gluconate 2000 mg in 100 mL IVPB premix 2,000 mg, IntraVENous, at 50 mL/hr, Administer over 2 Hours, PRN, ionized calcium less than 4.3, Starting on Thu10/07/22 at 1253, Recovery & On Unit, Give 2000 mg for ionized calcium less than 4.3 premix bag dextrose 5 % infusion 100 mL/hr, IntraVENous, PRN, Blood sugar less than 70mg/dL, Starting on Thu10/07/22 at 1253, Recovery & On Unit, Start infusion following administration of dextrose 50% or glucagon. dextrose 50 % solution 12.5 g 12.5 g, IntraVENous, PRN, low blood sugar, Blood glucose less than 70 mg/dL and patient NOT ALERT or NPO., Starting on Thu10/07/22 at 1253, Recovery & On Unit, If patient does not respond within 5 minutes, repeat dose x1. Start D5W at 100 mL/hour until ordering provider can be reached. Repeat blood glucose in 15 minutes. If blood glucose is less than 70 mg/dL, repeat treatment and recheck blood glucose in 15 minutes x2. If using Glucostabilizer, dose as instructed per system. glucagon (human recombinant) injection 1 mg 1 mg, IntraMUSCular, PRN, low blood sugar, Blood glucose less than 70 mg/dL and patient NOT ALERT or NPO and does not have IV access., Starting on Thu10/07/22 at 1253, Recovery & On Unit, After administration, attempt intravenous access and start D5W at 100 mL/hr. Repeat blood glucose in 15 minutes x2 and notify provider. glucose oral gel 15 g 15 g, Oral, As needed, low blood sugar, Starting on Thu10/07/22 at 1253, Recovery & On Unit, If blood glucose less than 50 mg/dL and patient ALERT and NOT NPO, give 2 tubes glucose gel. If blood glucose less than 70 mg/dL and patient ALERT and NOT NPO, give 1 tube glucose gel. Repeat blood glucose in 15 minutes. If blood glucose is less than 70 mg/dL, repeat treatment and recheck blood glucose in 15 minutes x2 and notify provider. HYDROmorphone (Dilaudid) injection 0.5 mg (CANCELED) 0.5 mg, IntraVENous, Every 4 hours PRN, severe pain (7-10), last line, Starting on Thu10/08/22 at 0703, If oral and IV narcotics ordered, use oral first and only use IV if oral is ineffective or cannot take oral. Do Not give oral and IV within 1 hour of each other unless specifically ordered. 0500 (Given - Provider: Dottie Lipscomb RN) ipratropium-albuterol (Duo-Neb) 0.5-2.5 mg/3 mL nebulizer solution 3 mL 3 mL, Nebulization, As needed, wheezing, shortness of breath, Starting on Thu10/07/22 at 1253, Recovery & On Unit magnesium hydroxide (Milk of Magnesia) 400 MG/5ML suspension 30 mL 30 mL, Oral, Daily PRN, constipation, Starting on Thu10/07/22 at 1253, Recovery & On Unit, 1st line for treatment of constipation - give scheduled if no bowel movement in past 24 hours magnesium sulfate IVPB 4,000 mg(Linked Group 1) 4,000 mg, IntraVENous, at 25 mL/hr, Administer over 4 Hours, As needed, Per Magnesium Replacement Protocol, Starting on Thu10/07/22 at 1253, Recovery & On Unit, Mg Lab Replacement Action 1.4-1.6 2 gram IVPB x 1 doses 1.0-1.3 4 gram IVPB x 1 doses Less than 1.0 CALL PHYSICIAN and 4 gram IVPB x 1 doses Infuse at 1 gram/hr. Repeat Mag level next AM. Not for use in Patients with CrCl less than 30 mL/min. magnesium sulfate IVPB premix 2,000 mg(Linked Group 1) 2,000 mg, IntraVENous, at 25 mL/hr, Administer over 2 Hours, As needed, Per Magnesium Replacement Protocol, Starting on Thu10/07/22 at 1253, Recovery & On Unit, Mg Lab Replacement Action 1.4-1.6 2 gram IVPB x 1 doses 1.0-1.3 4 gram IVPB x 1 doses Less than 1.0 CALL PHYSICIAN and 4 gram IVPB x 1 doses Infuse at 1 gram/hr. Repeat Mag level next AM. Not for use in Patients with CrCl less than 30 mL/min. norepinephrine (Levophed) 16 mg in 0.9% sodium chloride 250 mL infusion (weight based) (premix) (CANCELED) 0.01-3.3 mcg/kg/min 89.8 kg (0.8419-277.8188 mL/hr, rounded to 0.84-277.82 mL/hr), IntraVENous, Continuous PRN, Initiate if Cardiac Index above 2.0; SBP less than 90 mmHg or MAP less than 65 mmHg; and PAD above 18, Starting on Thu10/07/22 at 1253, Recovery & On Unit, Infuse via central line. If Titrate Infusion? is No : Disregard instructions below. If Titrate infusion? is Yes : Titrate in increments of 0.02 mcg/kg/min no faster than every 5 minutes to goal. When approaching therapeutic goal or weaning off, smaller titration increments of 0.01 mcg/kg/min no faster than every 5 minutes may be used to maintain goal. , Goal Maintain SBP greater than 90 and less than 130 Goal Maintain MAP greater than 65 and less than 80, Titrate Infusion: Yes, Infusion Dose: Other, Infusion Dose: 0.01 mcg/kg/min, Goal of Therapy is: MAP great than 65 mmHg, SBP greater than 90 mmHg, Contact Provider if: Patient is receiving the maximum dose and is not achieving the goal of therapy 0003 (Rate/Dose Change - Provider: Marti Sales RN)0120 (Rate/Dose Change - Provider: Marti Sales RN)0400 (Rate/Dose Change - Provider: Marti Sales RN)0445 (Rate/Dose Change - Provider: Dottie Lipscomb RN)0500 (Rate/Dose Change - Provider: Dottie Lipscomb RN)0530 (Rate/Dose Change - Provider: Marti Sales, HALIE)0600 (Stopped - Provider: Marti Sales RN) ondansetron (Zofran) injection 4 mg(Linked Group 2) 4 mg, IntraVENous, Every 6 hours PRN, nausea, vomiting, Starting on Thu10/07/22 at 1253, Recovery & On Unit, 1st Line. Give IV if patient is unable to take orally. If inadequate response within 60 minutes, proceed to next-line agent or contact provider if no further options ordered. ondansetron ODT (Zofran-ODT) disintegrating tablet 4 mg(Linked Group 2) 4 mg, Oral, Every 8 hours PRN, nausea, vomiting, Starting on e 10/07/22 at 1253, Recovery & On Unit, 1st Line. If inadequate response within 60 minutes, proceed to next-line agent or contact provider if no further options ordered. Patient should allow tablet to dissolve on tongue. Do not remove from blister pack until just before administering. oxyCODONE (Roxicodone) immediate release tablet 10 mg (CANCELED) 10 mg, Oral, Every 6 hours PRN, severe pain (7-10), Starting on Thu10/07/22 at 1253, Recovery & On Unit 0145 (Given - Provider: Tracy Johnson RN) oxyCODONE (Roxicodone) immediate release tablet 10 mg(Linked Group 3) 10 mg, Oral, Every 4 hours PRN, severe pain (7-10), Starting on Evelin 10/09/22 at 0615, Recovery & On Unit 1010 (See Alternative - Provider: Na Sr RN)1420 (Given - Provider: Na Sr RN)2032 (See Alternative - Provider: Emiliana Ortiz, HALIE) 0710 (See Alternative - Provider: Emiliana Ortiz, HALIE)1415 (See Alternative - Provider: Mercy Caputo, HALIE) oxyCODONE (Roxicodone) immediate release tablet 5 mg(Linked Group 3) 5 mg, Oral, Every 4 hours PRN, moderate pain (4-6), Starting on Evelin 10/09/22 at 0615, Recovery & On Unit 1010 (Given - Provider: Na Sr RN)1420 (See Alternative - Provider: Na Sr RN)2032 (Given - Provider: Emiliana Ortiz, HALIE) 0710 (Given - Provider: Emiliana Ortiz, HALIE)1415 (Given - Provider: Mercy Caputo, HALIE) potassium chloride 20 mEq in sodium chloride 0.9 % 250 mL IVPB(Linked Group 4) 20 mEq, IntraVENous, at 130 mL/hr, Administer over 2 Hours, PRN, Per IV Potassium Replacement Protocol, Starting on Thu10/07/22 at 1253, Recovery & On Unit, For Peripheral Line Use K Lab Replacement Action 3.1-3.5 20 mEq IVPB x 1 doses 2.7-3.0 40 mEq IVPB x 1 doses less than 2.7 CALL PROVIDER and administer 40 mEq IVPB x 1 dose Infuse at 10 mEq/hr Repeat Potassium lab 1 hour after administration. Protocol not for use in Patients with CrCl less than 30mL/min potassium chloride 40 mEq in sodium chloride 0.9 % 500 mL IVPB(Linked Group 4) 40 mEq, IntraVENous, at 130 mL/hr, Administer over 4 Hours, PRN, Per IV Potassium Replacement Protocol, Starting on Thu10/07/22 at 1253, Recovery & On Unit, For Peripheral Line Use. K Lab Replacement Action 3.1-3.5 20 mEq IVPB x 1 doses 2.7-3.0 40 mEq IVPB x 1 doses less than 2.7 CALL PROVIDER and administer 40 mEq IVPB x 1 dose Infuse at 10 mEq/hr Repeat Potassium lab 1 hour after administration. Protocol not for use in Patients with CrCl less than 30mL/min potassium chloride CR (Klor-Con M10) ER tablet 20 mEq 20 mEq, Oral, PRN, Hypokalemia, Starting on Thu10/08/22 at 0000, Phase II/On Unit, If patient is intubated or not tolerating PO use PRN IV replacement protocol Potassium level Dose LESS than 3.0 = Give 20 mEq x 3 doses 3.0-3.6 = Give 20 mEq x 2 doses Recheck potassium level 2 hour after replacement given, place order for lab under [place] If potassium level LESS than 3 after 1st replacement: Call surgeon. Do not crush or break. Do not crush or chew. potassium chloride IVPB 20 mEq(Linked Group 4) 20 mEq, IntraVENous, at 50 mL/hr, Administer over 1 Hours, PRN, Per IV Potassium Replacement Protocol, Starting on Thu10/07/22 at 1253, Recovery & On Unit, For Central Line Use Only K Lab Replacement Action 3.1-3.5 20 mEq IVPB x 1 doses 2.7-3.0 20 mEq IVPB x 2 doses (40 mEq Total) less than 2.7 CALL PROVIDER and administer 20 mEq IVPB x 2 doses (40 mEq Total) Infuse at 20 mEq/hr Repeat Potassium lab 1 hour after final administration. Protocol not for use in Patients with CrCl less than 30mL/min For central line administration only. simethicone (Mylicon) chewable tablet 80 mg 80 mg, Oral, PRN, flatulence, Starting on Thu10/08/22 at 0626 Linked Groups Order Group 1: magnesium sulfate IVPB premix 2,000 mgJump to med 2,000 mg, IntraVENous, at 25 mL/hr, Administer over 2 Hours, As needed, Per Magnesium Replacement Protocol, Starting on Thu10/07/22 at 1253, Recovery & On Unit
Mg Lab Replacement Action 1.4-1.6 2 gram IVPB x 1 doses 1.0-1.3 4 gram IVPB x 1 doses Less than 1.0 CALL PHYSICIAN and 4 gram IVPB x 1 doses Infuse at 1 gram/hr. Repeat Mag level next AM. Not for use in Patients with CrCl less than 30 mL/min.
Or magnesium sulfate IVPB 4,000 mgJump to med 4,000 mg, IntraVENous, at 25 mL/hr, Administer over 4 Hours, As needed, Per Magnesium Replacement Protocol, Starting on Thu10/07/22 at 1253, Recovery & On Unit
Mg Lab Replacement Action 1.4-1.6 2 gram IVPB x 1 doses 1.0-1.3 4 gram IVPB x 1 doses Less than 1.0 CALL PHYSICIAN and 4 gram IVPB x 1 doses Infuse at 1 gram/hr. Repeat Mag level next AM. Not for use in Patients with CrCl less than 30 mL/min.
Group 2: ondansetron ODT (Zofran-ODT) disintegrating tablet 4 mgJump to med 4 mg, Oral, Every 8 hours PRN, nausea, vomiting, Starting on Thu10/07/22 at 1253, Recovery & On Unit
1st Line. If inadequate response within 60 minutes, proceed to next-line agent or contact provider if no further options ordered. Patient should allow tablet to dissolve on tongue. Do not remove from blister pack until just before administering.
Or ondansetron (Zofran) injection 4 mgJump to med 4 mg, IntraVENous, Every 6 hours PRN, nausea, vomiting, Starting on Thu10/07/22 at 1253, Recovery & On Unit
1st Line. Give IV if patient is unable to take orally. If inadequate response within 60 minutes, proceed to next-line agent or contact provider if no further options ordered.
Group 3: oxyCODONE (Roxicodone) immediate release tablet 5 mgJump to med 5 mg, Oral, Every 4 hours PRN, moderate pain (4-6), Starting on Evelin 10/09/22 at 0615, Recovery & On Unit Or oxyCODONE (Roxicodone) immediate release tablet 10 mgJump to med 10 mg, Oral, Every 4 hours PRN, severe pain (7-10), Starting on Evelin 10/09/22 at 0615, Recovery & On Unit Group 4: potassium chloride IVPB 20 mEqJump to med 20 mEq, IntraVENous, at 50 mL/hr, Administer over 1 Hours, PRN, Per IV Potassium Replacement Protocol, Starting on Thu10/07/22 at 1253, Recovery & On Unit
For Central Line Use Only K Lab Replacement Action 3.1-3.5 20 mEq IVPB x 1 doses &n bsp;& nbsp; 2.7-3.0 20 mEq IVPB x 2 doses &n bsp;& nbsp; (40 mEq Total) less than 2.7 CALL PROVIDER and administer &nbsp ; 20 mEq IVPB x 2 doses &n bsp;& nbsp; (40 mEq Total) Infuse at 20 mEq/hr Repeat Potassium lab 1 hour after final administration. Protocol not for use in Patients with CrCl less than 30mL/min For central line administration only.
Or potassium chloride 20 mEq in sodium chloride 0.9 % 250 mL IVPBJump to med 20 mEq, IntraVENous, at 130 mL/hr, Administer over 2 Hours, PRN, Per IV Potassium Replacement Protocol, Starting on Thu10/07/22 at 1253, Recovery & On Unit
For Peripheral Line Use K Lab Replacement Action 3.1-3.5 20 mEq IVPB x 1 doses &n bsp;& nbsp; 2.7-3.0 40 mEq IVPB x 1 doses &n bsp;& nbsp; less than 2.7 CALL PROVIDER and administer &nbs p;&nb sp; 40 mEq IVPB x 1 dose Infuse at 10 mEq/hr Repeat Potassium lab 1 hour after administration. Protocol not for use in Patients with CrCl less than 30mL/min
Or potassium chloride 40 mEq in sodium chloride 0.9 % 500 mL IVPBJump to med 40 mEq, IntraVENous, at 130 mL/hr, Administer over 4 Hours, PRN, Per IV Potassium Replacement Protocol, Starting on Thu10/07/22 at 1253, Recovery & On Unit
For Peripheral Line Use. K Lab Replacement Action 3.1-3.5 20 mEq IVPB x 1 doses &n bsp;& nbsp; 2.7-3.0 40 mEq IVPB x 1 doses &n bsp;& nbsp; less than 2.7 CALL PROVIDER and administer &nbs p;&nb sp; 40 mEq IVPB x 1 dose Infuse at 10 mEq/hr Repeat Potassium lab 1 hour after administration. Protocol not for use in Patients with CrCl less than 30mL/min
FOR RECORDS PERTAINING TO PATIENTS WHO ARE OR HAVE BEEN ENROLLED IN A CHEMICAL DEPENDENCY/SUBSTANCEABUSE PROGRAM, SOME INFORMATION MAY BE OMITTED. This clinical summary was aggregated from multiple sources. Caution should be exercised in using it in the provision of clinical care. This summary normalizes information from multiple sources, and as a consequence, information in this document may materially change the coding, format and clinical context of patient data. In addition, data may be omitted in some cases. CLINICAL DECISIONS SHOULD BE BASED ON THE PRIMARY CLINICAL RECORDS. [facility] [employer] [facility]. provides no warranty or guarantee of the accuracy or completeness of information in this document.
[2023-05-08 10:58] LABS: ALB/GLOB Ratio 1.1 RATIO (0.9-2.4); AST(SGOT) 23 U/L (15-37); Alanine Aminotransfer ALT/SGPT 25 U/L (16-61); Albumin, Serum 3.8 g/dL (3.2-5.0); Alkaline Phosphatase 94 U/L (45-117); Anion Gap 2 (5-15); BUN 24 mg/dL (7-18); BUN/Creat Ratio 23.8 RATIO (10-20); Calcium,Total 9.1 mg/dL (8.5-10.1); Chloride 105 mmol/L (98-107); Cholesterol 184 mg/dL (200); Creatinine, Serum 1.01 mg/dL (0.70-1.30); EST Glomerular Filtration Rate 81 mL/min (>60); Est Glom Filt Rate - Afr Amer 99 mL/min (>60); Globulin 3.5 g/dL (2.2-4.2); Glucose 84 mg/dL (74-106); High Density Lipoprotein 89 mg/dL; Potassium 3.8 mmol/L (3.5-5.1); Protein, Total 7.3 g/dL (6.4-8.2); Sodium Level 137 mmol/L (136-145); Triglycerides 67 mg/dL; Very Low Density Lipoprotein 13 mg/dL (5-40)
== END | disposition home or self-care (01) ==
LOC: MTLAB 08:30
PROVIDERS: PCP Family Medicine; Referring Provider Family Medicine; Visit Provider Family Medicine
DX: I25.10 Atherosclerotic heart disease of native coronary artery without angina pectoris (principal)
CPT/HCPCS: 36415; 80053; 80061

== ENCOUNTER → 2023-07-16 | Outpatient (CLI) | payer OTHER, SELFPAY ==
[2017-06-01 11:55] VITALS: BMI 26.2
--- NOTE | 2023-07-16 15:08 | RAD_ITS ---
INDICATION: Dyspnea EXAMINATION/TECHNIQUE: X-RAY - XR Chest 2 Views COMPARISON: None. Findings: Frontal and lateral views of the chest. LUNG PARENCHYMA: No acute focal airspace disease or mass lesion. PLEURA: No pleural effusion. No pneumothorax. HEART/GREAT VESSELS: Cardiomediastinal silhouette is not enlarged. Coronary artery endovascular stent material. BONES: Median sternotomy wires and closure devices. RAD/Chest PA and Lateral IMPRESSION: Chest with no acute disease. Electronically Signed: Justin Cheatham MD at 3:35 EDT ,
[2023-07-16 15:35] LABS: Absolute Lymphocyte Count 2.56 X10^3/uL (0.83-4.51); Absolute Neutrophil Count 2.8 X10^3/uL (2.0-7.7); Basophil# 0.06 X10^3/uL; Eosinophil# 0.24 X10^3/uL; Eosinophils% 3.8 % (0-5); Hemoglobin 15.8 g/dL (13.0-16.5); Lymphocyte # 2.56 X10^3/ul (0.83-4.51); Lymphocyte % 40.8 % (19-41); Mean Corp Hgb Conc 33.6 g/dL (32-36); Mean Corpuscular Hgb 28.5 pg (27.0-32.0); Mean Corpuscular Volume 84.7 fL (80-94); Mean Platelet Vol. 10.2 fl (6.2-12.0); Monocyte# 0.57 X10^3/uL; Monocyte% 9.1 % (0-10); NRBC Flagged by Analyzer 0 % (0-5); Neutrophil # 2.83 X10^3/uL (2.7-7.7); Platelet Count 219 K/mm3 (150-450); RBC Distribution Width CV 13.4 % (11.6-14.6); RBC Distribution Width SD 41.6 fl (35.1-43.9); Red Blood Count 5.55 M/mm3 (4.6-6.2); White Blood Count 6.3 K/mm3 (4.4-11.0)
[2023-07-16 15:57] LABS: BNP,B-Type NATRIURETIC PEPTIDE 32.5 pg/mL (0-100)
[2023-07-16 16:02] LABS: Vitamin D,25 Hydroxy 31.2 ng/mL
[2023-07-16 16:06] LABS: Anion Gap 4 (5-15); BUN 23 mg/dL (7-18); BUN/Creat Ratio 21.7 RATIO (10-20); Calcium,Total 9.1 mg/dL (8.5-10.1); Chloride 103 mmol/L (98-107); Creatinine, Serum 1.06 mg/dL (0.70-1.30); EST Glomerular Filtration Rate 77 mL/min (>60); Est Glom Filt Rate - Afr Amer 93 mL/min (>60); Glucose 168 mg/dL (74-106); Potassium 3.7 mmol/L (3.5-5.1); Sodium Level 136 mmol/L (136-145); Thyroid Stim Hormone (TSH) 2.61 uIU/mL (0.358-3.74)
== END | disposition home or self-care (01) ==
LOC: RAD 15:03
PROVIDERS: PCP Family Medicine; Referring Provider Nurse Practitioner Gerontology; Visit Provider Nurse Practitioner Gerontology
DX: R53.83 Other fatigue (principal); R06.00 Dyspnea, unspecified; E55.9 Vitamin D deficiency, unspecified
CPT/HCPCS: 36415; 71046; 80048; 82306; 83880; 84443; 85025

== ENCOUNTER → 2023-12-21 | Outpatient (CLI) | payer OTHER, SELFPAY ==
[2017-06-01 11:55] VITALS: BMI 26.2
--- NOTE | 2023-12-21 14:44 | STRESSREP ---
Stress Test Report Exercise myocardial perfusion stress test. 58-year-old man with a history of coronary disease status post carotid bypass surgery. Stress protocol: Resting EKG demonstrates normal sinus rhythm with a rate of 54 bpm resting blood pressure is 114/70 mmHg. The patient exercised according to the regular Yoan protocol for a total duration of 10 minutes and 15 seconds attaining a maximum heart rate of 166 bpm which was 101% of maximum predicted heart rate; the maximum workload was 13.4 metabolic equivalents. At rest there were no ST or T wave changes noted to suggest ischemia and at peak exercise upsloping ST changes only were noted which did not meet the criteria for ischemia. No clinical angina was noted the test was terminated due to the target heart rate being achieved/fatigue. The peak blood pressure was 170/82 mmHg. Rate-pressure product was 22,200. Myocardial perfusion protocol. 11.6 mCi of technetium 99m sestamibi was injected at rest. The patient exercised according to regular Yoan protocol for total duration of 10 minutes 15 seconds and at peak exercise 34.3 mCi of technetium 99m sestamibi was injected stress images were obtained stress and rest images were reconstructed in comparing the short axis vertical long and horizontal long axis. Gated images were also obtained. Perfusion SPECT analysis: Review of the stress images demonstrate normal uptake of tracer noted in all areas of the myocardium. There is mild reduction of tracer noted in the anterior wall with a similar pattern noted on the stress imaging. The above is suggestive of a previous anterior myocardial infarction with no reversibility to suggest ischemia. Gated SPECT analysis: The gated ejection fraction is 54%. Conclusion: Normal exercise myocardial perfusion stress test at a high workload Preserved ejection fraction.
== END | disposition home or self-care (01) ==
LOC: CVS 06:32
PROVIDERS: PCP Family Medicine; Referring Provider Physician Assistant Medical; Visit Provider Physician Assistant Medical
DX: I25.10 Atherosclerotic heart disease of native coronary artery without angina pectoris (principal); R07.9 Chest pain, unspecified; R06.00 Dyspnea, unspecified; Z95.1 Presence of aortocoronary bypass graft
CPT/HCPCS: 78452; 93017; A9500; A4216

== ENCOUNTER → 2024-02-04 | Outpatient (CLI) | payer OTHER, SELFPAY ==
[2017-06-01 11:55] VITALS: BMI 26.2
[2024-02-04 15:49] LABS: ALB/GLOB Ratio 1.1 RATIO (0.9-2.4); AST(SGOT) 29 U/L (15-37); Alanine Aminotransfer ALT/SGPT 30 U/L (16-61); Albumin, Serum 3.8 g/dL (3.2-5.0); Alkaline Phosphatase 81 U/L (45-117); Anion Gap 5 (5-15); BUN 21 mg/dL (7-18); BUN/Creat Ratio 20.8 RATIO (10-20); Calcium,Total 9.3 mg/dL (8.5-10.1); Chloride 107 mmol/L (98-107); Cholesterol 167 mg/dL (200); Creatinine, Serum 1.01 mg/dL (0.70-1.30); EST Glomerular Filtration Rate 81 mL/min (>60); Est Glom Filt Rate - Afr Amer 98 mL/min (>60); Globulin 3.6 g/dL (2.2-4.2); Glucose 89 mg/dL (74-106); High Density Lipoprotein 95 mg/dL; Potassium 4.2 mmol/L (3.5-5.1); Protein, Total 7.4 g/dL (6.4-8.2); Sodium Level 139 mmol/L (136-145); Triglycerides 40 mg/dL; Very Low Density Lipoprotein 8 mg/dL (5-40)
== END | disposition home or self-care (01) ==
PROVIDERS: PCP Family Medicine; Referring Provider Family Medicine; Visit Provider Family Medicine
DX: E10.9 Type 1 diabetes mellitus without complications (principal)
CPT/HCPCS: 36415; 80053; 80061

== ENCOUNTER → 2024-05-02 | Outpatient (CLI) | payer OTHER, SELFPAY ==
[2017-06-01 11:55] VITALS: BMI 26.2
[2024-05-02 10:50] LABS: AST(SGOT) 22 U/L (15-37); Alanine Aminotransfer ALT/SGPT 28 U/L (16-61); Albumin, Serum 3.8 g/dL (3.2-5.0); Alkaline Phosphatase 99 U/L (45-117); Anion Gap 5 (5-15); BUN 21 mg/dL (7-18); Calcium,Total 9.1 mg/dL (8.5-10.1); Chloride 105 mmol/L (98-107); Cholesterol 169 mg/dL (200); Creatinine, Serum 1.05 mg/dL (0.70-1.30); EST Glomerular Filtration Rate 78 mL/min (>60); Est Glom Filt Rate - Afr Amer 94 mL/min (>60); Globulin 3.7 g/dL (2.2-4.2); Glucose 182 mg/dL (74-106); High Density Lipoprotein 104 mg/dL; Potassium 3.8 mmol/L (3.5-5.1); Protein, Total 7.5 g/dL (6.4-8.2); Sodium Level 136 mmol/L (136-145); Triglycerides 47 mg/dL; Very Low Density Lipoprotein 9 mg/dL (5-40)
== END | disposition home or self-care (01) ==
LOC: MTLAB 09:15
PROVIDERS: PCP Family Medicine; Referring Provider Family Medicine; Visit Provider Family Medicine
DX: E10.9 Type 1 diabetes mellitus without complications (principal)
CPT/HCPCS: 36415; 80053; 80061

== ENCOUNTER → 2024-10-31 | Outpatient (CLI) | payer OTHER, SELFPAY ==
[2017-06-01 11:55] VITALS: BMI 26.2
[2024-10-31 10:38] LABS: Hematocrit 38.7 % (40-54); Hemoglobin 12.7 g/dL (13.0-16.5); Immature Granulocytes Count 0.000 X10^3/uL (0.0-0.0); Mean Corp Hgb Conc 32.8 g/dL (32-36); Mean Corpuscular Volume 81.6 fL (80-94); Mean Platelet Vol. 10.5 fl (6.2-12.0); NRBC Flagged by Analyzer 0 % (0-5); Platelet Count 214 K/mm3 (150-450); RBC Distribution Width CV 13.7 % (11.6-14.6); RBC Distribution Width SD 40.7 fl (35.1-43.9); Red Blood Count 4.74 M/mm3 (4.6-6.2); White Blood Count 4.5 K/mm3 (4.4-11.0)
== END | disposition home or self-care (01) ==
LOC: MTLAB 08:59
PROVIDERS: PCP Family Medicine; Referring Provider Family Medicine; Visit Provider Family Medicine
DX: R53.83 Other fatigue (principal)
CPT/HCPCS: 36415; 84403; 84443; 85025

== ENCOUNTER → 2025-03-20 | Outpatient (CLI) | payer OTHER, SELFPAY ==
[2017-06-01 11:55] VITALS: BMI 26.2
== END | disposition home or self-care (01) ==
LOC: SL 13:17
PROVIDERS: PCP Family Medicine; Visit Provider Nurse Practitioner Family
DX: G47.10 Hypersomnia, unspecified (principal)
CPT/HCPCS: 95806